=== PATIENT | female | born 1940 | race Caucasian/White ===

== ENCOUNTER 2016-04-27 06:37 | Day surgery (SDC) | payer OTHER ==
[2016-04-27] MEDS ORDERED: ceFAZolin 2 GM/DEXTROSE 100 ML IV ONE (07:00)
[2016-04-27] MEDS ORDERED: BUPIVACAINE 0.5% 30 ML SDV ONE (07:05)
[2016-04-27] MEDS ORDERED: LIDOCAINE 1% 30 ML SDV ONE (07:05)
[2016-04-27] MEDS ORDERED: SODIUM BICARBONATE 10 MEQ/10 ML SYR IVP ONE (07:05)
[2016-04-27] MEDS ORDERED: LIDOCAINE 1% 5 ML SDV ONE (07:21)
[2016-04-27] MEDS ORDERED: PROPOFOL 200 MG/20 ML VIAL ONE (08:58)
[2016-04-27] MEDS ORDERED: fentaNYL 100 MCG/2 ML INJ ONE (08:58)
[2016-04-27] MEDS ORDERED: LIDOCAINE 2% 100 MG/5 ML SYR IVP ONE (09:00)
[2016-04-27] MEDS ORDERED: PHENYLEPHRINE HCL 100 MCG/ML SYR ONE (09:41)
[2016-04-27] MEDS ORDERED: ONDANSETRON 4 MG/2 ML VIAL ONE (09:47)
[2016-04-27] MEDS ORDERED: DEXAMETHASONE 4 MG/ML VIAL ONE (09:48)
--- NOTE | 2016-04-27 11:09 | DX ---
Portable Chest, Single View 10:43 a.m. Indication: Port placement. Comparison: Two-view chest dated January 17, 2012 Findings: A left anterior chest wall port is well-positioned with the tip at the right atrial superio r vena caval junction. No pneumothorax or interstitial edema. Linear atelectasis in the left base and bilateral midlung is new. Cardiomegaly, tortuous descending thoracic aorta, and diffuse peribronchi al thickening are unchanged. Impression: 1. New well-positioned port. No pneumothorax. 2. New minimal atelectasis.
[2016-04-27 11:16] LABS: CALCIUM 10.1 ng/dL (8.5-10.4); CREATININE 0.8 mg/dL (0.6-1.0)
[2016-04-27 11:28] LABS: PTH INTACT NO MINERALS 63.3 pg/ml (10.8-79.4)
--- NOTE | 2016-04-27 11:28 | GOP ---
[f rep st] OPERATIVE REPORT DATE OF OPERATION: 04/27/2016 SURGEON: Abimael Dowell MD PREOPERATIVE DIAGNOSIS: Esophageal cancer. POSTOPERATIVE DIAGNOSIS: Esophageal cancer. PROCEDURE PERFORMED: Left subclavian port placement with fluoroscopic guidance. FINDINGS: The patient was found in good position and good flow of the catheter. DESCRIPTION OF PROCEDURE: The patient was taken to the operating room where she received satisfactor y general laryngeal mask anesthesia by Dr. Gibson, placed in supine position, prepped and draped in [facility] sterile fashion. She was then placed in Trendelenburg. A single stick was made in the left subc lavian vein. A guidewire was introduced. Position was confirmed with fluoroscopy. A subcu pocket w as made in the 2nd intercostal space. Port tubing was passed from that pocket to the subclavian inse rtion site, trimmed to the appropriate length using fluoroscopic guidance, and introduced through the introducer sheath and dilator system into the right atrium. Good backflow was achieved. The cathet er was flushed with heparin and saline. The port was secured to the fascia with 3-0 Vicryl. The poc ket was closed with 3-0 Vicryl for the subcu and a 4-0 Prolene subcuticular stitch for the skin. The entrance site was closed with a Prolene mattress suture. The wound was dressed. She tolerated the procedure well, taken to the recovery room in good condition. There were no complications. Copy requested to: Dr. Gibson /[id number]/MODL
== END 2016-04-27 12:00 | disposition home or self-care (01) ==
LOC: FSGY 06:37
PROVIDERS: ATTEND Surgery
PROC: 0JH60XZ Insertion of Tunneled Vascular Access Device into Chest Subcutaneous Tissue and Fascia, Open Approach (ICD-10-PCS; principal; 2016-04-27 09:15)
PROC: 02HV33Z Insertion of Infusion Device into Superior Vena Cava, Percutaneous Approach (ICD-10-PCS; principal; 2016-04-27 09:15)
DX: C15.4 Malignant neoplasm of middle third of esophagus (principal); I10 Essential (primary) hypertension; G47.33 Obstructive sleep apnea (adult) (pediatric)
CPT/HCPCS: C1788; J0690; J1100; J2001; J2370; J2405; J2704; J3010

== ENCOUNTER 2016-05-31 00:17 | Emergency (ER) | payer OTHER ==
[2016-05-31] MEDS ORDERED: ALTEPLASE 100 MG/100 ML VIAL IV ONE ×2 (00:34→00:41)
--- NOTE | 2016-05-31 00:34 | EDPHY ---
H & P Time Seen by Provider: 05/31/16 00:18 HPI/ROS: HPI Right-sided weakness. Stroke alert. 75-year-old female from home by ambulance. Patient getting ready for bed at 10: 00 p.m. when she developed sudden-onset complete paralysis of her right upper extremity and right lower extremity. Time of onset of neurologic deficit 10:00 p.m.. No headache. Blood glucose 126 per EMS. On arrival she now has some motor function in the right upper and right lower extremity but significant generalized weakness in both extremities relative to her left side. ROS: Constitutional: No fever, no chills. No weakness. Eyes: No discharge. No changes in vision. ENT: No sore throat. No nasal congestion or rhinorrhea. Respiratory: No cough. No shortness of breath. Cardiac: No chest pain, no palpitations. Gastrointestinal: No abdominal pain, no vomiting, no diarrhea. Genitourinary: No hematuria. No dysuria or increased frequency with urination. Musculoskeletal: No back pain. No neck pain. No myalgias or arthralgias. Skin: No rashes. Neurological: No headache. As above. Past medical history: Hypertension, hyperlipidemia, esophageal cancer. She is not on antiplatelet or anticoagulant medications. She has no history of recent surgeries or coagulopathy. Social history: Lives with her . Nonsmoker. Nonalcohol. Physical Exam: General Appearance: Alert, no distress. This patient is responding to questions appropriately and in full sentences. This patient appears well- hydrated and well-nourished. Eyes: Pupils equal and round no pallor or injection. No lid edema, erythema or injection. ENT, Mouth: Mucous membranes are moist. The pharyngeal tissues are unremarkable. No edema or swelling. No asymmetry suggestive of abscess. No erythema or exudates. Respiratory: There are no retractions, lungs are clear to auscultation with good air movement bilaterally. Cardiovascular: Regular rate and rhythm. No murmur. Gastrointestinal: Abdomen is soft and nontender, no masses, bowel sounds normal. No focal tenderness at McBurney's point. No Borja sign. Neurological: Motor weakness right upper extremity and right lower extremity 2- 3/5 relative to left 5/5 motor strength. Cranial nerves normal. Skin: Warm and dry, no rashes. Musculoskeletal: Neck is supple and nontender. Extremities are symmetrical. All joints range without pain or impingement. Psychiatric: No agitation. No depression. Database: EKG: EKG time is 12:37 a.m.; EKG shows a narrow complex normal sinus rhythm with a ventricular rate of 84. The MA, QRS, QT intervals are within normal limits. There are no ST-T wave changes indicative of ischemic or injury pattern. No evidence of right heart strain. Interpreted by me. Imaging: CT scan of head without contrast: Negative. Results discussed with staff radiologist Dr. Nelson Parks. CTA of head neck: Significant for complete occlusion of the right ICA bifurcation to the morongo of [place]. Results were discussed with staff radiologist Dr. Nelson Parks. Procedures: Emergency department course: Vital signs reviewed. Patient assessed initially outside resuscitation [place] room 1. Patient sent for noncontrast CT scan of her head. Spoke with Dr. Thomason, [facility] at [facility]. Patient returned from CT at 12:30 a.m.. No change in neurologic status. Dr. Thomason evaluated her by telemedicine at this time. Results of noncontrast CT scan of brain discussed with Dr. Thomason. Dr. Thomason gave verbal order for tPA to be administered at 12: 45 a.m.. This order was filled by myself. TPA started at 12:45 a.m.. 12:50 a.m., I was informed that we do not have ICU beds. I spoke with Dr. Thomason. He accepts the patient for transfer and as a direct admit to the neuro ICU at [facility]. Appropriate transfer paperwork was filled out by myself. Estimated time of transport 1:40 a.m.. Patient to go critical care ground as requested by Dr. Thomason and arranged by [facility] staff. 1:17 a.m., patient re-evaluated. Repeat neurologic Assessment, her motor strength in her right upper right lower extremity has improved significantly. She is now 4-5/5 in motor strength in the right upper and right lower extremity relative to the left. Cranial nerves normal. Vital signs reviewed blood pressure: 122/72, tobacco flavorer shows a narrow complex sinus rhythm with ventricular rate of 81. Pulse oximetry 94%. Patient is awaiting transfer to [facility]. Results of diagnostic studies have been discussed with her and her . 1:35 a.m., patient's blood pressure came down to 95/52. She was given a 250 cc bolus of normal saline. TPA administration is completed. 1:45 a.m., patient re-evaluated, blood pressure 119/59. Narrow complex sinus rhythm on the monitor. Pulse oximetry 95%. Repeat neurologic Assessment unchanged from 1:17 a.m. assessment. 1:50 a.m., blood pressure 145/69, narrow complex sinus rhythm ventricular rate of 78 on the monitor. Pulse oximetry 95%. Patient responding to questions appropriately. All of her questions were answered. Critical care transport crew at the bedside. Repeat neurologic Assessment unchanged from 1:17 a.m.. Patient transferred to [facility] in stable and improved condition. Differential Diagnosis: The differential diagnosis on this patient includes but is not limited to acute ischemic CVA. Hemorrhagic CVA, hypoglycemia, Jeff's paralysis, hypokalemic periodic paralysis, tick paralysis unlikely. This represents a partial list of diagnoses considered. These considerations are based on history, physical exam , past history, reassessment and diagnostic testing. Smoking Status: Never smoked Constitutional: Initial Vital Signs Temperature (C) 36.8 C 05/31/16 00:20 Heart Rate 89 05/31/16 00:20 Respiratory Rate 20 05/31/16 00:20 Blood Pressure 137/89 H 05/31/16 00:20 O2 Sat (%) 90 L 05/31/16 00:20 O2 Delivery Mode Room Air Allergies/Adverse Reactions: No Known Allergies Allergy (Verified 04/26/16 17:02) Home Medications: Medication Instructions Recorded Anastrozole 04/26/16 Aspirin 81mg (*) 04/26/16 Atenolol 04/26/16 Furosemide 04/26/16 Losartan Potassium 04/26/16 Spironolactone 04/26/16 Prochlorperazine Maleate 05/31/16 Medical Decision Making Critical Care Time: I spent a total of 52 minutes of critical care time in obtaining history, performing a physical exam, bedside monitoring of interventions, collecting and interpreting tests and discussion with consultants but not including time spent performing procedures. - Data Points Laboratory Results: Laboratory Results 05/31/16 00:15 05/31/16 00:15 05/31/16 05/31/16 05/31/16 00:38 00:15 00:15 WBC RBC Hgb POC Hgb 12.9 gm/dL gm/dL (12.3-15.9) Hct POC Hct 38 % % (35.5-47.5) MCV MCH MCHC RDW Plt Count MPV Neut % (Auto) Lymph % (Auto) [place] % (Auto) Eos % (Auto) Baso % (Auto) Nucleat RBC Rel Count Absolute Neuts (auto) Absolute Lymphs (auto) Absolute Monos (auto) Absolute Eos (auto) Absolute Basos (auto) Absolute Nucleated RBC Immature Gran % Seg Neutrophils % Band Neutrophils % Lymphocytes % Monocytes % Immature Gran # Absolute Seg Neuts Absolute Band Neuts Absolute Lymphocytes Absolute Monocytes Differential Comment Cancelled RBC/WBC/PLT Morphology Cancelled Hypersegmented Neuts Cancelled Atypical Lymphocytes Cancelled Smudge Cells Cancelled Toxic Granulation Cancelled Toxic Vacuolation Cancelled Dohle Bodies Cancelled Thierno Rods Cancelled Platelet Estimate Cancelled Large Platelets Cancelled Giant Platelets Cancelled Bizarre Platelets Cancelled Polychromasia Cancelled Hypochromasia Cancelled Basophilic Stippling Cancelled Microcytic Cells Cancelled Spherocytes Cancelled Pappenheimer Bodies Cancelled Sickle Cells Cancelled Target Cells Cancelled Tear Drop Cells Cancelled Oval Macrocytes Cancelled Stomatocytes Cancelled [place] Bodies Cancelled Echinocytes Cancelled Elliptocytes Cancelled Acanthocytes (Spur) Cancelled Rouleaux Cancelled Keratocytes Cancelled Schistocytes Cancelled Smear Review By PT INR POC Sodium 143 mEq/L mEq/L (134-144) Sodium 145 mEq/L H mEq/L (134-144) POC Potassium 3.4 mEq/L mEq/L (3.3-5.0) Potassium 4.2 mEq/L mEq/L (3.5-5.2) POC Chloride 104 mEq/L mEq/L (96-108) Chloride 108 mEq/L mEq/L (97-110) Carbon Dioxide 26 mEq/l mEq/l (22-31) Anion Gap 11 mEq/L mEq/L (8-16) POC BUN 13 mg/dL mg/dL (7-23) BUN 15 mg/dL mg/dL (7-23) Creatinine 1.0 mg/dL mg/dL (0.6-1.0) POC Creatinine 1.1 mg/dL mg/dL (0.6-1.2) Estimated GFR 54 Glucose 114 mg/dL H mg/dL (70-100) POC Glucose 113 mg/dL H mg/dL (70-100) Calcium 10.8 mg/dL H mg/dL (8.5-10.4) Phosphorus 2.6 mg/dL mg/dL (2.5-4.5) Cold Agglutinins Cancelled 05/31/16 05/31/16 00:15 00:15 WBC 4.40 10^3/uL 10^3/uL (3.80-9.50) RBC 4.55 10^6/uL 10^6/uL (4.18-5.33) Hgb 12.7 g/dL g/dL (12.6-16.3) POC Hgb Hct 40.3 % % (38.0-47.0) POC Hct MCV 88.6 fL fL (81.5-99.8) MCH 27.9 pg pg (27.9-34.1) MCHC 31.5 g/dL L g/dL (32.4-36.7) RDW 20.9 % H % (11.5-15.2) Plt Count 237 10^3/uL 10^3/uL (150-400) MPV 9.0 fL fL (8.7-11.7) Neut % (Auto) Not Reported Lymph % (Auto) Not Reported [place] % (Auto) Not Reported Eos % (Auto) Not Reported Baso % (Auto) Not Reported Nucleat RBC Rel Count 0.0 % % (0.0-0.2) Absolute Neuts (auto) Not Reported Absolute Lymphs (auto) Not Reported Absolute Monos (auto) Not Reported Absolute Eos (auto) Not Reported Absolute Basos (auto) Not Reported Absolute Nucleated RBC 0.00 10^3/uL 10^3/uL (0-0.01) Immature Gran % Not Reported Seg Neutrophils % 15 % % Band Neutrophils % 5 % % Lymphocytes % 55 % % Monocytes % 25 % % Immature Gran # Not Reported Absolute Seg Neuts 0.66 10^/uL L 10^/uL (1.70-6.50) Absolute Band Neuts 0.22 10^3/uL 10^3/uL (0.00-0.70) Absolute Lymphocytes 2.42 10^3/uL 10^3/uL (1.00-3.00) Absolute Monocytes 1.10 10^3/uL H 10^3/uL (0.30-0.80) Differential Comment RBC/WBC/PLT Morphology Hypersegmented Neuts Atypical Lymphocytes 1+ H Smudge Cells Toxic Granulation Toxic Vacuolation Dohle Bodies Thierno Rods Platelet Estimate ADEQUATE (ADEQ) Large Platelets Giant Platelets Bizarre Platelets Polychromasia Hypochromasia Basophilic Stippling Microcytic Cells 1+ H Spherocytes Pappenheimer Bodies Sickle Cells Target Cells Tear Drop Cells Oval Macrocytes Stomatocytes [place] Ver[place] Bodies Echinocytes Elliptocytes Acanthocytes (Spur) Rouleaux Keratocytes Schistocytes Smear Review By Pending PT 13.8 SEC SEC (12.0-15.0) INR 1.07 (0.83-1.16) POC Sodium Sodium POC Potassium Potassium POC Chloride Chloride Carbon Dioxide Anion Gap POC BUN BUN Creatinine POC Creatinine Estimated GFR Glucose POC Glucose Calcium Phosphorus Cold Agglutinins Medications Given: Discontinued Medications Alteplase, Recombinant (Activase) 0 mg IV ONCE ONE PRN Reason: Protocol Stop: 05/31/16 00:42 Last Admin: 05/31/16 00:44 Dose: 8.6 mg Alteplase, Recombinant (Activase) 0 mg IV ONCE ONE PRN Reason: Protocol Stop: 05/31/16 00:42 Last Admin: 05/31/16 00:46 Dose: 77.8 mg Sodium Chloride (Ns) 50 mls @ 0 mls/hr IV EDNOW ONE PRN Reason: Per Protocol Stop: 05/31/16 00:42 Last Admin: 05/31/16 00:46 Dose: 50 mls Point of Care Test Results: 05/31/16 00:38 POC Sodium 143 POC Potassium 3.4 POC Chloride 104 POC BUN 13 POC Creatinine 1.1 POC Glucose 113 H Departure - Departure Disposition: Acute Care Hospital Not [facility] 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
[2016-05-31] MEDS ORDERED: NS 100 ML BAG IV ONE (00:35)
--- NOTE | 2016-05-31 00:39 | CPEKG ---
Heart Rate: 84 RR Interval: 714 P-R Interval: 172 QRSD Interval: 106 QT Interval: 408 QTC Interval: 483 P [place]: 61 QRS [place]: -22 T Wave [place]: 26 EKG Severity - ABNORMAL ECG - EKG Impression: SINUS RHYTHM EKG Impression: LEFT ATRIAL ABNORMALITY Electronically Signed By: Arthur Moreno 31-May-2016 02:03:14
[2016-05-31] MEDS ORDERED: NS 50 ML IV ONE (00:41)
[2016-05-31] MEDS ORDERED: ALTEPLASE 1 MG/ML SYR IV ONE (00:41)
[2016-05-31] MEDS ORDERED: IOPAMIDOL (ISOVUE-370) 150 ML BTL IV ONE (00:43)
[2016-05-31 00:54] LABS: ANION GAP 11 mEq/L (8-16); CALCIUM 10.8 mg/dL (8.5-10.4); CARBON DIOXIDE 26 mEq/l (22-31); CHLORIDE 108 mEq/L (97-110); GLOMERULAR FILTRATION RATE 54; GLUCOSE 114 mg/dL (70-100); POTASSIUM 4.2 mEq/L (3.5-5.2); SODIUM 145 mEq/L (134-144)
[2016-05-31 00:57] LABS: ADD DIFF? YES; ADD MORPH? YES; ADD SCAN? NO; ATYPICAL LYMPHOCYTE FLAG 30 (0-99); FRAGMENT RBC FLAG 0 (0-99); HEMATOCRIT 40.3 % (38.0-47.0); HEMOGLOBIN 12.7 g/dL (12.6-16.3); LEFT SHIFT FLG 40 (0-99); LIPEMIA HEMOLYSIS FLAG 80 (0-99); MEAN CELL HEMOGLOBIN 27.9 pg (27.9-34.1); MEAN CELL HEMOGLOBIN CONCENTR. 31.5 g/dL (32.4-36.7); MEAN CELL VOLUME 88.6 fL (81.5-99.8); PLATELET CLUMPS FLAG 0 (0-99); PLATELET COUNT 237 10^3/uL (150-400); RED BLOOD CELL COUNT 4.55 10^6/uL (4.18-5.33)
[2016-05-31 00:58] LABS: RED CELL DISTRIBUTION WIDTH 20.9 % (11.5-15.2)
[2016-05-31 01:14] LABS: INR 1.07 (0.83-1.16); PROTIME(PATIENT) 13.8 SEC (12.0-15.0)
[2016-05-31 01:18] VITALS: TEMP 98.2
[2016-05-31 01:23] LABS: MICROCYTES 1+; PLATELET ESTIMATE ADEQUATE (ADEQ)
[2016-05-31] MEDS ORDERED: NS 250 ML IV ONE (01:30)
[2016-05-31 02:19] VITALS: BP 145/69; PULSE 88; RESP 18; O2SAT 94
== END 2016-05-31 02:15 | disposition short-term general hospital (02) ==
LOC: EDUNIT#
DX: I63.9 Cerebral infarction, unspecified (principal); I10 Essential (primary) hypertension; Z85.01 Personal history of malignant neoplasm of esophagus; Z79.82 Long term (current) use of aspirin
CPT/HCPCS: 70450; 70496; 70498; 71010; 93005; 96374; 99291; J2997; Q9967; 82947-QW

== ENCOUNTER 2016-06-05 11:31 | Inpatient (IN) | payer OTHER ==
[2016-06-05] MEDS ORDERED: ONDANSETRON 4 MG/2 ML VIAL IVP ONE (12:54)
--- NOTE | 2016-06-05 13:40 | EDPHY ---
General - History Smoking Status: Never smoked Narrative: CHIEF COMPLAINT: Fall, arm pain HISTORY OF PRESENT ILLNESS: patient was getting out of her bed to grab her walker when she felt very weak and fell. She reports striking her right humerus. She did not strike her head or lose conscious. She did not strike her back, left arm or either leg. Her spouse was with her and witness this. He corroborates this information. Had a sudden onset of severe pain on the right arm involving the brachium. There is also swelling and redness. Difficulty moving that arm due to pain. No numbness or tingling distally. No neck pain. No pain anywhere else from the fall. No other associated complaints or modifying factors. Of note, the patient was being taken back to the [facility] to have her port de accessed. She is currently receiving chemotherapy and last received this 2 days ago. Additionally, the patient was diagnosed with stroke on the 7th of this month and administer tPA. REVIEW OF SYSTEMS: Ten systems reviewed and are negative unless otherwise noted in the HPI EXAMINATION General Appearance: Alert, no distress Head: normocephalic, atraumatic . No Lim sign. No raccoon eyes. No hematoma. No depression. Eyes: Pupils equal and round, no conjunctival pallor or injection ENT, Mouth: Mucous membranes moist . Uvula midline. Neck: Normal inspection . No tenderness. [id number] is symmetric in all planes without pain. Respiratory: No dyspnea or retractions. No distress . No wheezing, rhonchi or crackles. Cardiovascular: Pulses normal throughout. Symmetric DP and PT pulses at 2+. Symmetric radial pulses are 2+. Brisk cap refill Neurological: Alert and oriented. There is decreased sensation on the left arm which is baseline from chemo. Right upper extremity no sensory deficits. Strength is 5/5 in the lower limbs. strength is 4 5 in the left upper extremity and 4 5 in the right upper extremity. Skin: Warm and dry, no rash . Ecchymosis and edema to the right brachium anteriorly. Extremities: Significant tenderness to palpation of the right brachium. There is no tenderness about the right shoulder, elbow, wrist or hand. Range of motion about the shoulder is difficult to ascertain due to pain the brachium. Range of motion of the right elbow and wrist fully intact. Neurovascular intact distal to the area of injury Psychiatric: Mood and affect normal DIFFERENTIAL DIAGNOSES: Including but not limited to fracture, fracture dislocation, hematoma, contusion, ecchymosis MDM: 1:05 p.m. fall due to weakness within result of right upper extremity injury. She does have significant pain and signs of trauma to the right brachium. There are no signs of trauma elsewhere. Did not strike her head nor did she have any headache. There is no loss of conscious. No outward signs of trauma elsewhere. 1:45 p.m. x-ray reveals fracture at the surgical neck with displacement of the right humerus. No other abnormality noted on chest x-ray or right humerus. I went back to re-examine the patient, her heart rate was approximately 120 beats per minute. I palpate a radial pulse and she does feel to be irregular. She is hemodynamically stable with no hypotension. Will obtain an EKG and laboratory studies. Due to the fracture and the fact that she was already using a walker, I feel she is unsafe for discharge home. I will proceed with admission for rehab evaluation. Patient is neurovascular intact distal to this right humerus fracture and no acute distress at this time. 2:10 p.m. EKG does reveal atrial fibrillation with RVR. She is normotensive mentating appropriately. I originally discussed the case with Dr. Kerry Montiel for admission. After doing so the 1st time, I added diltiazem drip. I contacted her again to notify her of this. She is requesting that we consult Cardiology as this appears to be new onset atrial fibrillation in a patient who had a stroke 5 days ago. There is no documentation otherwise she has been in atrial fibrillation before, and she is not on any anticoagulants. We will not proceed with cardioversion at this time as we do not know the exact time of onset of her AFib, but we will attempt rate control 2:25 p.m. I discussed the case with managing supervisor Dr. Saldaña. He will provide consultation. He asked if there was an echocardiogram available from [facility], and we have yet to receive their fax. I did check on line in [facility], and there is no documentation of that visit. ED Precautions: Worsening pain. Erythema, edema, cyanosis, pallor, paresthesia or anesthesia. EKG Interpreted by: Dr. Parmar rate is 130 beats per minute, atrial fibrillation with rapid ventricular rate. No ST depression or elevation. No T-wave is inverted. SUPERVISION: This patient was independently evaluated without the aide of supervising physician. Case discussed in detail with Dr. Parmar ([facility]) Medical Decision Making: I did not see this patient while she was in the emergency department. However her care was discussed with the PA while the patient was in the department. I agree with treatment plan and management (Mike Parmar) - Objective Vital Signs: Initial Vital Signs Temperature (C) 36.8 C 06/05/16 11:42 Heart Rate 110 H 06/05/16 11:42 Respiratory Rate 18 06/05/16 11:42 Blood Pressure 153/82 H 06/05/16 11:42 O2 Sat (%) 96 06/05/16 11:42 O2 Delivery Mode Room Air Allergies/Adverse Reactions: No Known Allergies Allergy (Verified 04/26/16 17:02) Home Medications: Medication Instructions Recorded Anastrozole [Arimidex 1 mg (*)] 1 mg PO DAILY 06/05/16 Aspirin EC [Aspirin EC 81 mg (*)] 81 mg PO DAILY 06/05/16 Herbals/Supplements -Info Only 1 ea PO DAILY 06/05/16 Laboratory Results: Laboratory Results 06/05/16 13:50 06/05/16 13:50 Medications Given: Discontinued Medications Diltiazem HCl (Cardizem Immediate Release) 30 mg PO EDNOW ONE Stop: 06/05/16 13:50 Last Admin: 06/05/16 14:43 Dose: Not Given Diltiazem HCl (Cardizem 25 Mg/5 Ml Vial) 10 mg IVP EDNOW ONE Stop: 06/05/16 13:50 Last Admin: 06/05/16 14:01 Dose: 10 mg Diltiazem HCl 125 mg/ Dextrose 125 mls @ 0 mls/hr IV EDNOW ONE; Titrate PRN Reason: Protocol Stop: 06/05/16 14:01 Last Admin: 06/05/16 14:19 Dose: 125 mls Morphine Sulfate (Morphine) 4 mg IVP EDNOW ONE Stop: 06/05/16 12:55 Last Admin: 06/05/16 13:07 Dose: 4 mg Ondansetron HCl (Zofran) 4 mg IVP EDNOW ONE Stop: 06/05/16 12:55 Last Admin: 06/05/16 13:07 Dose: 4 mg Departure - Departure Disposition: [facility] Clinical Impression: Humerus fracture Qualifiers: Encounter type: initial encounter Humerus Location: proximal Fracture type: closed Fracture morphology: other fracture Fracture alignment: displaced Laterality: right Qualified Code(s): S42.291A - Other displaced fracture of upper end of right humerus, initial encounter for closed fracture Condition: Good
--- NOTE | 2016-06-05 13:46 | CPEKG ---
Heart Rate: 138 RR Interval: 435 QRSD Interval: 82 QT Interval: 316 QTC Interval: 479 QRS [place]: -22 EKG Severity - ABNORMAL ECG - EKG Impression: ATRIAL FIBRILLATION, V-RATE 72-183 EKG Impression: BORDERLINE LEFT AXIS DEVIATION Electronically Signed By: Mike Parmar 05-Jun-2016 15:20:02
[2016-06-05] MEDS ORDERED: DILTIAZEM 30 MG TAB PO ONE (13:49)
[2016-06-05] MEDS ORDERED: DILTIAZEM 25 MG/5 ML VIAL IVP ONE (13:49)
[2016-06-05] MEDS ORDERED: DILTIAZEM 125 MG in D5W 125 ML IV ONE (14:00)
[2016-06-05 14:06] LABS: HEMATOCRIT 33.8 % (38.0-47.0); HEMOGLOBIN 10.9 g/dL (12.6-16.3); MEAN CELL HEMOGLOBIN 28.5 pg (27.9-34.1); MEAN CELL HEMOGLOBIN CONCENTR. 32.2 g/dL (32.4-36.7); MEAN CELL VOLUME 88.5 fL (81.5-99.8); RED BLOOD CELL COUNT 3.82 10^6/uL (4.18-5.33)
[2016-06-05 14:10] LABS: RED CELL DISTRIBUTION WIDTH 21.2 % (11.5-15.2)
[2016-06-05 14:13] LABS: ANION GAP 8 mEq/L (8-16); CALCIUM 10.3 mg/dL (8.5-10.4); CARBON DIOXIDE 22 mEq/l (22-31); CHLORIDE 110 mEq/L (97-110); CREATININE 0.8 mg/dL (0.6-1.0); GLOMERULAR FILTRATION RATE > 60; GLUCOSE 127 mg/dL (70-100); SODIUM 140 mEq/L (134-144)
[2016-06-05 14:28] LABS: TROPONIN I 0.045 ng/mL (0-0.034)
[2016-06-05 14:35] LABS: INR 1.12 (0.83-1.16); PROTIME(PATIENT) 14.3 SEC (12.0-15.0)
[2016-06-05 14:36] LABS: APTT 35.7 SEC (23.0-38.0)
[2016-06-05] MEDS ORDERED: HYDROmorphONE/DILAUDID 1 MG/ML SYR IVP PRN (15:05)
[2016-06-05] MEDS ORDERED: ACETAMINOPHEN 325 MG TAB PO PRN (15:05)
[2016-06-05] MEDS ORDERED: ONDANSETRON 4 MG/2 ML VIAL IVP PRN (15:05)
[2016-06-05] MEDS ORDERED: HYDROCODONE/APAP 5/325 TAB PO PRN (15:05)
[2016-06-05] MEDS ORDERED: DILTIAZEM 125 MG in D5W 125 ML IV SCH (15:30)
--- NOTE | 2016-06-05 16:32 | GHP ---
[f rep st] HISTORY AND PHYSICAL DATE OF ADMISSION: 06/05/2016 CHIEF COMPLAINT: Right arm pain. HISTORY OF PRESENT ILLNESS: The patient is a very nice 75-year-old woman with a history significant for recent stroke. She had right-sided weakness, presented to the emergency department here, and w as transferred to [facility], and treated with tPA with excellent resolution of her symptoms, except for some residual right-hand numbness, and she still needs a walker for ambulation. At the [facility], she did have an MRI without contrast that showed multifocal bilateral strokes. She had an echocardiogram, which was benign. They have monitored her in the hospital for 4 days, and d id not note any evidence of atrial fibrillation, and were planning on having her follow up for a Hol ter monitor as an outpatient. She had been doing well. 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 When s he got up this morning, she went to grab her walker. She said her right hand felt extremely cold wh en she grabbed the walker, and she ended up falling onto her right side sustaining severe pain in th at arm. She went to [facility] to get her chemotherapy infusion discontinued, and then came to the emergency department for further evaluation and treatment. She had an x-ray done, which showed an acute displaced and angulated three-piece right surgical neck fracture. Dr. Vega has been consulted, but has not yet seen the patient. While awaiting admission for this issue, her heart rate increased, and she was noted to be in rapid atrial fibrillation. She has been completel y asymptomatic of this, and denies any chest pain, palpitations, dizziness, or shortness of breath a t this time. She otherwise has been well. She denies any fevers, chills, recent illnesses. Her ri ght-sided deficits have improved significantly. She has had no headache, vision, hearing, speech ch anges. She has had no abdominal complaints, nausea, vomiting, urinary complaints, bowel changes. N o lower extremity edema. REVIEW OF SYSTEMS: A 10-point review of systems was done, and is negative except as stated in the H PI. PAST MEDICAL HISTORY: 1. Recent CVA, with right-sided weakness, status post tPA on 05/31/2016. 2. Esophageal cancer, status post cycle 4 of FOLFOX chemo, followed by Dr. Paulnie Sheffield. 3. History of breast cancer. 4. Hypertension. 5. GE reflux disease. 6. Prediabetes. 7. Elevated creatinine. 8. Hyperparathyroidism. 9. Obstructive sleep apnea. 10. Arthritis. PAST SURGICAL HISTORY: Includes appendectomy, arthroscopic knee surgery, cataract, lumpectomy, part ial mastectomy of left breast. FAMILY HISTORY: Significant for strokes in her father at age 47, stomach cancer in her mother, who at age 75. SOCIAL HISTORY: She is . Her and her live in their small home. She is independent and still drives, at least prior to her stroke. She denies significant alcohol or tobacco use. CURRENT MEDICATIONS: Include aspirin daily, and Arimidex 1 mg daily. ALLERGIES: No known drug allergies. PHYSICAL EXAMINATION: VITAL SIGNS: She is afebrile. Heart rate is 126 and irregular. Blood press ure 120/78, respirations 16. She is 96% on room air. GENERAL: She is an obese 75-year-old woman w ho is in [id number] distress due to arm pain. She is alert and oriented. Her speech is clear and fluent. HEENT: Pupils are equal. Extraocular movements intact. Mucous membranes moist. Fac e is symmetric. NECK: Supple. No adenopathy. No thyromegaly. HEART: Irregular and tachycardic. LUNGS: Clear bilaterally. ABDOMEN: Soft, obese, no masses, nontender. EXTREMITIES: No signifi cant clubbing, cyanosis, or edema. Right upper extremities: Large ecchymosis just distal to her sh oulder with pain. Skin otherwise intact. No other bruising noted. NEUROLOGIC: She has some numbn ess on her right hand, but moves all 4 extremities. Speech is fluent. No facial droop. LABORATORY DATA: White count 12.4, hemoglobin 10, with a platelet count of 185. Coags are normal. Chemistry shows normal electrolytes and renal function. Glucose slightly elevated at 127. Troponi n 0.045. TSH is normal. Electrocardiogram shows atrial fibrillation, with a rapid ventricular resp onse. Humerus x-ray shows acute displaced and angulated three-piece right surgical neck fracture. Chest x-ray, personally reviewed and interpreted, minimal left atelectasis, otherwise no acute cardi opulmonary disease. ASSESSMENT AND PLAN: A 75-year-old woman presents after a fall with an acute right humeral neck fra cture. She has since converted into asymptomatic rapid atrial fibrillation. 1. Atrial fibrillation, with rapid ventricular response, in the setting of recent acute stroke, sta tus post tPA. She has had an MRI which showed multifocal bilateral strokes. This is all consistent with atrial fibrillation, and likely cardiogenic strokes. Ideally, she should be put on a blood th inner. However, given her large ecchymosis forming at the site of her fracture, I am reluctant to d o that without stabilization of this. I did discuss the case in detail with Dr. Juanito Saldaña. At this time, we will get her rate controlled with diltiazem, continue aspirin, and consider SANDY cardio version in the morning if she has no further clots in her heart. Unfortunately, she has a history o f distal esophageal carcinoma, which may make a SANDY difficult. 2. Right humeral neck fracture, displaced. I have discussed the case with Dr. Emanuel Vega, who w ill see her in consultation. She has a lot of bleeding at this site, and we will hold off on antico agulation at this time, and will manage her with immobilization until Dr. Vega can comment on surg ical evaluation, which seems unlikely in the setting of her acute stroke. However, if she continues to bleed, would need to reconsider that. 3. Recent cerebrovascular accident. 4. Occluded right carotid artery, with flow through the ramona of [place] noted on her recent stroke evaluation, and CTA done here in the hospital. Her stroke symptoms are on the right, so this is li salima an asymptomatic finding at this time, and she is getting collateral flow to the ramona of Willi s. 5. History of esophageal cancer. Currently on FOLFOX therapy followed by Dr. Pauline Sheffield. I do no t know how much stenosis she has in that area, and may not tolerate a SANDY. This will make ongoing m anagement difficult. 6. History of breast cancer. She is currently on Arimidex. 7. Hypertension. Recently discontinued on her atenolol, Lasix, losartan, and spironolactone due to her stroke. She was likely normotensive to hypotensive at the hospital, and they discontinued all of her medications at the time she left. 8. History of hyperparathyroidism. 9. Hyperlipidemia, with the most recent LDL less than 70. 10. Obesity. 11. Obstructive sleep apnea. 12. Prediabetes. We will monitor blood sugars while she is here. They have been reasonable so far . 13. Deep vein thrombosis prophylaxis. We will monitor. We will start her on low-molecular heparin tomorrow if she is not an anticoagulant candidate due to her fracture. 14. Anemia, fairly stable. We will continue to monitor this, in light of her large ecchymosis at h er fracture site. /[id number]/MODL
--- NOTE | 2016-06-05 16:47 | GCON ---
[f rep st] CONSULTATION REASON FOR CONSULTATION: Right shoulder injury. HISTORY OF PRESENT ILLNESS: Patient is a 75-year-old right-hand dominant woman who sustained a fall on her right outstretched arm. She noted the right shoulder pain and swelling. PAST MEDICAL HISTORY: Positive for a recent stroke 5 days ago. It was additionally positive for es ophageal cancer. PHYSICAL EXAMINATION: On examination, there is diffuse swelling and tenderness in her right anterio r shoulder girdle. Her distal neurovascular exam is grossly intact in radial, ulnar, and median ner ve distributions. Her hand is well perfused. IMAGING: Radiographs of her shoulder show evidence of a displaced surgical neck fracture of the hum erus. ASSESSMENT: Right proximal humerus fracture. PLAN: It is recommended that an initial course of nonoperative treatment be pursued with allowing h er right upper extremity to be held in a dependent position in hopes that this allows for better ali gnment of her fracture and potential healing. Her medical condition at this point, precludes any "e lective" type surgery based on a recent stroke and need for anticoagulation. If surgery were to be considered, a percutaneous pinning may be considered in hopes of avoiding any notable bleeding. Andrea t being said, if surgical intervention is not performed and she has nonhealing, prosthetic shoulder hemiarthroplasty would be an option from a salvage standpoint when she is a safer candidate for surg [facility]. It is recommended that she be in upright position as possible with her arm hanging in a sling or cuff and collar. Followup will be in approximately 1 week to reassess her fracture alignment. /[id number]/MODL
[2016-06-05] MEDS ORDERED: APIXABAN 5 MG TAB PO SCH (21:00)
[2016-06-05] MEDS ORDERED: NS 1,000 ML IV SCH (22:00)
--- NOTE | 2016-06-05 22:22 | GCON ---
[f rep st] CONSULTATION DATE OF CONSULTATION: 06/05/2016 The patient is a 75-year-old former employee of [employer] where she worked in the [email or web address] for many years who presents to the hospital after a fall. She was recently admitted to the ospital for complaints of a stroke with right-sided weakness and presented to the emergency departme nt here, ultimately received tPA and was transferred to [facility] with excellent resolution o f her symptoms except for some residual right hand numbness. She had an MRI with contrast that show ed multifocal bilateral strokes, atrial fibrillation was suspected. An echocardiogram was done at [facility] time, but no atrial fibrillation had been documented. She was recently discharged from the [facility] after 4 days, and they were having her followup with a Holter monitor as an outpatient. Today, she was trying to get up with the use of her walker and her hand felt somewhat weak. She fell on er outstretched right hand and developed severe pain in her right arm. She was taken to the [facility] and found to have a displaced surgical neck fracture of her right humerus. At the time of arrival in the emergency department, she was noted to be in atrial fibrillation with rapid ventricular resp onse, and I was asked to see the patient in consultation. The patient has been recently treated in [facility] to get chemotherapy for a dist al esophageal cancer, which was noted with dysphagia and difficulty swallowing. She has received 4 cycles of chemotherapy at the [facility] and has a port for that purpose. The patient was seen by Dr. Vega in consultation who feels that she is currently not a surgical ca ndidate at the present time. She has not had chest pain, palpitations, sensation of shortness of br eath or other clinical symptoms. PAST MEDICAL HISTORY: Significant for: 1. Recent CVA with right-sided weakness status post tPA infusion 05/31/2016. 2. Esophageal cancer status post cycle 4 of FOLFOX chemo followed by Dr. Pauline Sheffield. 3. History of breast cancer. 4. Hypertension. 5. Carotid disease with evidence of a right internal carotid obstruction. 6. GE reflux disease. 7. Pre-diabetes. 8. Elevated creatinine. 9. Hyperparathyroidism. 10. Obstructive sleep apnea. 11. Arthritis. PAST SURGICAL HISTORY: Significant for: 1. Appendectomy. 2. Arthroscopic knee surgery. 3. Cataract. 4. Lumpectomy. 5. Partial mastectomy of the left breast. 6. EGD with biopsy. FAMILY HISTORY: Significant for strokes in her father at age 47. Stomach cancer in her mother who at age 75. She is , live here in their small home. She is independe nt and still drives at least prior to her stroke. She denies alcohol or tobacco use. Her abuse. MEDICATIONS: Currently include , aspirin. ALLERGIES: She has no known drug allergies. PHYSICAL EXAMINATION: VITAL SIGNS: She was afebrile, heart rate was 120-130 and irregularly irregu lar, blood pressure 120/78 on a Cardizem drip, respirations are 16 and unlabored. She is 96% on gerard m air. GENERAL: She is an obese 75-year-old lady with moderate distress secondary to right arm andres n. She is alert and oriented x3. Her per speech is clear and fluent. Her affect is normal. HEENT : Pupils are equal, round, and reactive to light. NECK: Reveals no JVD. I do not appreciate a br uit on either side. HEART: Reveals an irregularly irregular rhythm and is tachycardic with a faint systolic murmur consistent with aortic sclerosis. LUNGS: Clear to auscultation bilaterally withou t wheezes, rales, or rhonchi. ABDOMEN: Soft, obese with positive bowel sounds, and her body habitu s precludes an accurate examination. EXTREMITIES: Revealed no clubbing, cyanosis, or edema. Her r ight upper extremity reveals a large ecchymoses and probable hematoma just distal to her shoulder wi th pain. She has numbness in her right hand, but moves all extremities. She has no acute facial dr oop. LABORATORY DATA: Troponin of 0.045. TSH is normal. EKG shows atrial fibrillation with rapid ventr icular response and no definitive ischemic changes. Humerus x-ray shows an acute displaced and angu lated 3 piece right surgical neck fracture. Chest x-ray reveals minimal left atelectasis and no acu te cardiopulmonary disease. IMPRESSION AND PLAN: This elderly lady presents with atrial fibrillation and with her recent histor y of cerebrovascular accident and her MRI findings, almost certainly those were thromboembolic. She does have a CHADS vasc score of 6 on the basis of her age, female gender, hypertension, and cerebro vascular accident on the basis of her recent stroke findings and the findings of the MRI suggestive of a cardioembolic source. Certainly, she should be anticoagulated as soon as that is safe, but I a m concerned about giving full-dose anticoagulation in the setting of active bleeding and hematoma an d severe ecchymoses in the right shoulder. Presumably her atrial fibrillation started within the la st several days because she was in sinus rhythm throughout the time of her hospitalization for the s troke. I do think she should have a SANDY, although this would carry with it greater risk than normal given her history of esophageal cancer. Since that is been debulked at the present time, and there is no dysphagia, I think would be overall in her best interest to proceed with a SANDY guided cardiov ersion in the morning. If there is no evidence of a left atrial appendage thrombus, I think it woul d be reasonable to try to get her cardioverted. If she is able to be cardioverted, then I think it may be reasonable to proceed with repair of her left humerus surgically if she is cleared from a cristofer rologic standpoint and from the Neurology team and following a neurology consultation to determine r isk of acute brain injury given the recent nature of her stroke. Another alternative other than SANDY would be to chronically anticoagulate the patient as soon as that is deemed safe by the Orthopedic service, and then to continue anticoagulation and rate control for 45 days, and then consider an jose ctive cardioversion at that time if the patient has not converted to sinus rhythm. Overnight, I thi nk I would favor just rate control and monitoring her rhythm, and I would not start her on any antia rrhythmics that may cause a chemical cardioversion at the present time because of the obvious risk f or stroke in this complex lady. /[id number]/MODL
[2016-06-06 06:33] LABS: % IMMATURE GRANULYOCYTES 0.5 % (0.0-1.1); ABSOLUTE IMMATURE GRANULOCYTES 0.04 10^3/uL (0.00-0.10); ADD DIFF? NO; ADD MORPH? YES; ADD SCAN? NO; ATYPICAL LYMPHOCYTE FLAG 0 (0-99); FRAGMENT RBC FLAG 0 (0-99); HEMATOCRIT 32.3 % (38.0-47.0); HEMOGLOBIN 10.2 g/dL (12.6-16.3); LEFT SHIFT FLG 0 (0-99); LIPEMIA HEMOLYSIS FLAG 80 (0-99); MEAN CELL HEMOGLOBIN 28.3 pg (27.9-34.1); MEAN CELL HEMOGLOBIN CONCENTR. 31.6 g/dL (32.4-36.7); MEAN CELL VOLUME 89.5 fL (81.5-99.8); PLATELET CLUMPS FLAG 20 (0-99); PLATELET COUNT 177 10^3/uL (150-400); RED BLOOD CELL COUNT 3.61 10^6/uL (4.18-5.33)
[2016-06-06 06:35] LABS: RED CELL DISTRIBUTION WIDTH 21.4 % (11.5-15.2)
[2016-06-06 07:10] LABS: ANION GAP 4 mEq/L (8-16); CALCIUM 9.9 mg/dL (8.5-10.4); CARBON DIOXIDE 27 mEq/l (22-31); CHLORIDE 109 mEq/L (97-110); CREATININE 0.8 mg/dL (0.6-1.0); GLOMERULAR FILTRATION RATE > 60; GLUCOSE 114 mg/dL (70-100); POTASSIUM 4.2 mEq/L (3.5-5.2); SODIUM 140 mEq/L (134-144)
[2016-06-06 07:17] LABS: LARGE PLATELETS PRESENT; MICROCYTES 2+; PLATELET ESTIMATE ADEQUATE (ADEQ)
[2016-06-06 07:18] LABS: ELLIPTOCYTES 1+
[2016-06-06 07:24] LABS: TOXIC GRANULATION PRESENT; TOXIC VACUOLIZATION PRESENT
[2016-06-06] MEDS ORDERED: ANASTROZOLE 1 MG TAB PO SCH ×2 (09:00)
--- NOTE | 2016-06-06 11:23 | HOSPPROG ---
Hospitalist Progress Note Assessment/Plan: 75-year-old with multiple medical issues presents with a fall sustaining a complicated right humeral neck fracture. She has recently had a stroke status post tPA less than a week before her fall and newly diagnosed AFib. # humerus fracture. Appreciate Dr. Vega input. Unfortunately given her recent stroke and use of tPA she has a very high risk for anesthesia and likely to high risk for surgery. She may not heal given the extent of her fracture and could need further surgery down the road however at this time the best course of action is immobility. # AFib: New diagnosis currently rate controlled on diltiazem drip. This is likely the cause of her strokes recently as her MRI did show multifocal bilateral strokes. She definitely needs anticoagulation but is already having significant bruising in her right humerus. * Sarwat cardioversion today will start anticoagulation with Eliquis post conversion * Defer to Cardiology if she needs ongoing antiarrhythmic therapy. She has likely had. Asymptomatic paroxysmal AFib for quite some time # recent CVA. She had complete right-sided weakness which resolved with tPA. MRI did show bilateral strokes most compatible with embolic disease. Echocardiogram was benign. She is high risk for semi elective surgery for humerus at this time. She is not having any new neurologic complaints she continues to have some mild right-sided numbness in her hand and forearm and and difficulty ambulate with with some weakness in her right leg. She is unable to use a walker given her recent humerus fracture so will likely need rehab post hospitalization. * Skilled rehab versus [facility] * PT OT # history of distal esophageal cancer, large tumor but able to swallow still and distal in the esophagus. I suspect they will be able to do a SARWAT S daily need to go to mid esophagus. She will resume her chemotherapy post rehab most likely # elevated troponin. Likely secondary to rapid AFib no evidence of ischemia. # breast cancer, on Arimidex # pre diabetes, monitor blood sugars. # chronic kidney disease, stable # obstructive sleep apnea # hypertension # DVT prophylaxis will start full-dose anticoagulation after her procedure today. Subjective: Patient doing well continues to have discomfort in her right humeral head. No palpitations no chest pain or shortness of breath. Objective: Vital Signs Temp Pulse Resp BP Pulse Ox 36.6 C 101 H 16 115/67 97 06/06/16 08:00 06/06/16 08:00 06/06/16 08:00 06/06/16 08:00 06/06/16 08:00 Laboratory Results 06/06/16 06:20 06/06/16 06:20 06/05/16 06/06/16 06/07/16 05:59 05:59 05:59 Intake Total 440 Balance 440 PT 14.3 SEC (12.0-15.0) 06/05/16 13:50 INR 1.12 (0.83-1.16) 06/05/16 13:50 - Physical Exam Constitutional: uncomfortable Eyes: PERRL, EOMI Ears, Nose, Mouth, Throat: moist mucous membranes, hearing normal Cardiovascular: systolic murmur, irregularly irregular Respiratory: no respiratory distress, no rales or rhonchi, clear to auscultation Gastrointestinal: normoactive bowel sounds, soft, non-tender abdomen Genitourinary: no bladder fullness Skin: warm, normal color Musculoskeletal: generalized weakness Neurologic: AAOx3, weakness (Right lower extremity) Psychiatric: interacting appropriately, not anxious, not encephalopathic ICD10 Worksheet Patient Problems: Problems Problem Status Onset Humerus fracture Acute
--- NOTE | 2016-06-06 11:51 | CPEKG ---
Heart Rate: 85 RR Interval: 706 P-R Interval: 140 QRSD Interval: 84 QT Interval: 380 QTC Interval: 452 P [place]: 11 QRS [place]: -11 T Wave [place]: 23 EKG Severity - BORDERLINE ECG - EKG Impression: SINUS RHYTHM EKG Impression: BORDERLINE T WAVE ABNORMALITIES EKG Impression: SINUS RHYTHM HAS REPLACED ATRIAL FIBRILLATION Electronically Signed By: Paulo Rubi 07-Jun-2016 09:24:10
[2016-06-06] MEDS: ASPIRIN EC 81 MG TAB PO SCH (13:34)
[2016-06-06] MEDS: METOPROLOL TARTRATE 25 MG TAB PO SCH ×2 (16:09→21:01)
--- NOTE | 2016-06-06 16:12 | SOAPPROG ---
SOAP Progress Note Assessment/Plan: Assessment: All status post stroke with tPA treatment 06/10 Hypertension Esophageal cancer Abnormal MRI of the brain Multiple embolic strokes Fracture of the head of the right humerus Chemotherapy treatment Port in place. This poor lady has had many symptoms and new problems. She has recently over the blood clot to her brain and tPA therapy. She was in the hospital for 4 nights and now she has fallen and had that he has fracture of the right humerus. It is recommended by Orthopedics for my review of the records that she be treated without surgery and that is ongoing right now. She has major swelling in the arms she does not want full anticoagulation right now because she does not want any more bleeding. She has a high chads Vasc score and we would be recommending that she have full anticoagulation given her atrial fibrillation. However she does not want any full anticoagulation at this time. She will take aspirin but does not want any more anticoagulation right now. We need to discuss the recommendation from the oncology service about anticoagulation for her with her cancer. Need to orthopedicestiven about full anticoagulation with her given her fracture. If and when they say it is safe I would change her to warfarin anticoagulation. If it never become safe we can keep her on the aspirin she is on and hope for the best. I have talked to him extensively about the risk of stroke and various anticoagulation possibilities. They are well aware of this abductor and her. Also discussed her case with her nurse. I have left a voicemail for Dr. Golden who is a nurse believes her hospitalist today. I think we can leave things the way they are but she is at high risk of having acute neurologic deterioration. I do not think we have to go out of R-wave looking for other cardiovascular issues right now but rather help her heel from what she has already gone through. This has been a very trying time for both she and her . Plan: 06/06/16 16:07 Subjective: She has a lot of swelling and pain in her right shoulder. She has a lot of ecchymosis. She feels tired. She is not having jaw pain or chest pain. She is not having syncope. She is not having palpitations. She is not having orthopnea or PND. Objective: Vital Signs Temp Pulse Resp BP Pulse Ox 36.3 C 85 16 102/53 L 98 06/06/16 15:40 06/06/16 15:40 06/06/16 15:40 06/06/16 15:40 06/06/16 15:40 Laboratory Results 06/06/16 06:20 06/06/16 06:20 06/05/16 06/06/16 06/07/16 05:59 05:59 05:59 Intake Total 440 Balance 440 PT 14.3 SEC (12.0-15.0) 06/05/16 13:50 INR 1.12 (0.83-1.16) 06/05/16 13:50 Physical Exam - Physical Exam General Appearance: alert, mild distress Respiratory: rhonchi, No respiratory distress Cardiac/Chest: regular rate, rhythm, systolic murmur, No edema, No tachycardia Abdomen: normal bowel sounds, non-tender, soft, No organomegaly Skin: warm/dry, No rash Extremities: other (Severe pain in the right upper extremity. ), No non-tender, No pedal edema, No calf tenderness Neuro/Psych: alert, normal mood/affect ICD10 Worksheet Patient Problems: Problems Problem Status Onset Humerus fracture Acute
[2016-06-06] MEDS: oxyCODONE IR 5 MG TAB PO PRN ×2 (16:15→21:01)
[2016-06-07 06:26] LABS: HEMATOCRIT 28.8 % (38.0-47.0); MEAN CELL HEMOGLOBIN CONCENTR. 31.3 g/dL (32.4-36.7); MEAN CELL VOLUME 89.4 fL (81.5-99.8); RED BLOOD CELL COUNT 3.22 10^6/uL (4.18-5.33)
[2016-06-07 06:28] LABS: RED CELL DISTRIBUTION WIDTH 20.5 % (11.5-15.2)
[2016-06-07 06:56] LABS: ANION GAP 3 mEq/L (8-16); CALCIUM 9.9 mg/dL (8.5-10.4); CARBON DIOXIDE 25 mEq/l (22-31); CHLORIDE 109 mEq/L (97-110); CREATININE 0.8 mg/dL (0.6-1.0); GLOMERULAR FILTRATION RATE > 60; GLUCOSE 102 mg/dL (70-100); POTASSIUM 4.4 mEq/L (3.5-5.2); SODIUM 137 mEq/L (134-144)
[2016-06-07] MEDS: ANASTROZOLE 1 MG TAB PO SCH (08:46)
[2016-06-07] MEDS: METOPROLOL TARTRATE 25 MG TAB PO SCH ×2 (08:46→20:32)
[2016-06-07] MEDS: ASPIRIN EC 81 MG TAB PO SCH (08:46)
[2016-06-07] MEDS: oxyCODONE IR 5 MG TAB PO PRN ×2 (10:33→21:51)
[2016-06-07] MEDS ORDERED: MAGNESIUM HYDROXIDE 30 ML UDCUP PO PRN (11:19)
[2016-06-07] MEDS ORDERED: BISACODYL 10 MG SUPP PR PRN (11:19)
[2016-06-07] MEDS ORDERED: LACTULOSE 20 GM/30 ML UDCUP PO PRN (11:19)
[2016-06-07] MEDS ORDERED: POLYETHYLENE GLYCOL 3350 17 GM PKT PO PRN (11:19)
--- NOTE | 2016-06-07 13:47 | HOSPPROG ---
Hospitalist Progress Note Assessment/Plan: 75-year-old with multiple medical issues presents with a fall sustaining a complicated right humeral neck fracture. She has recently had a stroke status post tPA less than a week before her fall and newly diagnosed AFib. # humerus fracture. Appreciate Dr. Vega input. Unfortunately given her recent stroke and use of tPA she has a very high risk for anesthesia and likely to high risk for surgery. She may not heal given the extent of her fracture and could need further surgery down the road however at this time the best course of action is immobility. * Will need rehab given her right arm immobility and recent stroke with some right leg weakness * Awaiting timothy Alvarenga evaluation and acceptance, ready for transfer # anemia: Likely secondary to humerus fracture and extensive bruising in that arm. I did talk with Dr. Vega about starting anticoagulation and he felt it would be safe. She has had a slight drop in her hemoglobin prior to anticoagulation I will start her on Eliquis tonight recheck an H&H tomorrow if it is stable or improved will continue if it continues to drop would consider changing her to Lovenox and Coumadin. # AFib: Patient asymptomatic with this and converted to sinus rhythm spontaneously * Start Eliquis today, she is post fracture a couple days with a stable H&H * Discontinue aspirin * Metoprolol added # recent CVA. She had complete right-sided weakness which resolved with tPA. MRI did show bilateral strokes most compatible with embolic disease. Echocardiogram was benign. She is high risk for semi elective surgery for humerus at this time. She is not having any new neurologic complaints she continues to have some mild right-sided numbness in her hand and forearm and and difficulty ambulate with with some weakness in her right leg. She is unable to use a walker given her recent humerus fracture so will likely need rehab post hospitalization. * Skilled rehab versus [facility] * PT OT # history of distal esophageal cancer, large tumor but able to swallow still and distal in the esophagus. She is followed by Dr. Kwon as an outpatient, will let him know of her admission [facility] can decide how to proceed with chemotherapy given her rehab admission # elevated troponin. Likely secondary to rapid AFib no evidence of ischemia. # breast cancer, on Arimidex # pre diabetes, monitor blood sugars. # chronic kidney disease, stable # obstructive sleep apnea # hypertension # DVT prophylaxis with Eliquis Disposition: Patient will need skilled rehab post hospitalization she is medically stable for transfer. Will check a H&H tomorrow morning to make sure she does not have increased bleeding with the addition of Eliquis. Ela is evaluating the patient today and contacting her insurance. As soon as they can accept her she can transfer. Otherwise she will need skilled rehab. Subjective: Feels good. Currently pain is controlled no palpitations or chest pain Objective: Vital Signs Temp Pulse Resp BP Pulse Ox 37.0 C 79 20 112/68 94 06/07/16 12:00 06/07/16 12:00 06/07/16 12:00 06/07/16 12:00 06/07/16 12:00 Laboratory Results 06/07/16 06:15 06/07/16 06:15 06/06/16 06/07/16 06/08/16 05:59 05:59 05:59 Intake Total 440 450 240 Output Total 350 Balance 440 100 240 PT 14.3 SEC (12.0-15.0) 06/05/16 13:50 INR 1.12 (0.83-1.16) 06/05/16 13:50 - Physical Exam Constitutional: no apparent distress Eyes: PERRL Ears, Nose, Mouth, Throat: moist mucous membranes Cardiovascular: regular rate and rhythym, no murmur, rub, or gallop, No edema Respiratory: no respiratory distress, no rales or rhonchi Gastrointestinal: normoactive bowel sounds, soft, non-tender abdomen ICD10 Worksheet Patient Problems: Problems Problem Status Onset Humerus fracture Acute
--- NOTE | 2016-06-07 15:10 | SOAPPROG ---
[facility] Progress Note Assessment/Plan: Assessment: All status post stroke with tPA treatment 06/10 Hypertension Esophageal cancer Abnormal MRI of the brain Multiple embolic strokes Fracture of the head of the right humerus Chemotherapy treatment Port in place. Plan: 06/06/16 16:07 06/07/16 15:08 1. Hypertension 2. Esophageal cancer 3. Multiple embolic strokes 4. Status post stroke with tPA treatment 05/2016 5. Cancer chemotherapy 6. Atrial fibrillation 7. Anemia She says that today she is willing to start taking anticoagulation. We will watch her hematocrit carefully. If we think she is going to continue to bleed she would be better off stopping a novel oral anticoagulant and changing to Lovenox and warfarin which we can readily reverse. We will watch her hematocrit tomorrow and make a decision further if it needs to be changed. She starts having velvet bleeding we will hold up the full anticoagulation unless this calmed down more. She has no heart failure right now she is not having any symptoms of an acute coronary syndrome. We will follow her closely I have talked to her carefully about all the options and her questions have been answered. Subjective: She is feeling well. She has no chest pain Her right shoulder is bothering her great deal. It is painful and it is swollen. She has no nausea vomiting She has no lightheadedness No palpitations Objective: Vital Signs Temp Pulse Resp BP Pulse Ox 37.0 C 79 20 112/68 94 06/07/16 12:00 06/07/16 12:00 06/07/16 12:00 06/07/16 12:00 06/07/16 12:00 Laboratory Results 06/07/16 06:15 06/07/16 06:15 06/06/16 06/07/16 06/08/16 05:59 05:59 05:59 Intake Total 440 450 240 Output Total 350 Balance 440 100 240 PT 14.3 SEC (12.0-15.0) 06/05/16 13:50 INR 1.12 (0.83-1.16) 06/05/16 13:50 Physical Exam - Physical Exam General Appearance: alert, no apparent distress Neck: full range of motion, supple Respiratory: normal breath sounds, No respiratory distress, No prolonged expiration Cardiac/Chest: regular rate, rhythm, systolic murmur Abdomen: non-tender, soft, No organomegaly Skin: normal color, warm/dry Extremities: non-tender Neuro/Psych: alert, normal mood/affect ICD10 Worksheet Patient Problems: Problems Problem Status Onset Humerus fracture Acute
[2016-06-07] MEDS: APIXABAN 5 MG TAB PO SCH (20:32)
[2016-06-07] MEDS: SENNOSIDES/DOCUSATE SODIUM TAB PO SCH (20:32)
[2016-06-08 06:50] LABS: HEMATOCRIT 29.4 % (38.0-47.0); HEMOGLOBIN 9.1 g/dL (12.6-16.3)
[2016-06-08] MEDS: METOPROLOL TARTRATE 25 MG TAB PO SCH ×2 (09:33→20:57)
[2016-06-08] MEDS: ANASTROZOLE 1 MG TAB PO SCH (09:35)
[2016-06-08] MEDS: SENNOSIDES/DOCUSATE SODIUM TAB PO SCH ×2 (09:37→20:58)
--- NOTE | 2016-06-08 10:13 | SOAPPROG ---
SOAP Progress Note Assessment/Plan: Assessment: All status post stroke with tPA treatment 06/10 Hypertension Esophageal cancer Abnormal MRI of the brain Multiple embolic strokes Fracture of the head of the right humerus Chemotherapy treatment Port in place. Plan: 06/06/16 16:07 06/07/16 15:08 1. Hypertension 2. Esophageal cancer 3. Multiple embolic strokes 4. Status post stroke with tPA treatment 05/2016 5. Cancer chemotherapy 6. Atrial fibrillation 7. Anemia 06/08/2016 She had a significant nosebleed last night. However has resolved. She is having a hard time getting around with bed arm and seems have are some arthritis or difficulty walking. She I certainly did not think she was stable when I watched her with physical therapy. I think we can keep her on her current medications and in the next day or so she is getting stronger see if she is having any more bleeding. If she does have more bleeding we can switch her to warfarin which we could reverse if we needed to. Another option would be to get her moving out of the hospital and do some rehab with the visiting nurses and her or and home PT or perhaps a rehab center if she qualifies. Cardiac-guerra she is stable to leave but she would have to stay in close touch with us if she has any further bleeding. Her crit seems to have stabilized Subjective: She had a significant nosebleed last night. She has less pain in her right arm. She has no chest pain or jaw pain. She is in sinus rhythm. She has no other new complaints. She is slowly recovering and having hard time moving around. I have watched her with physical therapy walk around the halls and it is not easy for her. Objective: Vital Signs Temp Pulse Resp BP Pulse Ox 36.3 C 86 19 105/67 90 L 06/08/16 07:59 06/08/16 07:59 06/08/16 07:59 06/08/16 07:59 06/08/16 07:59 Laboratory Results 06/08/16 06:15 06/07/16 06:15 06/07/16 06/08/16 06/09/16 05:59 05:59 05:59 Intake Total 450 740 Output Total 350 Balance 100 740 PT 14.3 SEC (12.0-15.0) 06/05/16 13:50 INR 1.12 (0.83-1.16) 06/05/16 13:50 Selected Entries 06/07/16 06/07/16 06/08/16 20:00 22:43 04:00 Heart Rate 87 72 82 O2 Sat (%) 93 97 95 Blood Pressure 108/70 105/67 115/84 H O2 Delivery Nasal Cannula Nasal Cannula Mode Heart Rate Heart Rate/ Source Monitor 06/08/16 07:59 Heart Rate 86 O2 Sat (%) 90 L Blood Pressure 105/67 O2 Delivery Room Air Mode Heart Rate Source Laboratory Tests 06/05/16 06/05/16 06/06/16 13:50 13:50 06:20 WBC 12.38 H 7.79 Hct 33.8 L 32.3 L Plt Count 185 177 Glucose 127 H Troponin I 0.045 H TSH 2.580 06/06/16 06/07/16 06/07/16 06:20 06:15 06:15 WBC 7.05 Hct 28.8 L Plt Count 149 L Glucose 114 H 102 H Troponin I TSH 06/08/16 06:15 WBC Hct 29.4 L Plt Count Glucose Troponin I TSH Physical Exam - Physical Exam General Appearance: alert Respiratory: lungs clear (Vascular wound was washed with once a while had the but myoglobin like ASO is is the is for a urologic last year has right to was the night he might have we like down the is new is much advise and [facility] good real cardiologists has), respiratory distress (Cap), rhonchi (A chronic say he is a mouth he is+), No other Cardiac/Chest: regular rate, rhythm (That all were done), systolic murmur (Have) , No edema Abdomen: non-tender, soft (He said he has a), No organomegaly (Her but no other events) Skin: warm/dry (Branden said me yesterday and I have over reacted) Extremities: No non-tender (The good leg ) Neuro/Psych: no motor/sensory deficits (No high right and get out rhythm at the present really a reactive really as I want to see him in 3 5 the still really agree really be often with block number it talk to you again about case a guide OI anything to do that yesterday going to what happened is that I think of overactive I would a little bit like throat he a lower 1 of his intervention was done occur he is old he high always had a 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
[2016-06-08] MEDS: oxyCODONE IR 5 MG TAB PO PRN ×3 (12:23→23:55)
[2016-06-08] MEDS: ONDANSETRON DISINTEGRATING 4 MG TAB PO PRN ×2 (14:37→20:57)
[2016-06-08] MEDS ORDERED: MAGNESIUM CITRATE 300 ML BOTTLE PO ONE (15:32)
--- NOTE | 2016-06-08 15:32 | HOSPPROG ---
Hospitalist Progress Note Assessment/Plan: 75-year-old with multiple medical issues presents with a fall sustaining a complicated right humeral neck fracture. She has recently had a stroke status post tPA less than a week before her fall and newly diagnosed AFib. # humerus fracture. Appreciate Dr. Vega input. Unfortunately given her recent stroke and use of tPA she has a very high risk for anesthesia and likely to high risk for surgery. She may not heal given the extent of her fracture and could need further surgery down the road however at this time the best course of action is immobility. * Will need rehab given her right arm immobility and recent stroke with some right leg weakness * I wonder if surgery can be reconsidered in a week or so. She has follow-up with appointment with Orthopedic surgery * Awaiting timothy Alvarenga evaluation and acceptance, ready for transfer # anemia: Likely secondary to humerus fracture and extensive bruising in that arm. * hemoglobin stable # AFib: Patient asymptomatic with this and converted to sinus rhythm spontaneously * did have some bleeding with Eliquis but will continue for now * Discontinue aspirin * Metoprolol added # recent CVA. She had complete right-sided weakness which resolved with tPA. MRI did show bilateral strokes most compatible with embolic disease. Echocardiogram was benign. She is high risk for semi elective surgery for humerus at this time. She is not having any new neurologic complaints she continues to have some mild right-sided numbness in her hand and forearm and and difficulty ambulate with with some weakness in her right leg. She is unable to use a walker given her recent humerus fracture so will likely need rehab post hospitalization. * Skilled rehab versus [facility] * PT OT # history of distal esophageal cancer, large tumor but able to swallow still and distal in the esophagus. She is followed by Dr. Kwon as an outpatient. # elevated troponin. Likely secondary to rapid AFib no evidence of ischemia. # breast cancer, on Arimidex # pre diabetes, monitor blood sugars. # chronic kidney disease, stable # obstructive sleep apnea # hypertension # DVT prophylaxis with Eliquis Disposition: will go to inpatient rehab tomorrow Subjective: had nosebleed this morning which resolved. Objective: Vital Signs Temp Pulse Resp BP Pulse Ox 36.4 C 88 20 127/70 H 92 06/08/16 12:00 06/08/16 12:00 06/08/16 12:00 06/08/16 12:00 06/08/16 12:00 Laboratory Results 06/08/16 06:15 06/07/16 06:15 06/07/16 06/08/16 06/09/16 05:59 05:59 05:59 Intake Total 450 740 Output Total 350 Balance 100 740 PT 14.3 SEC (12.0-15.0) 06/05/16 13:50 INR 1.12 (0.83-1.16) 06/05/16 13:50 discussed with Cardiology tele personally viewed interpreted normal sinus rhythm - Physical Exam Constitutional: no apparent distress, appears nourished, not in pain Eyes: anicteric sclera, EOMI Ears, Nose, Mouth, Throat: moist mucous membranes, hearing normal, ears appear normal Cardiovascular: regular rate and rhythym, no murmur, rub, or gallop, No edema Respiratory: no respiratory distress, no rales or rhonchi, clear to auscultation Gastrointestinal: normoactive bowel sounds, soft, non-tender abdomen, no palpable masses Skin: warm Musculoskeletal: other ( Right humerus fracture) Neurologic: AAOx3 Psychiatric: interacting appropriately, not anxious, not encephalopathic, thought process linear ICD10 Worksheet Patient Problems: Problems Problem Status Onset Humerus fracture Acute
[2016-06-08] MEDS: APIXABAN 5 MG TAB PO SCH ×2 (15:42→20:57)
[2016-06-08 20:26] VITALS: RESP 18
[2016-06-09] MEDS: METOPROLOL TARTRATE 25 MG TAB PO SCH (09:05)
[2016-06-09] MEDS: APIXABAN 5 MG TAB PO SCH (09:05)
[2016-06-09] MEDS: ANASTROZOLE 1 MG TAB PO SCH (09:06)
[2016-06-09] MEDS: SENNOSIDES/DOCUSATE SODIUM TAB PO SCH (09:06)
--- NOTE | 2016-06-09 10:50 | PDIAF ---
- Diagnosis Diagnosis: right humerus fracture, recent cva Code Status: Full Code - Medication Management Discharge Medications: Medications to Continue on Transfer Anastrozole [Arimidex 1 mg (*)] 1 mg PO DAILY 06/05/16 [Last Taken 06/04/16] Aspirin EC [Aspirin EC 81 mg (*)] 81 mg PO DAILY 06/05/16 [Last Taken 06/04/16] Herbals/Supplements -Info Only 1 ea PO DAILY 06/05/16 [Last Taken Unknown] Apixaban [Eliquis] 5 mg PO BID #0 tab 06/09/16 [Last Taken Unknown] Atorvastatin Calcium [Lipitor 10 mg (*)] 10 mg PO DAILY #0 tab 06/09/16 [Last Taken Unknown] Hydrocodone/APAP 5/325 [[place] 5/325 (*)] 1 - 2 tab PO Q4HRS PRN #0 tab 06/09/16 [Last Taken Unknown] Metoprolol Tartrate [Lopressor 25 mg (*)] 25 mg PO BID #0 tab 06/09/16 [Last Taken Unknown] Polyethylene Glycol 3350 [Miralax 17 gm (*)] 17 gm PO DAILY PRN #0 pkt 06/09/16 [Last Taken Unknown] oxyCODONE IR [Oxycodone Ir (*)] 5 - 10 mg PO Q3HRS PRN #0 tab 06/09/16 [Last Taken Unknown] Discharge Medications: Refer to the Discharge Home Medication list for PRN reason. - Orders Services needed: Physical Therapy, Occupational Therapy - Follow Up Care Current Providers and Referrals: Vicente Yadav MD [Primary Care Provider] - As per Instructions Abimael Rubin MD [Medical Doctor] - follow up in 2 weeks
--- NOTE | 2016-06-09 10:54 | PDIAF ---
- Diagnosis Diagnosis: right humerus fracture, recent cva Code Status: Full Code - Medication Management Discharge Medications: Medications to Continue on Transfer Anastrozole [Arimidex 1 mg (*)] 1 mg PO DAILY 06/05/16 [Last Taken 06/04/16] Aspirin EC [Aspirin EC 81 mg (*)] 81 mg PO DAILY 06/05/16 [Last Taken 06/04/16] Herbals/Supplements -Info Only 1 ea PO DAILY 06/05/16 [Last Taken Unknown] Apixaban [Eliquis] 5 mg PO BID #0 tab 06/09/16 [Last Taken Unknown] Atorvastatin Calcium [Lipitor 10 mg (*)] 10 mg PO DAILY #0 tab 06/09/16 [Last Taken Unknown] Hydrocodone/APAP 5/325 [[place] 5/325 (*)] 1 - 2 tab PO Q4HRS PRN #0 tab 06/09/16 [Last Taken Unknown] Metoprolol Tartrate [Lopressor 25 mg (*)] 25 mg PO BID #0 tab 06/09/16 [Last Taken Unknown] Polyethylene Glycol 3350 [Miralax 17 gm (*)] 17 gm PO DAILY PRN #0 pkt 06/09/16 [Last Taken Unknown] oxyCODONE IR [Oxycodone Ir (*)] 5 - 10 mg PO Q3HRS PRN #0 tab 06/09/16 [Last Taken Unknown] Discharge Medications: Refer to the Discharge Home Medication list for PRN reason. - Orders Services needed: Physical Therapy, Occupational Therapy - Follow Up Care Current Providers and Referrals: Vicente Yadav MD [Primary Care Provider] - As per Instructions Abimael Rubin MD [Medical Doctor] - follow up in 2 weeks Emanuel Vega MD [Medical Doctor] - follow up in 1 week
[2016-06-09] MEDS: oxyCODONE IR 5 MG TAB PO PRN (11:23)
--- NOTE | 2016-06-09 11:24 | GDS ---
[f rep st] DISCHARGE SUMMARY DISCHARGE DIAGNOSES: 1. Right humeral neck fracture. 2. Recent history of cerebrovascular accident status post tPA. 3. New diagnosis of atrial fibrillation. 4. Anemia secondary to acute blood loss. 5. History of esophageal cancer. 6. Troponin elevation most likely due to demand ischemia in the setting of atrial fibrillation. 7. History of breast cancer. 8. Prediabetes. 9. Chronic kidney disease. 10. Obstructive sleep apnea. 11. Hypertension. HISTORY: This is a 75-year-old female who had a recent CVA and got tPA at [facility]. She pr esented with a fall and a complex humerus fracture. HOSPITAL COURSE: Patient was admitted and Orthopedic Surgery was consulted. Although surgery would be optimal, they felt that she was too high risk due to her recent stroke, atrial fibrillation and need for anticoagulation. She will be managed nonoperatively, but this can be re-evaluated again in the upcoming weeks. Patient was in atrial fibrillation initially and then converted spontaneously. She will be started on Eliquis for this. She did have anemia but this has remained stable on anticoagulation. Patient also has a history of esophageal cancer and she is being followed by Dr. Kwon. She can f ollow up with him in the upcoming weeks as well. DISPOSITION: Inpatient rehab. FOLLOWUP INSTRUCTIONS: She is instructed to follow up with Dr. Rubin in 2-3 weeks for cardiology a s well as Dr. Vega in 1-2 weeks. TIME SPENT: Greater than 30 minutes was spent on discharge. /[id number]/MODL
[2016-06-09 12:01] VITALS: BP 137/86; PULSE 99; TEMP 98; O2SAT 90
--- NOTE | 2016-06-09 12:18 | SOAPPROG ---
SOAP Progress Note Assessment/Plan: Assessment: All status post stroke with tPA treatment 06/10 Hypertension Esophageal cancer Abnormal MRI of the brain Multiple embolic strokes Fracture of the head of the right humerus Chemotherapy treatment Port in place. Plan: 06/06/16 16:07 06/07/16 15:08 1. Hypertension 2. Esophageal cancer 3. Multiple embolic strokes 4. Status post stroke with tPA treatment 05/2016 5. Cancer chemotherapy 6. Atrial fibrillation 7. Anemia 06/08/2016 06/09/2016 1. Hypertension 2. Esophageal cancer 3. Multiple embolic strokes 4. Status post her recent stroke with tPA treatment 5. Cancer chemotherapy 6. atrial fibrillation 7. Anemia She has not had any further bleeding. She has not had nose bleeds. She is getting ready to leave today. I have discussed atrial fibrillation with her All her questions have been answered. She should stay on her blood thinner at this point time for 6 weeks and then decide with her primary care physician's if she is willing to stay on full anticoagulation. she has a very high chads Vasc score he and we would want her on full anticoagulation for life. If she does have ongoing severe bleeding episodes we will have to reconsider this. All her questions have been answered. She will follow with her primary care physicians. Subjective: She is not having chest pain She is not having chest fevers She is not having nausea or vomiting. She is taking her medications She is not bleeding. She is in normal sinus rhythm. She has no new neurologic complaints. Objective: Vital Signs Temp Pulse Resp BP Pulse Ox 36.7 C 99 18 137/86 H 90 L 06/09/16 12:00 06/09/16 12:00 06/09/16 12:00 06/09/16 12:00 06/09/16 12:00 Laboratory Results 06/08/16 06:15 06/07/16 06:15 06/08/16 06/09/16 06/10/16 05:59 05:59 05:59 Intake Total 740 1200 Output Total 300 Balance 740 900 PT 14.3 SEC (12.0-15.0) 06/05/16 13:50 INR 1.12 (0.83-1.16) 06/05/16 13:50 Physical Exam - Physical Exam General Appearance: alert Respiratory: rhonchi Cardiac/Chest: regular rate, rhythm, systolic murmur, No irregularly irregular Abdomen: non-tender, soft Neuro/Psych: alert, normal mood/affect ICD10 Worksheet Patient Problems: Problems Problem Status Onset Humerus fracture Acute
== END 2016-06-09 15:00 | DRG 563 ==
LOC: EDUNIT# → F2W 16:06
PROVIDERS: ADMIT Internal Medicine; ATTEND Internal Medicine
DX: S42.231A 3-part fracture of surgical neck of right humerus, initial encounter for closed fracture (principal); D62 Acute posthemorrhagic anemia; C15.9 Malignant neoplasm of esophagus, unspecified; I69.351 Hemiplegia and hemiparesis following cerebral infarction affecting right dominant side; I48.91 Unspecified atrial fibrillation; I65.21 Occlusion and stenosis of right carotid artery; N18.9 Chronic kidney disease, unspecified; G47.33 Obstructive sleep apnea (adult) (pediatric); R73.03 Prediabetes; I12.9 Hypertensive chronic kidney disease with stage 1 through stage 4 chronic kidney disease, or unspecified chronic kidney disease; E21.3 Hyperparathyroidism, unspecified; E78.5 Hyperlipidemia, unspecified; E66.9 Obesity, unspecified; W18.39XA Other fall on same level, initial encounter; Z85.3 Personal history of malignant neoplasm of breast
CPT/HCPCS: 97116-GP; 97162-GP; 97166-GO; 97530-GO; 97530-GP; 97535-GO; G8978-GP-CK; G8979-GP-CJ; G8980-GP-CK; G8987-GO-CL; G8988-GO-CI; J1170; J2405

== ENCOUNTER 2016-06-09 15:25 | Inpatient (IN) | payer OTHER ==
[2016-06-09] MEDS ORDERED: SENNOSIDES 1 TAB PO PRN (16:41)
[2016-06-09] MEDS ORDERED: BISACODYL 10 MG SUPP PR PRN (16:41)
--- NOTE | 2016-06-09 17:35 | GHP ---
[f rep st] HISTORY AND PHYSICAL POST ADMISSION PHYSICIAN EVALUATION AND REHABILITATION TREATMENT PLAN. DATE OF ADMISSION: 06/09/2016 DATE OF EVALUATION: 06/09/2016. TIME OF EVALUATION: 1600. REFERRING FACILITY: [facility]. REFERRING PHYSICIAN: Dr. Golden IMPAIRMENT GROUP: 8.9. DATE OF ONSET: 06/05/2016. CONSULTING PHYSICIAN: She saw Profiler Dr. Rubin in consultation REHABLITATION DIAGNOSIS: Right humerus fracture. ETIOLOGIC DIAGNOSIS: Other, Orthopedic. HISTORY OF PRESENT ILLNESS: Mrs. Trevino had a fall at home on 06/05/2016. She reports that she was reaching for her walker and the walker collapsed causing her to fall. She had immediate pain and immobility in the right upper extremity. She was taken to the hospital and diagnosed with an acute displaced and angulated 3-piece surgical neck fracture of the right humerus. She was also noted to be newly in atrial fibrillation. Surgical intervention was deferred due to a recent stroke and need for anticoagulation. She spontaneously cardioverted to normal sinus rhythm during her admission. She had a recent cerebrovascular accident on 05/31/2016, initially assessed at [facility]. She was subsequently transferred to [facility], where she underwent thrombolysis. Her symptoms were sudden onset, complete paralysis of the right upper and lower extremities. She reports that the only sequelae of her stroke are some tingling and lack of coordination in the right lower extremity. STUDIES AND LABS DURING HER HOSPITAL STAY: She initially had an elevated white blood cell count, which resolved. She had anemia, which worsened. On admission , her hemoglobin was 10.9, and the day before discharge it was 9.1, which had been stable from the prior day. Hemoglobin went from 33.8 to 29.4. She had a low platelet count on 06/07/2016, of 149. Serum chemistries: Her TSH was normal. She had a slight troponin leak, which was categorized as demand ischemia due to elevated heart rate with atrial fibrillation. Renal function and electrolytes were overall within normal limits, though she had a reduced anion gap of 3, and a slightly elevated glucose at 102 on 06/07/2016. Several months before, her hemoglobin A1c was 6.4. EKG on 06/06/2016, showed the spontaneous cardioversion from atrial fibrillation to normal sinus rhythm. Otherwise, there were no significant abnormalities. Chest x-ray on 06/05/2016, showed minimal left atelectasis, stable cardiomegaly, and her right humerus fracture. X-ray of the right humerus showed an acute displaced and angulated 3- piece right surgical neck fracture. PRECAUTIONS: She is a fall risk, and she has a nonweightbearing status on the right upper extremity. ACTIVE COMORBIDITIES: She has morbid obesity, which is a tier 3 comorbidity. There are no active tier 1 or tier 2 comorbidities. PAST MEDICAL HISTORY: 1. Recent cerebrovascular accident with right-sided weakness, status post tPA thrombolytic on 05/31/2016. 2. Esophageal cancer, status post cycle 4 of FOLFOX chemotherapy. 3. History of breast cancer. 4. Hypertension. 5. Gastroesophageal reflux disease. 6. Pre-diabetes. 7. Hyperparathyroidism. 8. Obstructive sleep apnea. 9. Arthritis. 10. Osteopenia. PAST SURGICAL HISTORY: She has had an appendectomy, arthroscopic knee surgery, cataract surgery, lumpectomy, and partial mastectomy of the left breast. PRE-HOSPITAL MEDICATIONS: I do not have a full list, but she was taking aspirin and Arimidex. ADMISSION MEDICATIONS: 1. Anastrozole 1 mg p.o. daily. 2. Apixaban 5 mg p.o. twice daily. 3. Aspirin 81 mg p.o. daily. 4. Atorvastatin 10 mg p.o. daily. 5. Hydrocodone/acetaminophen 1 to 2 tablets p.o. q.4 hours p.r.n. 6. Metoprolol 25 mg p.o. twice daily. 7. Oxycodone 5 mg p.o. q.3 hours p.r.n. 8. Polyethylene glycol 17 g p.o. daily p.r.n. ALLERGIES: There are no known drug allergies. FAMILY HISTORY: Noncontributory. PSYCHOSOCIAL HISTORY: She is retired. She worked at [employer] in [place]. She is and lives with her . She has a local son and grandchild. She is a nonsmoker. REVIEW OF SYSTEMS: She reports that she had constipation for 5 days, but it was finally relieved yesterday after oral laxatives and a suppository. She has intermittent significant pain in the right upper extremity. Last night it greatly interfered with her sleep until she was given oxycodone, after which she slept through the night. She has had a reduced appetite and has noted eructation and some nausea. She denies swallowing difficulty, given that she has esophageal cancer, and reports that there is a distal esophageal cancer. She has some tingling of the right lower extremity, and some loss of coordination of the foot. Otherwise, she denies other sequelae of her recent stroke. She denies dysuria or urinary frequency. She denies excessive thirst or urination. She denies feeling excessively hot or cold. She denies fevers or chills. She denies rash or skin breakdown, and otherwise a 10-point review of systems is negative. PHYSICAL EXAM: VITAL SIGNS: Not yet available in the chart. This morning at [facility], her blood pressure was 137/86, her heart rate was 99, her respiratory rate was 18, her oxygen saturation was 90% on room air. Previously it had been 97% on 2 L. Her weight is 183 kg for a body mass index of 31.6. GENERAL: This is an obese elderly woman who appears her chronologic age, cooperative, and in no acute distress. HEENT: Extraocular movements are intact. Pupils are equal, round, and reactive to light. Mucous membranes are moist. Dentition is in good condition. NECK: Supple. HEART: There is a regular rate and rhythm with no murmurs, rubs, or gallops. LUNGS: Clear to auscultation bilaterally. ABDOMEN: Soft, nontender, nondistended with normoactive bowel sounds and no hepatosplenomegaly. EXTREMITIES: There is no cyanosis, clubbing, or edema. Radial and dorsalis pedis pulses are 2+ bilaterally. NEUROLOGIC: She is alert and oriented x3. Cranial nerves 2 through 12.are grossly intact. There is no focal weakness, though, other than handgrip the right upper extremity was not tested. Sensation is intact to light touch. There is mild ataxia to the right foot causing her difficulty to remove the left shoe witht he right foot. She is wearing clog-style plastic shoes. CURRENT LEVEL OF FUNCTION: Per the pre-admission screen. DIET: Feeding and swallowing were within normal limits. GROOMING: Required setup to minimal assistance with voice cues standing at the sink with assistance for balance. BATHING: She received a sponge bath with moderate assistance and voice cues for sitting. FOR DRESSING: She required moderate assistance with voice cues. FOR TOILETING: She required assistance. Regarding bowel and bladder, she was noted to be continent using a bedside commode. BED MOBILITY: Was accomplished with minimal assistance. TRANSFERS: With contact guard to minimal assistance and voice cuing. She used a maxx-walker. FOR BALANCE: She required contact guard to minimal assist for safety. ENDURANCE: Was fair. She was able to ambulate 60 feet with contact guard and minimal assistance and voice cuing using a maxx-walker. COGNITION AND COMMUNICATION: Were considered to be within normal limits. IMPRESSION: Mrs. Trevino is a 75-year-old woman who suffered a fall and a right humeral neck fracture on 06/05/2016. She was also found to be in atrial fibrillation when she came to the hospital. Given that she had a recent stroke and required anticoagulation, surgery was considered high risk, so her arm has been immobilized with a sling. She is nonweightbearing in the right upper extremity, and it is hoped that it will heal spontaneously. However, Orthopedic Surgery, Dr. Vega, wants to see her again in 1 to 2 weeks. She has comorbid conditions of esophageal cancer, for which she has received 4 out of 5 rounds of chemotherapy. She has a history of osteopenia, though she had a normal vitamin D level approximately 2 years ago. She has morbid obesity, and pre-diabetes. She has a history of breast cancer, for which she is on anastrozole. She is appropriate for inpatient rehabilitation, where she will benefit from physical and occupational therapy to optimize mobility and activities of daily living, with the limitation of nonweightbearing on the right upper extremity. She needs nursing care to assist with bowel and bladder management, due to her fall risk, to maintain skin integrity, and to assist with medication management and administration, and education for the patient and her . She will benefit from close physician care regarding comorbidities, including history of CVA, cardiorespiratory status, with history of atrial fibrillation, on anticoagulation, and bleeding risk, and osteopenia, and pain control, and constipation. Her goal is to return home with her and supportive services. For a safe discharge, it is anticipated that she will achieve modified independence with bed mobility and transfers. She may continue to require supervision with dressing and bathing. She will ambulate with the least restrictive device for household distances, with a safe technique. She will require assistance for household management, shopping, and meal preparation. She will have therapy with physical and occupational therapy for 90 minutes per day for each discipline on 5 to 7 days of the week. Expected duration of stay is 5 to 7 days. It is expected that upon discharge, she will continue to benefit from home health services, including nursing, a nurse's aide, occupational therapy, and physical therapy. ASSESSMENT AND PLAN BY PROBLEM LIST: 1. Debility following a fall and right humeral neck fracture. Physical therapy and occupational therapy to optimize mobility and activities of daily living, with limitation of nonweightbearing on the right upper extremity. 2. Right humeral neck fracture. Follow up within 1 to 2 weeks with orthopedic surgeon, Dr. Vega. Exact date of desired followup will be determined. Per hospital notes, a surgical repair is still in consideration, and there is a likelihood that she will not heal without surgery. She will have continued pain control with oxycodone, as well as hydrocodone/acetaminophen as ordered out of the hospital. 3. History of osteopenia. Two years ago her vitamin D level was normal. I will recheck a vitamin D. Given that she has had this fracture, she might consider further evaluation with bowling ball grader and possible antiresorptive therapy after discharge. 4. Likely coronary artery disease with elevated troponin due to demand-related ischemia. Continue aspirin as well as metoprolol. 5. History of breast cancer. Continue anastrozole. 6. Intermittent atrial fibrillation, may have been etiologic in her stroke. Continue apixaban 5 mg twice daily. 7. Anemia. Appears to have been stable as of yesterday. Will recheck CBC in the morning. 8. Recent cerebrovascular accident with considerable recovery following thrombolytics. Continue aspirin and atorvastatin, as well as anticoagulation with apixaban as preventive measures. 9. Pre-diabetes with an elevated hemoglobin A1c as well as obesity. Dietitian will be consulted to help optimize her diet. 10. Obstructive sleep apnea. It is listed as a problem during her hospitalization. She will have monitoring of her oxygenation. It is unclear whether or not she has had a formal diagnosis or prescription of CPAP or BiPAP intervention. This will be investigated further. /[id number]/MODL MTDD
[2016-06-09] MEDS: oxyCODONE IR 5 MG TAB PO PRN (20:19)
[2016-06-09] MEDS: APIXABAN 5 MG TAB PO SCH (20:19)
[2016-06-09] MEDS: METOPROLOL TARTRATE 25 MG TAB PO SCH (20:25)
[2016-06-10] MEDS: APIXABAN 5 MG TAB PO SCH ×2 (08:24→20:58)
[2016-06-10] MEDS: ATORVASTATIN CALCIUM 10 MG TAB PO SCH (08:25)
[2016-06-10] MEDS: ASPIRIN EC 81 MG TAB PO SCH (08:25)
[2016-06-10] MEDS: POLYETHYLENE GLYCOL 3350 17 GM PKT PO SCH (08:26)
[2016-06-10] MEDS: METOPROLOL TARTRATE 25 MG TAB PO SCH ×2 (08:33→20:58)
[2016-06-10] MEDS ORDERED: Herbals/Supplements -Info Only PO SCH (09:00)
[2016-06-10] MEDS ORDERED: ANASTROZOLE 1 MG TAB PO SCH (09:00)
--- NOTE | 2016-06-10 09:40 | SOAPPROG ---
SOAP Progress Note Assessment/Plan: Assessment: * Debility following a fall and right humeral neck fracture 06/05/16. Physical therapy and occupational therapy to optimize mobility and activities of daily living, with limitation of nonweightbearing on the right upper extremity. * Right humeral neck fracture. Follow up within 1 to 2 weeks with orthopedic surgeon, Dr. Vega; MADDIE with office 06/10/16 re date and whether there is a surgical plan. Continue pain control with oxycodone, as well as hydrocodone/ acetaminophen as ordered out of the hospital. * GERD. Complication of esophageal CA? She reports symptom relief in the past with Tums; will prescribe starting 06/10/16. * History of osteopenia. Two years ago her vitamin D level was normal. Await repeat vitamin D . Consider further evaluation with PCP or calender let off helper and possible antiresorptive therapy after discharge. * Likely coronary artery disease with elevated troponin due to demand-related ischemia. Continue aspirin as well as metoprolol. * History of breast cancer. Continue anastrozole. * Intermittent atrial fibrillation, may have been etiologic in her stroke. Continue apixaban 5 mg twice daily. * Anemia. Improving 06/10/16. * Thrombocytopenia, worsening. Unclear etiology. Repeat CBC in AM. * Recent cerebrovascular accident with considerable recovery following thrombolytics. Continue aspirin and atorvastatin, as well as anticoagulation with apixaban as preventive measures. * Prediabetes with elevated HgA1c. Assistant Principal consult. * Obstructive sleep apnea. It is listed as a problem during her hospitalization. She will have monitoring of her oxygenation. It is unclear whether or not she has had a formal diagnosis or prescription of CPAP or BiPAP intervention. This will be investigated further. 06/10/16 11:54 Subjective: Had episode of pain last night, relieved with oxycodone. She's mostly comfortable, but has pain with particular positions of R arm. Notes tingling and swelling R hand. Had episode of GI reflux overnight. O/W w/out complaints. Breathing OK, bowels moving. Objective: Vital Signs Temp Pulse Resp BP Pulse Ox 36.9 C 91 16 103/66 94 06/10/16 08:31 06/10/16 08:31 06/10/16 08:31 06/10/16 08:31 06/10/16 08:31 06/09/16 06/10/16 06/11/16 05:59 05:59 05:59 Intake Total 300 Balance 300 Physical Exam - Physical Exam General Appearance: WD/WN, alert, no apparent distress, obese Respiratory: normal breath sounds, No crackles, No rhonchi, No wheezing Cardiac/Chest: regular rate, rhythm, No edema Skin: normal color, warm/dry Extremities: other (RUE in sling) Neuro/Psych: alert, normal mood/affect, oriented x 3 ICD10 Worksheet Patient Problems: Problems Problem Status Onset Humerus fracture Acute
[2016-06-10] MEDS: oxyCODONE IR 5 MG TAB PO PRN ×2 (09:42→20:58)
[2016-06-10 11:16] LABS: % IMMATURE GRANULYOCYTES 0.5 % (0.0-1.1); ABSOLUTE IMMATURE GRANULOCYTES 0.02 10^3/uL (0.00-0.10); ADD DIFF? NO; ADD MORPH? NO; ADD SCAN? NO; ATYPICAL LYMPHOCYTE FLAG 10 (0-99); FRAGMENT RBC FLAG 0 (0-99); HEMATOCRIT 29.1 % (38.0-47.0); HEMOGLOBIN 9.2 g/dL (12.6-16.3); LEFT SHIFT FLG 0 (0-99); LIPEMIA HEMOLYSIS FLAG 80 (0-99); MEAN CELL HEMOGLOBIN 28.3 pg (27.9-34.1); MEAN CELL HEMOGLOBIN CONCENTR. 31.6 g/dL (32.4-36.7); MEAN CELL VOLUME 89.5 fL (81.5-99.8); MEAN PLATELET VOLUME 9.9 fL (8.7-11.7); PLATELET CLUMPS FLAG 0 (0-99); PLATELET COUNT 129 10^3/uL (150-400); RED BLOOD CELL COUNT 3.25 10^6/uL (4.18-5.33); RED CELL DISTRIBUTION WIDTH 19.9 % (11.5-15.2)
[2016-06-10 11:38] LABS: ANION GAP 6 mEq/L (8-16); CALCIUM 9.6 mg/dL (8.5-10.4); CARBON DIOXIDE 26 mEq/l (22-31); CHLORIDE 104 mEq/L (97-110); CREATININE 0.9 mg/dL (0.6-1.0); GLOMERULAR FILTRATION RATE > 60; GLUCOSE 94 mg/dL (70-100); POTASSIUM 4.1 mEq/L (3.5-5.2); SODIUM 136 mEq/L (134-144)
[2016-06-10 11:57] LABS: VITAMIN D 25-HYDROXY TOTAL < 12.8 ng/mL (30-100)
[2016-06-10] MEDS: HYDROCODONE/APAP 5/325 TAB PO PRN (12:16)
[2016-06-10] MEDS: [UNRECOGNIZED DRUG - OTHER] PO SCH (12:19)
[2016-06-10] MEDS: CALCIUM CARBONATE 500 MG CHEWABLE TAB PO PRN (12:49)
[2016-06-10] MEDS: ONDANSETRON DISINTEGRATING 4 MG TAB PO PRN ×2 (16:39→22:56)
[2016-06-11] MEDS: POLYETHYLENE GLYCOL 3350 17 GM PKT PO SCH (08:34)
[2016-06-11] MEDS: ANASTROZOLE 1 MG TAB PO SCH (08:35)
[2016-06-11] MEDS: APIXABAN 5 MG TAB PO SCH ×2 (08:36→19:58)
[2016-06-11] MEDS: ASPIRIN EC 81 MG TAB PO SCH ×3 (08:36→11:30)
[2016-06-11] MEDS: HYDROCODONE/APAP 5/325 TAB PO PRN (08:37)
[2016-06-11] MEDS: ATORVASTATIN CALCIUM 10 MG TAB PO SCH (08:38)
[2016-06-11 08:40] LABS: % IMMATURE GRANULYOCYTES 0.8 % (0.0-1.1); ABSOLUTE IMMATURE GRANULOCYTES 0.07 10^3/uL (0.00-0.10); ABSOLUTE NRBC COUNT 0.02 10^3/uL (0-0.01); ADD DIFF? NO; ADD MORPH? NO; ADD SCAN? NO; ATYPICAL LYMPHOCYTE FLAG 0 (0-99); FRAGMENT RBC FLAG 0 (0-99); HEMATOCRIT 29.7 % (38.0-47.0); HEMOGLOBIN 9.4 g/dL (12.6-16.3); LEFT SHIFT FLG 0 (0-99); LIPEMIA HEMOLYSIS FLAG 80 (0-99); MEAN CELL HEMOGLOBIN 28.2 pg (27.9-34.1); MEAN CELL HEMOGLOBIN CONCENTR. 31.6 g/dL (32.4-36.7); MEAN CELL VOLUME 89.2 fL (81.5-99.8); MEAN PLATELET VOLUME 10.2 fL (8.7-11.7); NRBC-AUTO% 0.2 % (0.0-0.2); PLATELET CLUMPS FLAG 0 (0-99); PLATELET COUNT 154 10^3/uL (150-400); RED BLOOD CELL COUNT 3.33 10^6/uL (4.18-5.33); RED CELL DISTRIBUTION WIDTH 19.8 % (11.5-15.2)
[2016-06-11] MEDS: [UNRECOGNIZED DRUG - OTHER] PO SCH (08:54)
--- NOTE | 2016-06-11 09:59 | SOAPPROG ---
SOAP Progress Note Assessment/Plan: Assessment/ Plan: 75 yo F with debility following fall and humeral neck fracture 06/05/2016. 06/11 with multiple issues including worsened pain, hypotension, vitamin D deficiency , thrombocytopenia. All medical issues are new to this provider today. * Debility: Physical therapy and occupational therapy to optimize mobility and activities of daily living, with limitation of nonweightbearing on the right upper extremity. * Right humeral neck fracture. Follow up within 1 to 2 weeks with orthopedic surgeon, Dr. Vega. XR on 06/[address] Vega. Modifying pain control to add oxycontin 10 mg BID and oxycodone 5-10 mg q 3 hr with goal to stop the oxycontin in next few days once pain adequately controlled, then continue with PRN as the fracture pain will ultimately be self limited, but the pain is currently interfering with therapies. Some tingling in right hand, neuropathic in nature. Not interested in gabapentin for control at this point. * GERD. Complication of esophageal CA? She reports symptom relief in the past with Tums; will prescribe starting 06/10/16. * History of osteopenia. Two years ago her vitamin D level was normal, repeat 25-OH vit D <12.8. Will start cholecalciferol 50,000 units weekly x 8 weeks fo follow with maintenance dose. Consider further evaluation with PCP or supervisor electronics inspection and possible antiresorptive therapy after discharge. NOTE: only able do give a one time dose for 50,000 units on 06/11, will need to reorder in 1 week. * Likely coronary artery disease with elevated troponin due to demand-related ischemia. Continue aspirin as well as metoprolol, but decrease the metoprolol to 12.5 mg BID to avoid hypotension. * Thrombocytopenia, worsening. Unclear etiology. 129 on 06/10, up to 154 on . Will recheck again 06/13. * Recent cerebrovascular accident with considerable recovery following thrombolytics. Continue aspirin and atorvastatin, as well as anticoagulation with apixaban as preventive measures. * Prediabetes with elevated HgA1c. Spinner Iron consult. * Obstructive sleep apnea. It is listed as a problem during her hospitalization. She will have monitoring of her oxygenation. It is unclear whether or not she has had a formal diagnosis or prescription of CPAP or BiPAP intervention. This will be investigated further. Stable/ improving: * History of breast cancer. Continue anastrozole. * Intermittent atrial fibrillation, may have been etiologic in her stroke. Continue apixaban 5 mg twice daily. * Anemia. Improving 06/10/16. 06/11/16 09:41 06/11/16 09:59 06/11/16 10:11 Subjective: CC: pain, hypotension No acute events overnight. Pt endorses pain in the right arm, moderate (a bit worsened, not adequately controlled by meds), associated with fx, and also some hand tingling since the fracture that is stable but not particularly bothersome. Some hypotension this morning and metoprolol was held. No new pain, numbness, tingling, or weakness. Sleeping well, therapies going well besides the pain. No bleeding or new bruising. Objective: Vital Signs Temp Pulse Resp BP Pulse Ox 36.8 C 89 14 97/61 L 94 06/11/16 08:00 06/11/16 08:00 06/11/16 08:00 06/11/16 08:00 06/11/16 08:00 Laboratory Results 06/11/16 06:00 06/10/16 07:00 06/10/16 06/11/16 06/12/16 05:59 05:59 05:59 Intake Total 300 1670 Balance 300 1670 Physical Exam - Physical Exam General Appearance: alert, no apparent distress Respiratory: lungs clear, normal breath sounds, No respiratory distress, No accessory muscle use, No rhonchi, No wheezing Cardiac/Chest: normal peripheral pulses, regular rate, rhythm Abdomen: non-tender, soft Back: Normal inspection Skin: normal color, warm/dry, No cyanosis Extremities: swelling (right arm), No non-tender (right arm tender) Neuro/Psych: alert, normal mood/affect, sensory deficit (right hand tingling with touch) ICD10 Worksheet Patient Problems: Problems Problem Status Onset Pain provoked by trauma Acute Pain, neuropathic Acute Humerus fracture Acute - ICD10 Problem Qualifiers (1) Pain provoked by trauma (2) Pain, neuropathic
[2016-06-11] MEDS ORDERED: CHOLECALCIFEROL VIT D3 50,000 UNIT CAP PO SCH (10:00)
[2016-06-11] MEDS: METOPROLOL TARTRATE 25 MG TAB PO SCH ×3 (10:12→19:58)
[2016-06-11] MEDS: ACETAMINOPHEN 325 MG TAB PO SCH ×2 (11:19→18:43)
[2016-06-11] MEDS: oxyCODONE IR 5 MG TAB PO PRN ×3 (11:25→16:21)
[2016-06-11] MEDS: CALCIUM CARBONATE 500 MG CHEWABLE TAB PO PRN (13:29)
[2016-06-11] MEDS: ONDANSETRON DISINTEGRATING 4 MG TAB PO PRN (16:20)
[2016-06-11] MEDS: PROCHLORPERAZINE MALEATE 10 MG TAB PO PRN (18:46)
[2016-06-11] MEDS ORDERED: SODIUM CL NASAL GEL 14.1 GM TUBE TP PRN (19:54)
[2016-06-11] MEDS ORDERED: SODIUM CL NASAL 45 ML BTL EACHNARE PRN (19:55)
[2016-06-12] MEDS: ACETAMINOPHEN 325 MG TAB PO SCH ×3 (00:05→06:12)
[2016-06-12] MEDS: oxyCODONE IR 5 MG TAB PO PRN ×3 (03:11→10:01)
[2016-06-12 09:42] VITALS: BP 95/67; PULSE 138; RESP 18; TEMP 98; O2SAT 91
[2016-06-12] MEDS: PROCHLORPERAZINE MALEATE 10 MG TAB PO PRN (09:42)
[2016-06-12] MEDS: APIXABAN 5 MG TAB PO SCH (09:59)
[2016-06-12] MEDS: ANASTROZOLE 1 MG TAB PO SCH (09:59)
[2016-06-12] MEDS: METOPROLOL TARTRATE 25 MG TAB PO SCH (10:00)
[2016-06-12] MEDS: ASPIRIN EC 81 MG TAB PO SCH ×2 (10:00→11:27)
[2016-06-12] MEDS: ATORVASTATIN CALCIUM 10 MG TAB PO SCH (10:00)
[2016-06-12] MEDS: [UNRECOGNIZED DRUG - OTHER] PO SCH (10:01)
--- NOTE | 2016-06-12 10:41 | SOAPPROG ---
SOAP Progress Note Assessment/Plan: Assessment/ Plan: 75 yo F with debility following fall and humeral neck fracture 06/05/2016. Rapid onset back pain, diaphoresis, tachycardia, hypoxia, nausea and vomiting: concern for DE given history of possible CAD, stroke, and constellation of symptoms. Transferring to [facility] ED for additional workup this morning. Administering oxygen, placing IV, drawing cardiac enzymes and CBC, BMP and coags. On Aspirin and beta rocky (given this morning after symptoms started). Left message for family, notified Dr. Negrete in ED for transfer. [facility] transporting. Will hand off to ED but follow peripherally to see if she is admitted to inpatient care at [facility]. Plan below unchanged otherwise: * Debility: Physical therapy and occupational therapy to optimize mobility and activities of daily living, with limitation of nonweightbearing on the right upper extremity. * Right humeral neck fracture. Follow up within 1 to 2 weeks with orthopedic surgeon, Dr. Vega. XR on 06/[address] Vega. Modifying pain control to add oxycontin 10 mg BID and oxycodone 5-10 mg q 3 hr with goal to stop the oxycontin in next few days once pain adequately controlled, then continue with PRN as the fracture pain will ultimately be self limited, but the pain is currently interfering with therapies. Some tingling in right hand, neuropathic in nature. Not interested in gabapentin for control at this point. * GERD. Complication of esophageal CA? She reports symptom relief in the past with Tums; will prescribe starting 06/10/16. * History of osteopenia. Two years ago her vitamin D level was normal, repeat 25-OH vit D <12.8. Will start cholecalciferol 50,000 units weekly x 8 weeks fo follow with maintenance dose. Consider further evaluation with PCP or automatic blocker and possible antiresorptive therapy after discharge. NOTE: only able do give a one time dose for 50,000 units on 06/11, will need to reorder in 1 week. * Likely coronary artery disease with elevated troponin due to demand-related ischemia. Continue aspirin as well as metoprolol, but decrease the metoprolol to 12.5 mg BID to avoid hypotension. Will re-evaluate after ED workup. * Thrombocytopenia, worsening. Unclear etiology. 129 on 06/10, up to 154 on . Will recheck again 06/13. * Recent cerebrovascular accident with considerable recovery following thrombolytics. Continue aspirin and atorvastatin, as well as anticoagulation with apixaban as preventive measures. * Prediabetes with elevated HgA1c. Knitting Tester consult. * Obstructive sleep apnea. It is listed as a problem during her hospitalization. She will have monitoring of her oxygenation. It is unclear whether or not she has had a formal diagnosis or prescription of CPAP or BiPAP intervention. This will be investigated further. Stable/ improving: * History of breast cancer. Continue anastrozole. * Intermittent atrial fibrillation, may have been etiologic in her stroke. Continue apixaban 5 mg twice daily. * Anemia. Improving 06/10/16. 06/11/16 09:41 06/11/16 09:59 06/11/16 10:11 06/12/16 10:34 Subjective: CC: n/v This morning at 9:30 AM pt experienced sudden onset of nausea, vomiting, back pain (7/10) on left side near scapula, diaphoresis, dyspnea (reported by nurse) , as well as increase in HR to 138, BP drop to 95/67, O2 sat to 90%. She has not experienced these symptoms in the past. Has a hx of possible CAD, Afib, stroke, borderline DM, no tob, not HLD, no fam hx of CAD (but + for stroke). Objective: Vital Signs Temp Pulse Resp BP Pulse Ox 36.6 C 138 H 18 95/67 L 91 L 06/12/16 09:00 06/12/16 09:00 06/12/16 09:00 06/12/16 09:00 06/12/16 09:00 Laboratory Results 06/11/16 06:00 06/10/16 07:00 06/11/16 06/12/16 06/13/16 05:59 05:59 05:59 Intake Total 1670 1400 Output Total 400 Balance 1670 1000 Physical Exam - Physical Exam General Appearance: alert, moderate distress EENT: No scleral icterus (R), No scleral icterus (L) Respiratory: lungs clear, normal breath sounds, No respiratory distress, No accessory muscle use Cardiac/Chest: tachycardia, No irregularly irregular Abdomen: normal bowel sounds, non-tender, soft, No distended Back: Normal inspection, Other (no tenderness at area of pain) Skin: normal color, diaphoresis, No warm/dry Extremities: No pedal edema, No swelling Neuro/Psych: alert, other (anxious) ICD10 Worksheet Patient Problems: Problems Problem Status Onset Back pain Acute Hypoxia Acute Nausea & vomiting Acute Pain provoked by trauma Acute Pain, neuropathic Acute Humerus fracture Acute - ICD10 Problem Qualifiers (1) Pain provoked by trauma (2) Pain, neuropathic (3) Nausea & vomiting Qualifiers: Vomiting type: unspecified Vomiting Intractability: intractable Qualified Code(s): R11.2 - Nausea with vomiting, unspecified (4) Back pain Qualifiers: Back pain location: thoracic back pain Chronicity: acute Back pain laterality: left Sciatica presence: S Sciatica laterality: S Qualified Code(s): M54.6 - Pain in thoracic spine (5) Hypoxia
[2016-06-12] MEDS: POLYETHYLENE GLYCOL 3350 17 GM PKT PO SCH (12:55)
--- NOTE | 2016-06-12 14:08 | PDDCSUM ---
Discharge Summary Discharge Summary: Date of Admission/Transfer: 06/09/2016 Date of Discharge/Transfer: 06/12/2016 Admitting Diagnosis: Humeral Fracture, Afib with RVR, impaired mobility and self care Discharge Diagnosis: Humeral Fracture, Afib with RVR, impaired mobility and self care Secondary Diagnoses: nausea, vomiting, back pain, hypotension, tachycardia, GERD , osteopenia, CAD, cancer, anemia, thrombocytopenia, history of CVA, prediabetes , ANDREZ Procedures: None Consultations: None History of Present Illness: 75 yo F with new humeral fracture after a GLF at home in setting of cancer, complicated by afib with RVR, anticoagulation, recent stroke. She was awaiting definitive surgical management with Dr. Vega, admitted to [facility] for training in mobility and self care. Hospital Course: She was admitted for inpatient rehabilitation with a relatively unremarkable rehab course, but notable for improving thrombocytopenia , pain control, and some nausea. On 06/12 she had rapid onset back pain, diaphoresis, tachycardia, hypoxia, nausea and vomiting: concern for SC given history of possible CAD, stroke, and constellation of symptoms. Transferred to [facility] ED for additional workup this morning. Administered oxygen, placed IV , ordered cardiac enzymes and CBC, BMP and coags (not drawn before patient left unit). On Aspirin and beta rocky (given this morning after symptoms started). Left message for family, notified Dr. Negrete in ED for transfer. [facility] transported. Handed off to ED. * Debility: Physical therapy and occupational therapy to optimize mobility and activities of daily living, with limitation of nonweightbearing on the right upper extremity. * Right humeral neck fracture. Follow up within 1 to 2 weeks with orthopedic surgeon, Dr. Vega. XR on 06/[address] Vega. Modifying pain control to add oxycontin 10 mg BID and oxycodone 5-10 mg q 3 hr with goal to stop the oxycontin in next few days once pain adequately controlled, then continue with PRN as the fracture pain will ultimately be self limited, but the pain is currently interfering with therapies. Some tingling in right hand, neuropathic in nature. Not interested in gabapentin for control at this point. * History of osteopenia. Two years ago her vitamin D level was normal, repeat 25-OH vit D <12.8. Will start cholecalciferol 50,000 units weekly x 8 weeks fo follow with maintenance dose. Consider further evaluation with PCP or slime plant operator helper and possible antiresorptive therapy after discharge. NOTE: only able do give a one time dose for 50,000 units on 06/11, will need to reorder in 1 week. * Likely coronary artery disease with elevated troponin due to demand-related ischemia. Continued aspirin as well as metoprolol, but decreased the metoprolol to 12.5 mg BID on 06/11 to avoid hypotension. * Thrombocytopenia: Unclear etiology, improved on 06/11 * Recent cerebrovascular accident with considerable recovery following thrombolytics. Continued aspirin and atorvastatin, as well as anticoagulation with apixaban as preventive measures. * Prediabetes with elevated HgA1c. Staffing Account Manager consulted. * Obstructive sleep apnea. It is listed as a problem during her hospitalization. She should have monitoring of her oxygenation. It is unclear whether or not she has had a formal diagnosis or prescription of CPAP or BiPAP intervention. * History of cancer. Continue anastrozole. * Intermittent atrial fibrillation, may have been etiologic in her stroke. Continue apixaban 5 mg twice daily. Metoprolol for rate control. * Anemia: has been stable Condition: requires assistance with ADLs and mobility. Transferred to acute care for medical management of acute issues. See SOAP note from today's date for physical exam findings. Disposition: [facility] ED/ Acute care via ambulance. Patient being admitted to [facility] Acute Care inpatient status with diagnosis of Upper GI Bleed, and therefore discharged from [facility] Inpatient Rehab. Discharge Medications: See discharge medication list Discharge Instructions: See plan above. Patient requires assistance for daily function. NWB on RUE. Pending Studies: None Recommendations: When medically stable please consult PT/OT, and Rehab for re- evaluation. Follow-up: Follow up with Dr. Vega in 1-2 weeks, with follow up XR of right arm on 06/15 to evaluate interval healing.
--- NOTE | 2016-06-13 13:51 | PDOREHIP ---
Admission [facility] - Admission - 3 Day Assessment Period Admission Date/Day 1: 06/09/16 Day 2: 06/10/16 Day 3: 06/11/16 - Active Diagnoses Comorbidities and Co-existing Conditions at Admission: 628[address]. None of the Above - Skin Conditions Unhealed Pressure Ulcer (1 or more/Stage 1 or >)-Admission: 0. No (Late entry for 06/10/16)
== END 2016-06-12 13:57 | disposition still patient (30) | DRG 561 ==
LOC: BREH 15:25
PROVIDERS: ADMIT Internal Medicine; ATTEND Internal Medicine
PROC: F07M3ZZ Motor Function Treatment of Musculoskeletal System - Whole Body (ICD-10-PCS; principal; 2016-06-09)
PROC: F08Z4ZZ Home Management Treatment (ICD-10-PCS; principal; 2016-06-09)
DX: S42.231D 3-part fracture of surgical neck of right humerus, subsequent encounter for fracture with routine healing (principal); I69.393 Ataxia following cerebral infarction; I48.91 Unspecified atrial fibrillation; E66.01 Morbid (severe) obesity due to excess calories; G47.33 Obstructive sleep apnea (adult) (pediatric); Z68.31 Body mass index [BMI] 31.0-31.9, adult; I10 Essential (primary) hypertension; K21.9 Gastro-esophageal reflux disease without esophagitis; R73.03 Prediabetes; E21.3 Hyperparathyroidism, unspecified; W01.0XXD Fall on same level from slipping, tripping and stumbling without subsequent striking against object, subsequent encounter; Y92.019 Unspecified place in single-family (private) house as the place of occurrence of the external cause; Z85.3 Personal history of malignant neoplasm of breast; Z85.01 Personal history of malignant neoplasm of esophagus; I25.10 Atherosclerotic heart disease of native coronary artery without angina pectoris; R09.02 Hypoxemia; R11.2 Nausea with vomiting, unspecified; R00.0 Tachycardia, unspecified
CPT/HCPCS: 97110-GO; 97110-GP; 97116-GP; 97140-GO; 97162-GP; 97166-GO; 97530-GO; 97530-GP; 97535-GO; 97542-GP

== ENCOUNTER 2016-06-12 11:10 | Inpatient (IN) | payer OTHER ==
[2016-06-12] MEDS ORDERED: NS 1,000 ML IV ONE (11:13)
--- NOTE | 2016-06-12 11:22 | EDPHY ---
H & P Time Seen by Provider: 06/12/16 11:13 HPI/ROS: CHIEF COMPLAINT: Nausea HISTORY OF PRESENT ILLNESS: This patient is a 75 year old woman, arriving by EMS from rehab, presenting with acute nausea and vomiting this morning. It is associated with brief episode left shoulder pain at 9am and report of tachycardia and hypotension per rehab facility. The patient suspects that she feels nauseated after taking her medications on an empty stomach this morning. Symptoms are moderate in severity. She denies palpitations or the sensation of rapid heart rate. REVIEW OF SYSTEMS: Constitutional: No fever, no chills Eyes: No visual changes ENT: No sore throat Respiratory: No cough, no shortness of breath Cardiac: Tachycardia, hypotension. No chest pain Gastrointestinal: nausea, vomiting, no abdominal pain Genitourinary: No hematuria, no dysuria Musculoskeletal: Episode of left shoulder pain. No leg pain or swelling Skin: No rash Neurological: No headache, no numbness, no weakness Psychiatric: No depression Past Medical/Surgical History: Right humeral neck fracture, recent history of CVA s/p tPA, atrial fibrillation with RVR, history of breast cancer, esophageal CA, prediabetes, chronic kidney disease, ANDREZ, HTN Social History: Non-smoker, Smoking Status: Never smoked Physical Exam: General Appearance: Alert, no distress Eyes: Pupils equal and round, no conjunctival pallor or injection ENT, Mouth: Mucous membranes moist Neck: Normal inspection Respiratory: Lungs are clear to auscultation Cardiovascular: Tachycardic and regular Gastrointestinal: Abdomen is soft and non- tender Neurological: A&O, nonfocal, normal gait Skin: Warm and dry, no rash, ecchymosis over the right chest wall and buttocks Extremities: Right arm in sling, 1+ lower extremity edema bilaterally Psychiatric: Mood and affect normal Constitutional: Initial Vital Signs Temperature (C) 36.7 C 06/12/16 11:23 Heart Rate 114 H 06/12/16 11:23 Respiratory Rate 20 06/12/16 11:23 Blood Pressure 105/74 06/12/16 11:23 O2 Sat (%) 95 06/12/16 11:23 O2 Delivery Mode Nasal Cannula O2 (L/minute) 2 Allergies/Adverse Reactions: No Known Allergies Allergy (Verified 06/12/16 11:22) Home Medications: Medication Instructions Recorded Anastrozole [Arimidex 1 mg (*)] 1 mg PO DAILY 06/05/16 Aspirin EC [Aspirin EC 81 mg (*)] 81 mg PO DAILY 06/05/16 Herbals/Supplements -Info Only 1 ea PO DAILY 06/05/16 Apixaban [Eliquis] 5 mg PO BID #0 tab 06/09/16 Atorvastatin Calcium [Lipitor 10 10 mg PO DAILY #0 tab 06/09/16 mg (*)] Polyethylene Glycol 3350 [Miralax 17 gm PO DAILY PRN #0 pkt 06/09/16 17 gm (*)] oxyCODONE IR [Oxycodone Ir (*)] 5 - 10 mg PO Q3HRS PRN #0 tab 06/09/16 Acetaminophen [Tylenol 325mg (*)] 650 mg PO Q6HRS #0 tab 06/12/16 Calcium Carbonate [Tums 500MG (*)] 500 mg PO TID PRN #0 tab.chew 06/12/16 Cholecalciferol Vit D3 [Vitamin D3 50,000 unit PO ONCE #0 capsule 06/12/16 (*)] Metoprolol Tartrate [Lopressor 25 12.5 mg PO BID #0 tab 06/12/16 mg (*)] Ondansetron Odt [Zofran Odt 4 mg 4 mg PO Q6HRS PRN #0 tab 06/12/16 (*)] Prochlorperazine Maleate 10 mg PO Q6HRS PRN #0 tab 06/12/16 [Compazine 10mg (*)] Sennosides [Senokot] 1 - 2 tab PO BID PRN #0 tab 06/12/16 Sodium Cl Nasal Gel [[place] Sal[place] 1 jesus TP PRN PRN #0 gel 06/12/16 Nasal Gel] Sodium Cl Nasal [[place] (*)] 1 spray EACHNARE PRN PRN #0 btl 06/12/16 oxyCODONE CR [Oxycontin] 10 mg PO BID #0 tab 06/12/16 Medical Decision Making - Diagnostics EKG Interpretation: The 12 lead EKG was interpreted by myself. Sinus tachycardia, rate 103, borderline left axis deviation. See hard copy and/or "tracemaster" electronic copy for interpretation. Imaging: Chest x-ray was obtained. I viewed the images myself on the PACS system. My interpretation of the images is: atelectasis, left base, unchanged from June 05, 2016. The radiologist interpretation is pending at this time. I discussed the x-ray findings with the patient. ED Course/Re-evaluation: Patient arrives by EMS from rehab with tachycardia and hypotension this morning. Patient complains of feeling nauseated and reports a brief episode of left shoulder pain this morning at 9am. She is tachycardic but regular on exam. EKG, chest x-ray, and bloodwork ordered. IV fluids given with resolution and tachycardia. She vomited once, brownish-black, heme positive. Protonix 40 mg IV given for upper GI bleed. Hemodynamically stable after IVF. Hematocrit is relatively stable; she remains anemic but this has not recently changed. No evidence of ACS or alternative etiology of sx. Hospitalist service was consulted for admission. 1320: I consulted with the hospitalist service. Dr. Lin accepts admission. Differential Diagnosis: includes though not limited to ACS, PE, dehydration, severe anemia, dysrhythmia - Data Points Laboratory Results: Laboratory Results 06/12/16 12:20 06/12/16 12:20 Medications Given: Discontinued Medications Aspirin Buffered (Aspirin Ec) 81 mg PO DAILY NELL Stop: 12/10/16 08:59 Last Admin: 06/13/16 08:25 Dose: Not Given Furosemide (Lasix Injection) 20 mg IVP ONCE ONE Stop: 06/13/16 10:29 Last Admin: 06/13/16 15:51 Dose: 20 mg Sodium Chloride (Ns) 1,000 mls @ 0 mls/hr IV ONCE ONE PRN Reason: Wide Open Stop: 06/12/16 11:14 Last Admin: 06/12/16 11:29 Dose: 1,000 mls Pantoprazole Sodium 40 mg/ (Sodium Chloride) 100 mls @ 200 mls/hr IV EDNOW ONE Stop: 06/12/16 13:25 Last Admin: 06/12/16 13:04 Dose: 100 mls Sodium Chloride (Ns) 1,000 mls @ 125 mls/hr IV CONT NELL Stop: 12/09/16 15:14 Last Admin: 06/13/16 10:03 Dose: 1,000 mls Sodium Chloride (Ns) 250 mls @ 0 mls/hr IV ONCE ONE PRN Reason: Wide Open Stop: 06/13/16 20:22 Last Admin: 06/13/16 20:30 Dose: 250 mls Sodium Chloride (Ns) 250 mls @ 0 mls/hr IV ONCE ONE PRN Reason: Wide Open Stop: 06/13/16 22:31 Last Admin: 06/13/16 22:00 Dose: 250 mls Metoprolol Tartrate (Lopressor) 12.5 mg PO ONCE ONE Stop: 06/13/16 16:42 Last Admin: 06/13/16 16:48 Dose: 12.5 mg Departure - Departure Disposition: [facility] Inpatient Acute Clinical Impression: Gastrointestinal hemorrhage Qualifiers: GI bleed type/associated pathology: unspecified gastrointestinal hemorrhage type Qualified Code(s): K92.2 - Gastrointestinal hemorrhage, unspecified Condition: Fair Report Scribed for: Nelda Negrete Report Scribed by: Alondra Marion Date of Report: 06/12/16 Time of Report: 11:21 Physician Review and Approval Statement: 06/12/16 11:21 Portions of this note were transcribed by a medical psychotherapist. I personally performed a history, physical exam, medical decision making, and confirmed accuracy of information the transcribed note.
--- NOTE | 2016-06-12 11:52 | CPEKG ---
Heart Rate: 103 RR Interval: 583 P-R Interval: 164 QRSD Interval: 88 QT Interval: 352 QTC Interval: 461 P [place]: 34 QRS [place]: -19 T Wave [place]: 87 EKG Severity - BORDERLINE ECG - EKG Impression: SINUS TACHYCARDIA EKG Impression: BORDERLINE LEFT AXIS DEVIATION EKG Impression: BORDERLINE R WAVE PROGRESSION, ANTERIOR LEADS Electronically Signed By: Nelda Negrete 12-Jun-2016 11:57:10
[2016-06-12 12:30] LABS: ABSOLUTE NRBC COUNT 0.02 10^3/uL (0-0.01); ADD DIFF? YES; ADD MORPH? NO; ADD SCAN? NO; ATYPICAL LYMPHOCYTE FLAG 20 (0-99); FRAGMENT RBC FLAG 0 (0-99); HEMATOCRIT 28.8 % (38.0-47.0); HEMOGLOBIN 9.4 g/dL (12.6-16.3); LEFT SHIFT FLG 0 (0-99); LIPEMIA HEMOLYSIS FLAG 80 (0-99); MEAN CELL HEMOGLOBIN 28.7 pg (27.9-34.1); MEAN CELL HEMOGLOBIN CONCENTR. 32.6 g/dL (32.4-36.7); MEAN CELL VOLUME 88.1 fL (81.5-99.8); MEAN PLATELET VOLUME 10.1 fL (8.7-11.7); NRBC-AUTO% 0.1 % (0.0-0.2); PLATELET CLUMPS FLAG 0 (0-99); PLATELET COUNT 192 10^3/uL (150-400); RED BLOOD CELL COUNT 3.27 10^6/uL (4.18-5.33); RED CELL DISTRIBUTION WIDTH 19.7 % (11.5-15.2)
[2016-06-12 12:53] LABS: ANION GAP 11 mEq/L (8-16); CALCIUM 10.3 mg/dL (8.5-10.4); CARBON DIOXIDE 22 mEq/l (22-31); CHLORIDE 102 mEq/L (97-110); GLOMERULAR FILTRATION RATE 54; GLUCOSE 185 mg/dL (70-100); POTASSIUM 4.2 mEq/L (3.5-5.2); SODIUM 135 mEq/L (134-144)
[2016-06-12] MEDS ORDERED: PANTOPRAZOLE SODIUM 40 MG in NS 100 ML IV ONE (12:56)
[2016-06-12] MEDS ORDERED: PANTOPRAZOLE SODIUM 40 MG VIAL ONE (13:02)
[2016-06-12 13:05] LABS: TROPONIN I 0.027 ng/mL (0-0.034)
[2016-06-12 13:16] LABS: HYPOCHROMIA 1+; POLYCHROMASIA 1+
[2016-06-12 13:17] LABS: HYPERSEGMENTED NEUTROPHILS 1+
[2016-06-12 13:18] LABS: PLATELET ESTIMATE ADEQUATE (ADEQ)
[2016-06-12] MEDS ORDERED: HYDROmorphONE/DILAUDID 1 MG/ML SYR IVP PRN (15:11)
[2016-06-12] MEDS ORDERED: ONDANSETRON 4 MG/2 ML VIAL IVP PRN (15:11)
[2016-06-12] MEDS ORDERED: ONDANSETRON DISINTEGRATING 4 MG TAB PO PRN ×2 (15:11→15:14)
[2016-06-12] MEDS ORDERED: ACETAMINOPHEN 325 MG TAB PO PRN (15:11)
[2016-06-12] MEDS ORDERED: PROMETHAZINE HCL 25 MG TAB PO PRN (15:11)
[2016-06-12] MEDS ORDERED: CALCIUM CARBONATE 500 MG CHEWABLE TAB PO PRN (15:14)
[2016-06-12] MEDS ORDERED: SODIUM CL NASAL 45 ML BTL EACHNARE PRN (15:14)
[2016-06-12] MEDS ORDERED: PROCHLORPERAZINE MALEATE 10 MG TAB PO PRN (15:14)
[2016-06-12] MEDS ORDERED: SODIUM CL NASAL GEL 14.1 GM TUBE TP PRN (15:14)
[2016-06-12] MEDS: oxyCODONE IR 5 MG TAB PO PRN ×2 (16:03→20:13)
[2016-06-12] MEDS: NS 1,000 ML IV SCH (16:19)
--- NOTE | 2016-06-12 16:38 | PDGENHP ---
History and Physical - Chief Complaint nausea/vomiting - History of Present Illness 75 yo F with MMI including a recent humeral fracture that she is being managed medically for as well as recent CVA who has been in IP rehab recovering and presents with acute onset of upper back pain with associated diaphoresis and nausea and vomiting. There was concern that this could be an anginal equivalent. She had several episodes of vomiting and when she arrived in ER had another bout of small emesis that was noted to be dark in color and was heme positive. At this time she denies any complaints other than pain in her broken right arm. She also has had tingling in her right hand that is residual from her CVA earlier in the month, and this is worse since she has to keep that arm in a sling. She has no chest pain and that back pain that she had this morning has not recurred. She denies n/v currently, but states she has had reflux for several days and that she feels that the n/v she had earlier was mostly just severe reflux. History Information - Allergies/Home Medication List Allergies/Adverse Reactions: No Known Allergies Allergy (Verified 06/12/16 11:22) Home Medications: Anastrozole [Arimidex 1 mg (*)] 1 mg PO DAILY 06/05/16 [Last Taken 06/12/16] Aspirin EC [Aspirin EC 81 mg (*)] 81 mg PO DAILY 06/05/16 [Last Taken 06/12/16] Herbals/Supplements -Info Only 1 ea PO DAILY 06/05/16 [Last Taken Unknown] I have personally reviewed and updated: family history, medical history, social history, surgical history - Past Medical History atrial fibrillation, cancer (breast and esophageal cancer), CVA (s/p TPA with only residual sxs being right hand tingling and occasionally right foot tingling ), diabetes type 2, GERD, hyperlipidemia Additional medical history: chronic pain with continuous narcotic use and dependency. ANDREZ. hyperparathyroid. osteopenia - Surgical History Reports: appendectomy, cancer surgery (lumpectomy/partial mastectomy) Additional surgical history: knee surgery. cataract surgery - Family History Positive for: non-pertinent - Social History Smoking Status: Never smoked Alcohol Use: Rarely Drug Use: None Additional social history: currently in [place] IP rehab, previously living independently with her , uses a walker at baseline, originally from [facility] Review of Systems ROS: 10pt was reviewed & negative except for what was stated in HPI & below Physical Exam Temp Pulse Resp BP Pulse Ox 36.7 C 99 16 100/66 91 L 06/12/16 14:21 06/12/16 14:21 06/12/16 14:21 06/12/16 14:21 06/12/16 14:21 O2 (L/minute) 2 Constitutional: no apparent distress, appears nourished, obese Eyes: PERRL, anicteric sclera Ears, Nose, Mouth, Throat: moist mucous membranes, hearing normal Cardiovascular: regular rate and rhythym, no murmur, rub, or gallop, tachycardia , edema Respiratory: no respiratory distress, no rales or rhonchi, clear to auscultation Gastrointestinal: normoactive bowel sounds, soft, non-tender abdomen Genitourinary: no bladder tenderness Skin: warm, normal color Musculoskeletal: full muscle strength, other (right upper extremity in sling) Neurologic: AAOx3, CN II-XII Intact Psychiatric: interacting appropriately, not anxious, not encephalopathic Lab Data & Imaging Review 06/12/16 12:20 06/12/16 12:20 WBC 15.81 10^3/uL (3.80-9.50) H D 06/12/16 12:20 RBC 3.27 10^6/uL (4.18-5.33) L 06/12/16 12:20 Hgb 9.4 g/dL (12.6-16.3) L 06/12/16 12:20 Hct 28.8 % (38.0-47.0) L 06/12/16 12:20 MCV 88.1 fL (81.5-99.8) 06/12/16 12:20 MCH 28.7 pg (27.9-34.1) 06/12/16 12:20 MCHC 32.6 g/dL (32.4-36.7) 06/12/16 12:20 RDW 19.7 % (11.5-15.2) H 06/12/16 12:20 Plt Count 192 10^3/uL (150-400) 06/12/16 12:20 MPV 10.1 fL (8.7-11.7) 06/12/16 12:20 Neut % (Auto) Not Reported 06/12/16 12:20 Lymph % (Auto) Not Reported 06/12/16 12:20 [place] % (Auto) Not Reported 06/12/16 12:20 Eos % (Auto) Not Reported 06/12/16 12:20 Baso % (Auto) Not Reported 06/12/16 12:20 Nucleat RBC Rel Count 0.1 % (0.0-0.2) 06/12/16 12:20 Absolute Neuts (auto) Not Reported 06/12/16 12:20 Absolute Lymphs (auto) Not Reported 06/12/16 12:20 Absolute Monos (auto) Not Reported 06/12/16 12:20 Absolute Eos (auto) Not Reported 06/12/16 12:20 Absolute Basos (auto) Not Reported 06/12/16 12:20 Absolute Nucleated RBC 0.02 10^3/uL (0-0.01) H 06/12/16 12:20 Immature Gran % Not Reported 06/12/16 12:20 Seg Neutrophils % 86 % 06/12/16 12:20 Band Neutrophils % 2 % 06/12/16 12:20 Lymphocytes % 11 % 06/12/16 12:20 Monocytes % 1 % 06/12/16 12:20 Immature Gran # Not Reported 06/12/16 12:20 Absolute Seg Neuts 13.60 10^/uL (1.70-6.50) H 06/12/16 12:20 Absolute Band Neuts 0.32 10^3/uL (0.00-0.70) 06/12/16 12:20 Absolute Lymphocytes 1.74 10^3/uL (1.00-3.00) 06/12/16 12:20 Absolute Monocytes 0.16 10^3/uL (0.30-0.80) L 06/12/16 12:20 Hypersegmented Neuts 1+ H 06/12/16 12:20 Platelet Estimate ADEQUATE (ADEQ) 06/12/16 12:20 Polychromasia 1+ H 06/12/16 12:20 Hypochromasia 1+ H 06/12/16 12:20 Sodium 135 mEq/L (134-144) 06/12/16 12:20 Potassium 4.2 mEq/L (3.5-5.2) 06/12/16 12:20 Chloride 102 mEq/L (97-110) 06/12/16 12:20 Carbon Dioxide 22 mEq/l (22-31) 06/12/16 12:20 Anion Gap 11 mEq/L (8-16) 06/12/16 12:20 BUN 48 mg/dL (7-23) H 06/12/16 12:20 Creatinine 1.0 mg/dL (0.6-1.0) 06/12/16 12:20 Estimated GFR 54 06/12/16 12:20 Glucose 185 mg/dL (70-100) H 06/12/16 12:20 Calcium 10.3 mg/dL (8.5-10.4) 06/12/16 12:20 Troponin I 0.027 ng/mL (0-0.034) 06/12/16 12:20 NT-Pro-B Natriuret Pep 2490 pg/mL (0-450) H 06/12/16 12:20 Gastric Occult Blood POSITIVE (NEGATIVE) H 06/12/16 13:00 Visualized and Interpreted Chest x-ray results: Yes Chest X-Ray results: no infiltrate, other (cardiomegaly, no e/o heart failure) Visualized and Interpreted EKG results: Yes EKG Interpretation: Positive for: normal sinsus rhythm EKG additional interpertation: mild sinus tachycardia, LAD, borderline RWP Assessment & Plan Assessment: 75 yo F with pmh of recent CVA with underlying a fib as well as recent humeral fracture pw n/v/back pain and small hematemesis # n/v/back pain: possible anginal equivalent, RF including DM, HLD, recent CVA. Pain has resolved and n/v much improved. Will monitor on tele, trend serial trops and ecg, echo in am. Will continue PPI, prn antiemetics. Abd exam benign at this time. # hematemesis: patient had small volume of dark vomit after vomiting much of the morning, suspect small Marika-Jackson tear in setting of AC. Patient with chronic anemia but appears to be at baseline. Will continue to trend, if h/h drops or has a recurrent episode, will need to consult GI for EGD but holding off for now. Will hold eliquis and asa for now until course of bleeding more clear. # a fib: with high CHADS score given recent CVA, on eliquis which we will try to resume alejandro so long as no e/o ongoing bleeding, holding tonight's dose but if no issues by morning would resume at that time. Currently in SR # cva: s/p lytics and only mild sxs remaining--largely right sided numbness, previously had weakness as well # right humeral fracture: non operative mgmt, pain remains severe, in sling, patient to f/u with Dr. Vega in the next week to evaluate healing and whether delayed surgical intervention needed # anemia: chronic, appears to be baseline, trending # leukocytosis: without e/o pna on cxr, UA ordered and pending, likely stress response # gerd: as above, continued on ppi # FC # dispo: observation status, likely dc back to Rehab in am if w/u remains negative Patient new to my care. Old records reviewed and summarized as above. Care plan reviewed with ER doctor.
[2016-06-12] MEDS: ACETAMINOPHEN 325 MG TAB PO SCH (18:14)
[2016-06-12] MEDS: PANTOPRAZOLE SODIUM 40 MG TAB PO SCH (20:14)
[2016-06-12] MEDS: METOPROLOL TARTRATE 25 MG TAB PO SCH (20:53)
[2016-06-12] MEDS ORDERED: APIXABAN 5 MG TAB PO SCH (21:00)
[2016-06-13] MEDS: oxyCODONE IR 5 MG TAB PO PRN ×3 (00:13→19:45)
[2016-06-13] MEDS: ACETAMINOPHEN 325 MG TAB PO SCH ×4 (00:14→18:10)
--- NOTE | 2016-06-13 08:12 | HOSPPROG ---
Hospitalist Progress Note Assessment/Plan: Louann Trevino is a 75 yo F with pmh of recent CVA with underlying a fib as well as recent humeral fracture pw n/v/back pain and small hematemesis.Today is my first encounter with the patient/ chart reviewed. Spoke with Dr Carpio who will see her/ NPO. # n/v/back pain: -PPI -tele show -f/u with echo -first trop negative/second one pending # hematemesis: -hx of esophageal cancer -possibly a Marika-Jackson tear -with drop in H/H will ask GI to see for an EGD -NPO -hold Eliquis and asa #abla -transfuse now -explained risks and benefits -will recheck labs later #elevated BNP -doesn't appear in failure -will give a dose of lasix after transfusion -recheck BNP in a.m. #leukocytosis -resolved # a fib: intermittent/ went into afib and then went into sinus while I was seeing h -hold Eliquis in the setting of a poss upper gi bleed -high CHADS score given recent CVA/need eliquis and asa started if ok with GI # cva: s/p lytics not on this admission -minimal residual # right humeral fracture: - non operative mgmt, - f/u with Dr. Vega in the next week to evaluate healing and whether delayed surgical intervention needed # gerd: as above, continued on ppi # dispo: patient will require another midnight stay to get a transfusion and to get further evaluation for an EGD. This will make her IP status. Subjective: Louann has no specific complaints/ some right arm pain. Objective: Vital Signs Temp Pulse Resp BP Pulse Ox 37.0 C 88 19 93/53 L 97 06/13/16 08:00 06/13/16 08:00 06/13/16 08:00 06/13/16 08:00 06/13/16 08:00 06/12/16 06/13/16 06/14/16 05:59 05:59 05:59 Intake Total 1490 Output Total 500 Balance 990 - Physical Exam Constitutional: chronically ill appearing, obese, uncomfortable Eyes: PERRL Ears, Nose, Mouth, Throat: hearing normal Cardiovascular: regular rate and rhythym Respiratory: no respiratory distress Gastrointestinal: normoactive bowel sounds Skin: warm, No normal color (pale) Musculoskeletal: generalized weakness Neurologic: AAOx3 Psychiatric: interacting appropriately, not anxious ICD10 Worksheet Patient Problems: Problems Problem Status Onset Gastrointestinal hemorrhage Acute Back pain Acute Humerus fracture Acute Hypoxia Acute Nausea & vomiting Acute Pain provoked by trauma Acute Pain, neuropathic Acute
[2016-06-13] MEDS: PANTOPRAZOLE SODIUM 40 MG TAB PO SCH ×2 (08:26→19:45)
[2016-06-13] MEDS: ANASTROZOLE 1 MG TAB PO SCH (08:27)
[2016-06-13] MEDS: METOPROLOL TARTRATE 25 MG TAB PO SCH ×3 (08:28→20:42)
[2016-06-13] MEDS: ATORVASTATIN CALCIUM 10 MG TAB PO SCH (08:28)
--- NOTE | 2016-06-13 08:45 | CPEKG ---
Heart Rate: 84 RR Interval: 714 P-R Interval: 176 QRSD Interval: 92 QT Interval: 372 QTC Interval: 440 P [place]: 23 QRS [place]: -14 T Wave [place]: 10 EKG Severity - BORDERLINE ECG - EKG Impression: SINUS RHYTHM EKG Impression: BORDERLINE T ABNORMALITIES, ANTERIOR LEADS Electronically Signed By: Isidro Hart 13-Jun-2016 09:20:02
[2016-06-13] MEDS ORDERED: ASPIRIN EC 81 MG TAB PO SCH (09:00)
[2016-06-13 09:55] LABS: % IMMATURE GRANULYOCYTES 0.6 % (0.0-1.1); ABSOLUTE IMMATURE GRANULOCYTES 0.04 10^3/uL (0.00-0.10); ABSOLUTE NRBC COUNT 0.02 10^3/uL (0-0.01); ADD DIFF? NO; ADD MORPH? YES; ADD SCAN? NO; ATYPICAL LYMPHOCYTE FLAG 30 (0-99); FRAGMENT RBC FLAG 0 (0-99); HEMATOCRIT 20.4 % (38.0-47.0); LEFT SHIFT FLG 0 (0-99); LIPEMIA HEMOLYSIS FLAG 80 (0-99); MEAN CELL HEMOGLOBIN CONCENTR. 31.9 g/dL (32.4-36.7); MEAN CELL VOLUME 91.1 fL (81.5-99.8); MEAN PLATELET VOLUME 9.9 fL (8.7-11.7); NRBC-AUTO% 0.3 % (0.0-0.2); PLATELET CLUMPS FLAG 0 (0-99); PLATELET COUNT 132 10^3/uL (150-400); RED BLOOD CELL COUNT 2.24 10^6/uL (4.18-5.33)
[2016-06-13 09:56] LABS: HEMOGLOBIN 6.5 g/dL (12.6-16.3)
[2016-06-13] MEDS: NS 1,000 ML IV SCH (10:03)
--- NOTE | 2016-06-13 10:11 | ECHO ---
[id number] + + [address] : : [place] [address] : : [phone] + + Adult Echocardiographic Report + -----+ :Name: ALEJANDRO VARELA DStudy Date: 06/13/2016 07:28 AM BP: 130/71 mmHg : : Hospital Admission Number: [id number] Location : 373: :: 1940 Gender: Female Height: 65 in : :Age: 75 yrs Race: WH Weight: 190 lb : :Reason For Study: chest pain : : BSA: 1.9 meters2 : :History: chest pain, n/v : + -----+ MMode/2D Measurements \T\ Calculations IVSd: 1.2 cm LVIDd: 4.3 cm FS: 39.1 % Ao root diam: LVPWd: 1.2 cm LVIDs: 2.6 cm EDV(Teich): 2.6 cm 81.1 ml LA dimension: ESV(Teich): 3.8 cm 24.4 ml EF(Teich): 69.9 % LVLd ap4: 7.8 cm SV(MOD-sp4): EDV(MOD-sp4): 86.0 ml 124.0 ml LVLs ap4: 6.0 cm ESV(MOD-sp4): 38.0 ml EF(MOD-sp4): 69.4 % Normal Measurement Values: + + :LVIDd (3.5-5.7cm) IVSd (0.6-1.1cm) LVPWd (0.6-1.1cm) Aortic Root (2.0-3.7cm)Left Atrium (1.5-4.0cm): :LV Vol(d) (76-115ml) LV Vol(s) (29-48ml) Ejec Fraction (50-65%)PV Jimmie (0.6- 1.2m/s) TV Jimmie (0.4-1.0m/s) : :MV E Jimmie (0.8-1.0m/s)MV A Jimmie (0.3-1.0m/s)LVOT Jimmie (0.7-1.2m/s) Asc Ao Jimmie ( 0.9-1.8m/s) : + + Doppler Measurements \T\ Calculations MV E max jimmie: Ao V2 max: LV V1 max: PA V2 max: 70.6 cm/sec 156.4 cm/sec 90.8 cm/sec 111.3 cm/sec MV A max jimmie: Ao max PG: LV V1 max PG: PA max P.3 cm/sec 9.8 mmHg 3.3 mmHg 5.0 mmHg MV E/A: 0.78 MV dec time: 0.20 sec TR max jimmie: 287.8 cm/sec TR max P.1 mmHg RAP systole: 10.0 mmHg RVSP(TR): 43.1 mmHg Left Ventricle The left ventricle is normal in size and function. There is mild concentric left ventricular hypertrophy. Ejection Fraction = 65-70%. No regional wall motion abnormalities noted. Right Ventricle The right ventricle is normal in size and function. The right ventricular systolic function is normal. Atria The left atrial size is normal. Right atrial size is normal. A dilated inferior vena cava suggests increased right atrial pressure. Mitral Valve The mitral valve is normal in structure and function. There is no mitral regurgitation noted. Tricuspid Valve The tricuspid valve is normal in structure and function. There is mild tricuspid regurgitation. Right ventricular systolic pressure is 43mmHg. There is Doppler evidence for mild pulmonary hypertension. Aortic Valve The aortic valve is trileaflet. There is no aortic stenosis. There is no aortic insufficiency. Pulmonic Valve The pulmonic valve is not well visualized. Great Vessels The aortic root is normal size. Pericardium/Pleural There is no pericardial effusion. Conclusion A two-dimensional transthoracic echocardiogram with M-mode and Doppler was performed. Patient supine due to broken shoulder. The study was technically difficult. (1) Left ventricular systolic ejection fraction was normal (60-65%) - normal wall motion (2) Mild concentric left ventricular hypertrophy (3) Diastolic dysfunction was present (4) Normal right ventricular size and function (5) Normal atrial dimensions (6) Grossly normal mitral valve (7) Trileaflet aortic valve without sclerosis or insufficiency (8) Mild tricuspid regurgitation - RVSP was 40-45 mm Hg (9) Poor visualization of the pulmonic valve (10) In comparison to prior echocardiogram from 12/2011, there has been reduction in RVSP from 55-60 mm Hg to current 40-45 mm Hg Final Reading Physician: Nicole Yee signed on 06/13/2016 10:10 AM Ordering Physician: Aaron Lin Performed By: Clara Lynne
[2016-06-13 10:28] LABS: ELLIPTOCYTES 1+; PLATELET ESTIMATE DECREASED (ADEQ); POLYCHROMASIA 1+
[2016-06-13] MEDS ORDERED: FUROSEMIDE 20 MG/2 ML VIAL IVP ONE (10:28)
[2016-06-13] MEDS ORDERED: ACETAMINOPHEN 325 MG TAB PO ONE (10:28)
[2016-06-13 10:33] LABS: MACROCYTES 1+; MICROCYTES 1+
[2016-06-13 11:05] LABS: ANION GAP 6 mEq/L (8-16); CALCIUM 9.4 mg/dL (8.5-10.4); CARBON DIOXIDE 21 mEq/l (22-31); CHLORIDE 108 mEq/L (97-110); CREATININE 0.8 mg/dL (0.6-1.0); GLOMERULAR FILTRATION RATE > 60; GLUCOSE 94 mg/dL (70-100); SODIUM 135 mEq/L (134-144)
[2016-06-13] MEDS ORDERED: fentaNYL 100 MCG/2 ML INJ ONE (13:49)
[2016-06-13] MEDS ORDERED: MIDAZOLAM 2 MG/2 ML VIAL ONE (13:49)
--- NOTE | 2016-06-13 15:46 | GPN ---
[f rep st] PROCEDURE NOTE PROCEDURE: Esophagogastroduodenoscopy with biopsy. PREOPERATIVE DIAGNOSIS: Hematemesis. POSTOPERATIVE DIAGNOSIS: Ulcerative esophagitis and deep ulceration the distal esophagus gastroesophageal junction with abnormal mucosa consistent with the patient's history of squamous cell carcinoma status post biopsy. INDICATIONS: 75-year-old woman with history of squamous cell carcinoma of the esophagus. She had undergone chemotherapy. She has also had a history of stroke and recently diagnosed with atrial fibrillation, started on anticoagulation. She presented to the hospital with hematemesis. She was started on Eliquis. Eliquis has been discontinued since yesterday. She did have a drop in her hematocrit to 20%. PHYSICAL EXAMINATION: VITAL SIGNS: Stable. LUNGS: Clear. CARDIAC: Normal S1, S2 without murmur. PERMIT: The procedure was explained to the patient. Risks and benefits of the procedure outlined to the patient. Informed consent was obtained. PREOPERATIVE MEDICATIONS: Fentanyl 75 mcg, 3 mg of Versed. DESCRIPTION OF PROCEDURE: The patient was placed in the left lateral decubitus position. The GIF-180 videoscope was passed in the oropharynx under direct visualization to the proximal esophagus. Proximal esophagus was remarkable for esophagitis with ulceration. In the distal esophagus, there was a deeper ulceration in the GE junction with abnormal, heaped up folds of mucosa (mass) , consistent with the patient's history of squamous cell carcinoma. Endoscope was passed into the stomach. GE junction was at 35 cm. There was a small-to- moderate size hiatal hernia. The endoscope was passed in the stomach. There was some retained old blood in the stomach in the antrum and body. Grossly, the antrum and body were normal. Endoscope was passed to the pylorus, and 1st and 2nd portion of the duodenum were normal. Endoscope was brought back down the stomach. Retroflex view of the stomach revealed a normal fundus and cardia. Endoscope was unretroflexed and withdrawn to the distal esophagus. Distal esophageal biopsies were obtained and also proximal esophageal biopsies were obtained. The endoscope was then withdrawn. IMPRESSION: Findings of esophageal mass, distal esophagus consistent with patient's history of esophageal cancer, status post biopsy, with ulceration of the distal esophagus. Also, superficial ulcerations of the proximal esophagus status post biopsy. RECOMMENDATIONS: 1. Clear liquid diet, advance as tolerated. 2. Continue on proton pump inhibitor, pantoprazole 40 mg b.i.d. 3. Follow H and H serially. 4. I would recommend avoiding anticoagulation, if possible, in the setting of underlying esophageal ulceration. /[id number]/MODL MTDD
--- NOTE | 2016-06-13 16:29 | HOSPPROG ---
Hospitalist Progress Note Assessment/Plan: Louann Trevino is a 75 yo F with pmh of recent CVA with underlying a fib as well as recent humeral fracture pw n/v/back pain and small hematemesis.Today is my first encounter with the patient/ chart reviewed. Spoke with Dr Carpio who will see her/ NPO. # n/v/back pain: -PPI -tele show -f/u with echo -first trop negative/second one pending # hematemesis: -hx of esophageal cancer -possibly a Marika-Jackson tear -with drop in H/H will ask GI to see for an EGD -NPO -hold Eliquis and asa #abla -transfuse now -explained risks and benefits -will recheck labs later #elevated BNP -doesn't appear in failure -will give a dose of lasix after transfusion -recheck BNP in a.m. #leukocytosis -resolved # a fib: intermittent/ went into afib and then went into sinus while I was seeing h -hold Eliquis in the setting of a poss upper gi bleed -high CHADS score given recent CVA/need eliquis and asa started if ok with GI # cva: s/p lytics not on this admission -minimal residual # right humeral fracture: - non operative mgmt, - f/u with Dr. Vega in the next week to evaluate healing and whether delayed surgical intervention needed # gerd: as above, continued on ppi # dispo: patient will require another midnight stay to get a transfusion and to get further evaluation for an EGD. This will make her IP status. Objective: Vital Signs Temp Pulse Resp BP Pulse Ox 37.1 C 90 12 102/90 H 93 06/13/16 15:35 06/13/16 15:35 06/13/16 15:35 06/13/16 15:35 06/13/16 15:35 Laboratory Results 06/13/16 09:45 06/13/16 09:45 ICD10 Worksheet Patient Problems: Problems Problem Status Onset Gastrointestinal hemorrhage Acute Back pain Acute Humerus fracture Acute Hypoxia Acute Nausea & vomiting Acute Pain provoked by trauma Acute Pain, neuropathic Acute
[2016-06-13] MEDS ORDERED: METOPROLOL TARTRATE 25 MG TAB PO ONE (16:41)
--- NOTE | 2016-06-13 16:57 | GCON ---
[f rep st] CONSULTATION CHIEF COMPLAINT: GI bleed. HISTORY OF PRESENT ILLNESS: This 75-year-old woman was admitted to the hospital with an episode of hematemesis. She has a medical history of right humeral fracture that is being managed medically. She has also had a CVA and has been in rehab. She also has a history of esophageal cancer diagnosed by Dr. Martin. She was diagnosed with squamous cell esophageal cancer. She has undergone chemotherapy. She initially presented with symptoms of dysphagia. She has had no further dysphagia since starting on chemotherapy. The ultimate plan is to start her on radiation therapy. She has had a previous CVA with right- sided weakness, status post IPA in May. She has undergone 4 cycles of FOLFOX for chemotherapy, followed by Dr. Pauline Sheffield. She has been recently diagnosed with atrial fibrillation and had been started on Eliquis. She presented to the hospital with hematemesis, coffee-grounds material. She had a drop in hematocrit. She has no prior history of GI bleeding. No prior history of ulcer disease. But does have a recent history of esophageal cancer. She has been on low-dose aspirin in addition to Eliquis. She was admitted to the hospital and had dropped her hematocrit to 20%. I was asked to see the patient for further evaluation of GI bleeding. PAST MEDICAL HISTORY: 1. Remarkable for CVA, right-sided weakness, status post IPA on 05/31/2016. 2. Esophageal cancer, status post 4 cycles of chemotherapy, followed by Dr. Pauline Sheffield. 3. History of breast cancer, status post lumpectomy stage I. 4. Hypertension. 5. GE reflux. 6. Pre diabetes. 7. Elevated creatinine. 8. Hyperparathyroidism. 9. Obstructive sleep apnea. 10. Arthritis. PAST SURGICAL HISTORY: Remarkable for appendectomy, arthroscopic knee surgery, cataract surgery, lumpectomy, partial mastectomy of the left breast/lumpectomy. FAMILY HISTORY: Remarkable for strokes in father, age 47. Stomach cancer in mother who at age 75. Otherwise, negative as it pertains to chief complaint. SOCIAL HISTORY: She is . She lives with her . Lives independently. No cigarette, alcohol, tobacco use. ALLERGIES: Has no known drug allergies. REVIEW OF SYSTEMS: Negative for 10 systems other than mentioned in HPI. MEDICATIONS: Tylenol, Arimidex, Lipitor, Lopressor, Zofran, oxycodone IR, MiraLAX, Compazine, Phenergan, Senokot. PHYSICAL EXAMINATION: VITAL SIGNS: 109/67, pulse of 92, respiratory rate 17, 98 % sat on room air, temperature 37.1. GENERAL: Very pleasant woman, in no acute distress. HEENT: Normocephalic, atraumatic. EOMI. NECK: Supple. No cervical adenopathy. Mucous membranes moist. LUNGS: Clear. CARDIAC: Normal S1, S2 without murmur. CHEST: She has a MediPort in the left upper chest. ABDOMEN: Soft. Normal bowel sounds. No hepatosplenomegaly. EXTREMITIES: Without clubbing , cyanosis, edema. She is in a sling to her right arm from previous humeral fracture. SKIN: Warm and dry. NEURO: Nonfocal. PSYCH: Normal affect. LABS: Hemoglobin 6.5, hematocrit 20.4, platelet count 132,000. PT of 14.3, INR of 1.12, PTT 35.7. Serum chemistries: Serum sodium 135, potassium 4.0, chloride of 108, CO2 of 21, BUN of 33, creatinine of 0.8. Blood sugar of 94. IMPRESSION: A 75-year-old woman with history of esophageal cancer, squamous cell carcinoma, status post chemotherapy. Patient with atrial fibrillation and previous stroke. The patient has been on anticoagulation recently and presents now with an upper gastrointestinal bleed. Suspect underlying lesion of esophageal cancer with bleeding in the setting of anticoagulation. RECOMMENDATIONS: Discontinue Eliquis, serial H and H, proceed with urgent endoscopy. Will follow with you. /[id number]/MODL MTDD
[2016-06-13 17:02] LABS: HEMATOCRIT 25.7 % (38.0-47.0); HEMOGLOBIN 8.5 g/dL (12.6-16.3)
[2016-06-13 17:48] LABS: COLOR COLORLESS; LEUKOCYTE ESTERASE,URINE TRACE (NEGATIVE); NITRITE,URINE NEGATIVE (NEGATIVE)
[2016-06-13 18:04] LABS: BACTERIA TRACE /hpf (NONE SEEN); MUCUS TRACE /lpf (NONE-1+)
[2016-06-13] MEDS ORDERED: NS 250 ML IV ONE ×2 (20:21→22:30)
[2016-06-14] MEDS: oxyCODONE IR 5 MG TAB PO PRN ×3 (00:11→18:39)
[2016-06-14] MEDS: ACETAMINOPHEN 325 MG TAB PO SCH ×4 (00:12→17:16)
[2016-06-14 05:54] LABS: % IMMATURE GRANULYOCYTES 0.6 % (0.0-1.1); ABSOLUTE IMMATURE GRANULOCYTES 0.03 10^3/uL (0.00-0.10); ABSOLUTE NRBC COUNT 0.02 10^3/uL (0-0.01); ADD DIFF? NO; ADD MORPH? YES; ADD SCAN? NO; ATYPICAL LYMPHOCYTE FLAG 50 (0-99); FRAGMENT RBC FLAG 0 (0-99); HEMATOCRIT 27.3 % (38.0-47.0); HEMOGLOBIN 8.7 g/dL (12.6-16.3); LEFT SHIFT FLG 0 (0-99); LIPEMIA HEMOLYSIS FLAG 80 (0-99); MEAN CELL HEMOGLOBIN 29.2 pg (27.9-34.1); MEAN CELL HEMOGLOBIN CONCENTR. 31.9 g/dL (32.4-36.7); MEAN CELL VOLUME 91.6 fL (81.5-99.8); MEAN PLATELET VOLUME 9.8 fL (8.7-11.7); NRBC-AUTO% 0.4 % (0.0-0.2); PLATELET CLUMPS FLAG 0 (0-99); PLATELET COUNT 131 10^3/uL (150-400); RED BLOOD CELL COUNT 2.98 10^6/uL (4.18-5.33)
[2016-06-14 06:10] LABS: ANION GAP 7 mEq/L (8-16); CALCIUM 9.8 mg/dL (8.5-10.4); CARBON DIOXIDE 20 mEq/l (22-31); CHLORIDE 114 mEq/L (97-110); CREATININE 0.7 mg/dL (0.6-1.0); GLOMERULAR FILTRATION RATE > 60; GLUCOSE 86 mg/dL (70-100); POTASSIUM 3.5 mEq/L (3.5-5.2); SODIUM 141 mEq/L (134-144)
[2016-06-14 06:18] LABS: RED CELL DISTRIBUTION WIDTH 20.9 % (11.5-15.2)
[2016-06-14 07:22] LABS: HYPOCHROMIA 1+; MACROCYTES 1+; PLATELET ESTIMATE DECREASED (ADEQ); POLYCHROMASIA 1+
[2016-06-14] MEDS: ATORVASTATIN CALCIUM 10 MG TAB PO SCH (08:29)
[2016-06-14] MEDS: ANASTROZOLE 1 MG TAB PO SCH (08:29)
[2016-06-14] MEDS: PANTOPRAZOLE SODIUM 40 MG TAB PO SCH ×2 (08:30→21:24)
[2016-06-14] MEDS: METOPROLOL TARTRATE 25 MG TAB PO SCH ×2 (08:30→21:26)
[2016-06-14] MEDS ORDERED: Herbals/Supplements -Info Only PO SCH (09:00)
[2016-06-14] MEDS: POLYETHYLENE GLYCOL 3350 17 GM PKT PO PRN (11:47)
--- NOTE | 2016-06-14 14:17 | SOAPPROG ---
SOAP Progress Note Assessment/Plan: Assessment: GI Bleed in setting of esophageal cancer and anti-coagulation. Patient tolerating PO. No signs or symptoms of rebleeding. Plan: 1. Would not resume anti-coagulation if possible 2. Diet as tolerated 3. Biopsies pending 4. Follow up Oncology, anticipate chemotherapy on Monday 5. Will sign off, please call with further questions 06/14/16 14:18 Objective: Vital Signs Temp Pulse Resp BP Pulse Ox 37.1 C 104 H 22 H 126/83 H 96 06/14/16 12:00 06/14/16 12:00 06/14/16 12:00 06/14/16 12:00 06/14/16 12:00 Laboratory Results 06/14/16 05:20 06/14/16 05:20 06/13/16 06/14/16 06/15/16 05:59 05:59 05:59 Intake Total 2990 Output Total 4100 Balance -1110 Generic Name Dose Route Start Last Admin Trade Name Freq PRN Reason Stop Dose Admin Acetaminophen 650 mg 06/12/16 15:11 Tylenol PO 12/09/16 15:10 Q4HRS PRN Pain, Mild/Fever, Can Take PO Acetaminophen 650 mg 06/12/16 18:00 06/14/16 11:48 Tylenol PO 12/09/16 17:59 650 mg Q6HRS NELL Administration Anastrozole 1 mg 06/13/16 09:00 06/14/16 08:29 Arimidex PO 12/10/16 08:59 1 mg DAILY NELL Administration Atorvastatin Calcium 10 mg 06/13/16 09:00 06/14/16 08:29 Lipitor PO 12/10/16 08:59 10 mg DAILY NELL Administration Calcium Carbonate 500 mg 06/12/16 15:14 Tums PO 12/09/16 15:13 TID PRN Indigestion Hydromorphone HCl 0.2 - 0.4 mg 06/12/16 15:11 06/13/16 12:59 Dilaudid IVP 06/22/16 15:10 0.4 mg Q4HRS PRN Administration Pain, Severe Unable to Take PO Metoprolol Tartrate 12.5 mg 06/12/16 21:00 06/14/16 08:30 Lopressor PO 12/09/16 20:59 12.5 mg BID NELL Administration Ondansetron HCl 4 mg 06/12/16 15:11 06/12/16 20:13 Zofran IVP 12/09/16 15:10 4 mg Q4HRS PRN Administration Nausea/Vomiting, Can't Take PO Ondansetron HCl 4 mg 06/12/16 15:11 Zofran Odt PO 12/09/16 15:10 Q4HRS PRN Nausea/Vomiting, Use 1st Oxycodone HCl 10 mg 06/12/16 21:00 06/14/16 08:34 Oxycontin PO 06/22/16 20:59 Not Given BID NELL Oxycodone HCl 5 - 10 mg 06/12/16 15:11 06/14/16 11:48 Oxycodone Ir PO 06/22/16 15:10 10 mg Q3HRS PRN Administration Pain, Severe Able to Take PO Pantoprazole Sodium 40 mg 06/12/16 21:00 06/14/16 08:30 Protonix PO 12/09/16 20:59 40 mg BID NELL Administration Polyethylene Glycol 17 gm 06/12/16 15:14 06/14/16 11:47 Miralax PO 12/09/16 15:13 17 gm DAILY PRN Administration Constipation, patient prefers Prochlorperazine Maleate 10 mg 06/12/16 15:14 Compazine PO 12/09/16 15:13 Q6HRS PRN Nausea/Vomiting, Use 3rd Promethazine HCl 12.5 - 25 mg 06/12/16 15:11 Phenergan PO 12/09/16 15:10 Q6HRS PRN Nausea/Vomiting, Use 2nd Senna 1 - 2 tab 06/12/16 15:14 Senokot PO 12/09/16 15:13 BID PRN Constipation Sodium Chloride 1 spray 06/12/16 15:14 [place] EACHNARE 12/09/16 15:13 PRN PRN Dry Nose Sodium Chloride 1 jesus 06/12/16 15:14 [place] Saline Nasal Gel TP 12/09/16 15:13 PRN PRN Dry Nose Discontinued Medications Generic Name Dose Route Start Last Admin Trade Name Freq PRN Reason Stop Dose Admin Apixaban 5 mg 06/12/16 21:00 Eliquis PO 12/09/16 20:59 BID NELL Aspirin Buffered 81 mg 06/13/16 09:00 06/13/16 08:25 Aspirin Ec PO 12/10/16 08:59 Not Given DAILY NELL Fentanyl Confirm 06/13/16 13:49 Sublimaze Administered 06/13/16 13:50 Dose 200 mcg .ROUTE .STK-MED ONE Furosemide 20 mg 06/13/16 10:28 06/13/16 15:51 Lasix Injection IVP 06/13/16 10:29 20 mg ONCE ONE Administration Sodium Chloride 1,000 mls @ 0 mls/hr 06/12/16 11:13 06/12/16 11:29 Ns IV 06/12/16 11:14 1,000 mls ONCE ONE Administration Wide Open Pantoprazole Sodium 40 mg/ 100 mls @ 200 mls/hr 06/12/16 12:56 06/12/16 13:04 Sodium Chloride IV 06/12/16 13:25 100 mls EDNOW ONE Administration Sodium Chloride 1,000 mls @ 125 mls/hr 06/12/16 15:15 06/13/16 10:03 Ns IV 12/09/16 15:14 1,000 mls CONT NELL Administration Sodium Chloride 250 mls @ 0 mls/hr 06/13/16 20:21 06/13/16 20:30 Ns IV 06/13/16 20:22 250 mls ONCE ONE Administration Wide Open Sodium Chloride 250 mls @ 0 mls/hr 06/13/16 22:30 06/13/16 22:00 Ns IV 06/13/16 22:31 250 mls ONCE ONE Administration Wide Open Metoprolol Tartrate 12.5 mg 06/13/16 16:41 06/13/16 16:48 Lopressor PO 06/13/16 16:42 12.5 mg ONCE ONE Administration Midazolam HCl Confirm 06/13/16 13:49 Versed Administered 06/13/16 13:50 Dose 6 mg .ROUTE .STK-MED ONE Pantoprazole Sodium Confirm 06/12/16 13:02 Protonix Administered 06/12/16 13:03 Dose 40 mg .ROUTE .STK-MED ONE Physical Exam - Physical Exam General Appearance: alert, no apparent distress Respiratory: chest non-tender, lungs clear, normal breath sounds Cardiac/Chest: regular rate, rhythm Abdomen: normal bowel sounds, non-tender, soft Skin: normal color, warm/dry Neuro/Psych: no motor/sensory deficits, alert, normal mood/affect ICD10 Worksheet Patient Problems: Problems Problem Status Onset Gastrointestinal hemorrhage Acute Back pain Acute Humerus fracture Acute Hypoxia Acute Nausea & vomiting Acute Pain provoked by trauma Acute Pain, neuropathic Acute
--- NOTE | 2016-06-14 15:14 | HOSPPROG ---
Hospitalist Progress Note Assessment/Plan: Hospitalist Progress Note Assessment/Plan: Louann Trevino is a 75 yo F with pmh of recent CVA with underlying a fib as well as recent humeral fracture pw n/v/back pain and small hematemesis.Today is my first encounter with the patient/ chart reviewed. Spoke with Dr Grant who will see her. # n/v/back pain: -PPI -echo stable -first trop negative/second one negative # hematemesis: -hx of esophageal cancer -possibly a Marika-Jackson tear -EGD, esophageal mass/ recommending no OAC -NPO -hold Eliquis and asa #abla -transfuse, stable #elevated BNP -doesn't appear in failure -dose of lasix after transfusion -stable #leukocytosis -resolved # a fib: intermittent -sinus while I was seeing her -hold Eliquis in the setting of a poss upper gi bleed -high CHADS score given recent CVA/rec eliquis and asa GI recs holding # cva: s/p lytics not on this admission -minimal residual # right humeral fracture: - non operative mgmt, - f/u with Dr. Vega in the next week to evaluate healing and whether delayed surgical intervention needed # gerd: as above, continued on ppi # dispo: patient will require another midnight stay to monitor for further bleeding. Hope to return to Rehab in the am if stable Await oncology consult Subjective: Up in the chair. Feels well. Eager to return to rehab. Objective: Vital Signs Temp Pulse Resp BP Pulse Ox 37.1 C 104 H 22 H 126/83 H 96 06/14/16 12:00 06/14/16 12:00 06/14/16 12:00 06/14/16 12:00 06/14/16 12:00 Laboratory Results 06/14/16 05:20 06/14/16 05:20 06/13/16 06/14/16 06/15/16 05:59 05:59 05:59 Intake Total 2990 Output Total 4100 Balance -1110 - Physical Exam Constitutional: no apparent distress, not in pain, obese Eyes: PERRL, anicteric sclera, EOMI Ears, Nose, Mouth, Throat: moist mucous membranes, hearing normal, ears appear normal Cardiovascular: No JVD, No tachycardia, No edema Respiratory: no respiratory distress, no rales or rhonchi, reduced air movement Gastrointestinal: normoactive bowel sounds, No tenderness, No ascites Skin: warm, normal color, No erythema Musculoskeletal: no joint effusions, abnormal gait, generalized weakness Neurologic: AAOx3 Psychiatric: interacting appropriately, not anxious, not encephalopathic ICD10 Worksheet Patient Problems: Problems Problem Status Onset Humerus fracture Acute Pain provoked by trauma Acute Pain, neuropathic Acute Nausea & vomiting Acute Back pain Acute Hypoxia Acute Gastrointestinal hemorrhage Acute
--- NOTE | 2016-06-14 16:55 | GCON ---
[f rep st] CONSULTATION ONCOLOGY CONSULTATION NOTE. DATE OF CONSULTATION: 06/14/2016 REASON FOR CONSULTATION: Esophageal adenocarcinoma. HISTORY OF PRESENT ILLNESS: Mrs. Trevino is a pleasant 75-year-old female, who is followed by my part ner, Dr. Mike Kwon. 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 She has been receiving palliative FOLFOX chemotherapy. Her treatm ent history was complicated by a CVA which occurred at the beginning of May. She developed right arm and right leg numbness with slurred speech. She was seen at [facility] and received tPA with complete resolution of her neurologic symptoms. She was on an aspirin prior to this event , and Eliquis was added. Her most recent chemotherapy treatment was given on June 03. She presented to the hospital on June 12, being transferred from a rehab facility where she had b een noted to have an episode of coffee-grounds emesis and had developed anemia. She has been seen by Dr. Carpio of Gastroenterology. She underwent an upper endoscopy yesterday. Her previous he partially obstructing mass is clearly improved in reviewing the EGD report. She has deep ulcerations within the distal esophagus that were likely the source of her bleeding. It was r ecommended that her Eliquis and aspirin be stopped as a result, which has been done. Today, she feels fine. She has had no further episodes of coffee-ground emesis, and denies abdomina l pain. She will likely be transferred back to the rehab facility tomorrow. PAST MEDICAL HISTORY: 1. Stage IV esophageal adenocarcinoma as outlined above. 2. 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 3. Hypertension. 4. Hyperlipidemia. 5. History of nephrolithiasis. PAST SURGICAL HISTORY: 1. Appendectomy. 2. Surgery for kidney stones. 3. Bilateral arthroscopic knee surgery. SOCIAL HISTORY: The patient is . 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 She is a [employer]. She lives locally but has recently been in rehab following h er CVA. REVIEW OF SYSTEMS: As outlined above. PHYSICAL EXAM: Pleasant, elderly female, who is sitting in a chair. She is in no acute distress. Pupils equal. Sclerae nonicteric. Conjunctiva normal. HEART: Regular without murmur. ABDOMEN: Soft, nontender. There is specifically no epigastric tenderness or mass. The patient has scattered ecchymosis over both forearms. She can move all 4 extremities without difficulty. Her right arm i s in a sling due to recent fracture following a fall. She is alert, oriented and appropriate with f luent speech. EGD results as outlined above. CBC from today: White count 4.8, hemoglobin 8.7, hematocrit 27.3, platelet count is 131,000, sodium 141, potassium 3.5, chloride 114, BUN 17, creatinine 0.7. IMPRESSION: 1. Known stage IV esophageal adenocarcinoma, currently receiving palliative FOLFOX chemotherapy. 2. Recent left cerebrovascular accident status post tPA administration at [facility] in early May 2016. 3. Upper gastrointestinal bleed secondary to a combination of Eliquis, aspirin, known esophageal tu mor. 4. Recent fall with right upper extremity fracture. 5. Anemia secondary to recent gastrointestinal bleed. Responsive to transfusion therapy. Mrs. Trevino is a pleasant 75-year-old female, who was admitted to the hospital following an episode o f coffee-ground emesis at a rehab facility. She has a known distal esophageal adenocarcinoma and michael s been receiving palliative FOLFOX chemotherapy. Review of her EGD report in comparison to her [facility] diagnostic EGD report would suggest she is responding to her current treatment. She has no tiki dence of residual, partially obstructing tumor. She does have residual tumor that was the source of her bleeding. I agree with Dr. Carpio's recommendation to hold Eliquis and aspirin given her rece nt GI bleed. This plan was discussed with the patient. Certainly, there is the risk of being off of anticoagulat ion in light of her recent CVA; however, given her significant recent bleed, I think the risk of fur ther anticoagulation in the immediate setting outweighs the benefit. This will need to be continual ly reconsidered over time and certainly, it may be possible to start her back on anticoagulation in the near future. This will be decided by Dr. Kwon, her primary oncologist. I will update him on recent events. She is likely going to be transferred back to rehab tomorrow. She has a followup appointment with Esther Kwon on Monday of this week and will discuss resuming chemotherapy at that time. Her questions were answered today. Her case was discussed with nursing. Total time for today's visit was approximately 45 minutes. /[id number]/MODL
[2016-06-14] MEDS: SENNOSIDES 1 TAB PO PRN (21:24)
[2016-06-15] MEDS: oxyCODONE IR 5 MG TAB PO PRN ×3 (00:08→14:24)
[2016-06-15] MEDS: ACETAMINOPHEN 325 MG TAB PO SCH ×3 (00:21→14:25)
[2016-06-15] MEDS: POLYETHYLENE GLYCOL 3350 17 GM PKT PO PRN (07:43)
[2016-06-15] MEDS: METOPROLOL TARTRATE 25 MG TAB PO SCH (07:43)
[2016-06-15] MEDS: PANTOPRAZOLE SODIUM 40 MG TAB PO SCH (07:44)
[2016-06-15] MEDS: ATORVASTATIN CALCIUM 10 MG TAB PO SCH (07:44)
[2016-06-15] MEDS: SENNOSIDES 1 TAB PO PRN (07:44)
[2016-06-15] MEDS: ANASTROZOLE 1 MG TAB PO SCH (07:44)
--- NOTE | 2016-06-15 09:25 | PDIAF ---
- Diagnosis Diagnosis: gI BLEED Code Status: Full Code - Medication Management Discharge Medications: Medications to Continue on Transfer Anastrozole [Arimidex 1 mg (*)] 1 mg PO DAILY 06/05/16 [Last Taken 06/12/16] Herbals/Supplements -Info Only 1 ea PO DAILY 06/05/16 [Last Taken Unknown] Atorvastatin Calcium [Lipitor 10 mg (*)] 10 mg PO DAILY #0 tab 06/09/16 [Last Taken 06/12/16] Polyethylene Glycol 3350 [Miralax 17 gm (*)] 17 gm PO DAILY PRN #0 pkt 06/09/16 [Last Taken 06/11/16] oxyCODONE IR [Oxycodone Ir (*)] 5 - 10 mg PO Q3HRS PRN #0 tab 06/09/16 [Last Taken 06/12/16] Acetaminophen [Tylenol 325mg (*)] 650 mg PO Q6HRS #0 tab 06/12/16 [Last Taken ] Calcium Carbonate [Tums 500MG (*)] 500 mg PO TID PRN #0 tab.chew 06/12/16 [Last Taken 06/11/16] Cholecalciferol Vit D3 [Vitamin D3 (*)] 50,000 unit PO ONCE #0 capsule 06/12/16 [Last Taken 06/11/16] Metoprolol Tartrate [Lopressor 25 mg (*)] 12.5 mg PO BID #0 tab 06/12/16 [Last Taken 06/12/16] Ondansetron Odt [Zofran Odt 4 mg (*)] 4 mg PO Q6HRS PRN #0 tab 06/12/16 [Last Taken 06/12/16] Prochlorperazine Maleate [Compazine 10mg (*)] 10 mg PO Q6HRS PRN #0 tab [Last Taken 06/12/16] Sennosides [Senokot] 1 - 2 tab PO BID PRN #0 tab 06/12/16 [Last Taken Unknown] Sodium Cl Nasal Gel [[place] Saline Nasal Gel] 1 jesus TP PRN PRN #0 gel 06/12/16 [ Last Taken Unknown] Sodium Cl Nasal [[place] (*)] 1 spray [place] PRN PRN #0 btl 06/12/16 [ Last Taken 06/11/16] oxyCODONE CR [Oxycontin] 10 mg PO BID #0 tab 06/12/16 [Last Taken 06/12/16] Acetaminophen [Tylenol 325mg (*)] 650 mg PO Q4HRS PRN #0 tab 06/15/16 [Last Taken Unknown] Pantoprazole Sodium [Protonix 40mg (*)] 40 mg PO BID #0 tab 06/15/16 [Last Taken Unknown] oxyCODONE IR [Oxycodone Ir (*)] 5 - 10 mg PO Q3HRS PRN #0 tab 06/15/16 [Last Taken Unknown] Discharge Medications: Refer to the Discharge Home Medication list for PRN reason. PICC Care - Routine: N/A - Orders Services needed: Registered Nurse, Physical Therapy, Occupational Therapy, Speech Language Pathologist - Labs/Radiology HCT/HGB Date: 06/17/16 - Follow Up Care Current Providers and Referrals: NONE *PRIMARY CARE P,. [Unknown] - As per Instructions
--- NOTE | 2016-06-15 11:49 | PDIAF ---
- Diagnosis Diagnosis: gI BLEED Code Status: Full Code - Medication Management Discharge Medications: Medications to Continue on Transfer Anastrozole [Arimidex 1 mg (*)] 1 mg PO DAILY 06/05/16 [Last Taken 06/12/16] Herbals/Supplements -Info Only 1 ea PO DAILY 06/05/16 [Last Taken Unknown] Atorvastatin Calcium [Lipitor 10 mg (*)] 10 mg PO DAILY #0 tab 06/09/16 [Last Taken 06/12/16] Polyethylene Glycol 3350 [Miralax 17 gm (*)] 17 gm PO DAILY PRN #0 pkt 06/09/16 [Last Taken 06/11/16] oxyCODONE IR [Oxycodone Ir (*)] 5 - 10 mg PO Q3HRS PRN #0 tab 06/09/16 [Last Taken 06/12/16] Acetaminophen [Tylenol 325mg (*)] 650 mg PO Q6HRS #0 tab 06/12/16 [Last Taken ] Calcium Carbonate [Tums 500MG (*)] 500 mg PO TID PRN #0 tab.chew 06/12/16 [Last Taken 06/11/16] Cholecalciferol Vit D3 [Vitamin D3 (*)] 50,000 unit PO ONCE #0 capsule 06/12/16 [Last Taken 06/11/16] Metoprolol Tartrate [Lopressor 25 mg (*)] 12.5 mg PO BID #0 tab 06/12/16 [Last Taken 06/12/16] Ondansetron Odt [Zofran Odt 4 mg (*)] 4 mg PO Q6HRS PRN #0 tab 06/12/16 [Last Taken 06/12/16] Prochlorperazine Maleate [Compazine 10mg (*)] 10 mg PO Q6HRS PRN #0 tab [Last Taken 06/12/16] Sennosides [Senokot] 1 - 2 tab PO BID PRN #0 tab 06/12/16 [Last Taken Unknown] Sodium Cl Nasal Gel [[place] Saline Nasal Gel] 1 jesus TP PRN PRN #0 gel 06/12/16 [ Last Taken Unknown] Sodium Cl Nasal [[place] (*)] 1 spray EACHNARE PRN PRN #0 btl 06/12/16 [ Last Taken 06/11/16] oxyCODONE CR [Oxycontin] 10 mg PO BID #0 tab 06/12/16 [Last Taken 06/12/16] Acetaminophen [Tylenol 325mg (*)] 650 mg PO Q4HRS PRN #0 tab 06/15/16 [Last Taken Unknown] Pantoprazole Sodium [Protonix 40mg (*)] 40 mg PO BID #0 tab 06/15/16 [Last Taken Unknown] oxyCODONE IR [Oxycodone Ir (*)] 5 - 10 mg PO Q3HRS PRN #0 tab 06/15/16 [Last Taken Unknown] Discharge Medications: Refer to the Discharge Home Medication list for PRN reason. PICC Care - Routine: N/A - Orders Services needed: Registered Nurse, Physical Therapy, Occupational Therapy, Speech Language Pathologist Diet Recommendation: no restrictions on diet Diet Texture: Regular Texture Diet - Labs/Radiology HCT/HGB Date: 06/17/16 - Follow Up Care Current Providers and Referrals: NONE *PRIMARY CARE P,. [Unknown] - As per Instructions
[2016-06-15 12:36] VITALS: BP 116/68; PULSE 79; RESP 18; TEMP 98.7; O2SAT 92
--- NOTE | 2016-06-15 16:16 | GDS ---
[f rep st] DISCHARGE SUMMARY DISCHARGE DIAGNOSES: 1. Gastrointestinal bleed. 2. Acute blood loss anemia. 3. Nausea and vomiting. 4. Elevated BNP. 5. Leukocytosis. 6. Atrial fibrillation. 7. History of cerebrovascular accident. 8. History of right humeral fracture. 9. Esophageal mass with a history of esophageal cancer. CONSULTATIONS: 1. Oncology. 2. Gastroenterology. STUDIES AND PROCEDURES DONE: 1. Echocardiogram. 2. Esophagogastroduodenoscopy. PHYSICAL EXAMINATION: GENERAL: The patient is alert. VITAL SIGNS: Afebrile at 36.6, pulse is 83, respiratory rate is 18, blood pressure is 114/65. She is saturating 97% on room air. I saw and ev aluated the patient on the day of discharge. HOSPITAL COURSE: The patient is a 75-year-old female who presented to the emergency room from acute inpatient rehab secondary to hematemesis who was evaluated and diagnosed with: 1. Nausea and vomiting. This is secondary to the patient's gastrointestinal bleeding and has resol saad. 2. Gastrointestinal bleed. During this hospitalization, [facility] An EGD was performed, noting esophageal mass. It was recommended the patient remain off a nticoagulation medications for the near future secondary to bleeding complications. She is in agree ment with this plan. 3. Acute blood loss anemia. The patient did require transfusion of packed red blood cells during t his hospitalization. Her laboratory evaluation has stabilized, and she has no further signs of blee ding. 4. Elevated BNP. This has improved during this hospital course. 5. Leukocytosis. This is an acute response to the patient's gastrointestinal bleed and is stable. 6. Chronic atrial fibrillation. This is an intermittent problem for the patient. She had been ara rosa on anticoagulating medications of Eliquis as well as aspirin. However, this has been recommende d to discontinue secondary to her gastrointestinal bleeding. She understands that this will pose po tential risk for CVA. She is in agreement with the plan to hold her anticoagulant medication. 7. Recent CVA. The patient will continue inpatient rehab. 8. Recent right humeral fracture. During this hospitalization, repeat x-rays were taken. She will follow with Dr. Vega in the outpatient setting for further medical recommendations and potential surgical intervention. DISPOSITION: The patient will be discharged to return to inpatient rehab. She is stable. Followup will be with her primary care physician as well as Dr. Vega of Orthopedics. I spent greater than 35 minutes in the care, coordination, and management of this patient's disposit ion. DISCHARGE MEDICATIONS: Please refer to EMR form. I have not adjusted the patient's previously pres cribed home medications to the best of my knowledge with the exception of discontinuing her anticoag ulating medications. /[id number]/MODL
== END 2016-06-15 14:31 | DRG 378 ==
LOC: EDUNIT# → INTOOBSV 13:22 → F3E 14:04 → OBSVTOIN 06-13 08:10
PROVIDERS: ADMIT Internal Medicine; ATTEND Student in an Organized Health Care Education/Training Program
PROC: 0DB38ZX Excision of Lower Esophagus, Via Natural or Artificial Opening Endoscopic, Diagnostic (ICD-10-PCS; principal; 2016-06-13 13:50)
PROC: 30233N1 Transfusion of Nonautologous Red Blood Cells into Peripheral Vein, Percutaneous Approach (ICD-10-PCS; 2016-06-14)
DX: K92.0 Hematemesis (principal); D62 Acute posthemorrhagic anemia; K22.9 Disease of esophagus, unspecified; S42.231D 3-part fracture of surgical neck of right humerus, subsequent encounter for fracture with routine healing; I69.351 Hemiplegia and hemiparesis following cerebral infarction affecting right dominant side; C15.9 Malignant neoplasm of esophagus, unspecified; R13.10 Dysphagia, unspecified; I10 Essential (primary) hypertension; K21.9 Gastro-esophageal reflux disease without esophagitis; R73.03 Prediabetes; E21.3 Hyperparathyroidism, unspecified; G47.33 Obstructive sleep apnea (adult) (pediatric); I48.2 Chronic atrial fibrillation; R79.89 Other specified abnormal findings of blood chemistry; Z85.3 Personal history of malignant neoplasm of breast; Z79.899 Other long term (current) drug therapy; Z79.01 Long term (current) use of anticoagulants; Z79.82 Long term (current) use of aspirin
CPT/HCPCS: 96365; 97116-GP; 97163-GP; 97165-GO; 97530-GO; 97530-GP; 97535-GO; G0378; G8978-GP-CK; G8979-GP-CJ; G8987-GO-CL; G8988-GO-CJ; J1170; J2250; J2405; J3010; P9016

== ENCOUNTER 2016-06-15 12:53 | Inpatient (IN) | payer OTHER ==
[2016-06-15] MEDS ORDERED: SODIUM CL NASAL GEL 14.1 GM TUBE TP PRN (15:43)
[2016-06-15] MEDS ORDERED: SODIUM CL NASAL 45 ML BTL EACHNARE PRN (15:43)
[2016-06-15] MEDS ORDERED: BISACODYL 10 MG SUPP PR PRN (15:49)
[2016-06-15] MEDS ORDERED: CHOLECALCIFEROL VIT D3 50,000 UNIT CAP PO SCH (16:00)
--- NOTE | 2016-06-15 17:02 | GHP ---
[f rep st] HISTORY AND PHYSICAL POST ADMISSION PHYSICIAN EVALUATION AND REHABILITATION TREATMENT PLAN DATE OF ADMISSION: 06/15/2016 DATE OF EVALUATION: 06/15/2016 TIME OF EVALUATION: 1510 REFERRING FACILITY: [facility]. IMPAIRMENT GROUP: [id number]. DATE OF ONSET: 06/05/2016 REFERRING PROVIDER: MERARI Palm. CONSULTING PHYSICIANS: She was seen in consultation by Dr. Carpio with Gastroenterology and by Dr. Grant with Hematology/Oncology. REHABILITATION DIAGNOSIS: Debility status post right humerus fracture. ETIOLOGIC DIAGNOSIS: Other orthopedic. HISTORY OF PRESENT ILLNESS: Mrs. Trevino returns to inpatient rehabilitation after 4 days at [facility], where she was transferred, having suffered an upper gastrointestinal bleed. She became quite anemic and required a blood transfusion. She had upper endoscopy, which found deep ulceration of the distal esophagus, superficial ulcerations of the proximal esophagus, and findings consistent with her known esophageal cancer. Treatment with a proton pump inhibitor was initiated and anticoagulant/antiplatelet medications were discontinued. She stabilized in terms of her blood counts and was able to participate in rehabilitation, so she was transferred back to inpatient rehabilitation to continue therapies towards eventual return home. She currently complains primarily of numbness and tingling in the right upper extremity, which has been present since her cerebrovascular accident in the beginning of this month. She also has pain in the shoulder. Ice has improved it. She has had 3 doses of 10 mg oxycodone immediate release today, as well as continuing oxycodone continuous release 10 mg twice a day. She complains of constipation. She says she was able to walk up and down the [place] 3 times at [facility], using a rail for balance, and that the maxx-walker is not useful for her. OTHER STUDIES AND LABORATORY DATA IN THE HOSPITAL: When she was first admitted , her white blood cell count was elevated at 15.81, but that normalized. Her hemoglobin and hematocrit yesterday were 8.7 and 27.3. Her platelet count was somewhat low at 131. Chemistry upon initial admission on 06/12 showed an elevated BUN at 48; this may have been due to digested blood. On the day before discharge, she had an elevated chloride at 114, a low carbon dioxide at 20; otherwise, renal function and electrolytes were overall within normal limits. BNP on the day of admission, 06/12, was 2490; it improved to 1770 yesterday. She had a slight troponin leak with a troponin of 0.027, which is still within normal limits. Subsequent troponin on 06/13 was normal. A urinalysis was done, which showed trace leukocyte esterase. There was no growth on culture. She was Gastroccult positive. PRECAUTIONS: She is a fall risk. She has orthopedic precautions with nonweightbearing on the right upper extremity. ACTIVE COMORBIDITIES: She has a tier 3 comorbidity of morbid obesity. She, otherwise, has no active tier 1, tier 2, or tier 3 comorbidities. PAST MEDICAL HISTORY: 1. Breast cancer, with lumpectomy on the left. 2. Esophageal cancer, now status post 4 cycles of FOLFOX. 3. Cerebrovascular accident in the beginning of May, status post thrombolytics, with residual numbness of the right arm. 4. Hypertension. 5. Dyslipidemia. 6. History of nephrolithiasis. 7. Prediabetes. 8. Hyperparathyroidism. 9. Obstructive sleep apnea. 10. Arthritis. 11. Osteopenia. PAST SURGICAL HISTORY: She has had an appendectomy, a kidney stone procedure, bilateral arthroscopic knee surgery, and partial mastectomy of the left breast. MEDICATIONS PRIOR TO ADMISSION: Please see the previous H and P for that list. ADMISSION MEDICATIONS: 1. Anastrozole 1 mg p.o. q. day. 2. Atorvastatin 10 mg p.o. q. day. 3. Polyethylene glycol 17 g p.o. q. day p.r.n. 4. Oxycodone immediate release 5-10 mg q.3 hours p.r.n. 5. Acetaminophen 650 mg q.6 hours scheduled. 6. Calcium carbonate 500 mg t.i.d. p.r.n. 7. Cholecalciferol 50,000 units. I believe that should be q. week. 8. Metoprolol 12.5 mg p.o. b.i.d. 9. Ondansetron 4 mg p.o. q.6 hours p.r.n. 10. Prochlorperazine 10 mg p.o. q.6 hours p.r.n. 11. Senna 1-2 tablets p.o. b.i.d. p.r.n. 12. Sodium chloride nasal spray and nasal gel p.r.n. 13. Oxycodone continuous release 10 mg p.o. b.i.d. 14. Pantoprazole 40 mg p.o. b.i.d. ALLERGIES: There are no known drug allergies. FAMILY HISTORY: Noncontributory. PSYCHOSOCIAL HISTORY: She is . She lives with her . 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 She has a local son and grandchild. She is a nonsmoker. REVIEW OF SYSTEMS: She reports right shoulder pain and right hand numbness and tingling as above. She has constipation. She has had no further vomiting in recent days. She has bruising on her low back and over her buttocks (she reports that this is due to the initial ambulance ride from [facility] to [place] for her initial rehabilitation stay) and other areas of bruising from attempted blood draws. She says finally blood draws were accomplished through her port. She has a good appetite. Other than her shoulder pain and hand paresthesias, she is not in pain. She has no cough or dyspnea. She has no fevers or chills, and otherwise, a 10-point review of systems is negative. PHYSICAL EXAMINATION: VITAL SIGNS: Blood pressure is 114/64. Heart rate is 83. Respiratory rate is 18. Oxygen saturation is 97% on room air. Temperature is 36.6 degrees. Her weight is not yet available in the chart, but her last weight at [facility] was 86.2 kg, for a body mass index of 31.6. GENERAL: This is an obese woman who appears her chronologic age, cooperative, and in no acute distress. HEENT: Extraocular movements are intact. Pupils are equal, round, and reactive to light. Mucous membranes are moist. Dentition is in good condition. NECK: Supple. HEART: There is a regular rate and rhythm, with no murmurs, rubs, or gallops. LUNGS: Clear to auscultation bilaterally. ABDOMEN: Soft, nontender, nondistended, with normoactive bowel sounds and no hepatosplenomegaly. EXTREMITIES. There is no cyanosis or clubbing. Right upper extremity is in sling. There is some swelling to the right hand. There is trace edema bilaterally to the lower extremities. NEUROLOGIC: She is alert and oriented x3. Cranial nerves 2-12 are grossly intact. Right upper extremity is not tested in terms of strength, but otherwise, there is no focal weakness, and sensation is intact to light touch. CURRENT LEVEL OF FUNCTION PER THE PRE-ADMISSION SCREEN: Regarding diet, feeding , and swallowing, she was on a regular diet and was independent with eating. Regarding grooming, she needed standby assist to minimal assist and voice cues. Regarding dressing, she required moderate assistance with voice cues. For toileting, she required moderate assistance with voice cues. Regarding bladder and bowel, she was noted to be continent. For bed mobility, she required minimal assistance with voice cues. For transfers, she required minimal assistance with voice cues and hand-held assistance to her left hand. Her balance (sitting, static, and dynamic) was independent. Her endurance was fair. She ambulated 15 feet with hand-held assist and with contact-guard to minimal assist. She was noted to have an antalgic gait with a narrow base of support and an increased heart rate while she was ambulating. Communication and cognition were within normal limits. IMPRESSION: The patient is a 75-year-old woman who suffered a cerebrovascular accident in early May treated with thrombolytics, with resolution of most symptoms, particularly right upper and lower extremity weakness, but continues to have paresthesias in the right upper extremity. Subsequent to her stroke, she fell and suffered a right humerus fracture. She began rehabilitation but her rehabilitation stay was interrupted by upper back pain and hematemesis, for which she was transferred to the acute care hospital. She was diagnosed with esophageal ulcers; improvement of her esophageal cancer was noted on endoscopy. Her anticoagulation was discontinued, though she remained in atrial fibrillation when EKG was checked; however, the risk of bleeding was thought to outweigh the risk of subsequent cerebrovascular accident. She returns to inpatient rehabilitation, intending to improve her function and return home with her and supportive services. She will benefit from therapy with physical therapy and occupational therapy regarding mobility and activities of daily living. She will have nursing care regarding skin integrity, fall risk, bowel and bladder, and medication education for she and her . She will have physician care regarding pain management, atrial fibrillation, deep vein thrombosis risk, thromboembolic risk, and to assist in decision making regarding surgical intervention for her right humerus fracture. She is scheduled for her 5th round of chemotherapy for the esophageal cancer on Monday morning 06/17/16. She reports that she has tolerated this very well in the past, with no complications. It is unclear whether or not she will have surgery soon for the right humeral fracture. Surgery was postponed previously due to her need for anticoagulation, which has since been discontinued. For a safe discharge home, she will need to achieve moderate independence for bed mobility and transfers. She will need to be able to ambulate with the least restrictive device for household distances and negotiate stairs safely. It is anticipated that she will require supervision for bathing and potentially for dressing. She will require assistance for meal preparation, shopping, and household management. She will receive therapy with physical and occupational therapy for 90 minutes per day for each discipline, on 5-7 days per week. Her expected duration of stay is 10-14 days. It is anticipated that, upon discharge, she will continue to benefit from home health services, including nursing, a nurse's aide, occupational therapy, and physical therapy. She may also benefit from a stroke support group. ASSESSMENT AND PLAN: 1. Debility status post right humerus fracture. Physical therapy and occupational therapy to optimize her functional status towards her goal of return to home. 2. Adenocarcinoma of the esophagus. She will have a 5th round of chemotherapy on Monday morning the 17 of June and will decide subsequently, in consultation with Oncology, what the next course of action is. 3. Right humerus fracture. Discussed with Dr. Vega, Orthopedics. Fracture may heal with abnormal angulation. It is unclear if percutaneous pinning would work; she might need to tolerate a 2 hour open procedure. With or without surgery, she will remain non-weightbearing for 6 weeks. the sling is not helpful and she might achieve better anatomic alignment without it. 4. Nausea and vomiting and hematemesis. She has been placed on a proton pump inhibitor to promote healing of the distal esophagus, and anticoagulation has been discontinued. Her blood counts will be monitored with a repeat CBC tomorrow morning. Antiemetics will be available as ordered out of the hospital ; however, she has not required these in some time. 5. Pain control. Oxycodone will be continued, both continuous release and immediate release. Additionally, gabapentin will be added for the paresthesias and dysesthesias of the right upper extremity. 6. Atrial fibrillation and recent cerebrovascular accident. She is at risk for a subsequent thromboembolic cerebrovascular accident. However, anticoagulation and antiplatelet agents are contraindicated in the setting of recent gastrointestinal bleed. She will be monitored for any signs or symptoms of repeat thromboembolic phenomena, and decision making regarding resuming anticoagulation may wait until after her discharge. 7. History of breast cancer. Will continue anastrozole. 8. Dyslipidemia and hypertension and vitamin D deficiency. Continue medications as ordered out of the hospital. 9. Constipation. Laxatives are ordered on an as-needed basis at present. They will be scheduled and she will be monitored. Her laxatives can be titrated as needed. Bisacodyl suppository and an enema will be available if necessary. /[id number]/MODL MTDD
[2016-06-15] MEDS: ACETAMINOPHEN 325 MG TAB PO SCH (17:34)
[2016-06-15] MEDS: PANTOPRAZOLE SODIUM 40 MG TAB PO SCH (21:05)
[2016-06-15] MEDS: GABAPENTIN 100 MG CAP PO SCH (21:05)
[2016-06-15] MEDS: METOPROLOL TARTRATE 25 MG TAB PO SCH (21:05)
[2016-06-15] MEDS: SENNOSIDES 1 TAB PO SCH (21:06)
[2016-06-16] MEDS: ACETAMINOPHEN 325 MG TAB PO SCH ×2 (00:13→06:42)
[2016-06-16] MEDS: POLYETHYLENE GLYCOL 3350 17 GM PKT PO SCH (08:57)
[2016-06-16] MEDS: ANASTROZOLE 1 MG TAB PO SCH (08:58)
[2016-06-16] MEDS ORDERED: Herbals/Supplements -Info Only PO SCH (09:00)
[2016-06-16] MEDS ORDERED: CHOLECALCIFEROL VIT D3 2,000 UNITS TAB/CAP PO SCH (09:00)
[2016-06-16] MEDS: ATORVASTATIN CALCIUM 10 MG TAB PO SCH (09:00)
[2016-06-16] MEDS: GABAPENTIN 100 MG CAP PO SCH ×3 (09:00→21:17)
[2016-06-16] MEDS: METOPROLOL TARTRATE 25 MG TAB PO SCH ×2 (09:01→21:18)
[2016-06-16] MEDS: oxyCODONE IR 5 MG TAB PO PRN ×3 (09:02→22:45)
[2016-06-16] MEDS: SENNOSIDES 1 TAB PO SCH ×2 (09:06→21:18)
[2016-06-16] MEDS: PANTOPRAZOLE SODIUM 40 MG TAB PO SCH ×2 (09:07→21:18)
--- NOTE | 2016-06-16 09:16 | SOAPPROG ---
[facility] Progress Note Assessment/Plan: Assessment: 75 yo F with esophageal cancer s/p 4 cycles of FOLFOX, CVA early May 2016 s/p thrombolytics, fall 06/05/16 with R humerus fracture, Afib, GI bleed3 with anticoagulants discontinued: * Debility status post right humerus fracture. Physical therapy and occupational therapy to optimize her functional status towards her goal of return to home. * Adenocarcinoma of the esophagus. D/W Oncology Dr. Kwon, reviewed CBC results from today 06/16/16. Plans to proceed with 5th round of chemotherapy on Monday morning the 17 of June and will decide subsequently, in consultation with Oncology, what the next course of action is. * Right humerus fracture. Discussed with Dr. Vega, Orthopedics, 06/15/16. Fracture may heal with abnormal angulation. It is unclear if percutaneous pinning would work; she might need to tolerate a 2 hour open procedure. With or without surgery, she will remain non-weightbearing for 6 weeks. The sling is not helpful and she might achieve better anatomic alignment without it. Will continue sling only to the extent that it provides comfort to the patient * Constipation. Laxatives have been titrated. Bisacodyl suppository today 06/16. * GERD. May be exacerbated by constipation. Continue PPI, Tums PRN. * Pain control. Oxycodone will be continued, both continuous release and immediate release. Has symptom relief of R hand tingling with gabapentin 100 mg TID. Continue to monitor and consider increasing dose. * Atrial fibrillation and recent cerebrovascular accident. She is at risk for a subsequent thromboembolic cerebrovascular accident. However, anticoagulation and antiplatelet agents are contraindicated in the setting of recent gastrointestinal bleed. She will be monitored for any signs or symptoms of repeat thromboembolic phenomena, and decision making regarding resuming anticoagulation may wait until after her discharge. * Vit D deficiency: Had single dose of 50,000 U om 06/16/16. Start daily supplementation of 5000 U on 06/16/16. Follow-up with PCP or organizational development manager after discharge re bone density and to ensure adequate Vit D level.. * Nausea and vomiting and hematemesis. She has been placed on a proton pump inhibitor to promote healing of the distal esophagus, and anticoagulation has been discontinued. Antiemetics will be available as ordered out of the hospital ; however, she has not required these in some time. * History of breast cancer. Will continue anastrozole. * Dyslipidemia and hypertension. Continue medications as ordered out of the hospital. 06/16/16 10:10 Subjective: Had an episode of heartburn last night. She thinks it is because she ate too many crackers. She eventually had relief with Tums. SHe still has constipation. She has R upper arm pain; the sling provides some relief. R hand tingling has improved. No f/c, cough/dyspnea. Objective: Vital Signs Temp Pulse Resp BP Pulse Ox 36.7 C 81 16 112/64 98 06/15/16 20:00 06/16/16 09:01 06/15/16 20:00 06/16/16 09:01 06/15/16 20:00 06/15/16 06/16/16 06/17/16 05:59 05:59 05:59 Intake Total 600 Output Total 500 Balance 100 Physical Exam - Physical Exam General Appearance: WD/WN, alert, no apparent distress Respiratory: No respiratory distress, No accessory muscle use Cardiac/Chest: edema (1+ B LE, and R hand) Skin: normal color, warm/dry Neuro/Psych: alert, normal mood/affect, oriented x 3 ICD10 Worksheet Patient Problems: Problems Problem Status Onset Back pain Acute Gastrointestinal hemorrhage Acute Humerus fracture Acute Hypoxia Acute Nausea & vomiting Acute Pain provoked by trauma Acute Pain, neuropathic Acute
[2016-06-16] MEDS ORDERED: ACETAMINOPHEN 325 MG TAB PO PRN (09:25)
[2016-06-16 09:54] LABS: % IMMATURE GRANULYOCYTES 0.3 % (0.0-1.1); ABSOLUTE IMMATURE GRANULOCYTES 0.01 10^3/uL (0.00-0.10); ADD DIFF? NO; ADD MORPH? YES; ADD SCAN? NO; ATYPICAL LYMPHOCYTE FLAG 40 (0-99); FRAGMENT RBC FLAG 0 (0-99); HEMATOCRIT 26.2 % (38.0-47.0); HEMOGLOBIN 8.4 g/dL (12.6-16.3); LEFT SHIFT FLG 0 (0-99); LIPEMIA HEMOLYSIS FLAG 80 (0-99); MEAN CELL HEMOGLOBIN 29.6 pg (27.9-34.1); MEAN CELL HEMOGLOBIN CONCENTR. 32.1 g/dL (32.4-36.7); MEAN CELL VOLUME 92.3 fL (81.5-99.8); PLATELET CLUMPS FLAG 0 (0-99); PLATELET COUNT 152 10^3/uL (150-400); RED BLOOD CELL COUNT 2.84 10^6/uL (4.18-5.33)
[2016-06-16 09:57] LABS: RED CELL DISTRIBUTION WIDTH 22.8 % (11.5-15.2)
--- NOTE | 2016-06-16 10:26 | PDOREHIP ---
Admission [facility] - Admission - 3 Day Assessment Period Admission Date/Day 1: 06/15/16 Day 2: 06/16/16 Day 3: 06/17/16 - Active Diagnoses Comorbidities and Co-existing Conditions at Admission: 37505. None of the Above - Skin Conditions Unhealed Pressure Ulcer (1 or more/Stage 1 or >)-Admission: 0. No
[2016-06-16 10:43] LABS: MACROCYTES 1+; MICROCYTES 1+; PLATELET ESTIMATE ADEQUATE (ADEQ); POLYCHROMASIA 2+
[2016-06-16 10:44] LABS: KERATOCYTES 1+; SCHISTOCYTES 2+
[2016-06-16] MEDS: GUMMY VITAMINS PO SCH (12:38)
[2016-06-17] MEDS: ATORVASTATIN CALCIUM 10 MG TAB PO SCH (07:41)
[2016-06-17] MEDS: ANASTROZOLE 1 MG TAB PO SCH (07:41)
[2016-06-17] MEDS: CHOLECALCIFEROL VIT D3 2,000 UNITS TAB/CAP PO SCH (07:42)
[2016-06-17] MEDS: GABAPENTIN 100 MG CAP PO SCH ×3 (07:43→21:29)
[2016-06-17] MEDS: CHOLECALCIFEROL VIT D3 1,000 UNITS TAB PO SCH (07:43)
[2016-06-17] MEDS: METOPROLOL TARTRATE 25 MG TAB PO SCH ×2 (07:43→21:29)
[2016-06-17] MEDS: oxyCODONE IR 5 MG TAB PO PRN ×3 (07:44→20:59)
[2016-06-17] MEDS: PANTOPRAZOLE SODIUM 40 MG TAB PO SCH ×2 (07:46→22:05)
--- NOTE | 2016-06-17 14:20 | SOAPPROG ---
[facility] Progress Note Assessment/Plan: Assessment: 75 yo F with esophageal cancer s/p 4 cycles of FOLFOX, CVA early May 2016 s/p thrombolytics, fall 06/05/16 with R humerus fracture, Afib, GI bleed 06/13/16 with anticoagulants discontinued: * Debility status post right humerus fracture. FIM 64 on 06/17/16. Ambulated 40 ' min A; R neglect noted. Min A to SBA bed mobility and transfers. Assist for toileting. Goal may be to optimize function at wheelchair level. Physical therapy and occupational therapy to optimize her functional status towards her goal of return to home. * Adenocarcinoma of the esophagus. 5th round of chemotherapy today 06/17/16; return to Oncology clinic 06/19/16 to d/c infusion pump; she reports one more round of chemoRx is planned. * Right humerus fracture. Discussed with Dr. Vega, Orthopedics, 06/15/16. Fracture may heal with abnormal angulation. It is unclear if percutaneous pinning would work; she might need to tolerate a 2 hour open procedure. With or without surgery, she will remain non-weightbearing for 6 weeks. The splint is not helpful and she might achieve better anatomic alignment without it. D/C splint; continue sling only to the extent that it provides comfort to the patient * Constipation. Laxatives have been titrated. Bisacodyl suppository today 06/16. * GERD. May be exacerbated by constipation. Continue PPI, Tums PRN. * Pain control. Oxycodone will be continued, both continuous release and immediate release. Has symptom relief of R hand tingling with gabapentin 100 mg TID. Continue to monitor and consider increasing dose. * Atrial fibrillation and recent cerebrovascular accident. She is at risk for a subsequent thromboembolic cerebrovascular accident. However, anticoagulation and antiplatelet agents are contraindicated in the setting of recent gastrointestinal bleed. She will be monitored for any signs or symptoms of repeat thromboembolic phenomena, and decision making regarding resuming anticoagulation may wait until after her discharge. * Vit D deficiency: Had single dose of 50,000 U om 06/16/16. Start daily supplementation of 5000 U on 06/16/16. Follow-up with PCP or remediation project engineer after discharge re bone density and to ensure adequate Vit D level.. * Nausea and vomiting and hematemesis. She has been placed on a proton pump inhibitor to promote healing of the distal esophagus, and anticoagulation has been discontinued. Antiemetics will be available as ordered out of the hospital ; however, she has not required these in some time. * History of breast cancer. Will continue anastrozole. * Dyslipidemia and hypertension. Continue medications as ordered out of the hospital. Attended staffing, 15 min. D/W case mgmt, nursing, PT, OT. Discharge goal of , to home with ; he is installing ramps. 06/17/16 14:11 Subjective: Had chemotherapy this morning and has infusion pump, to be d/c'd 06/19/16. No complaints. Has some R arm pain when standing but not when in bed or chair. Slept well. Objective: Vital Signs Temp Pulse Resp BP Pulse Ox 36.8 C 82 14 120/68 95 06/17/16 07:39 06/17/16 07:43 06/17/16 07:39 06/17/16 07:43 06/17/16 07:39 Laboratory Results 06/16/16 06:00 06/16/16 06/17/16 06/18/16 05:59 05:59 05:59 Intake Total 600 2530 200 Output Total 500 700 Balance 100 1830 200 - Time Spent With Patient Time Spent With Patient: Greater than 35 minutes floor time today, including more than 50% of time in coordination of care during staffing meeting, and counseling patient. Physical Exam - Physical Exam General Appearance: WD/WN, alert, no apparent distress, obese Respiratory: normal breath sounds, No crackles, No rhonchi, No wheezing Cardiac/Chest: regular rate, rhythm, No edema Skin: normal color, warm/dry Neuro/Psych: alert, normal mood/affect, oriented x 3 ICD10 Worksheet Patient Problems: Problems Problem Status Onset Back pain Acute Gastrointestinal hemorrhage Acute Humerus fracture Acute Hypoxia Acute Nausea & vomiting Acute Pain provoked by trauma Acute Pain, neuropathic Acute
[2016-06-17] MEDS: GUMMY VITAMINS PO SCH (15:52)
[2016-06-17] MEDS: POLYETHYLENE GLYCOL 3350 17 GM PKT PO SCH (15:53)
[2016-06-17] MEDS: SENNOSIDES 1 TAB PO SCH ×2 (15:53→21:03)
[2016-06-17] MEDS: CALCIUM CARBONATE 500 MG CHEWABLE TAB PO PRN ×2 (22:04→23:18)
--- NOTE | 2016-06-18 09:16 | SOAPPROG ---
[facility] Progress Note Assessment/Plan: 75 yo F with esophageal cancer s/p 4 cycles of FOLFOX, CVA early May 2016 s/p thrombolytics, fall 06/05/16 with R humerus fracture, Afib, GI bleed 06/13/16 with anticoagulants discontinued: * Debility status post right humerus fracture. FIM 64 on 06/17/16. Ambulated 40 ' min A; R neglect noted. Min A to SBA bed mobility and transfers. Assist for toileting. Goal may be to optimize function at wheelchair level. Physical therapy and occupational therapy to optimize her functional status towards her goal of return to home. * Adenocarcinoma of the esophagus. 5th round of chemotherapy today 06/17/16; return to Oncology clinic 06/19/16 to d/c infusion pump; she reports one more round of chemoRx is planned. * Right humerus fracture. Discussed with Dr. Vega, Orthopedics, 06/15/16. Fracture may heal with abnormal angulation. It is unclear if percutaneous pinning would work; she might need to tolerate a 2 hour open procedure. With or without surgery, she will remain non-weightbearing for 6 weeks. The splint is not helpful and she might achieve better anatomic alignment without it. D/C splint; continue sling only to the extent that it provides comfort to the patient * Constipation. Laxatives have been titrated. Bisacodyl suppository today 06/16. * GERD. May be exacerbated by constipation. Continue PPI, Tums PRN. * Pain control. Oxycodone will be continued, both continuous release and immediate release. Has symptom relief of R hand tingling with gabapentin 100 mg TID. Continue to monitor and consider increasing dose. * Atrial fibrillation and recent cerebrovascular accident. She is at risk for a subsequent thromboembolic cerebrovascular accident. However, anticoagulation and antiplatelet agents are contraindicated in the setting of recent gastrointestinal bleed. She will be monitored for any signs or symptoms of repeat thromboembolic phenomena, and decision making regarding resuming anticoagulation may wait until after her discharge. * Vit D deficiency: Had single dose of 50,000 U om 06/16/16. Start daily supplementation of 5000 U on 06/16/16. Follow-up with PCP or edge runner after discharge re bone density and to ensure adequate Vit D level.. * Nausea and vomiting and hematemesis. She has been placed on a proton pump inhibitor to promote healing of the distal esophagus, and anticoagulation has been discontinued. Antiemetics will be available as ordered out of the hospital ; Some post-chemo NBNB emesis but resolved this a.m. * History of breast cancer. Will continue anastrozole. * Dyslipidemia and hypertension. Continue medications as ordered out of the hospital. Discharge goal of 07/01/16, to home with ; he is installing ramps. Subjective: Notable nausea, loose stools, and some NBNB emesis last night but feels "completely normal" this am. Tolerating breakfast without difficulty. No complaints. Denies pain. Objective: Vital Signs Temp Pulse Resp BP Pulse Ox 36.8 C 92 17 137/79 H 93 06/18/16 06:33 06/18/16 06:33 06/18/16 06:33 06/18/16 06:33 06/18/16 06:33 Laboratory Results 06/16/16 06:00 06/17/16 06/18/16 06/19/16 05:59 05:59 05:59 Intake Total 2530 1436 Output Total 700 200 Balance 1830 1236 - Pending Discharge Pending Discharge Within 24 Hours: No Pending Discharge Within 48 Hours: No Physical Exam - Physical Exam General Appearance: alert, no apparent distress Neck: supple Respiratory: lungs clear Cardiac/Chest: regular rate, rhythm Abdomen: normal bowel sounds, non-tender Skin: warm/dry Extremities: other (Right arm in sling) Neuro/Psych: alert, normal mood/affect, oriented x 3, No cognition abnormalities , No speech abnormalities ICD10 Worksheet Patient Problems: Problems Problem Status Onset Back pain Acute Gastrointestinal hemorrhage Acute Humerus fracture Acute Hypoxia Acute Nausea & vomiting Acute Pain provoked by trauma Acute Pain, neuropathic Acute
[2016-06-18] MEDS: ANASTROZOLE 1 MG TAB PO SCH (09:53)
[2016-06-18] MEDS: ATORVASTATIN CALCIUM 10 MG TAB PO SCH (09:53)
[2016-06-18] MEDS: GABAPENTIN 100 MG CAP PO SCH ×3 (09:54→23:57)
[2016-06-18] MEDS: CHOLECALCIFEROL VIT D3 2,000 UNITS TAB/CAP PO SCH (09:57)
[2016-06-18] MEDS: SENNOSIDES 1 TAB PO SCH ×2 (10:00→20:18)
[2016-06-18] MEDS: PANTOPRAZOLE SODIUM 40 MG TAB PO SCH ×2 (10:01→20:17)
[2016-06-18] MEDS: POLYETHYLENE GLYCOL 3350 17 GM PKT PO SCH (10:02)
[2016-06-18] MEDS: GUMMY VITAMINS PO SCH (10:05)
[2016-06-18] MEDS: CHOLECALCIFEROL VIT D3 1,000 UNITS TAB PO SCH (10:07)
[2016-06-18] MEDS: METOPROLOL TARTRATE 25 MG TAB PO SCH ×2 (10:09→20:17)
[2016-06-18] MEDS: oxyCODONE IR 5 MG TAB PO PRN ×2 (13:33→20:15)
[2016-06-19] MEDS: oxyCODONE IR 5 MG TAB PO PRN (03:42)
--- NOTE | 2016-06-19 08:45 | SOAPPROG ---
[facility] Progress Note Assessment/Plan: 75 yo F with esophageal cancer s/p 4 cycles of FOLFOX, CVA early May 2016 s/p thrombolytics, fall 06/05/16 with R humerus fracture, Afib, GI bleed 06/13/16 with anticoagulants discontinued: * Debility status post right humerus fracture. FIM 64 on 06/17/16. Ambulated 40 ' min A; R neglect noted. Min A to SBA bed mobility and transfers. Assist for toileting. Goal may be to optimize function at wheelchair level. Physical therapy and occupational therapy to optimize her functional status towards her goal of return to home. * Adenocarcinoma of the esophagus. 5th round of chemotherapy 06/17/16; return to Oncology clinic TODAY to d/c infusion pump; she reports one more round of chemoRx is planned. * Right humerus fracture. Discussed with Dr. Vega, Orthopedics, 06/15/16. Fracture may heal with abnormal angulation. It is unclear if percutaneous pinning would work; she might need to tolerate a 2 hour open procedure. With or without surgery, she will remain non-weightbearing for 6 weeks. The splint is not helpful and she might achieve better anatomic alignment without it. D/C splint; continue sling only to the extent that it provides comfort to the patient * Constipation. Laxatives have been titrated. Bisacodyl suppository today 06/16. * GERD. May be exacerbated by constipation. Continue PPI, Tums PRN. * Pain control. Oxycodone will be continued, both continuous release and immediate release. Has symptom relief of R hand tingling with gabapentin 100 mg TID. Continue to monitor and consider increasing dose. * Atrial fibrillation and recent cerebrovascular accident. She is at risk for a subsequent thromboembolic cerebrovascular accident. However, anticoagulation and antiplatelet agents are contraindicated in the setting of recent gastrointestinal bleed. She will be monitored for any signs or symptoms of repeat thromboembolic phenomena, and decision making regarding resuming anticoagulation may wait until after her discharge. * Vit D deficiency: Had single dose of 50,000 U om 06/16/16. Start daily supplementation of 5000 U on 06/16/16. Follow-up with PCP or project superintendent after discharge re bone density and to ensure adequate Vit D level.. * Nausea and vomiting and hematemesis. She has been placed on a proton pump inhibitor to promote healing of the distal esophagus, and anticoagulation has been discontinued. Antiemetics will be available as ordered out of the hospital ; not ongoing issue * History of breast cancer. Will continue anastrozole. * Dyslipidemia and hypertension. Continue medications as ordered out of the hospital. Discharge goal of 07/01/16, to home with ; he is installing ramps. Subjective: No events overnight. No additional N/V/D. Getting port out today and excited. Eager to go home. Pain well controlled. Objective: Vital Signs Temp Pulse Resp BP Pulse Ox 37.0 C 91 17 120/68 95 06/19/16 06:46 06/19/16 06:46 06/19/16 06:46 06/19/16 06:46 06/19/16 06:46 Laboratory Results 06/16/16 06:00 06/18/16 06/19/16 06/20/16 05:59 05:59 05:59 Intake Total 1436 1022 Output Total 200 900 Balance 1236 122 - Pending Discharge Pending Discharge Within 24 Hours: No Pending Discharge Within 48 Hours: No Physical Exam - Physical Exam General Appearance: alert, no apparent distress Neck: supple Respiratory: lungs clear, normal breath sounds Cardiac/Chest: regular rate, rhythm, other (Port in place c/d/i) Abdomen: normal bowel sounds, non-tender, soft Skin: warm/dry Extremities: other (Right arm slinged) Neuro/Psych: alert, normal mood/affect, oriented x 3, No cognition abnormalities , No speech abnormalities ICD10 Worksheet Patient Problems: Problems Problem Status Onset Back pain Acute Gastrointestinal hemorrhage Acute Humerus fracture Acute Hypoxia Acute Nausea & vomiting Acute Pain provoked by trauma Acute Pain, neuropathic Acute
[2016-06-19] MEDS: ATORVASTATIN CALCIUM 10 MG TAB PO SCH (08:48)
[2016-06-19] MEDS: POLYETHYLENE GLYCOL 3350 17 GM PKT PO SCH (08:49)
[2016-06-19] MEDS: CHOLECALCIFEROL VIT D3 2,000 UNITS TAB/CAP PO SCH (08:49)
[2016-06-19] MEDS: CHOLECALCIFEROL VIT D3 1,000 UNITS TAB PO SCH (08:49)
[2016-06-19] MEDS: SENNOSIDES 1 TAB PO SCH ×2 (08:50→20:56)
[2016-06-19] MEDS: GABAPENTIN 100 MG CAP PO SCH ×3 (08:51→20:55)
[2016-06-19] MEDS: PANTOPRAZOLE SODIUM 40 MG TAB PO SCH ×2 (08:51→20:55)
[2016-06-19] MEDS: ANASTROZOLE 1 MG TAB PO SCH (08:53)
[2016-06-19] MEDS: METOPROLOL TARTRATE 25 MG TAB PO SCH ×2 (08:54→20:56)
[2016-06-19] MEDS: GUMMY VITAMINS PO SCH (08:56)
[2016-06-20] MEDS: oxyCODONE IR 5 MG TAB PO PRN (07:25)
[2016-06-20] MEDS: PANTOPRAZOLE SODIUM 40 MG TAB PO SCH ×2 (07:25→19:51)
[2016-06-20] MEDS: ANASTROZOLE 1 MG TAB PO SCH (09:40)
[2016-06-20] MEDS: ATORVASTATIN CALCIUM 10 MG TAB PO SCH (09:40)
[2016-06-20] MEDS: CHOLECALCIFEROL VIT D3 2,000 UNITS TAB/CAP PO SCH (09:42)
[2016-06-20] MEDS: METOPROLOL TARTRATE 25 MG TAB PO SCH ×2 (09:42→19:52)
[2016-06-20] MEDS: CHOLECALCIFEROL VIT D3 1,000 UNITS TAB PO SCH (09:42)
[2016-06-20] MEDS: GABAPENTIN 100 MG CAP PO SCH ×2 (09:42→15:02)
[2016-06-20] MEDS: GUMMY VITAMINS PO SCH (09:46)
[2016-06-20] MEDS: SENNOSIDES 1 TAB PO SCH ×2 (09:47→19:52)
[2016-06-20] MEDS: POLYETHYLENE GLYCOL 3350 17 GM PKT PO SCH (09:47)
--- NOTE | 2016-06-20 14:12 | SOAPPROG ---
SOAP Progress Note Assessment/Plan: Assessment: 75 yo F with esophageal cancer s/p 4 cycles of FOLFOX, CVA early May 2016 s/p thrombolytics, fall 06/05/16 with R humerus fracture, Afib, GI bleed 06/13/16 with anticoagulants discontinued: * Debility status post right humerus fracture. FIM 64 on 06/17/16. Ambulated 40 ' min A; R neglect noted. Min A to SBA bed mobility and transfers. Assist for toileting. Goal may be to optimize function at wheelchair level. Physical therapy and occupational therapy to optimize her functional status towards her goal of return to home. * Adenocarcinoma of the esophagus. 5th round of chemotherapy 06/17/16; returned to Oncology clinic 06/19/16 to d/c infusion pump and decannulated port; she reports one more round of chemoRx is planned. * Right humerus fracture. Discussed with Dr. Vega, Orthopedics, 06/15/16. Fracture may heal with abnormal angulation. It is unclear if percutaneous pinning would work; she might need to tolerate a 2 hour open procedure. With or without surgery, she will remain non-weightbearing for 6 weeks. The splint is not helpful and she might achieve better anatomic alignment without it. D/C splint; continue sling only to the extent that it provides comfort to the patient * Constipation. Laxatives have been titrated. * GERD. May be exacerbated by constipation. Continue PPI, Tums PRN. * Pain control. Oxycodone will be continued, both continuous release and immediate release. Has symptom relief of R hand tingling with gabapentin 100 mg TID; increase to 300 QHS on 06/20/16. Continue to monitor. * Atrial fibrillation and recent cerebrovascular accident. She is at risk for a subsequent thromboembolic cerebrovascular accident. However, anticoagulation and antiplatelet agents are contraindicated in the setting of recent gastrointestinal bleed. She will be monitored for any signs or symptoms of repeat thromboembolic phenomena, and decision making regarding resuming anticoagulation may wait until after her discharge. * Vit D deficiency: Had single dose of 50,000 U om 06/16/16. Start daily supplementation of 5000 U on 06/16/16. Follow-up with PCP or equity sales assistant after discharge re bone density and to ensure adequate Vit D level.. * Nausea and vomiting and hematemesis. She has been placed on a proton pump inhibitor to promote healing of the distal esophagus, and anticoagulation has been discontinued. Antiemetics will be available as ordered out of the hospital ; however, she has not required these in some time. * History of breast cancer. Will continue anastrozole. * Dyslipidemia and hypertension. Continue medications as ordered out of the hospital. Discharge goal of 07/01/16, to home with ; he is installing ramps. 06/20/16 14:10 Subjective: Had R calf pain and tenderness this morning; sent for US to R/O DVT, which was negative. Still with some pain R posterior calf into thigh. No cough/dyspnea, no palpitations. C/O tingling R hand danny at night. Objective: Vital Signs Temp Pulse Resp BP Pulse Ox 37.3 C 102 H 20 108/72 95 06/20/16 06:37 06/20/16 09:42 06/20/16 06:37 06/20/16 09:42 06/20/16 06:37 Laboratory Results 06/16/16 06:00 06/19/16 06/20/16 06/21/16 05:59 05:59 05:59 Intake Total 1022 1212 600 Output Total 900 1500 600 Balance 122 -288 0 Physical Exam - Physical Exam General Appearance: WD/WN, alert, no apparent distress, obese Respiratory: No respiratory distress, No accessory muscle use Cardiac/Chest: irregularly irregular, No tachycardia Extremities: other (Tender R posterior calf and thigh) Neuro/Psych: alert, normal mood/affect, oriented x 3 ICD10 Worksheet Patient Problems: Problems Problem Status Onset Back pain Acute Gastrointestinal hemorrhage Acute Humerus fracture Acute Hypoxia Acute Nausea & vomiting Acute Pain provoked by trauma Acute Pain, neuropathic Acute
[2016-06-20] MEDS: ONDANSETRON DISINTEGRATING 4 MG TAB PO PRN (15:01)
[2016-06-20] MEDS: PROCHLORPERAZINE MALEATE 10 MG TAB PO PRN (17:59)
[2016-06-20] MEDS: GABAPENTIN 300 MG CAP PO SCH (19:51)
[2016-06-21] MEDS: oxyCODONE IR 5 MG TAB PO PRN ×2 (05:38→15:37)
[2016-06-21] MEDS: POLYETHYLENE GLYCOL 3350 17 GM PKT PO SCH (08:51)
[2016-06-21] MEDS: PANTOPRAZOLE SODIUM 40 MG TAB PO SCH ×2 (08:52→19:59)
[2016-06-21] MEDS: GUMMY VITAMINS PO SCH (08:52)
[2016-06-21] MEDS: SENNOSIDES 1 TAB PO SCH ×2 (08:52→19:58)
[2016-06-21] MEDS: METOPROLOL TARTRATE 25 MG TAB PO SCH ×2 (08:53→20:00)
[2016-06-21] MEDS: GABAPENTIN 100 MG CAP PO SCH ×2 (08:53→15:36)
[2016-06-21] MEDS: ANASTROZOLE 1 MG TAB PO SCH (08:53)
[2016-06-21] MEDS: CHOLECALCIFEROL VIT D3 1,000 UNITS TAB PO SCH (08:54)
[2016-06-21] MEDS: CHOLECALCIFEROL VIT D3 2,000 UNITS TAB/CAP PO SCH (08:54)
[2016-06-21] MEDS: ATORVASTATIN CALCIUM 10 MG TAB PO SCH (08:54)
[2016-06-21] MEDS ORDERED: GABAPENTIN 100 MG CAP PO SCH (09:16)
--- NOTE | 2016-06-21 13:39 | SOAPPROG ---
SOAP Progress Note Assessment/Plan: Assessment: 75 yo F with esophageal cancer s/p 4 cycles of FOLFOX, CVA early May 2016 s/p thrombolytics, fall 06/05/16 with R humerus fracture, Afib, GI bleed 06/13/16 with anticoagulants discontinued: * Debility status post right humerus fracture. FIM 64 on 06/17/16. Ambulated 40 ' min A as of 06/17/16; today 06/21/16 ambulated 290' and climbed/descended stairs. R neglect noted. Min A to SBA bed mobility and transfers. Assist for toileting. Physical therapy and occupational therapy to optimize her functional status towards her goal of return to home. * Adenocarcinoma of the esophagus. 5th round of chemotherapy 06/17/16; returned to Oncology clinic 06/19/16 to d/c infusion pump and decannulated port; she reports one more round of chemoRx is planned. * Right humerus fracture. Discussed with Dr. Vega, Orthopedics, 06/15/16, after repeat XR. Fracture may heal with abnormal angulation. It is unclear if percutaneous pinning would work; she might need to tolerate a 2 hour open procedure. With or without surgery, she will remain non-weightbearing for 6 weeks. The splint is not helpful and she might achieve better anatomic alignment without it. D/C splint; continue sling only to the extent that it provides comfort to the patient * Constipation. Laxatives have been titrated. * GERD. May be exacerbated by constipation. Continue PPI, Tums PRN. * Pain control. Oxycodone will be continued, both continuous release and immediate release. Has symptom relief of R hand tingling with gabapentin 100 mg TID; increase to 300 QHS on 06/20/16. Continue to monitor. * Atrial fibrillation and recent cerebrovascular accident. She is at risk for a subsequent thromboembolic cerebrovascular accident. However, anticoagulation and antiplatelet agents are contraindicated in the setting of recent gastrointestinal bleed. She will be monitored for any signs or symptoms of repeat thromboembolic phenomena, and decision making regarding resuming anticoagulation may wait until after her discharge. * Vit D deficiency: Had single dose of 50,000 U om 06/16/16. Start daily supplementation of 5000 U on 06/16/16. Follow-up with PCP or export documents clerk after discharge re bone density and to ensure adequate Vit D level.. * Nausea and vomiting and hematemesis. She has been placed on a proton pump inhibitor to promote healing of the distal esophagus, and anticoagulation has been discontinued. Antiemetics will be available as ordered out of the hospital ; however, she has not required these in some time. * History of breast cancer. Will continue anastrozole. * Dyslipidemia and hypertension. Continue medications as ordered out of the hospital. Discharge goal of 07/01/16, to home with ; he is installing ramps. 06/21/16 13:34 Subjective: Had a nosebleed this morning, which resolved. She says it happens after chemoRx. Tingling R hand is improved. Slept very well. No f/c, n/v/c/d, cough , dyspnea. Objective: Vital Signs Temp Pulse Resp BP Pulse Ox 36.7 C 80 18 120/80 99 06/21/16 06:33 06/21/16 08:53 06/21/16 06:33 06/21/16 08:53 06/21/16 06:33 Laboratory Results 06/16/16 06:00 06/20/16 06/21/16 06/22/16 05:59 05:59 05:59 Intake Total 1212 1750 440 Output Total 1500 900 Balance -288 850 440 Physical Exam - Physical Exam General Appearance: WD/WN, alert, no apparent distress, obese Respiratory: No respiratory distress, No accessory muscle use Skin: normal color, warm/dry Extremities: other (R hand with swelling) Neuro/Psych: normal mood/affect, oriented x 3 ICD10 Worksheet Patient Problems: Problems Problem Status Onset Back pain Acute Gastrointestinal hemorrhage Acute Humerus fracture Acute Hypoxia Acute Nausea & vomiting Acute Pain provoked by trauma Acute Pain, neuropathic Acute
[2016-06-21] MEDS: GABAPENTIN 300 MG CAP PO SCH (19:59)
[2016-06-22] MEDS: SENNOSIDES 1 TAB PO SCH ×2 (08:17→21:29)
[2016-06-22] MEDS: POLYETHYLENE GLYCOL 3350 17 GM PKT PO SCH (08:18)
[2016-06-22] MEDS: PANTOPRAZOLE SODIUM 40 MG TAB PO SCH ×2 (08:18→21:29)
[2016-06-22] MEDS: ANASTROZOLE 1 MG TAB PO SCH ×2 (08:18→09:14)
[2016-06-22] MEDS: CHOLECALCIFEROL VIT D3 2,000 UNITS TAB/CAP PO SCH (08:18)
[2016-06-22] MEDS: GABAPENTIN 100 MG CAP PO SCH ×2 (08:18→16:31)
[2016-06-22] MEDS: ATORVASTATIN CALCIUM 10 MG TAB PO SCH (08:19)
[2016-06-22] MEDS: CHOLECALCIFEROL VIT D3 1,000 UNITS TAB PO SCH (08:19)
[2016-06-22] MEDS: METOPROLOL TARTRATE 25 MG TAB PO SCH ×2 (08:31→21:29)
[2016-06-22] MEDS: GUMMY VITAMINS PO SCH (08:31)
--- NOTE | 2016-06-22 10:22 | SOAPPROG ---
SOAP Progress Note Assessment/Plan: Assessment: 75 yo F with esophageal cancer s/p 4 cycles of FOLFOX, CVA early May 2016 s/p thrombolytics, fall 06/05/16 with R humerus fracture, Afib, GI bleed 06/13/16 with anticoagulants discontinued: * Debility status post right humerus fracture. FIM 64 on 06/17/16. Ambulated 40 ' min A as of 06/17/16; on 06/21/16 ambulated 290' and climbed/descended stairs. R neglect noted. Min A to SBA bed mobility and transfers. Assist for toileting. Physical therapy and occupational therapy to optimize her functional status towards her goal of return to home. * Adenocarcinoma of the esophagus. 5th round of chemotherapy 06/17/16; returned to Oncology clinic 06/19/16 to d/c infusion pump and decannulated port; she reports one more round of chemoRx is planned. * Right humerus fracture. Discussed with Dr. Vega, Orthopedics, 06/15/16, after repeat XR. Fracture may heal with abnormal angulation. It is unclear if percutaneous pinning would work; she might need to tolerate a 2 hour open procedure. With or without surgery, she will remain non-weightbearing for 6 weeks. The splint is not helpful and she might achieve better anatomic alignment without it. D/C splint; continue sling only to the extent that it provides comfort to the patient. LM 06/22/[address] Vega's office re follow- up plan. * R 2nd toe injury wit toenail: ordered podiatry consult. Hope she is seem by Dr. Mixon tomorrow 06/23/16. Has dystrophic toenails that would benefit from debridement. R neglect may have contributed to trauma. * Constipation. Laxatives have been titrated. * GERD. May be exacerbated by constipation. Continue PPI, Tums PRN. * Pain control. Oxycodone will be continued, both continuous release and immediate release. Has symptom relief of R hand tingling with gabapentin 100 mg TID; increase to 300 QHS on 06/20/16 with improvement. Continue to monitor. * Atrial fibrillation and recent cerebrovascular accident. She is at risk for a subsequent thromboembolic cerebrovascular accident. However, anticoagulation and antiplatelet agents are contraindicated in the setting of recent gastrointestinal bleed. She will be monitored for any signs or symptoms of repeat thromboembolic phenomena, and decision making regarding resuming anticoagulation may wait until after her discharge. * Vit D deficiency: Had single dose of 50,000 U om 06/16/16. Start daily supplementation of 5000 U on 06/16/16. Follow-up with PCP or fryline attendant after discharge re bone density and to ensure adequate Vit D level.. * Nausea and vomiting and hematemesis. She has been placed on a proton pump inhibitor to promote healing of the distal esophagus, and anticoagulation has been discontinued. Antiemetics will be available as ordered out of the hospital ; however, she has not required these in some time. * History of breast cancer. Will continue anastrozole. * Dyslipidemia and hypertension. Continue medications as ordered out of the hospital. Discharge goal of 07/01/16, to home with ; he is installing ramps. 06/22/16 10:12 Subjective: C/O R 2nd toe pain. Says it was banged in the ambulance. Doesn't bother ther when she's walking. Mobility is improving, using trekking pole. Objective: Vital Signs Temp Pulse Resp BP Pulse Ox 36.9 C 66 18 106/62 92 06/22/16 08:00 06/22/16 08:00 06/22/16 08:00 06/22/16 08:00 06/21/16 19:45 Laboratory Results 06/16/16 06:00 06/21/16 06/22/16 06/23/16 05:59 05:59 05:59 Intake Total 1750 840 480 Output Total 900 1150 300 Balance 850 -310 180 Physical Exam - Physical Exam General Appearance: WD/WN, alert, no apparent distress, obese Respiratory: No respiratory distress, No accessory muscle use Skin: normal color, warm/dry Extremities: other (Toenails dystrophic. R 2nd toe with nail mostly form bed. No erytehma or briusing.) Neuro/Psych: alert, normal mood/affect, oriented x 3 ICD10 Worksheet Patient Problems: Problems Problem Status Onset Humerus fracture Acute Pain provoked by trauma Acute Pain, neuropathic Acute Nausea & vomiting Acute Back pain Acute Hypoxia Acute Gastrointestinal hemorrhage Acute
[2016-06-22] MEDS: oxyCODONE IR 5 MG TAB PO PRN (13:39)
[2016-06-22] MEDS: GABAPENTIN 300 MG CAP PO SCH (21:29)
[2016-06-23] MEDS: oxyCODONE IR 5 MG TAB PO PRN ×4 (05:15→19:42)
[2016-06-23] MEDS: PANTOPRAZOLE SODIUM 40 MG TAB PO SCH ×2 (08:44→20:37)
[2016-06-23] MEDS: PROCHLORPERAZINE MALEATE 10 MG TAB PO PRN (08:44)
[2016-06-23] MEDS: GABAPENTIN 100 MG CAP PO SCH ×2 (08:59→16:34)
[2016-06-23] MEDS: SENNOSIDES 1 TAB PO SCH ×2 (09:01→20:38)
[2016-06-23] MEDS: POLYETHYLENE GLYCOL 3350 17 GM PKT PO SCH (09:01)
--- NOTE | 2016-06-23 09:53 | SOAPPROG ---
SOAP Progress Note Assessment/Plan: Assessment: 75 yo F with esophageal cancer s/p 4 cycles of FOLFOX, CVA early May 2016 s/p thrombolytics, fall 06/05/16 with R humerus fracture, Afib, GI bleed 06/13/16 with anticoagulants discontinued: * Debility status post right humerus fracture. FIM 64 on 06/17/16. Ambulated 40 ' min A as of 06/17/16; on 06/21/16 ambulated 290' and climbed/descended stairs. R neglect noted. Min A to SBA bed mobility and transfers. Assist for toileting. Physical therapy and occupational therapy to optimize her functional status towards her goal of return to home. * Adenocarcinoma of the esophagus. 5th round of chemotherapy 06/17/16; returned to Oncology clinic 06/19/16 to d/c infusion pump and decannulated port; she reports one more round of chemoRx is planned. * Right humerus fracture. Discussed with Dr. Vega, Orthopedics, 06/15/16, after repeat XR. Fracture may heal with abnormal angulation. It is unclear if percutaneous pinning would work; she might need to tolerate a 2 hour open procedure. With or without surgery, she will remain non-weightbearing for 6 weeks. The splint is not helpful and she might achieve better anatomic alignment without it. D/C splint; continue sling only to the extent that it provides comfort to the patient. Dr. Vega's is away until week of 06/27/16; will call then re follow-up plan. * R 2nd toe injury with toenail: nails trimmed by yesterday. D/C podiatry consult. * Constipation. Laxatives have been titrated. Resolved. * GERD. Continue PPI, Tums PRN. * Pain control. Oxycodone will be continued, both continuous release and immediate release. Has symptom relief of R hand tingling with gabapentin 100 mg TID; increase to 300 QHS on 06/20/16 with improvement. Noticing more RLE tingling: will Continue to monitor. * Atrial fibrillation and recent cerebrovascular accident. She is at risk for a subsequent thromboembolic cerebrovascular accident. However, anticoagulation and antiplatelet agents are contraindicated in the setting of recent gastrointestinal bleed. She will be monitored for any signs or symptoms of repeat thromboembolic phenomena, and decision making regarding resuming anticoagulation may wait until after her discharge. * Vit D deficiency: Had single dose of 50,000 U om 06/16/16. Start daily supplementation of 5000 U on 06/16/16. Follow-up with PCP or labor/excavator after discharge re bone density and to ensure adequate Vit D level.. * Nausea and vomiting and hematemesis. She has been placed on a proton pump inhibitor to promote healing of the distal esophagus, and anticoagulation has been discontinued. Antiemetics will be available as ordered out of the hospital ; however, she has not required these in some time. * History of breast cancer. Will continue anastrozole. * Dyslipidemia and hypertension. Continue medications as ordered out of the hospital. Discharge goal of 07/01/16, to home with ; he is installing ramps. 06/22/16 10:12 06/23/16 09:50 Subjective: C/O tingling in R foot. OK overnight, more bothersome during the day. C/O sour taste in her mouth after she eats anything. Bowels moving. Objective: Vital Signs Temp Pulse Resp BP Pulse Ox 36.8 C 85 16 107/67 96 06/23/16 08:00 06/23/16 08:00 06/23/16 08:00 06/23/16 08:00 06/23/16 08:00 Laboratory Results 06/16/16 06:00 06/22/16 06/23/16 06/24/16 05:59 05:59 05:59 Intake Total 840 1256 450 Output Total 1150 1750 Balance -310 -494 450 Physical Exam - Physical Exam General Appearance: WD/WN, alert, no apparent distress, obese Respiratory: No respiratory distress, No accessory muscle use Skin: normal color, warm/dry Extremities: pedal edema (1+ B LE), other Neuro/Psych: alert, normal mood/affect, oriented x 3 ICD10 Worksheet Patient Problems: Problems Problem Status Onset Back pain Acute Gastrointestinal hemorrhage Acute Humerus fracture Acute Hypoxia Acute Nausea & vomiting Acute Pain provoked by trauma Acute Pain, neuropathic Acute
[2016-06-23] MEDS: ANASTROZOLE 1 MG TAB PO SCH (10:08)
[2016-06-23] MEDS: ATORVASTATIN CALCIUM 10 MG TAB PO SCH (10:09)
[2016-06-23] MEDS: CHOLECALCIFEROL VIT D3 1,000 UNITS TAB PO SCH (10:13)
[2016-06-23] MEDS: CHOLECALCIFEROL VIT D3 2,000 UNITS TAB/CAP PO SCH (10:14)
[2016-06-23] MEDS: METOPROLOL TARTRATE 25 MG TAB PO SCH ×2 (10:15→20:38)
[2016-06-23] MEDS: GUMMY VITAMINS PO SCH (10:15)
[2016-06-23] MEDS: GABAPENTIN 300 MG CAP PO SCH (20:37)
[2016-06-24] MEDS: oxyCODONE IR 5 MG TAB PO PRN ×2 (07:30→15:37)
[2016-06-24] MEDS: SENNOSIDES 1 TAB PO SCH ×2 (08:53→21:49)
[2016-06-24] MEDS: POLYETHYLENE GLYCOL 3350 17 GM PKT PO SCH ×2 (08:53→09:08)
[2016-06-24] MEDS: GUMMY VITAMINS PO SCH (08:53)
[2016-06-24] MEDS: PANTOPRAZOLE SODIUM 40 MG TAB PO SCH ×2 (08:54→21:25)
[2016-06-24] MEDS: ATORVASTATIN CALCIUM 10 MG TAB PO SCH (08:54)
[2016-06-24] MEDS: GABAPENTIN 100 MG CAP PO SCH (08:54)
[2016-06-24] MEDS: CHOLECALCIFEROL VIT D3 1,000 UNITS TAB PO SCH (08:55)
[2016-06-24] MEDS: CHOLECALCIFEROL VIT D3 2,000 UNITS TAB/CAP PO SCH (08:55)
[2016-06-24] MEDS: METOPROLOL TARTRATE 25 MG TAB PO SCH ×2 (08:56→21:27)
[2016-06-24] MEDS ORDERED: NEOMY SULF/BACITRAC ZN/POLY 30 GM OINTTUBE TP SCH ×2 (09:00)
[2016-06-24] MEDS ORDERED: ANASTROZOLE 1 MG TAB PO SCH (09:00)
--- NOTE | 2016-06-24 10:23 | SOAPPROG ---
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 FIM 64 on 06/17/16; improved to 75 as of 06/24/16. Ambulated 40' min A as of 06/17/16; on 06/21/16 ambulated 290' and climbed/descended 6 stairs. R neglect noted. Min A to SBA bed mobility and transfers. Mod A UB dressing; max A LB; can't hike R side of pants. Continue physical therapy and occupational therapy to optimize her functional status towards her goal of return to home. * Adenocarcinoma of the esophagus. had 5th round of chemotherapy 06/17/16; returned to Oncology clinic 06/19/16 to d/c infusion pump and decannulated port; she reports one more round of chemoRx is planned. * Right humerus fracture. Discussed with Dr. Vega, Orthopedics, 06/15/16, after repeat XR. Fracture may heal with abnormal angulation. It is unclear if percutaneous pinning would work; she might need to tolerate a 2 hour open procedure. With or without surgery, she will remain non-weightbearing for 6 weeks. The splint is not helpful and she might achieve better anatomic alignment without it. D/C'd splint 06/16/16; continue sling only to the extent that it provides comfort to the patient. Dr. Vega is away until week of ; will call then re follow-up plan. * Pain control. PT reports that RUE pain limits ambulation: does well until increased pain, then she has to sit. Encouraged to use oxycodone IR 30 min before therapy, and to continue oxycodone SR BID. R hand and forearm neuropathic symptoms improved with gabapentin 100 mg TID; increase to 300 QHS on 06/20/16 with improvement; increase to 300 mg TID starting 06/24/16. Tingling began after her fall and fracture; was not present after CVA. * H/O ANDREZ. Reports that mandibular advancement device no longer fits. Nocturnal oxymetry study ordered for [facility] 06/24/16. If abnormal, she should follow up for formal sleep study after discharge. Chronic/stable conditions: * Atrial fibrillation and recent cerebrovascular accident. She is at risk for a subsequent thromboembolic cerebrovascular accident. However, anticoagulation and antiplatelet agents are contraindicated in the setting of recent gastrointestinal bleed. She will be monitored for any signs or symptoms of repeat thromboembolic phenomena, and decision making regarding resuming anticoagulation may wait until after her discharge. * R 2nd toe injury with toenail: nails trimmed by 06/22/16. D /C podiatry consult. * Constipation. Laxatives have been titrated. Resolved. * GERD. Continue PPI, Tums PRN. * Vit D deficiency: Had single dose of 50,000 U om 06/16/16. Start daily supplementation of 5000 U on 06/16/16. 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 * Nausea and vomiting and hematemesis. She has been placed on a proton pump inhibitor to promote healing of the distal esophagus, and anticoagulation has been discontinued. Antiemetics will be available as ordered out of the hospital ; however, she has not required these in some time. * History of breast cancer. Will continue anastrozole. * Dyslipidemia and hypertension. Continue medications as ordered out of the hospital. Attended staffing, 15 min. D/W case mgmt, nursing, PT, OT, JEWELRY FACER. Continue discharge goal of 07/01/16, to home with ; he is installing ramps. She will need assistance at home for mobility and ADLs. Case management to meet with to ensure that assistance is available. 06/24/16 12:40 Subjective: Still has tingling RUE. Says she wasa able to dress herself this morning. Happy to be walking with PT. No pain at fracture site. Objective: Vital Signs Temp Pulse Resp BP Pulse Ox 36.4 C 80 16 121/80 H 98 06/24/16 07:33 06/24/16 08:56 06/24/16 07:33 06/24/16 08:56 06/24/16 07:33 Laboratory Results 06/16/16 06:00 06/23/16 06/24/16 06/25/16 05:59 05:59 05:59 Intake Total 1256 1890 Output Total 1750 Balance -494 1890 - Time Spent With Patient Time Spent With Patient: Greater than 35 minutes floor time today, including ore than 50% of time incoordination of care during staffing meeting, and counseling patient. Physical Exam - Physical Exam General Appearance: WD/WN, alert, no apparent distress, obese Respiratory: normal breath sounds, No crackles, No rhonchi, No wheezing Cardiac/Chest: regular rate, rhythm, edema (1+ B LE) Skin: normal color, warm/dry Neuro/Psych: no motor/sensory deficits, alert, normal mood/affect, oriented x 3 ICD10 Worksheet Patient Problems: Problems Problem Status Onset Back pain Acute Gastrointestinal hemorrhage Acute Humerus fracture Acute Hypoxia Acute Nausea & vomiting Acute Pain provoked by trauma Acute Pain, neuropathic Acute
[2016-06-24] MEDS: GABAPENTIN 300 MG CAP PO SCH ×2 (15:37→21:26)
[2016-06-24] MEDS: ONDANSETRON DISINTEGRATING 4 MG TAB PO PRN (18:49)
[2016-06-24] MEDS: PROCHLORPERAZINE MALEATE 10 MG TAB PO PRN (21:00)
[2016-06-24] MEDS: CALCIUM CARBONATE 500 MG CHEWABLE TAB PO PRN (21:22)
[2016-06-24 22:48] VITALS: TEMP 98.6
[2016-06-25] MEDS: oxyCODONE IR 5 MG TAB PO PRN (00:55)
[2016-06-25] MEDS: ONDANSETRON DISINTEGRATING 4 MG TAB PO PRN (01:02)
[2016-06-25 05:41] VITALS: BP 87/51; RESP 20
[2016-06-25 05:42] VITALS: PULSE 138; O2SAT 94
== END 2016-06-25 06:45 | disposition home or self-care (01) | DRG 560 ==
LOC: BREH 14:53
PROVIDERS: ADMIT Internal Medicine; ATTEND Internal Medicine
PROC: F08Z7ZZ Vocational Activities and Functional Community or Work Reintegration Skills Treatment (ICD-10-PCS; principal; 2016-06-15)
PROC: F07M3ZZ Motor Function Treatment of Musculoskeletal System - Whole Body (ICD-10-PCS; principal; 2016-06-15)
DX: S42.231D 3-part fracture of surgical neck of right humerus, subsequent encounter for fracture with routine healing (principal); I69.398 Other sequelae of cerebral infarction; R20.2 Paresthesia of skin; I48.91 Unspecified atrial fibrillation; C15.9 Malignant neoplasm of esophagus, unspecified; S90.934A Unspecified superficial injury of right lesser toe(s), initial encounter; V86.61XA Passenger of ambulance or fire engine injured in nontraffic accident, initial encounter; R73.03 Prediabetes; E21.3 Hyperparathyroidism, unspecified; K59.00 Constipation, unspecified; E55.9 Vitamin D deficiency, unspecified; E66.01 Morbid (severe) obesity due to excess calories; Z68.31 Body mass index [BMI] 31.0-31.9, adult; W01.0XXD Fall on same level from slipping, tripping and stumbling without subsequent striking against object, subsequent encounter; G47.33 Obstructive sleep apnea (adult) (pediatric); K21.9 Gastro-esophageal reflux disease without esophagitis; I10 Essential (primary) hypertension; E78.5 Hyperlipidemia, unspecified; I25.10 Atherosclerotic heart disease of native coronary artery without angina pectoris; Z87.442 Personal history of urinary calculi; Z85.3 Personal history of malignant neoplasm of breast
CPT/HCPCS: 97110-GO; 97110-GP; 97112-GP; 97116-GP; 97140-GO; 97162-GP; 97165-GO; 97530-GO; 97530-GP; 97535-GO; 97542-GP

== ENCOUNTER 2016-06-25 05:24 | Inpatient (IN) | payer OTHER ==
[2016-06-25] MEDS ORDERED: NS 1,000 ML IV ONE (05:27)
--- NOTE | 2016-06-25 05:31 | EDPHY ---
H & P HPI/ROS: HPI CHIEF COMPLAINT: Nausea, fast heart rate HISTORY OF PRESENT ILLNESS: This patient very pleasant 75-year-old female multiple medical problems, she presents emergency room by a more transport from [facility] inpatient rehab [facility], she presents emergency room due to being found to have a fast heart rate and rehab in the 150s and low blood pressure in the 80s. EMS make contact with her after 911 was called the patient's only complaint is nausea no chest pain or shortness of breath. EMS reports that she had a blood pressure 130s in route her heart rate has ranged from 150s to 170s. Irregular. Patient denies chest pain she does complain of GERD or reflux or sour taste in her mouth. No vomiting blood. No fever no shortness of breath no chest pain. Denies diarrhea black tarry stools. She has a known history of AFib she is she is not on any anticoagulation due to recent GI bleed. She was on Eliquis and aspirin. Past Medical History: AFib, acute blood loss anemia, CVA embolic most likely, recent right humerus fracture, acute GI bleed, esophageal cancer, esophageal mass, esopageal ulcers, hypertension, hyperlipidemia, obstructive sleep apnea Past Surgical History: multiple surgeries including knee replacements, breast lumpectomy, appendectomy Social History: Denies use of drugs alcohol tobacco products, is currently in rehab due to recent right humerus fracture. Family History: Noncontributory ROS REVIEW OF SYSTEMS: A comprehensive 10 point review of systems is otherwise negative aside from elements mentioned in the history of present illness. Exam Constitutional appears well nontoxic triage nursing summary reviewed, vital signs reviewed, awake/alert. Eyes normal conjunctivae and sclera, EOMI, PERRLA. HENT normal inspection, atraumatic, moist mucus membranes, no epistaxis, neck supple/ no meningismus, no raccoon eyes. Respiratory clear to auscultation bilaterally, normal breath sounds, no respiratory distress, no wheezing. Cardiovascular irregular, irregular rhythm, tachycardic, no murmur, no edema, distal pulses normal. Gastrointestinal soft, non-tender, no rebound, no guarding, normal bowel sounds, no distension, no pulsatile mass. Genitourinary no CVA tenderness. Musculoskeletal left upper extremity is in a sling she has pain with palpation to the proximal humerus given she had a recent humerus fracture, no midline vertebral tenderness, full range of motion, no calf swelling, no tenderness of extremities, no meningismus, good pulses, neurovascularly intact. Skin pink, warm, & dry, no rash, skin atraumatic. Neurologic awake, alert and oriented x 3, AAOx3, moves all 4 extremities equally, motor intact, sensory intact, CN II-XII intact, normal cerebellar, normal vision, normal speech. Psychiatric normal mood/affect. Heme/Lymph/Immune no lymphadenopathy. Differential diagnosis includes but is not limited to: AFib, AFib with RVR, sepsis, dehydration, electrolyte disturbance ACS, atypical chest pain, pneumothorax, pneumonia, pulmonary embolism, aortic dissection, congestive heart failure, tumor, musculoskeletal pain, esophageal pain, GERD, peptic ulcer disease, pancreatitis Medical Decision Making: Plan for this patient she will have an IV established placed on full registered nurse cardiac telemetry, she will need EKG upon arrival here she has no complaints of nausea, no chest pain or shortness of breath. Will obtain blood work including electrolytes should be gently hydrated normal saline. Is noted to be heart rate of 150s very irregular most likely AFib. Once we confirm AFib on EKG given her history of AFib should be placed on a diltiazem drip with a dull bolus. Assuming her blood pressure can handle this. Re-evaluation: EKG interpretation by me on record in [employer] system. Impression time of EKG 5:31 a.m., this is AFib rate of [address] depression noted in inferior leads and lateral leads most likely rate related. No acute ST [place]. 0[address]: This time this patient received 15 mg IV dull bolus. Heart rate is currently AFIB 115. Blood pressure is 92/64. 0612AM: Patient is currently hemodynamically stable this time heart rate is in the 117 irregular AFib with RVR blood pressure 90s/50s. No complaints. She denies chest pain shortness of breath. Patient need to be admitted the hospital for AFib with RVR she is currently getting a Dilt drip at 5. Stable. Be admitted to PCU. Blood work has been reviewed her H&H are stable from discharge no evidence she is having acute GI bleed she denies vomiting blood or black tarry stools. No chest pain. Spoke with the hospitalist service at this time Dr Lin agrees to admit. Patient is gently getting IV fluids normal saline. Source: Patient, EMS - Personal History Tetanus Vaccine Date: 10 YRS - Medical/Surgical History Hx Asthma: No Hx Chronic Respiratory Disease: No Hx Diabetes: No Hx Cardiac Disease: No Hx Renal Disease: No Hx Cirrhosis: No Hx Alcoholism: No Hx HIV/AIDS: No Hx Splenectomy or Spleen Trauma: No Other PMH: esopageal ca, hypertension, breast Ca, CVA 2017 w/ R sided deficits, fx right humeral head. - Social History Smoking Status: Never smoked Constitutional: Initial Vital Signs Heart Rate 126 H 06/25/16 06:00 Respiratory Rate 18 06/25/16 06:00 Blood Pressure 97/55 L 06/25/16 06:00 O2 Sat (%) 93 06/25/16 06:00 O2 Delivery Mode Room Air Allergies/Adverse Reactions: No Known Allergies Allergy (Verified 06/12/16 11:22) Home Medications: Medication Instructions Recorded Anastrozole [Arimidex 1 mg (*)] 1 mg PO DAILY 06/05/16 Herbals/Supplements -Info Only 1 ea PO DAILY 06/05/16 Atorvastatin Calcium [Lipitor 10 10 mg PO DAILY #0 tab 06/09/16 mg (*)] Polyethylene Glycol 3350 [Miralax 17 gm PO DAILY PRN #0 pkt 06/09/16 17 gm (*)] Calcium Carbonate [Tums 500MG (*)] 500 mg PO TID PRN #0 tab.chew 06/12/16 Cholecalciferol Vit D3 [Vitamin D3 50,000 unit PO ONCE #0 capsule 06/12/16 (*)] Metoprolol Tartrate [Lopressor 25 12.5 mg PO BID #0 tab 06/12/16 mg (*)] Ondansetron Odt [Zofran Odt 4 mg 4 mg PO Q6HRS PRN #0 tab 06/12/16 (*)] Prochlorperazine Maleate 10 mg PO Q6HRS PRN #0 tab 06/12/16 [Compazine 10mg (*)] Sennosides [Senokot] 1 - 2 tab PO BID PRN #0 tab 06/12/16 Sodium Cl Nasal Gel [[place] Saline 1 jesus TP PRN PRN #0 gel 06/12/16 Nasal Gel] Sodium Cl Nasal [[place] (*)] 1 spray [place]ACH[place]ARE PRN PRN #0 btl 06/12/16 oxyCODONE CR [Oxycontin] 10 mg PO BID #0 tab 06/12/16 Acetaminophen [Tylenol 325mg (*)] 650 mg PO Q4HRS PRN #0 tab 06/15/16 Pantoprazole Sodium [Protonix 40mg 40 mg PO BID #0 tab 06/15/16 (*)] oxyCODONE IR [Oxycodone Ir (*)] 5 - 10 mg PO Q3HRS PRN #0 tab 06/15/16 Medical Decision Making - Data Points Laboratory Results: Laboratory Results 06/25/16 05:45 06/25/16 06/25/16 06/25/16 05:45 05:45 05:45 WBC RBC Hgb Hct MCV MCH MCHC RDW Plt Count MPV Neut % (Auto) Lymph % (Auto) Day % (Auto) Eos % (Auto) Baso % (Auto) Nucleat RBC Rel Count Absolute Neuts (auto) Absolute Lymphs (auto) Absolute Monos (auto) Absolute Eos (auto) Absolute Basos (auto) Absolute Nucleated RBC Immature Gran % Immature Gran # Platelet Estimate PT 15.1 SEC H SEC (12.0-15.0) INR 1.19 H (0.83-1.16) APTT 33.9 SEC SEC (23.0-38.0) VBG Lactic Acid 1.3 mmol/L mmol/L (0.7-2.1) Sodium Pending Potassium Pending Chloride Pending Carbon Dioxide Pending Anion Gap Pending BUN Pending Creatinine Pending Estimated GFR Pending Glucose Pending Calcium Pending Magnesium Pending Total Bilirubin Pending Conjugated Bilirubin Pending Unconjugated Bilirubin Pending AST Pending ALT Pending Alkaline Phosphatase Pending Creatine Kinase Pending CK-MB (CK-2) Fraction Pending Troponin I Pending NT-Pro-B Natriuret Pep Pending Total Protein Pending Albumin Pending Lipase Pending 06/25/16 05:45 WBC 6.27 10^3/uL 10^3/uL (3.80-9.50) RBC 3.02 10^6/uL L 10^6/uL (4.18-5.33) Hgb 8.9 g/dL L g/dL (12.6-16.3) Hct 27.7 % L % (38.0-47.0) MCV 91.7 fL fL (81.5-99.8) MCH 29.5 pg pg (27.9-34.1) MCHC 32.1 g/dL L g/dL (32.4-36.7) RDW 21.4 % H % (11.5-15.2) Plt Count 176 10^3/uL 10^3/uL (150-400) MPV 8.7 fL fL (8.7-11.7) Neut % (Auto) 58.6 % % (39.3-74.2) Lymph % (Auto) 26.2 % % (15.0-45.0) Day % (Auto) 14.4 % H % (4.5-13.0) Eos % (Auto) 0.0 % L % (0.6-7.6) Baso % (Auto) 0.2 % L % (0.3-1.7) Nucleat RBC Rel Count 0.0 % % (0.0-0.2) Absolute Neuts (auto) 3.68 10^3/uL 10^3/uL (1.70-6.50) Absolute Lymphs (auto) 1.64 10^3/uL 10^3/uL (1.00-3.00) Absolute Monos (auto) 0.90 10^3/uL H 10^3/uL (0.30-0.80) Absolute Eos (auto) 0.00 10^3/uL L 10^3/uL (0.03-0.40) Absolute Basos (auto) 0.01 10^3/uL L 10^3/uL (0.02-0.10) Absolute Nucleated RBC 0.00 10^3/uL 10^3/uL (0-0.01) Immature Gran % 0.6 % % (0.0-1.1) Immature Gran # 0.04 10^3/uL 10^3/uL (0.00-0.10) Platelet Estimate Pending PT INR APTT VBG Lactic Acid Sodium Potassium Chloride Carbon Dioxide Anion Gap BUN Creatinine Estimated GFR Glucose Calcium Magnesium Total Bilirubin Conjugated Bilirubin Unconjugated Bilirubin AST ALT Alkaline Phosphatase Creatine Kinase CK-MB (CK-2) Fraction Troponin I NT-Pro-B Natriuret Pep Total Protein Albumin Lipase Medications Given: Discontinued Medications Diltiazem HCl (Cardizem 25 Mg/5 Ml Vial) 15 mg IVP EDNOW ONE Stop: 06/25/16 05:33 Last Admin: 06/25/16 05:47 Dose: 15 mg Sodium Chloride (Ns) 1,000 mls @ 0 mls/hr IV ONCE ONE PRN Reason: Wide Open Stop: 06/25/16 05:28 Last Admin: 06/25/16 05:44 Dose: 1,000 mls Diltiazem HCl 125 mg/ Dextrose 125 mls @ 0 mls/hr IV EDNOW ONE; Per Protocol PRN Reason: Protocol Stop: 06/25/16 06:01 Last Admin: 06/25/16 06:04 Dose: 125 mls Departure - Departure Disposition: [facility] Inpatient Acute Clinical Impression: Atrial fibrillation with RVR Condition: Fair Referrals: Patient,NotPresent [Unknown] - As per Instructions
[2016-06-25] MEDS ORDERED: DILTIAZEM 25 MG/5 ML VIAL IVP ONE (05:32)
--- NOTE | 2016-06-25 05:34 | CPEKG ---
Heart Rate: 152 RR Interval: 395 QRSD Interval: 86 QT Interval: 292 QTC Interval: 465 QRS [place]: -20 T Wave [place]: 34 EKG Severity - ABNORMAL ECG - EKG Impression: ATRIAL FIBRILLATION WITH RAPID V-RATE EKG Impression: VENTRICULAR PREMATURE COMPLEX EKG Impression: BORDERLINE LEFT AXIS DEVIATION EKG Impression: ST DEPRESSION, PROBABLY RATE RELATED Electronically Signed By: Vicente Noble 25-Jun-2016 06:46:10
[2016-06-25 05:54] LABS: % IMMATURE GRANULYOCYTES 0.6 % (0.0-1.1); ABSOLUTE IMMATURE GRANULOCYTES 0.04 10^3/uL (0.00-0.10); ADD DIFF? NO; ADD MORPH? YES; ADD SCAN? NO; ATYPICAL LYMPHOCYTE FLAG 0 (0-99); FRAGMENT RBC FLAG 0 (0-99); HEMATOCRIT 27.7 % (38.0-47.0); HEMOGLOBIN 8.9 g/dL (12.6-16.3); LEFT SHIFT FLG 30 (0-99); LIPEMIA HEMOLYSIS FLAG 80 (0-99); MEAN CELL HEMOGLOBIN 29.5 pg (27.9-34.1); MEAN CELL HEMOGLOBIN CONCENTR. 32.1 g/dL (32.4-36.7); MEAN CELL VOLUME 91.7 fL (81.5-99.8); MEAN PLATELET VOLUME 8.7 fL (8.7-11.7); PLATELET CLUMPS FLAG 0 (0-99); PLATELET COUNT 176 10^3/uL (150-400); RED BLOOD CELL COUNT 3.02 10^6/uL (4.18-5.33)
[2016-06-25 05:56] LABS: RED CELL DISTRIBUTION WIDTH 21.4 % (11.5-15.2)
[2016-06-25] MEDS ORDERED: DILTIAZEM 125 MG in D5W 125 ML IV SCH (06:00)
[2016-06-25] MEDS ORDERED: DILTIAZEM 125 MG in D5W 125 ML IV ONE (06:00)
[2016-06-25 06:03] LABS: INR 1.19 (0.83-1.16); PROTIME(PATIENT) 15.1 SEC (12.0-15.0)
[2016-06-25 06:04] LABS: APTT 33.9 SEC (23.0-38.0)
[2016-06-25] MEDS ORDERED: DIGOXIN 500 MCG/2 ML AMP IVP ONE (06:19)
[2016-06-25] MEDS ORDERED: DIGOXIN 500 MCG/2 ML AMP ONE (06:20)
[2016-06-25 06:27] LABS: ALANINE AMINOTRANSFERASE 43 IU/L (9-52); ALBUMIN 2.8 g/dL (3.5-5.0); ALKALINE PHOSPHATASE 96 IU/L (38-126); ANION GAP 10 mEq/L (8-16); ASPARTATE AMINOTRANSFERASE 34 IU/L (14-46); BILIRUBIN,TOTAL 0.6 mg/dL (0.1-1.4); BILIRUBIN-CONJUGATED 0.3 mg/dL (0.0-0.5); BILIRUBIN-UNCONJUGATED 0.3 mg/dL (0.0-1.1); CALCIUM 10.1 mg/dL (8.5-10.4); CARBON DIOXIDE 23 mEq/l (22-31); CHLORIDE 105 mEq/L (97-110); CREATININE 0.8 mg/dL (0.6-1.0); GLOMERULAR FILTRATION RATE > 60; GLUCOSE 142 mg/dL (70-100); MAGNESIUM 1.6 mg/dL (1.6-2.3); POTASSIUM 3.5 mEq/L (3.5-5.2); SODIUM 138 mEq/L (134-144); TOTAL PROTEIN 5.7 g/dL (6.3-8.2)
[2016-06-25 06:39] LABS: CREATINE KINASE-MB FRACTION 1.22 ng/mL (0-3.19); TROPONIN I < 0.012 ng/mL (0-0.034)
[2016-06-25 06:43] LABS: MACROCYTES 1+; MICROCYTES 1+; PLATELET ESTIMATE ADEQUATE (ADEQ); TOXIC GRANULATION PRESENT
[2016-06-25] MEDS ORDERED: NS 500 ML IV ONE ×2 (06:43→07:20)
[2016-06-25] MEDS ORDERED: ONDANSETRON DISINTEGRATING 4 MG TAB PO PRN ×2 (07:20→12:29)
[2016-06-25] MEDS ORDERED: HYDROmorphONE/DILAUDID 1 MG/ML SYR IVP PRN (07:20)
[2016-06-25] MEDS ORDERED: ACETAMINOPHEN 325 MG TAB PO PRN (07:20)
[2016-06-25] MEDS ORDERED: ONDANSETRON 4 MG/2 ML VIAL IVP PRN (07:20)
--- NOTE | 2016-06-25 07:57 | PDGENHP ---
History and Physical - Chief Complaint nausea/reflux - History of Present Illness 75 yo F with multiple medical issues including paroxysmal a fib as well as recent embolic CVA s/p TPA with residual right sided weakness, recent GI bleed while on eliquis for a fib and cva and esophageal cancer. She has been in IP rehab at [place] recovering from a right humeral fracture that is being managed non operatively for now. Yesterday she developed recurrent nausea with associated reflux with sour taste in her mouth, no vomiting or change in bowels however. The MD at rehab was concerned for recurrent GI bleed and sent her to ER for further w/u. She did not have evidence of acute bleeding on arrival in the ER but was noted to be in a fib w/rvr to the 170s. Patient denies chest pain or palpitations, she has not had fever or chills, no urinary symptoms. She notes that her arm is getting better in terms of the symptoms from the stroke and related to her fracture. She has been ambulating with a walker. History Information - Allergies/Home Medication List Allergies/Adverse Reactions: No Known Allergies Allergy (Verified 06/12/16 11:22) Home Medications: Anastrozole [Arimidex 1 mg (*)] 1 mg PO DAILY 06/05/16 [Last Taken 06/24/16 09: 07] Herbals/Supplements -Info Only 1 ea PO DAILY 06/05/16 [Last Taken 06/24/16 08:53 ] I have personally reviewed and updated: family history, medical history, social history, surgical history - Past Medical History atrial fibrillation, cancer (breast and esophageal cancer), CVA (embolic, s/p TPA, residual right hand weakness/tingling), diabetes type 2, GERD, hyperlipidemia Additional medical history: recent GI bleed 2/2 esophageal ulcer related to esophageal mass. chronic pain with continuous narcotic use and dependency. ANDREZ. hyperparathyroid. osteopenia. hyperparathyroidism. nephrolithiasis. morbid obesity - Surgical History Reports: appendectomy, cancer surgery (lumpectomy/partial mastectomy) Additional surgical history: knee surgery. cataract surgery - Family History Positive for: non-pertinent Additional family history: Father with cva. 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 Review of Systems ROS: 10pt was reviewed & negative except for what was stated in HPI & below Physical Exam Temp Pulse Resp BP Pulse Ox 36.8 C 125 H 16 119/53 L 96 06/25/16 07:15 06/25/16 07:15 06/25/16 07:15 06/25/16 07:15 06/25/16 07:15 O2 (L/minute) 2 Constitutional: chronically ill appearing, obese, unkempt Eyes: PERRL, anicteric sclera Ears, Nose, Mouth, Throat: moist mucous membranes, hearing normal Cardiovascular: no murmur, rub, or gallop, irregularly irregular, tachycardia, edema (2+ BLE edema) Respiratory: no respiratory distress, no rales or rhonchi, clear to auscultation Gastrointestinal: normoactive bowel sounds, soft, non-tender abdomen Genitourinary: no bladder tenderness Skin: warm, normal color Musculoskeletal: muscular tenderness, generalized weakness Neurologic: AAOx3 Psychiatric: interacting appropriately, not encephalopathic, thought process linear Lab Data & Imaging Review 06/25/16 05:45 06/25/16 05:45 WBC 6.27 10^3/uL (3.80-9.50) 06/25/16 05:45 RBC 3.02 10^6/uL (4.18-5.33) L 06/25/16 05:45 Hgb 8.9 g/dL (12.6-16.3) L 06/25/16 05:45 Hct 27.7 % (38.0-47.0) L 06/25/16 05:45 MCV 91.7 fL (81.5-99.8) 06/25/16 05:45 MCH 29.5 pg (27.9-34.1) 06/25/16 05:45 MCHC 32.1 g/dL (32.4-36.7) L 06/25/16 05:45 RDW 21.4 % (11.5-15.2) H 06/25/16 05:45 Plt Count 176 10^3/uL (150-400) 06/25/16 05:45 MPV 8.7 fL (8.7-11.7) 06/25/16 05:45 Neut % (Auto) 58.6 % (39.3-74.2) 06/25/16 05:45 Lymph % (Auto) 26.2 % (15.0-45.0) 06/25/16 05:45 [place] % (Auto) 14.4 % (4.5-13.0) H 06/25/16 05:45 Eos % (Auto) 0.0 % (0.6-7.6) L 06/25/16 05:45 Baso % (Auto) 0.2 % (0.3-1.7) L 06/25/16 05:45 Nucleat RBC Rel Count 0.0 % (0.0-0.2) 06/25/16 05:45 Absolute Neuts (auto) 3.68 10^3/uL (1.70-6.50) 06/25/16 05:45 Absolute Lymphs (auto) 1.64 10^3/uL (1.00-3.00) 06/25/16 05:45 Absolute Monos (auto) 0.90 10^3/uL (0.30-0.80) H 06/25/16 05:45 Absolute Eos (auto) 0.00 10^3/uL (0.03-0.40) L 06/25/16 05:45 Absolute Basos (auto) 0.01 10^3/uL (0.02-0.10) L 06/25/16 05:45 Absolute Nucleated RBC 0.00 10^3/uL (0-0.01) 06/25/16 05:45 Immature Gran % 0.6 % (0.0-1.1) 06/25/16 05:45 Immature Gran # 0.04 10^3/uL (0.00-0.10) 06/25/16 05:45 Toxic Granulation PRESENT H 06/25/16 05:45 Platelet Estimate ADEQUATE (ADEQ) 06/25/16 05:45 Microcytic Cells 1+ H 06/25/16 05:45 Oval Macrocytes 1+ H 06/25/16 05:45 PT 15.1 SEC (12.0-15.0) H 06/25/16 05:45 INR 1.19 (0.83-1.16) H 06/25/16 05:45 APTT 33.9 SEC (23.0-38.0) 06/25/16 05:45 VBG Lactic Acid 1.3 mmol/L (0.7-2.1) 06/25/16 05:45 Sodium 138 mEq/L (134-144) 06/25/16 05:45 Potassium 3.5 mEq/L (3.5-5.2) 06/25/16 05:45 Chloride 105 mEq/L (97-110) 06/25/16 05:45 Carbon Dioxide 23 mEq/l (22-31) 06/25/16 05:45 Anion Gap 10 mEq/L (8-16) 06/25/16 05:45 BUN 23 mg/dL (7-23) 06/25/16 05:45 Creatinine 0.8 mg/dL (0.6-1.0) 06/25/16 05:45 Estimated GFR > 60 06/25/16 05:45 Glucose 142 mg/dL (70-100) H 06/25/16 05:45 Calcium 10.1 mg/dL (8.5-10.4) 06/25/16 05:45 Magnesium 1.6 mg/dL (1.6-2.3) 06/25/16 05:45 Total Bilirubin 0.6 mg/dL (0.1-1.4) 06/25/16 05:45 Conjugated Bilirubin 0.3 mg/dL (0.0-0.5) 06/25/16 05:45 Unconjugated Bilirubin 0.3 mg/dL (0.0-1.1) 06/25/16 05:45 AST 34 IU/L (14-46) 06/25/16 05:45 ALT 43 IU/L (9-52) 06/25/16 05:45 Alkaline Phosphatase 96 IU/L (38-126) 06/25/16 05:45 Creatine Kinase 29 IU/L (0-156) 06/25/16 05:45 CK-MB (CK-2) Fraction 1.22 ng/mL (0-3.19) 06/25/16 05:45 Troponin I < 0.012 ng/mL (0-0.034) 06/25/16 05:45 NT-Pro-B Natriuret Pep 790 pg/mL (0-450) H 06/25/16 05:45 Total Protein 5.7 g/dL (6.3-8.2) L 06/25/16 05:45 Albumin 2.8 g/dL (3.5-5.0) L 06/25/16 05:45 Lipase 139.0 IU/L (23-300) 06/25/16 05:45 Visualized and Interpreted Chest x-ray results: Yes Chest X-Ray results: other (pulmonary edema) Visualized and Interpreted EKG results: Yes EKG additional interpertation: atrial fibrillation w/ventricular rate in 150s, st depressions likely rate related Assessment & Plan Assessment: Atrial fibrillation with RVR (Acute) 75 yo F with hx of fairly recent embolic CVA as well as a fib and recent significant GI bleed presenting with a fib w/rvr and nausea/gerd # a fib w/rvr: presenting with rates up to the 170s, unclear if her sxs are related primarily to a fib or other etiology however as mostly GI sxs. Given dilt in ER with resultant hypotension, then digoxin with improvement in her rate. Patient chronically on metoprolol which will be resumed. AC has been discontinued despite high CHADS vasc and recent embolic stroke given recent life threatening GI bleed related to esophageal ulcerations with underlying esophageal mass. Cardiology will be consulted. # acute on chronic diastolic heart failure: recent echo showing DD and preserved EF, has evidence of volume overload on exam including bilateral pitting edema and pulmonary edema on CXR. Likely due to above, but trending trops and monitoring on tele. Holding off on lasix for now given hypotension, but if BP improves off of the dilt. # acute hypoxic respiratory failure: presenting with o2 sat of 87%on RA and requiring 2L to maintain sats in low 90s. 2/2 above, lasix when bp tolerates. Formal read of cxr pending. # nausea/gerd: unclear how related to above, had recent GI bleed as below, but thus far no evidence to suggest recurrent bleeding. Continue PPI BID, prn antiemetics. # recent embolic CVA: as above, patient with recent embolic cva in setting of a fib, not a good AC candidate given recent GI bleed as below. Residual sxs include right hand tingling and weakness that is improving # recent GI bleed: due to esophageal ulcers related to underlying esophageal cancer, recent EGD performed with diffuse ulcers, continued on PPI BID and avoiding AC/asa/nsaids. # esophageal cancer: s/p FOLOX, most recently completed 06/17, plan has been for XRT when chemo completed, associated esophageal ulcers as above # breast cancer: continue anastrazole # humeral fracture: in sling, plan has been for non operative management, has ortho f/u arranged as op # dispo: has been in IP rehab at [place] and likely will return there, observation status for now though given multiple chronic issues may need IP stay Patient new to my care. Care plan reviewed with ER and cardiology, as above. Old records reviewed and summarized as above.
[2016-06-25] MEDS ORDERED: SODIUM CL NASAL 45 ML BTL EACHNARE PRN (08:44)
[2016-06-25] MEDS ORDERED: CALCIUM CARBONATE 500 MG CHEWABLE TAB PO PRN (08:44)
[2016-06-25] MEDS ORDERED: SENNOSIDES 1 TAB PO PRN (08:44)
[2016-06-25] MEDS ORDERED: POLYETHYLENE GLYCOL 3350 17 GM PKT PO PRN (08:44)
[2016-06-25] MEDS ORDERED: PANTOPRAZOLE SODIUM 40 MG TAB PO SCH (09:00)
[2016-06-25] MEDS ORDERED: Herbals/Supplements -Info Only PO SCH (09:00)
[2016-06-25] MEDS ORDERED: ENOXAPARIN 40 MG/0.4 ML SYR SC SCH (09:00)
[2016-06-25] MEDS ORDERED: METOPROLOL TARTRATE 25 MG TAB PO SCH ×2 (09:00→09:21)
[2016-06-25] MEDS ORDERED: HEPARIN 10,000 UNIT/10 ML MDV IVP PRN (09:16)
[2016-06-25] MEDS: HEPARIN/DEXTROSE 500 ML IV SCH (10:13)
[2016-06-25] MEDS: PANTOPRAZOLE SODIUM 40 MG TAB PO SCH ×2 (10:15→20:48)
[2016-06-25] MEDS: ATORVASTATIN CALCIUM 10 MG TAB PO SCH (10:15)
[2016-06-25] MEDS: ANASTROZOLE 1 MG TAB PO SCH (10:16)
[2016-06-25] MEDS: METOPROLOL TARTRATE 25 MG TAB PO SCH ×2 (10:27→20:48)
[2016-06-25] MEDS: oxyCODONE IR 5 MG TAB PO PRN ×2 (10:32→21:34)
--- NOTE | 2016-06-25 10:50 | PDCARCONS ---
Cardiology Consult Reason for Consult: Atrial fibrillation Chief Complaint: Right arm pains (recent fracture) Requesting Physician: Hospitalist History of Present Illness: Patient is a 75 y/o female with history of breast and esophageal cancer ( ongoing chemotherapy for latter), HTN, HLP, DM, CVA (with successful TPA therapy ), atrial fibrillation ([id number] score of 7, not on anticoagulant therapy given GI bleeding and aforementioned esophageal cancer), ANDREZ, and GERD, who presented to [facility] ER from inpatient rehab after accelerated, irregular heart rates noted. When speaking to the patient today, her chief complaint has been right arm pains, secondary to recent fracture. No chest pains or pressure. No PND or orthopnea. Review of EMR with history of atrial fibrillation, but given a GI bleed and further history of "anemia" therapy (Eliquis) has been stopped. Stroke risk is very elevated by calculations. No fevers or chills. Improvement in symptoms was noted with slowing of heart rates. Remainder of 12 point review of systems was unremarkable History Information - Allergies/Home Medication List Allergies/Adverse Reactions: No Known Allergies Allergy (Verified 06/12/16 11:22) Home Medications: Anastrozole [Arimidex 1 mg (*)] 1 mg PO DAILY 06/05/16 [Last Taken 06/24/16 09: 07] Herbals/Supplements -Info Only 1 ea PO DAILY 06/05/16 [Last Taken 06/24/16 08:53 ] I have personally reviewed and updated: family history, medical history, social history, surgical history - Past Medical History atrial fibrillation, cancer, COPD, CVA, diabetes type 2, GI bleed, GERD, hypertension, hyperlipidemia - Surgical History Reports: cancer surgery - Family History Positive for: non-pertinent - Social History Smoking Status: Never smoked Alcohol Use: None Drug Use: None Cardiac History - Cardiac History Cardiac Risk Factors: hypertension (>140/90), lipidemia, diabetes mellitus, age > 65 Timing/Duration: Hours Severity: moderate Severity Scale: 6 Location: substernal Activities at Onset: activity Modifying Factors: improves with: oxygen, rest Associated Symptoms: shortness of breath MARIZA Risk Evaluation age greater or equal to 65: yes greater or equal to 3 CAD risk factors: yes known CAD(stenosis greater or eqaul to 50%): no ASA use in past 7 days: no severe angina(greater or equal to 2 episodes in 24hrs): no EKG ST changes greater or equal to 0.5mm: no positive cardiac marker: no Total Score: 2 MARIZA Score: 8.3% risk Age in Years: 75 or older Sex: Female Congestive Heart Failure History: Yes Hypertension History: Yes Stroke/TIA/Thromboembolism History: Yes Vascular Disease History: No Diabetes Mellitus: Yes [id number] Score: 2B Physical Exam Temp Pulse Resp BP Pulse Ox 36.8 C 125 H 16 119/53 L 96 06/25/16 07:15 06/25/16 07:15 06/25/16 07:15 06/25/16 07:15 06/25/16 07:15 O2 (L/minute) 2 Constitutional: no apparent distress, appears nourished, not in pain, obese Eyes: PERRL Ears, Nose, Mouth, Throat: moist mucous membranes, hearing normal, ears appear normal Cardiovascular: irregularly irregular, tachycardia, No systolic murmur, No JVD, No edema Peripheral Pulses: 2+: dorsalis-pedis (R), dorsalis-pedis (L) Respiratory: no respiratory distress, no rales or rhonchi, clear to auscultation Gastrointestinal: normoactive bowel sounds Skin: warm, no induration, No rash Musculoskeletal: full muscle strength, no muscle tenderness, normal joint ROM ( less the right upper extremity) Neurologic: AAOx3, sensation intact bilaterally, CN II-XII Intact Psychiatric: interacting appropriately, not anxious, not encephalopathic Lab and Imaging 06/25/16 05:45 06/25/16 05:45 WBC 6.27 10^3/uL (3.80-9.50) 06/25/16 05:45 RBC 3.02 10^6/uL (4.18-5.33) L 06/25/16 05:45 Hgb 8.9 g/dL (12.6-16.3) L 06/25/16 05:45 Hct 27.7 % (38.0-47.0) L 06/25/16 05:45 MCV 91.7 fL (81.5-99.8) 06/25/16 05:45 MCH 29.5 pg (27.9-34.1) 06/25/16 05:45 MCHC 32.1 g/dL (32.4-36.7) L 06/25/16 05:45 RDW 21.4 % (11.5-15.2) H 06/25/16 05:45 Plt Count 176 10^3/uL (150-400) 06/25/16 05:45 MPV 8.7 fL (8.7-11.7) 06/25/16 05:45 Neut % (Auto) 58.6 % (39.3-74.2) 06/25/16 05:45 Lymph % (Auto) 26.2 % (15.0-45.0) 06/25/16 05:45 Luce % (Auto) 14.4 % (4.5-13.0) H 06/25/16 05:45 Eos % (Auto) 0.0 % (0.6-7.6) L 06/25/16 05:45 Baso % (Auto) 0.2 % (0.3-1.7) L 06/25/16 05:45 Nucleat RBC Rel Count 0.0 % (0.0-0.2) 06/25/16 05:45 Absolute Neuts (auto) 3.68 10^3/uL (1.70-6.50) 06/25/16 05:45 Absolute Lymphs (auto) 1.64 10^3/uL (1.00-3.00) 06/25/16 05:45 Absolute Monos (auto) 0.90 10^3/uL (0.30-0.80) H 06/25/16 05:45 Absolute Eos (auto) 0.00 10^3/uL (0.03-0.40) L 06/25/16 05:45 Absolute Basos (auto) 0.01 10^3/uL (0.02-0.10) L 06/25/16 05:45 Absolute Nucleated RBC 0.00 10^3/uL (0-0.01) 06/25/16 05:45 Immature Gran % 0.6 % (0.0-1.1) 06/25/16 05:45 Immature Gran # 0.04 10^3/uL (0.00-0.10) 06/25/16 05:45 Toxic Granulation PRESENT H 06/25/16 05:45 Platelet Estimate ADEQUATE (ADEQ) 06/25/16 05:45 Microcytic Cells 1+ H 06/25/16 05:45 Oval Macrocytes 1+ H 06/25/16 05:45 PT 15.1 SEC (12.0-15.0) H 06/25/16 05:45 INR 1.19 (0.83-1.16) H 06/25/16 05:45 APTT 33.9 SEC (23.0-38.0) 06/25/16 05:45 VBG Lactic Acid 1.3 mmol/L (0.7-2.1) 06/25/16 05:45 Sodium 138 mEq/L (134-144) 06/25/16 05:45 Potassium 3.5 mEq/L (3.5-5.2) 06/25/16 05:45 Chloride 105 mEq/L (97-110) 06/25/16 05:45 Carbon Dioxide 23 mEq/l (22-31) 06/25/16 05:45 Anion Gap 10 mEq/L (8-16) 06/25/16 05:45 BUN 23 mg/dL (7-23) 06/25/16 05:45 Creatinine 0.8 mg/dL (0.6-1.0) 06/25/16 05:45 Estimated GFR > 60 06/25/16 05:45 Glucose 142 mg/dL (70-100) H 06/25/16 05:45 Calcium 10.1 mg/dL (8.5-10.4) 06/25/16 05:45 Magnesium 1.6 mg/dL (1.6-2.3) 06/25/16 05:45 Total Bilirubin 0.6 mg/dL (0.1-1.4) 06/25/16 05:45 Conjugated Bilirubin 0.3 mg/dL (0.0-0.5) 06/25/16 05:45 Unconjugated Bilirubin 0.3 mg/dL (0.0-1.1) 06/25/16 05:45 AST 34 IU/L (14-46) 06/25/16 05:45 ALT 43 IU/L (9-52) 06/25/16 05:45 Alkaline Phosphatase 96 IU/L (38-126) 06/25/16 05:45 Creatine Kinase 29 IU/L (0-156) 06/25/16 05:45 CK-MB (CK-2) Fraction 1.22 ng/mL (0-3.19) 06/25/16 05:45 Troponin I < 0.012 ng/mL (0-0.034) 06/25/16 05:45 NT-Pro-B Natriuret Pep 790 pg/mL (0-450) H 06/25/16 05:45 Total Protein 5.7 g/dL (6.3-8.2) L 06/25/16 05:45 Albumin 2.8 g/dL (3.5-5.0) L 06/25/16 05:45 Lipase 139.0 IU/L (23-300) 06/25/16 05:45 Visualized and Interpreted Chest x-ray results: Yes Chest X-ray Interpretation: no infiltrate Visualized and Interpreted imaging results: Yes EKG Interpretation: Positive for: NS ST wave abnormalities, other (atrial fibrillation with rapid ventricular response) Telemetry: ongoing atrial fibrillation Echocardiogram: patient reported that she had had an echocardiogram, but I believe that she was confused about "ECG" and "echo" A/P Assessment: Patient is a 75 y/o female with multiple medical diagnoses (HTN, HLP, DM, COPD, GERD, cancer (breast and esophageal), atrial fibrillation, and CVA), with admission to [facility] via EMS from inpatient rehab facility. Elevation in heart rates noted, with some reduction after IV CCB therapy. Inability to use anticoagulation given history of GI bleeding and anemia. Inability to perform SANDY given erosions and ongoing esophageal cancer therapy. At present, would strive to have better rate control, but with bouts of pain, this may be difficult to treat. Plan: (1) While the patient is inpatient, with such an elevated CVA risk, would use heparin for anticoagulation, and monitor H/H and symptoms closely (2) No SANDY (3) No cardioversion (4) Rate control assistance from beta rocky (25 mg of metoprolol twice per day) (5) Maintain aggressive PO intake of fluid (6) Would arrange for echocardiogram for assessment of LVEF and wall motion (7) Maintain follow up with Heme/Onc as scheduled Cardiology will continue to follow this patient as an inpatient.
--- NOTE | 2016-06-25 11:49 | HOSPPROG ---
Hospitalist Progress Note Assessment/Plan: #A fib with RVR: asymptomatic -appreciate Dr. Rubi's consultation -increase Metoprolol 25mg BID. -CHADvasc 6, high-risk for recurrent CVA, however with esophageal cancer/ulcers , at risk for bleeding thus was taken off anticoagulation -no SANDY for cardioversion. Treat with heparin gtt while here and monitor for bleeding closely #Recent GIB: while on Eliquis due to esoph ulcers #Compensated diastolic HF: repeat TTE. Resume lasix once BP stable #Esophageal cancer: undergoing chemo, plan for XRT after #Recent right humeral fx: therapy at inpatient rehab #Dvt ppx: on heparin gtt Subjective: No CP, SOB or dizzy Objective: Vital Signs Temp Pulse Resp BP Pulse Ox 37.1 C 122 H 16 119/53 L 85 L 06/25/16 09:57 06/25/16 09:57 06/25/16 07:15 06/25/16 07:15 06/25/16 09:57 06/24/16 06/25/16 06/26/16 05:59 05:59 05:59 Intake Total 2150 Output Total 500 Balance 1650 PT 15.1 SEC (12.0-15.0) H 06/25/16 05:45 INR 1.19 (0.83-1.16) H 06/25/16 05:45 ICD10 Worksheet Patient Problems: Problems Problem Status Onset Atrial fibrillation with RVR Acute Back pain Acute Gastrointestinal hemorrhage Acute Humerus fracture Acute Hypoxia Acute Nausea & vomiting Acute Pain provoked by trauma Acute Pain, neuropathic Acute
[2016-06-25] MEDS ORDERED: CHOLECALCIFEROL VIT D3 50,000 UNIT CAP PO SCH (12:30)
[2016-06-25 13:52] LABS: TROPONIN I 0.038 ng/mL (0-0.034)
[2016-06-25] MEDS: CHOLECALCIFEROL VIT D3 2,000 UNITS TAB/CAP PO SCH (15:33)
[2016-06-25] MEDS: PROMETHAZINE HCL 25 MG TAB PO PRN (20:48)
[2016-06-26] MEDS: HEPARIN/DEXTROSE 500 ML IV SCH (02:50)
[2016-06-26] MEDS: PROMETHAZINE HCL 25 MG TAB PO PRN (05:37)
[2016-06-26] MEDS: oxyCODONE IR 5 MG TAB PO PRN ×3 (05:38→21:27)
[2016-06-26 06:46] LABS: % IMMATURE GRANULYOCYTES 0.8 % (0.0-1.1); ABSOLUTE IMMATURE GRANULOCYTES 0.05 10^3/uL (0.00-0.10); ADD DIFF? NO; ADD MORPH? YES; ADD SCAN? NO; ATYPICAL LYMPHOCYTE FLAG 30 (0-99); FRAGMENT RBC FLAG 20 (0-99); HEMATOCRIT 18.7 % (38.0-47.0); LEFT SHIFT FLG 10 (0-99); LIPEMIA HEMOLYSIS FLAG 80 (0-99); MEAN CELL HEMOGLOBIN 30.5 pg (27.9-34.1); MEAN CELL HEMOGLOBIN CONCENTR. 32.1 g/dL (32.4-36.7); MEAN CELL VOLUME 94.9 fL (81.5-99.8); MEAN PLATELET VOLUME 9.9 fL (8.7-11.7); PLATELET CLUMPS FLAG 0 (0-99); PLATELET COUNT 144 10^3/uL (150-400); RED BLOOD CELL COUNT 1.97 10^6/uL (4.18-5.33)
[2016-06-26 06:47] LABS: RED CELL DISTRIBUTION WIDTH 22.2 % (11.5-15.2)
[2016-06-26 07:08] LABS: POLYCHROMASIA 2+
[2016-06-26 07:09] LABS: MACROCYTES 1+
[2016-06-26 07:10] LABS: HYPOCHROMIA 2+; MICROCYTES 1+; PLATELET ESTIMATE ADEQUATE (ADEQ)
[2016-06-26 07:23] LABS: ANION GAP 7 mEq/L (8-16); CALCIUM 9.2 mg/dL (8.5-10.4); CARBON DIOXIDE 22 mEq/l (22-31); CHLORIDE 108 mEq/L (97-110); CREATININE 0.7 mg/dL (0.6-1.0); GLOMERULAR FILTRATION RATE > 60; GLUCOSE 105 mg/dL (70-100); POTASSIUM 3.3 mEq/L (3.5-5.2); SODIUM 137 mEq/L (134-144)
--- NOTE | 2016-06-26 09:36 | HOSPPROG ---
Hospitalist Progress Note Assessment/Plan: #Acute normocytic anemia: Hb drop to 6 overnight. No overt bleeding but suspect GI source. Repeat stat H/H unchanged. Transfuse 2 units RBCs. Check FOBT. Heparin off. Small dose oral lasix in between units #A fib with RVR: asymptomatic: converted to NSR this overnight -appreciate Dr. Rubi's consultation. TTE with normal EF, mild pulm HTN -Metoprolol 25mg BID -CHADvasc 6, high-risk for recurrent CVA, however with esophageal cancer/ulcers is high bleeding risk, eps given acute loss. No anticoagulation at this time, because risks outweigh benefit #Recent GIB: while on Eliquis due to esoph ulcers. No overt bleeding now. Will monitor transfusion. If falls again, may need repeat EGD #Compensated diastolic HF: repeat TTE with normal EF. Has peripheral edema, but have to be cautious with Lasix given soft BP. #Esophageal cancer: undergoing chemo, plan for XRT after #Recent right humeral fx: therapy at inpatient rehab #Dvt ppx: SCDs given anemia #Disp: patient warrants inpatient admission with new anemia, requiring blood transfusion, serial H/H Critical care time spent: 60 min: bedside with pt, reviewing labs, d/w Cardiology/Onc Subjective: normal brown stool, denies any bleeding. No CP, SOB or dizziness Objective: Vital Signs Temp Pulse Resp BP Pulse Ox 36.7 C 86 17 95/56 L 95 06/26/16 08:00 06/26/16 08:00 06/26/16 08:00 06/26/16 08:00 06/26/16 08:00 Laboratory Results 06/26/16 06:35 06/26/16 06:35 06/25/16 06/26/16 06/27/16 05:59 05:59 05:59 Intake Total 2700 Output Total 500 Balance 2200 PT 15.1 SEC (12.0-15.0) H 06/25/16 05:45 INR 1.19 (0.83-1.16) H 06/25/16 05:45 - Physical Exam Constitutional: no apparent distress, other (pale) Eyes: PERRL Ears, Nose, Mouth, Throat: moist mucous membranes Cardiovascular: regular rate and rhythym, no murmur, rub, or gallop, edema (+1- 2 ankles, BL hands swollen) Respiratory: no respiratory distress, no rales or rhonchi Gastrointestinal: normoactive bowel sounds, soft, non-tender abdomen Genitourinary: no bladder fullness Skin: warm Musculoskeletal: full muscle strength, other (right arm in sling. Chest port with no erythema) Neurologic: AAOx3, CN II-XII Intact Psychiatric: interacting appropriately ICD10 Worksheet Patient Problems: Problems Problem Status Onset Atrial fibrillation with RVR Acute Back pain Acute Gastrointestinal hemorrhage Acute Humerus fracture Acute Hypoxia Acute Nausea & vomiting Acute Pain provoked by trauma Acute Pain, neuropathic Acute
[2016-06-26 09:59] LABS: HEMATOCRIT 18.4 % (38.0-47.0)
--- NOTE | 2016-06-26 09:59 | ECHO ---
[id number] + + [address] : : [place] [address] : : [phone] + + Adult Echocardiographic Report + -----+ :Name: ALEJANDRO VARELA DStudy Date: 06/26/2016 07:06 AM : : Hospital Admission Number: [id number] Location : 223: :: 1940 Gender: Female Height: 65 in : :Age: 75 yrs Race: WH Weight: 220 lb : :Reason For Study: Atrial fibrillation/hx CHF : : BSA: 2.1 meters2 : + -----+ MMode/2D Measurements \T\ Calculations IVSd: 1.1 cm LVIDd: 3.8 cm FS: 35.6 % Ao root diam: LVPWd: 0.68 cm LVIDs: 2.4 cm EDV(Teich): 3.1 cm 61.9 ml LA dimension: ESV(Teich): 3.8 cm 21.1 ml EF(Teich): 65.9 % LVLd ap4: 7.3 cm SV(MOD-sp4): EDV(MOD-sp4): 45.0 ml 63.0 ml LVLs ap4: 6.1 cm ESV(MOD-sp4): 18.0 ml EF(MOD-sp4): 71.4 % Normal Measurement Values: + + :LVIDd (3.5-5.7cm) IVSd (0.6-1.1cm) LVPWd (0.6-1.1cm) Aortic Root (2.0-3.7cm)Left Atrium (1.5-4.0cm): :LV Vol(d) (76-115ml) LV Vol(s) (29-48ml) Ejec Fraction (50-65%)PV Jimmie (0.6- 1.2m/s) TV Jimmie (0.4-1.0m/s) : :MV E Jimmie (0.8-1.0m/s)MV A Jimmie (0.3-1.0m/s)LVOT Jimmie (0.7-1.2m/s) Asc Ao Jimmie ( 0.9-1.8m/s) : + + Doppler Measurements \T\ Calculations MV E max jimmie: 102.2 cm/sec Ao mean P.9 mmHg TR max jimmie: 298.6 cm/sec MV A max jimmie: 86.4 cm/sec Ao V2 mean: 113.1 cm/secTR max P.7 mmHg MV E/A: 1.2 Ao V2 VTI: 30.7 cm RAP systole: 10.0 mmHg RVSP(TR): 45.7 mmHg Left Ventricle The left ventricle is normal in size. Mild concentric LVH noted. Normal to hyperdynamic LV systolic function with a LVEF of 70-75%. Normal diastolic function. No regional wall motion abnormalities noted. Right Ventricle The right ventricle is normal in size and function. Atria Mild LAE. Right atrial size is normal. The interatrial septum is intact with no evidence for an atrial septal defect. Mitral Valve The mitral valve is normal in structure and function. There is no evidence of mitral valve prolapse. There is no mitral valve stenosis. Trivial MR noted. Tricuspid Valve Normal tricuspid valve. There is mild tricuspid regurgitation. There is Doppler evidence for mild pulmonary hypertension. Aortic Valve The aortic valve is trileaflet. The aortic valve opens well. There is no aortic stenosis. There is no aortic insufficiency. Pulmonic Valve The pulmonic valve is normal in structure and function. There is no pulmonic valvular regurgitation. Great Vessels The aortic root is normal size. Pericardium/Pleural There is no pericardial effusion. There is a fat pad seen. Conclusion A complete two-dimensional transthoracic echocardiogram was performed (2D, M-mode, Doppler and color flow Doppler). 1)Normal to hyperdynamic LV systolic function with a LVEF of 70-75% and normal wall motions. 2)Mild concentric LVH noted. 3)Mild left atrial enlargement. 4)Aortic valve sclerosis without AI or . 5)Trivial MR without MV prolapse. 6)Mild TR with estimated mild pulmonary HTN (PAS =41mmHg). 7)Pericardial fat pad noted but no signficant pericardial effusion. Final Reading Physician: Kyle Parra electronically signed on 06/26/2016 09:57 AM Ordering Physician: Paulo Rubi Performed By: Lorraine Flores RDCS
[2016-06-26] MEDS: METOPROLOL TARTRATE 25 MG TAB PO SCH ×2 (10:03→20:44)
[2016-06-26] MEDS: PANTOPRAZOLE SODIUM 40 MG TAB PO SCH ×2 (10:03→20:44)
[2016-06-26] MEDS: ATORVASTATIN CALCIUM 10 MG TAB PO SCH (10:04)
[2016-06-26] MEDS: CHOLECALCIFEROL VIT D3 2,000 UNITS TAB/CAP PO SCH (10:04)
[2016-06-26] MEDS: ANASTROZOLE 1 MG TAB PO SCH (10:04)
[2016-06-26 10:12] LABS: HEMOGLOBIN 5.8 g/dL (12.6-16.3)
--- NOTE | 2016-06-26 10:40 | PDCARPN ---
Cardiology Progress Note Chief Complaint: No complaints today. Early this morning, the patient converted to normal sinus rhythm. Assessment/Plan: Assessment: 06-26-16 Patient feeling better today, but unfortunately, there has been a rather significant drop in the haemaglobin/haematocrit noted over night (while on heparin, given the atrial fibrillation). No chest pains or pressure. No PND or orthopnea. Yesterday's substernal pains/discomfort is not present today. 06-25-16 Patient is a 75 y/o female with history of breast and esophageal cancer ( ongoing chemotherapy for latter), HTN, HLP, DM, CVA (with successful TPA therapy ), atrial fibrillation ([id number] score of 7, not on anticoagulant therapy given GI bleeding and aforementioned esophageal cancer), ANDREZ, and GERD, who presented to [facility] ER from inpatient rehab after accelerated, irregular heart rates noted. When speaking to the patient today, her chief complaint has been right arm pains, secondary to recent fracture. No chest pains or pressure. No PND or orthopnea. Review of EMR with history of atrial fibrillation, but given a GI bleed and further history of "anemia" therapy (Eliquis) has been stopped. Stroke risk is very elevated by calculations. No fevers or chills. Improvement in symptoms was noted with slowing of heart rates. Plan: 06/26/16 10:38 Subjective: No cardiovascular complaints Reviewed/Discussed With: family, hospitalist, multidisciplinary team Time Spent With Patient: 15 minutes Objective: Vital Signs (8 Hrs) Temp Pulse Resp BP Pulse Ox 06/26/16 08:00 36.7 C 86 17 95/56 L 95 06/26/16 04:00 36.6 C 89 16 95/50 L 93 Intake/Output (24 Hrs) 06/25/16 06/26/16 06/27/16 05:59 05:59 05:59 Intake Total 2700 Output Total 500 Balance 2200 Intake: Oral (ml) 700 IV Infused (ml) 2000 Ns 500 ml @ 1500 mls/hr 500 IV ONCE ONE Rx#: [id number] Output: Urine (ml) 500 Toilet 500 Other: Weight 100.2 kg Intake Quantity Yes Sufficient Number of Voids Bedside Commode 1 Number of Stools Bedside Commode 1 Toilet 1 Result Diagrams: 06/26/16 09:45 06/26/16 06:35 Cardiac Labs: Cardiac Lab Results (72 Hrs) 06/25/16 06/25/16 17:45 13:00 Troponin I 0.042 H 0.038 H Telemetry: normal sinus rhythm with heart rates of 95-100 bpm Echocardiogram: normal LVEF, no clear valve pathology noted - Physical Exam Constitutional: WDWN, healthy appearing, no apparent distress Eyes: PERRL, EOMI Ears, Nose, Mouth, Throat: moist mucous membranes Cardiovascular: regular rate and rhythm, no murmurs, no rubs, no gallops Peripheral Pulses: 2+: dorsalis-pedis (R), dorsalis-pedis (L) Respiratory: clear to auscultate bilat, no crackles, no wheezes Gastrointestinal: normoactive bowel sounds, no tenderness Skin: no edema Musculoskeletal: no muscular tenderness Neurologic: AAOx3, CN II-XII grossly intact Psychiatric: cooperative, interactive, following commands ICD10 Worksheet Patient Problems: Problems Problem Status Onset Atrial fibrillation with RVR Acute Back pain Acute Gastrointestinal hemorrhage Acute Humerus fracture Acute Hypoxia Acute Nausea & vomiting Acute Pain provoked by trauma Acute Pain, neuropathic Acute
[2016-06-26] MEDS ORDERED: FUROSEMIDE 20 MG TAB PO ONE ×2 (11:36→14:30)
--- NOTE | 2016-06-26 11:59 | SOAPPROG ---
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 She is responding. Had UGI bleed after the first couple of cycles. - Recent CVA and Afib - anticoagulated yesterday due to Afib. Hgb drop from 9 to 5.8. No obvious blood output yet, but I suspect GI rebleed. Agree with NOT re -anticoagulating her. In my judgement the risk far outweighs the benefit at this point. Plan: - Transfusion. Please try to keep hgb above 8. - Next chemo is due 07/01/16. Will evaluate appropriateness as the week progresses Subjective: Fatigued. Standing with walker with assistance. No BRBPR or black stools at this time. Objective: Vital Signs Temp Pulse Resp BP Pulse Ox 36.7 C 86 17 95/56 L 95 06/26/16 08:00 06/26/16 08:00 06/26/16 08:00 06/26/16 08:00 06/26/16 08:00 Laboratory Results 06/26/16 09:45 PT 15.1 SEC (12.0-15.0) H 06/25/16 05:45 INR 1.19 (0.83-1.16) H 06/25/16 05:45 Physical Exam - Physical Exam General Appearance: moderate distress Respiratory: No rales Cardiac/Chest: irregularly irregular Abdomen: normal bowel sounds Skin: pallor ICD10 Worksheet Patient Problems: Problems Problem Status Onset Atrial fibrillation with RVR Acute Back pain Acute Gastrointestinal hemorrhage Acute Humerus fracture Acute Hypoxia Acute Nausea & vomiting Acute Pain provoked by trauma Acute Pain, neuropathic Acute
[2016-06-26] MEDS ORDERED: POTASSIUM CL 20 MEQ TAB PO ONE (12:00)
[2016-06-26 18:16] LABS: HEMATOCRIT 24.2 % (38.0-47.0); HEMOGLOBIN 7.8 g/dL (12.6-16.3)
[2016-06-26 21:11] LABS: HEMATOCRIT 24.3 % (38.0-47.0); HEMOGLOBIN 7.8 g/dL (12.6-16.3)
[2016-06-27 05:48] LABS: HEMATOCRIT 23.3 % (38.0-47.0); HEMOGLOBIN 7.7 g/dL (12.6-16.3); MEAN CELL HEMOGLOBIN 30.3 pg (27.9-34.1); MEAN CELL VOLUME 91.7 fL (81.5-99.8); RED BLOOD CELL COUNT 2.54 10^6/uL (4.18-5.33)
[2016-06-27 05:50] LABS: RED CELL DISTRIBUTION WIDTH 21.4 % (11.5-15.2)
[2016-06-27 06:00] LABS: ANION GAP 2 mEq/L (8-16); CALCIUM 9.2 mg/dL (8.5-10.4); CARBON DIOXIDE 25 mEq/l (22-31); CHLORIDE 113 mEq/L (97-110); CREATININE 0.7 mg/dL (0.6-1.0); GLOMERULAR FILTRATION RATE > 60; GLUCOSE 88 mg/dL (70-100); POTASSIUM 3.2 mEq/L (3.5-5.2); SODIUM 140 mEq/L (134-144)
[2016-06-27] MEDS ORDERED: FUROSEMIDE 20 MG/2 ML VIAL IVP ONE (08:17)
[2016-06-27] MEDS ORDERED: ACETAMINOPHEN 325 MG TAB PO ONE (08:17)
[2016-06-27] MEDS: CHOLECALCIFEROL VIT D3 2,000 UNITS TAB/CAP PO SCH (09:44)
[2016-06-27] MEDS: ATORVASTATIN CALCIUM 10 MG TAB PO SCH (09:44)
[2016-06-27] MEDS: PANTOPRAZOLE SODIUM 40 MG TAB PO SCH ×2 (09:44→20:45)
[2016-06-27] MEDS: METOPROLOL TARTRATE 25 MG TAB PO SCH ×2 (09:44→20:45)
[2016-06-27] MEDS: ANASTROZOLE 1 MG TAB PO SCH (09:44)
[2016-06-27] MEDS: oxyCODONE IR 5 MG TAB PO PRN ×2 (10:33→17:55)
--- NOTE | 2016-06-27 12:10 | HOSPPROG ---
Hospitalist Progress Note Assessment/Plan: 75-year-old with multiple medical issues including AFib with recent embolic stroke and recurrent GI bleeding on anticoagulation. She sustained a fall several weeks ago with a humeral fracture and has residual right-sided weakness from her stroke. She has been rehabbing at [facility] when she developed nausea vomiting and was found to be in rapid AFib # paroxysmal AFib with rapid ventricular response. Intolerant of anticoagulation despite high Doc score with recent embolic stroke given her esophageal cancer and recurrent GI bleeding. * Currently in sinus rhythm appreciate Cardiology. * Continue metoprolol * No anticoagulation due to high bleeding risk. # esophageal cancer with recurrent bleeding on anticoagulation. She is followed by Dr. Kwon and the plan is for chemotherapy followed by XRT. Unfortunately the chemo is currently on hold due to her medical issues. # history of GI bleeding with recurrent bleeding on heparin after admission here. She is currently off all anticoagulation her H&H is stable. Will give her 1 more unit of blood today given her history of bleeding and her significant weakness from her medical issues. * Transfuse 1 unit of packed red blood cells * Follow-up H&H in a.m. * No anticoagulation # compensated diastolic heart failure patient does have edema and appears to be slightly fluid overload will continue consider Lasix if blood pressure allows # recent right humeral fracture, high risk for surgery given her recent stroke and is currently in a sling. Will need eventual follow-up with Dr. Vega # recent embolic CVA status post tPA with residual right-sided weakness. Hopefully can return to rehab for ongoing physical and occupational therapy. She is limited by her humeral fracture. Subjective: Feels quite weak only able to ambulate to the door. Was up to 200 feet rehab before she became ill. No chest pain, edema slightly increased Objective: Vital Signs Temp Pulse Resp BP Pulse Ox 36.4 C 75 16 103/68 95 06/27/16 08:00 06/27/16 08:00 06/27/16 08:00 06/27/16 08:00 06/27/16 08:00 Laboratory Results 06/27/16 05:40 06/27/16 05:40 06/26/16 06/27/16 06/28/16 05:59 05:59 05:59 Intake Total 2870 Output Total 1430 650 Balance 1440 -650 PT 15.1 SEC (12.0-15.0) H 06/25/16 05:45 INR 1.19 (0.83-1.16) H 06/25/16 05:45 - Physical Exam Constitutional: obese, uncomfortable Eyes: PERRL, anicteric sclera, EOMI Ears, Nose, Mouth, Throat: moist mucous membranes Cardiovascular: regular rate and rhythym, no murmur, rub, or gallop, edema Respiratory: no respiratory distress, no rales or rhonchi, reduced air movement Gastrointestinal: normoactive bowel sounds, soft, non-tender abdomen Genitourinary: no bladder fullness Skin: warm, No normal color (Pale) Musculoskeletal: other (Sling right arm) Neurologic: AAOx3, No facial droop Psychiatric: interacting appropriately, not anxious ICD10 Worksheet Patient Problems: Problems Problem Status Onset Humerus fracture Acute Pain provoked by trauma Acute Pain, neuropathic Acute Nausea & vomiting Acute Back pain Acute Hypoxia Acute Gastrointestinal hemorrhage Acute Atrial fibrillation with RVR Acute
--- NOTE | 2016-06-27 12:48 | PDCARPN ---
Cardiology Progress Note Chief Complaint: GI Bleed Assessment/Plan: Assessment: Admit for GI Bleed Secondary to Anticoagulation therapy. ATRIAL FIBRILLATION Remains in Atrial fibrillation with ventricular rate 75. Metoprolol continues for rate management. 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 GI BLEED: related to anticoagulation on Eliquis which was stopped on admit. She has Hx Esophageal Ulcer with Esophageal mass. 06/26/16 he had a drop in H/H. Heparin stopped. RBC replacement. EDEMA of lower legs 1+. Lasix was given yesterday and again today. Plan: She is to get 1 Unit of PRBC today. 06/27/16 12:48 06/27/16 16:55 Objective: Vital Signs (8 Hrs) Temp Pulse Resp BP Pulse Ox 06/27/16 08:00 36.4 C 75 16 103/68 95 Intake/Output (24 Hrs) 06/26/16 06/27/16 06/28/16 05:59 05:59 05:59 Intake Total 2870 Output Total 1430 650 Balance 1440 -650 Intake: Oral (ml) 2040 IV Intake (ml) 200 Packed Red Blood Cells ( 630 ml) Output: Urine (ml) 1350 650 Bedside Commode 1350 650 Urine/Stool Mix (ml) 80 Bedside Commode 80 Other: Number of Voids Bedside Commode 1 Number of Stools Bedside Commode 1 Result Diagrams: 06/27/16 05:40 06/27/16 05:40 - Physical Exam Constitutional: no apparent distress Cardiovascular: regular rate and rhythm, no murmurs, no rubs Peripheral Pulses: 1+: dorsalis-pedis (R), dorsalis-pedis (L) Respiratory: no crackles, no wheezes, reduced air movement Skin: warm, no edema (Lower extremety 1+) Neurologic: AAOx3 Psychiatric: cooperative, interactive ICD10 Worksheet Patient Problems: Problems Problem Status Onset Humerus fracture Acute Pain provoked by trauma Acute Pain, neuropathic Acute Nausea & vomiting Acute Back pain Acute Hypoxia Acute Gastrointestinal hemorrhage Acute Atrial fibrillation with RVR Acute
--- NOTE | 2016-06-27 16:58 | SOAPPROG ---
SOAP Progress Note Assessment/Plan: Assessment: 1. Metastatic esophageal cancer. REsponding to FOLFOX 2. A fib 3. stroke 4. fall --> R shoulder fracture 5. upper GI bleed while on anticoagulation Plan: - no further anticoag - risks outweight benefit - transfuse to maintain hgb >8 - due for next cycle of chemo 07/01 - may need to delay if pt still in hospital or not feeling well 06/27/16 16:57 Subjective: feels somewhat better after transfusion. no melena Objective: exam: tired appearing, pale Lungs CTAB CV RRR no MGR Abd: +BS NT ND Ext: 2+ edema R arm in sling (shoulder fracture) Vital Signs Temp Pulse Resp BP Pulse Ox 36.8 C 69 19 119/68 97 06/27/16 12:00 06/27/16 12:00 06/27/16 12:00 06/27/16 12:00 06/27/16 12:00 Laboratory Results 06/27/16 05:40 06/27/16 05:40 06/26/16 06/27/16 06/28/16 05:59 05:59 05:59 Intake Total 2870 340 Output Total 1430 1300 Balance 1440 -960 PT 15.1 SEC (12.0-15.0) H 06/25/16 05:45 INR 1.19 (0.83-1.16) H 06/25/16 05:45 ICD10 Worksheet Patient Problems: Problems Problem Status Onset Atrial fibrillation with RVR Acute Back pain Acute Gastrointestinal hemorrhage Acute Humerus fracture Acute Hypoxia Acute Nausea & vomiting Acute Pain provoked by trauma Acute Pain, neuropathic Acute
[2016-06-27 19:54] LABS: HEMATOCRIT 27.6 % (38.0-47.0); HEMOGLOBIN 9.3 g/dL (12.6-16.3)
[2016-06-28 05:47] LABS: % IMMATURE GRANULYOCYTES 0.5 % (0.0-1.1); ABSOLUTE IMMATURE GRANULOCYTES 0.02 10^3/uL (0.00-0.10); ADD DIFF? NO; ADD MORPH? YES; ADD SCAN? NO; ATYPICAL LYMPHOCYTE FLAG 60 (0-99); FRAGMENT RBC FLAG 0 (0-99); HEMATOCRIT 27.5 % (38.0-47.0); LEFT SHIFT FLG 0 (0-99); LIPEMIA HEMOLYSIS FLAG 80 (0-99); MEAN CELL HEMOGLOBIN 29.9 pg (27.9-34.1); MEAN CELL HEMOGLOBIN CONCENTR. 32.7 g/dL (32.4-36.7); MEAN CELL VOLUME 91.4 fL (81.5-99.8); MEAN PLATELET VOLUME 10.1 fL (8.7-11.7); PLATELET CLUMPS FLAG 0 (0-99); PLATELET COUNT 94 10^3/uL (150-400); RED BLOOD CELL COUNT 3.01 10^6/uL (4.18-5.33)
[2016-06-28 06:00] LABS: ANION GAP 6 mEq/L (8-16); CALCIUM 9.3 mg/dL (8.5-10.4); CARBON DIOXIDE 22 mEq/l (22-31); CHLORIDE 113 mEq/L (97-110); CREATININE 0.6 mg/dL (0.6-1.0); GLOMERULAR FILTRATION RATE > 60; GLUCOSE 81 mg/dL (70-100); POTASSIUM 3.1 mEq/L (3.5-5.2); RED CELL DISTRIBUTION WIDTH 22.4 % (11.5-15.2); SODIUM 141 mEq/L (134-144)
[2016-06-28 06:18] LABS: POLYCHROMASIA 2+
[2016-06-28 06:19] LABS: MACROCYTES 1+; MICROCYTES 1+
[2016-06-28 06:20] LABS: PLATELET ESTIMATE DECREASED (ADEQ)
[2016-06-28] MEDS: METOPROLOL TARTRATE 25 MG TAB PO SCH (08:18)
[2016-06-28] MEDS: oxyCODONE IR 5 MG TAB PO PRN ×2 (08:18→15:10)
[2016-06-28] MEDS: ATORVASTATIN CALCIUM 10 MG TAB PO SCH (08:18)
[2016-06-28] MEDS: ANASTROZOLE 1 MG TAB PO SCH (08:18)
[2016-06-28] MEDS: PANTOPRAZOLE SODIUM 40 MG TAB PO SCH (08:18)
[2016-06-28] MEDS ORDERED: POTASSIUM CL 20 MEQ TAB PO ONE (08:19)
[2016-06-28] MEDS: CHOLECALCIFEROL VIT D3 2,000 UNITS TAB/CAP PO SCH (08:19)
[2016-06-28 11:27] VITALS: BP 128/69; PULSE 64; RESP 16; TEMP 98; O2SAT 94
--- NOTE | 2016-06-28 12:32 | SOAPPROG ---
SOAP Progress Note Assessment/Plan: Assessment: 1. Metastatic esophageal cancer. REsponding to FOLFOX 2. A fib 3. stroke 4. fall --> R shoulder fracture 5. upper GI bleed while on anticoagulation 6. Leg edema, likely due to blood product administration Plan: - no further anticoag - risks outweight benefit - anticipate d/c to rehab today or tomorrow - will defer next cycle of chemo til next week. Pt should f/u with Dr Kwon in clinic next week . Subjective: feels better today after transfusion. no melena Objective: exam: NAD Lungs CTAB CV RRR no MGR Abd: +BS NT ND Ext: 3+ edema Vital Signs Temp Pulse Resp BP Pulse Ox 36.7 C 64 16 128/69 H 94 06/28/16 11:26 06/28/16 11:26 06/28/16 11:26 06/28/16 11:26 06/28/16 11:26 Laboratory Results 06/28/16 05:30 06/28/16 05:30 06/27/16 06/28/16 06/29/16 05:59 05:59 05:59 Intake Total 2870 660 800 Output Total 1430 1500 350 Balance 1440 -840 450 PT 15.1 SEC (12.0-15.0) H 06/25/16 05:45 INR 1.19 (0.83-1.16) H 06/25/16 05:45 ICD10 Worksheet Patient Problems: Problems Problem Status Onset Atrial fibrillation with RVR Acute Back pain Acute Gastrointestinal hemorrhage Acute Humerus fracture Acute Hypoxia Acute Nausea & vomiting Acute Pain provoked by trauma Acute Pain, neuropathic Acute
--- NOTE | 2016-06-28 13:32 | PDIAF ---
- Diagnosis Diagnosis: GI bleed, afib, recent cva, humeral fracture Code Status: Full Code - Medication Management Discharge Medications: Medications to Continue on Transfer Anastrozole [Arimidex 1 mg (*)] 1 mg PO DAILY 06/05/16 [Last Taken 06/24/16 09: 07] Atorvastatin Calcium [Lipitor 10 mg (*)] 10 mg PO DAILY #0 tab 06/09/16 [Last Taken 06/24/16 08:54] Polyethylene Glycol 3350 [Miralax 17 gm (*)] 17 gm PO DAILY PRN #0 pkt 06/09/16 [Last Taken 06/22/16 08:18] Calcium Carbonate [Tums 500MG (*)] 500 mg PO TID PRN #0 tab.chew 06/12/16 [Last Taken 06/24/16 21:22] Cholecalciferol Vit D3 [Vitamin D3 (*)] 50,000 unit PO ONCE #0 capsule 06/12/16 [Last Taken 06/11/16] Ondansetron Odt [Zofran Odt 4 mg (*)] 4 mg PO Q6HRS PRN #0 tab 06/12/16 [Last Taken 06/25/16 01:02] Prochlorperazine Maleate [Compazine 10mg (*)] 10 mg PO Q6HRS PRN #0 tab [Last Taken 06/24/16 21:00] Sennosides [Senokot] 1 - 2 tab PO BID PRN #0 tab 06/12/16 [Last Taken 06/24/16 08:53 1 TAB] Sodium Cl Nasal Gel [[place] Saline Nasal Gel] 1 jesus TP PRN PRN #0 gel 06/12/16 [ Last Taken Unknown] Sodium Cl Nasal [[place] (*)] 1 spray [place] PRN PRN #0 btl 06/12/16 [ Last Taken 06/11/16] oxyCODONE CR [Oxycontin] 10 mg PO BID #0 tab 06/12/16 [Last Taken 06/24/16 21:26 ] Pantoprazole Sodium [Protonix 40mg (*)] 40 mg PO BID #0 tab 06/15/16 [Last Taken 06/24/16 21:25] oxyCODONE IR [Oxycodone Ir (*)] 5 - 10 mg PO Q3HRS PRN #0 tab 06/15/16 [Last Taken 06/25/16 00:55 10 MG] Acetaminophen [Tylenol 325mg (*)] 650 mg PO Q4HRS PRN #0 tab 06/28/16 [Last Taken Unknown] Metoprolol Tartrate [Lopressor 25 mg (*)] 25 mg PO BID #0 tab 06/28/16 [Last Taken Unknown] Discharge Medications: Refer to the Discharge Home Medication list for PRN reason. - Orders Services needed: Registered Nurse, Certified Product Delivery Specialist, Master Parking Lot Spotter , Physical Therapy, Occupational Therapy Diet Recommendation: no restrictions on diet Diet Texture: Regular Texture Diet Weigh Patient: daily - Follow Up Care Current Providers and Referrals: Patient,NotPresent [Unknown] - As per Instructions
--- NOTE | 2016-06-28 17:00 | GDS ---
[f rep st] DISCHARGE SUMMARY DIAGNOSES: 1. Recurrent paroxysmal atrial fibrillation with rapid rate. 2. History of embolic cerebrovascular accident status post tPA. 3. Recent gastrointestinal bleed. 4. History of esophageal cancer. 5. History of breast cancer. 6. Humeral fracture. 7. Type 2 diabetes. 8. Gastroesophageal reflux disease. 9. Dyslipidemia. 10. Obstructive sleep apnea. 11. Hyperparathyroidism. 12. Osteopenia. 13. Morbid obesity. PROCEDURES DONE: Include echocardiogram. CONSULTATIONS: Cardiology and Oncology. HOSPITAL COURSE: The patient is a 75-year-old with multiple medical issues, including paroxysmal AF ib with recent embolic CVA with residual right-sided weakness and recent humeral fracture. While ant icoagulated for her AFib, she had a GI bleed likely secondary to ulcerations on her esophageal cance r. She was recently transferred to [facility] and while at rehab she developed recurrent nausea which was concerning for a GI bleed and was transferred to the emergency room here. She was noted to be in AFib with a rate in the 170s and was admitted for rate control. While here, she was again ant icoagulated and had a drop in her hemoglobin likely from a GI source. When her anticoagulation was s topped her hemoglobin stabilized after transfusion of red blood cells. Her AFib was seen by Cardiolo gy. She self-converted back to sinus rhythm and her metoprolol was increased. Since then, she has be en doing well with stabilization of her other medical issues. CONDITION ON DISCHARGE: Good. She is afebrile. Her heart rate is 64, blood pressure 128/69. She is 94% on room air. She is alert and oriented. Heart is regular. Lungs are clear. She is weak with some right arm pain due to her humeral fracture. DISCHARGE MEDICATIONS: Please see discharge medication form. FOLLOWUP: She will be discharged back to inpatient rehab for ongoing rehab. Total time spent with the patient on day of discharge is 35 minutes. /[id number]/MODL
== END 2016-06-28 15:15 | DRG 309 ==
LOC: EDBD → EDUNIT# → INTOOBSV 06:11 → F2W 07:38 → OBSVTOIN 06-26 09:35
PROVIDERS: ADMIT Internal Medicine; ATTEND Internal Medicine
PROC: 30233N1 Transfusion of Nonautologous Red Blood Cells into Peripheral Vein, Percutaneous Approach (ICD-10-PCS; principal; 2016-06-26)
DX: I48.0 Paroxysmal atrial fibrillation (principal); I69.353 Hemiplegia and hemiparesis following cerebral infarction affecting right non-dominant side; C15.9 Malignant neoplasm of esophagus, unspecified; I50.30 Unspecified diastolic (congestive) heart failure; D64.9 Anemia, unspecified; S42.201D Unspecified fracture of upper end of right humerus, subsequent encounter for fracture with routine healing; I69.398 Other sequelae of cerebral infarction; E66.01 Morbid (severe) obesity due to excess calories; I10 Essential (primary) hypertension; K21.9 Gastro-esophageal reflux disease without esophagitis; E21.3 Hyperparathyroidism, unspecified; G47.33 Obstructive sleep apnea (adult) (pediatric); M85.80 Other specified disorders of bone density and structure, unspecified site; E78.5 Hyperlipidemia, unspecified; E11.9 Type 2 diabetes mellitus without complications; Z85.3 Personal history of malignant neoplasm of breast
CPT/HCPCS: 85520-90; 96374; 97110-GO; 97110-GP; 97116-GP; 97162-GP; 97165-GO; 97535-GO; G0378; G8978-GP-CK; G8979-GP-CJ; G8987-GO-CL; G8988-GO-CI; J1160; J1170; J1644; P9016; P9021

== ENCOUNTER 2016-06-28 13:22 | Inpatient (IN) | payer OTHER ==
[2016-06-28] MEDS ORDERED: ONDANSETRON DISINTEGRATING 4 MG TAB PO PRN (16:02)
[2016-06-28] MEDS ORDERED: SODIUM CL NASAL GEL 14.1 GM TUBE TP PRN (16:02)
[2016-06-28] MEDS ORDERED: PROCHLORPERAZINE MALEATE 10 MG TAB PO PRN (16:02)
[2016-06-28] MEDS ORDERED: CHOLECALCIFEROL VIT D3 50,000 UNIT CAP PO SCH (16:30)
--- NOTE | 2016-06-28 17:55 | GHP ---
[f rep st] HISTORY AND PHYSICAL POST ADMISSION PHYSICIAN EVALUATION AND REHABILITATION TREATMENT PLAN. DATE OF ADMISSION: 06/28/2016 DATE OF EVALUATION: 06/28/2016. TIME OF EVALUATION: 1600. REFERRING FACILITY: [facility]. REFERRING PHYSICIAN: Aaron Lin MD IMPAIRMENT GROUP: 8.9. DATE OF ONSET: 06/05/2016. REHABILITATION DIAGNOSIS: Debility status post cerebrovascular accident and subsequent fall, with right humerus fracture. ETIOLOGIC DIAGNOSIS: Other orthopedic. ADDITIONAL CONSULTING PHYSICIANS: Hematology/Oncology, Dr. Kwon and Dr. Wakefield. HISTORY OF PRESENT ILLNESS: Mrs. Trevino had been in inpatient rehabilitation starting on 06/09/16, making progress after falling and suffering a right humerus fracture on 06/05/2016. She has other medical conditions of a recent cerebrovascular accident in early May of this year, esophageal cancer for which she has been getting chemotherapy with FOLFOX, atrial fibrillation, GI bleed with contraindication to anticoagulation. Rehabilitation stay was interrupted due to an esophageal bleed with rehospitalization 06/13/16 to 06/15/16 , after which anticoagulation for Afib and stroke was discontinued. She was mostly recently readmitted to the hospital on 06/25/2016 when she had recurrence of atrial fibrillation, which was symptomatic with low blood pressure. In the hospital, she was treated with metoprolol and converted back to normal sinus rhythm on the first night that she was there. She was seen by Cardiology. Transthoracic echocardiogram showed a normal ejection fraction and mild pulmonary hypertension. Cardiology advised use of heparin for anticoagulation while she was hospitalized, and then she had a GI bleed with a drop in her hemoglobin to 6 over her first night. It is actually unclear whether or not this may have begun prior to her transfer and may have been etiologic in the symptomatic atrial fibrillation. She received 3 blood transfusions in the hospital, with eventual stabilization of her hemoglobin and hematocrit. On 06/27/2016 hemoglobin was 9.3 and hematocrit worse 27.6, and on 06/28/2016 hemoglobin was 9 and hematocrit was 27.5. She had evidence of fluid overload and received 1 dose of IV furosemide. She had hypokalemia which was also repleted IV. On 06/28/2016, the day of return to inpatient rehabilitation, her potassium was 3.1. She received 40 units of IV potassium subsequently. Other labs and studies in the hospital: She had a minor troponin leak with the highest determination being 0.042. She had an elevated BNP at 790 which, given her age and medical condition, is not clearly diagnostic of acute heart failure. Stool Hemoccult was positive on 06/26/2016. PRECAUTIONS: She is a fall risk. She has orthopedic precautions of nonweightbearing on the right upper extremity. ACTIVE COMORBIDITIES: She has a tier 3 comorbidity of morbid obesity. Otherwise, she has no active tier 1, tier 2, or tier 3 comorbidities. PAST MEDICAL HISTORY: 1. Recent cerebrovascular accident with right-sided weakness status post tPA thrombolytics on 05/31/2016. 2. Esophageal cancer status post 5 cycles of FOLFOX chemotherapy. 3. History of breast cancer. 4. Hypertension. 5. Gastroesophageal reflux disease. 6. Prediabetes. 7. Hyperparathyroidism. 8. Obstructive sleep apnea. 9. Arthritis. 10. Osteopenia. PAST SURGICAL HISTORY: 1. Appendectomy. 2. Arthroscopic knee surgery. 3. Cataract surgery. 4. Left breast lumpectomy. ADMISSION MEDICATIONS: 1. Acetaminophen 650 mg p.o. q.4 hours p.r.n. 2. Anastrozole 1 mg p.o. daily. 3. Atorvastatin 10 mg p.o. daily. 4. Polyethylene glycol 17 g p.o. daily p.r.n. 5. Calcium carbonate 500 mg p.o. three times daily p.r.n. 6. Cholecalciferol 5000 units p.o. daily. 7. Ondansetron 4 mg p.o. q.6 hours p.r.n. 8. Prochlorperazine 10 mg p.o. q.6 hours p.r.n. 9. Senna 1-2 tabs p.o. twice daily p.r.n. 10. Sodium chloride nasal gel. 11. Oxycodone 5-10 mg p.o. q.3 hours p.r.n. 12. Pantoprazole 40 mg p.o. twice daily. 13. Acetaminophen 650 mg p.o. q.4 hours p.r.n. 14. Metoprolol 25 mg p.o. twice daily. ALLERGIES: There are no known drug allergies. FAMILY HISTORY: Noncontributory. PSYCHOSOCIAL HISTORY: She is retired. She worked at [employer] in [employer] services. She is and lives with her . She has a local son. She is caregiver for 2 grandchildren. She is a nonsmoker. REVIEW OF SYSTEMS: She reports no pain at her right upper arm. She continues to have neuropathic symptoms in her lower arm and hand on the right. She denies dyspnea, cough, fevers chills, nausea, vomiting, constipation, diarrhea, dysuria or urinary frequency. She has swelling in the legs bilaterally. Other than that, a 10-point review of systems is negative. PHYSICAL EXAM: VITALS: Taken this morning at [facility], blood pressure is 128/69, heart rate was 64, respiratory rate was 16, oxygen saturation was 94% on room air, temperature was 36.7 degrees centigrade. Her weight is not yet available. GENERAL: This is an obese woman, sitting in chair , cooperative, in no acute distress. HEENT: Extraocular movements are intact. Pupils are equal, round, and reactive to light. Mucous membranes are moist. Dentition is in good condition. NECK: Supple. HEART: There is a regular rate and rhythm, with no murmurs, rubs, or gallops. LUNGS: Clear to auscultation bilaterally. ABDOMEN: Soft, nontender, nondistended with normoactive bowel sounds and no hepatosplenomegaly. EXTREMITIES: There is 2 to 3+ pitting edema bilaterally in the lower extremities. NEUROLOGIC: She is alert and oriented x3. Cranial nerves 2-12 are grossly intact. There is no focal weakness in the extremities that could be tested. Sensation is intact to light touch. CURRENT LEVEL OF FUNCTION: Per the preadmission screen. Regarding diet, feeding and swallowing she needed set up. For grooming, she needed setup. For bathing, she needed maximal assistance. For dressing of upper extremities, she needed moderate assistance, and lower extremities maximal assistance. For toileting, she needed moderate assistance. Bed mobility was done with contact guard assistance. Transfers were done with contact guard assistance. Regarding gait, she was able to ambulate 20 feet with minimal assistance. Cognition was judged to be within normal limits. IMPRESSION: Mrs. Trevino is a 75-year-old woman who has had a complex recent medical course. She is being treated for esophageal cancer, which has responded to treatment with FOLFOX. She had a cerebrovascular accident in early May and subsequently, she had a fall and a right humerus fracture. She has atrial fibrillation, which was likely the cause of her cerebrovascular accident. However, given the esophageal cancer, she has had repeated esophageal bleeding episodes and anticoagulation is contraindicated. She was improving in rehabilitation when she had a recurrence of atrial fibrillation, which was symptomatic with low blood pressure. Subsequently there was a gastrointestinal bleed. Unclear whether or not this was promoted by a dose of heparin when she was hospitalized. She required 3 separate transfusions. The bleeding appears to have stopped. She is no longer in atrial fibrillation. She is sustaining a good blood pressure and is stable to continue rehabilitation. PATIENT GOALS: Her goal is to return home with her family. For a safe discharge, she will need to achieve contact guard assist to modified independence with walking and activities of daily living. She will need to be medically stable. There will need to be medication management put in place and education for her and her family regarding medications and level of care necessary for her to return home. She will have therapy with physical and occupational therapies for 90 minutes per day for each discipline on 5-7 days per week. Her expected duration of stay is 7-14 days. It is anticipated that, upon discharge home, she will continue to benefit from home health services, including nursing, a nurse's aide, occupational therapy, and physical therapy. ASSESSMENT AND PLAN: By problem list: 1. Debility status post cerebrovascular accident and with right humerus fracture. Continue physical and occupational therapy. 2. Right humerus fracture. She is not in pain. Contiue sling for comfort. Follow-up was discussed with Dr. Vega's office: next X-ray would be 4 to 6 weeks after the fracture. Follow-up with Dr. Vega after discharge fro Inpatient Rehabilitation. 3. Pain control. Gabapentin appears to have been discontinued in the hospital. It had been effective for her neuropathic pain, but perhaps this condition is improving. We will continue acetaminophen and oxycodone both on a p.r.n. basis. 4. Recurrent gastrointestinal bleed. Recheck CBC in the morning. Continue pantoprazole twice daily. Anticoagulation is contraindicated. 5. Pulmonary hypertension, mild, with fluid overload; diastolic dysfunction on previous echocardiogram. Weight daily. One dose of furosemide tomorrow morning 20 mg orally. Compression stockings during the day. Continued assessment as to whether or not she needs more diuresis and can tolerate more diuresis, given history of atrial fibrillation and low blood pressure. 5. Hypokalemia. Has been repleted in the hospital. Will repeat a BMP in the morning and will give 20 units of potassium chloride orally tomorrow together with the furosemide. 6. Fracture and history of osteopenia with vitamin D deficiency. Will continue cholecalciferol. Consider formal bone density testing after discharge. However, it is evident that she likely has osteoporosis. If esophageal cancer continues to respond to treatment with Oncology and her prognosis is 1-2 years, she could consider antiresorptive therapy. 7. History of breast cancer. Continue anastrozole. 8. Dyslipidemia. Continue atorvastatin. 9. Constipation. Continue laxatives on a p.r.n. basis and monitor for regular bowel movements. 10. Prophylaxis. Anticoagulation is contraindicated in the setting of recent GI bleed. Given her recent GI bleed, will continue pantoprazole 40 mg p.o. twice daily. /[id number]/MODL MTDD
[2016-06-28] MEDS: METOPROLOL TARTRATE 25 MG TAB PO SCH (21:01)
[2016-06-28] MEDS: PANTOPRAZOLE SODIUM 40 MG TAB PO SCH (21:01)
[2016-06-28] MEDS: oxyCODONE IR 5 MG TAB PO PRN (21:03)
[2016-06-28] MEDS: SENNOSIDES 1 TAB PO PRN (21:52)
[2016-06-29] MEDS: oxyCODONE IR 5 MG TAB PO PRN ×4 (03:58→21:08)
[2016-06-29] MEDS: PANTOPRAZOLE SODIUM 40 MG TAB PO SCH ×2 (08:49→20:01)
[2016-06-29] MEDS: ATORVASTATIN CALCIUM 10 MG TAB PO SCH (08:49)
[2016-06-29] MEDS: CHOLECALCIFEROL VIT D3 2,000 UNITS TAB/CAP PO SCH (08:49)
--- NOTE | 2016-06-29 08:49 | SOAPPROG ---
SOAP Progress Note Assessment/Plan: Assessment: 1. Debility status post cerebrovascular accident and with right humerus fracture. Continue physical and occupational therapy. 2. Right humerus fracture. She is not in pain. Contiue sling for comfort. Follow-up was discussed with Dr. Vega's office: next X-ray would be 4 to 6 weeks after the fracture. Follow-up with Dr. Vega after discharge fro Inpatient Rehabilitation. 3. Pain control. Gabapentin appears to have been discontinued in the hospital. It had been effective for her neuropathic pain, but perhaps this condition is improving. We will continue acetaminophen and oxycodone both on a p.r.n. basis. 4. Recurrent gastrointestinal bleed. Recheck CBC in the morning. Continue pantoprazole twice daily. Anticoagulation is contraindicated. 5. Pulmonary hypertension, mild, with fluid overload; diastolic dysfunction on previous echocardiogram. Weight daily. One dose of furosemide tomorrow morning 20 mg orally. Compression stockings during the day. Continued assessment as to whether or not she needs more diuresis and can tolerate more diuresis, given history of atrial fibrillation and low blood pressure. 5. Hypokalemia. Has been repleted in the hospital. Will repeat a BMP in the morning and will give 20 units of potassium chloride orally tomorrow together with the furosemide. 6. Fracture and history of osteopenia with vitamin D deficiency. Will continue cholecalciferol. Consider formal bone density testing after discharge. However, it is evident that she likely has osteoporosis. If esophageal cancer continues to respond to treatment with Oncology and her prognosis is 1-2 years, she could consider antiresorptive therapy. 7. History of breast cancer. Continue anastrozole. 8. Dyslipidemia. Continue atorvastatin. 9. Constipation. Continue laxatives on a p.r.n. basis and monitor for regular bowel movements. 10. Prophylaxis. Anticoagulation is contraindicated in the setting of recent GI bleed. Given her recent GI bleed, will continue pantoprazole 40 mg p.o. twice daily. Plan: 06/29/16 08:49 Subjective: Awoke in the morning with R forearm pain. Eventually improved. Says she dressed herself. Does not want adjustmentin pain meds. No f/c, cough/dyspnea. Objective: Vital Signs Temp Pulse Resp BP Pulse Ox 36.5 C 69 18 127/78 H 95 06/29/16 06:18 06/29/16 06:18 06/28/16 19:42 06/29/16 06:18 06/29/16 06:18 06/28/16 06/29/16 06/30/16 05:59 05:59 05:59 Intake Total 840 Balance 840 Physical Exam - Physical Exam General Appearance: WD/WN, alert, no apparent distress, obese Respiratory: normal breath sounds, crackles (few at LLL), No rhonchi, No wheezing Cardiac/Chest: regular rate, rhythm, edema (2+ B LE) Skin: normal color, warm/dry Neuro/Psych: no motor/sensory deficits, alert, normal mood/affect, oriented x 3 ICD10 Worksheet Patient Problems: Problems Problem Status Onset Atrial fibrillation with RVR Acute Back pain Acute Gastrointestinal hemorrhage Acute Humerus fracture Acute Hypoxia Acute Nausea & vomiting Acute Pain provoked by trauma Acute Pain, neuropathic Acute
--- NOTE | 2016-06-29 08:49 | PDOREHIP ---
Admission [facility] - Admission - 3 Day Assessment Period Admission Date/Day 1: 06/28/16 Day 2: 06/29/16 Day 3: 06/30/16 - Active Diagnoses Comorbidities and Co-existing Conditions at Admission: 30126. None of the Above - Skin Conditions Unhealed Pressure Ulcer (1 or more/Stage 1 or >)-Admission: 0. No
[2016-06-29] MEDS: METOPROLOL TARTRATE 25 MG TAB PO SCH ×2 (08:50→20:01)
[2016-06-29] MEDS: ANASTROZOLE 1 MG TAB PO SCH (08:58)
[2016-06-29] MEDS: MULTIVITAMINS 1 EACH TAB PO SCH (08:58)
[2016-06-29] MEDS ORDERED: POTASSIUM CL 20 MEQ/15 ML UDCUP PO ONE (09:00)
[2016-06-29] MEDS ORDERED: ANASTROZOLE 1 MG TAB PO SCH (09:00)
[2016-06-29] MEDS ORDERED: MULTIVITAMINS 1 EACH TAB PO SCH (09:00)
[2016-06-29] MEDS ORDERED: FUROSEMIDE 20 MG TAB PO ONE (09:00)
[2016-06-29 09:47] LABS: ADD DIFF? YES; ADD MORPH? YES; ADD SCAN? NO; ATYPICAL LYMPHOCYTE FLAG 40 (0-99); FRAGMENT RBC FLAG 0 (0-99); HEMATOCRIT 27.9 % (38.0-47.0); LEFT SHIFT FLG 0 (0-99); LIPEMIA HEMOLYSIS FLAG 80 (0-99); MEAN CELL HEMOGLOBIN 29.6 pg (27.9-34.1); MEAN CELL HEMOGLOBIN CONCENTR. 32.3 g/dL (32.4-36.7); MEAN CELL VOLUME 91.8 fL (81.5-99.8); MEAN PLATELET VOLUME 10.4 fL (8.7-11.7); PLATELET CLUMPS FLAG 10 (0-99); PLATELET COUNT 90 10^3/uL (150-400); RED BLOOD CELL COUNT 3.04 10^6/uL (4.18-5.33)
[2016-06-29 10:07] LABS: ANION GAP 6 mEq/L (8-16); CALCIUM 9.5 mg/dL (8.5-10.4); CARBON DIOXIDE 25 mEq/l (22-31); CHLORIDE 111 mEq/L (97-110); CREATININE 0.6 mg/dL (0.6-1.0); GLOMERULAR FILTRATION RATE > 60; GLUCOSE 84 mg/dL (70-100); POTASSIUM 3.1 mEq/L (3.5-5.2); SODIUM 142 mEq/L (134-144)
[2016-06-29 11:29] LABS: MAGNESIUM 1.6 mg/dL (1.6-2.3)
[2016-06-29 11:31] LABS: PLATELET ESTIMATE DECREASED (ADEQ)
[2016-06-29 11:34] LABS: MACROCYTES 1+; MICROCYTES 1+; POLYCHROMASIA 2+
[2016-06-29] MEDS ORDERED: SODIUM CL NASAL 45 ML BTL EACHNARE PRN (11:38)
[2016-06-29] MEDS ORDERED: PROCHLORPERAZINE MALEATE 10 MG TAB PO PRN (14:28)
[2016-06-29 19:17] LABS: HEMATOCRIT 28.7 % (38.0-47.0)
[2016-06-29] MEDS: POLYETHYLENE GLYCOL 3350 17 GM PKT PO PRN (19:44)
[2016-06-29] MEDS: SENNOSIDES 1 TAB PO PRN (20:01)
[2016-06-30] MEDS: oxyCODONE IR 5 MG TAB PO PRN ×3 (05:01→21:44)
[2016-06-30] MEDS: CHOLECALCIFEROL VIT D3 2,000 UNITS TAB/CAP PO SCH (08:15)
[2016-06-30] MEDS: ANASTROZOLE 1 MG TAB PO SCH ×2 (08:16→08:27)
[2016-06-30] MEDS: PANTOPRAZOLE SODIUM 40 MG TAB PO SCH ×2 (08:16→20:33)
[2016-06-30] MEDS: POTASSIUM CL 20 MEQ TAB PO SCH (08:16)
[2016-06-30] MEDS: ATORVASTATIN CALCIUM 10 MG TAB PO SCH (08:16)
[2016-06-30] MEDS: METOPROLOL TARTRATE 25 MG TAB PO SCH ×2 (08:24→20:33)
[2016-06-30] MEDS: MULTIVITAMINS 1 EACH TAB PO SCH (08:27)
[2016-06-30] MEDS: [UNRECOGNIZED DRUG - OTHER] PO SCH (08:28)
[2016-06-30] MEDS: NEOMY SULF/BACITRAC ZN/POLY 30 GM OINTTUBE TP SCH (08:33)
[2016-06-30] MEDS: POLYETHYLENE GLYCOL 3350 17 GM PKT PO PRN (12:20)
[2016-06-30] MEDS: SENNOSIDES 1 TAB PO PRN ×2 (12:20→20:33)
[2016-06-30] MEDS ORDERED: BISACODYL 10 MG SUPP PR PRN (16:14)
--- NOTE | 2016-06-30 16:17 | SOAPPROG ---
SOAP Progress Note Assessment/Plan: Assessment: * Debility status post cerebrovascular accident and with right humerus fracture. Continue physical and occupational therapy. * Right humerus fracture. She is not in pain. Continue sling for comfort. Follow-up was discussed with Dr. Vega's office: next X-ray would be 4 to 6 weeks after the fracture. Follow-up with Dr. Vega after discharge fro [facility]. * Pain control. Gabapentin appears to have been discontinued in the hospital. It had been effective for her neuropathic pain, but perhaps this condition is improving. We will continue acetaminophen and oxycodone both on a p.r.n. basis. * Recurrent gastrointestinal bleed. H/H stable on CBC 06/29/16. Appropriate reticulocytosis. Continue pantoprazole twice daily. Anticoagulation is contraindicated. * Thrombocytopenia. D/W Dr. Kwon. Not concerned uless platelets < 50k. recheck 07/01/16. * Edema: has pulmonary hypertension, mild, with fluid overload; diastolic dysfunction on previous echocardiogram. Likely had salt load with blood transfusions. Weight daily. Continue furosemide 20 mg QD. Not tolerating compression stockings during the day. * Constipation. Add bisacodyl [place] PRN. Continue senna & polyethylene glycol. * Hypokalemia. Has been repleted in the hospital. Continue 20 U QD. Repeat BMP 07/01/16. Chronic/stable conditions: * Fracture and history of osteopenia with vitamin D deficiency. Will continue cholecalciferol. Consider formal bone density testing after discharge. However , it is evident that she likely has osteoporosis. If esophageal cancer continues to respond to treatment with Oncology and her prognosis is 1-2 years, she could consider antiresorptive therapy. * History of breast cancer. Continue anastrozole. * Dyslipidemia. Continue atorvastatin. * Prophylaxis. Anticoagulation is contraindicated in the setting of recent GI bleed. Given her recent GI bleed, will continue pantoprazole 40 mg p.o. twice daily. 06/30/16 16:08 Subjective: C/O pain R foot. C/O increased swelling in legs. Objective: Vital Signs Temp Pulse Resp BP Pulse Ox 36.9 C 85 17 135/90 H 93 06/30/16 05:29 06/30/16 08:24 06/30/16 05:29 06/30/16 08:24 04/06/17 05:29 Laboratory Results 06/29/16 06:20 06/29/16 06:20 06/29/16 06/30/16 07/01/16 05:59 05:59 05:59 Intake Total 840 1400 1380 Output Total 1050 750 Balance 840 350 630 Physical Exam - Physical Exam General Appearance: WD/WN, alert, no apparent distress, obese Respiratory: normal breath sounds, No crackles, No rhonchi, No wheezing Cardiac/Chest: regular rate, rhythm, edema (3+ B LE), systolic murmur Skin: normal color, warm/dry Neuro/Psych: no motor/sensory deficits, alert, normal mood/affect, oriented x 3 ICD10 Worksheet Patient Problems: Problems Problem Status Onset Atrial fibrillation with RVR Acute Back pain Acute Gastrointestinal hemorrhage Acute Humerus fracture Acute Hypoxia Acute Nausea & vomiting Acute Pain provoked by trauma Acute Pain, neuropathic Acute
[2016-06-30] MEDS: FUROSEMIDE 20 MG TAB PO SCH (17:57)
[2016-06-30] MEDS: CALCIUM CARBONATE 500 MG CHEWABLE TAB PO PRN (20:36)
[2016-07-01] MEDS: oxyCODONE IR 5 MG TAB PO PRN ×3 (07:47→16:52)
[2016-07-01] MEDS: PANTOPRAZOLE SODIUM 40 MG TAB PO SCH ×2 (07:47→21:43)
[2016-07-01] MEDS: ANASTROZOLE 1 MG TAB PO SCH ×2 (08:21→09:46)
[2016-07-01] MEDS: ATORVASTATIN CALCIUM 10 MG TAB PO SCH (08:22)
[2016-07-01] MEDS: CHOLECALCIFEROL VIT D3 2,000 UNITS TAB/CAP PO SCH (08:23)
[2016-07-01] MEDS: FUROSEMIDE 20 MG TAB PO SCH (08:24)
[2016-07-01] MEDS: MULTIVITAMINS 1 EACH TAB PO SCH ×2 (08:24→09:59)
[2016-07-01] MEDS: METOPROLOL TARTRATE 25 MG TAB PO SCH ×2 (08:25→19:15)
[2016-07-01] MEDS: POTASSIUM CL 20 MEQ TAB PO SCH (08:26)
[2016-07-01] MEDS: NEOMY SULF/BACITRAC ZN/POLY 30 GM OINTTUBE TP SCH (08:27)
[2016-07-01 08:59] LABS: ADD DIFF? YES; ADD MORPH? YES; ADD SCAN? NO; ATYPICAL LYMPHOCYTE FLAG 60 (0-99); FRAGMENT RBC FLAG 0 (0-99); HEMOGLOBIN 9.5 g/dL (12.6-16.3); LEFT SHIFT FLG 0 (0-99); LIPEMIA HEMOLYSIS FLAG 80 (0-99); MEAN CELL HEMOGLOBIN 29.8 pg (27.9-34.1); MEAN CELL HEMOGLOBIN CONCENTR. 31.7 g/dL (32.4-36.7); MEAN PLATELET VOLUME 10.3 fL (8.7-11.7); PLATELET CLUMPS FLAG 20 (0-99); PLATELET COUNT 103 10^3/uL (150-400); RED BLOOD CELL COUNT 3.19 10^6/uL (4.18-5.33)
[2016-07-01 09:00] LABS: RED CELL DISTRIBUTION WIDTH 23.1 % (11.5-15.2)
[2016-07-01] MEDS: [UNRECOGNIZED DRUG - OTHER] PO SCH (09:00)
[2016-07-01 09:22] LABS: ANION GAP 6 mEq/L (8-16); CALCIUM 9.5 mg/dL (8.5-10.4); CARBON DIOXIDE 25 mEq/l (22-31); CHLORIDE 109 mEq/L (97-110); CREATININE 0.7 mg/dL (0.6-1.0); GLOMERULAR FILTRATION RATE > 60; GLUCOSE 88 mg/dL (70-100); POTASSIUM 3.3 mEq/L (3.5-5.2); SODIUM 140 mEq/L (134-144)
[2016-07-01 09:36] LABS: POLYCHROMASIA 1+
[2016-07-01 09:38] LABS: ACANTHOCYTES 1+; MICROCYTES 1+
[2016-07-01 09:40] LABS: MACROCYTES 1+; PLATELET ESTIMATE DECREASED (ADEQ)
--- NOTE | 2016-07-01 14:10 | SOAPPROG ---
SOAP Progress Note Assessment/Plan: Assessment: * Debility status post cerebrovascular accident and with right humerus fracture. FIM 74 on 07/01/16. Was 79 prior to recent rehospitalization; had increased form 63. Walked 150' X 2 and climbed/descended a few stairs; less today due to calf/leg pain. Continue physical and occupational therapy. * Right humerus fracture. She is not in pain. Continue sling for comfort. Follow-up was discussed with Dr. Vega's office: next X-ray would be 4 to 6 weeks after the fracture. Follow-up with Dr. Vega after discharge fro [facility]. * Pain control. Gabapentin appears to have been discontinued in the hospital. It had been effective for her neuropathic pain. Will restart 07/01/16. Continue acetaminophen and oxycodone both on a p.r.n. basis. Repeat US R calf due to pain and tenderness, and not on anticoagulation due to GI bleed, and at high risk for DVT. * Recurrent gastrointestinal bleed. H/H stable on CBC 06/29/16, improving . Appropriate reticulocytosis. Continue pantoprazole twice daily. Anticoagulation is contraindicated. * Thrombocytopenia. D/W Dr. Kwon. Not concerned uless platelets < 50k. stable 07/01/16. * Edema: has pulmonary hypertension, mild, with fluid overload; diastolic dysfunction on previous echocardiogram. Likely had salt load with blood transfusions. Weight daily; has diureses 2 kg in 2 days. Continue furosemide 20 mg QD, and KCL; potassium still low but improving 07/01/16. Not tolerating compression stockings during the day. * Constipation. Add bisacodyl CT PRN. Continue senna & polyethylene glycol. * Hypokalemia. Has been repleted in the hospital. Continue 20 U QD. Improving on BMP 07/01/16. Chronic/stable conditions: * Fracture and history of osteopenia with vitamin D deficiency. Will continue cholecalciferol. Consider formal bone density testing after discharge. However , it is evident that she likely has osteoporosis. If esophageal cancer continues to respond to treatment with Oncology and her prognosis is 1-2 years, she could consider antiresorptive therapy. * History of breast cancer. Continue anastrozole. * Dyslipidemia. Continue atorvastatin. * Prophylaxis. Anticoagulation is contraindicated in the setting of recent GI bleed. Given her recent GI bleed, will continue pantoprazole 40 mg p.o. twice daily. Attended staffing, 15 min. D/W case mgmt, nursing, PT, OT. Discharge goal of 07/06/16; plan to re-staff 07/04/16. 07/01/16 14:03 Subjective: C/O R calf and back of leg pain. Also RUE. Otherwise without complaint. No f/ c, cough/dyspnea. Objective: Vital Signs Temp Pulse Resp BP Pulse Ox 36.6 C 72 16 130/72 H 95 07/01/16 06:22 07/01/16 08:25 07/01/16 06:22 07/01/16 08:25 07/01/16 06:22 Laboratory Results 07/01/16 06:00 07/01/16 06:00 06/30/16 07/01/16 07/02/16 05:59 05:59 05:59 Intake Total 1400 1680 1120 Output Total 1050 2200 400 Balance 350 -520 720 - Time Spent With Patient Time Spent With Patient: Greater than 35 minutes floor time today, including more than 50% of time in coordination of care during staffing meeting, and counseling patient. Physical Exam - Physical Exam General Appearance: WD/WN, alert, no apparent distress, obese Respiratory: No respiratory distress, No accessory muscle use Cardiac/Chest: edema (2+ B LE) Skin: normal color, warm/dry Extremities: calf tenderness (R calf) Neuro/Psych: alert, normal mood/affect, oriented x 3 ICD10 Worksheet Patient Problems: Problems Problem Status Onset Atrial fibrillation with RVR Acute Back pain Acute Gastrointestinal hemorrhage Acute Humerus fracture Acute Hypoxia Acute Nausea & vomiting Acute Pain provoked by trauma Acute Pain, neuropathic Acute
[2016-07-01] MEDS: GABAPENTIN 300 MG CAP PO SCH ×2 (16:52→21:43)
[2016-07-01] MEDS ORDERED: POTASSIUM CL 20 MEQ PKT PO ONE (19:12)
[2016-07-01] MEDS ORDERED: MAGNESIUM OXIDE 400 MG TAB PO ONE (19:14)
[2016-07-01] MEDS: CALCIUM CARBONATE 500 MG CHEWABLE TAB PO PRN ×2 (19:54→23:10)
[2016-07-01] MEDS: POLYETHYLENE GLYCOL 3350 17 GM PKT PO PRN (21:49)
[2016-07-01] MEDS: SENNOSIDES 1 TAB PO PRN (21:49)
[2016-07-01 22:37] LABS: MAGNESIUM 1.8 mg/dL (1.6-2.3)
[2016-07-02] MEDS: ANASTROZOLE 1 MG TAB PO SCH (08:25)
[2016-07-02] MEDS: CHOLECALCIFEROL VIT D3 2,000 UNITS TAB/CAP PO SCH (08:26)
[2016-07-02] MEDS: ATORVASTATIN CALCIUM 10 MG TAB PO SCH (08:26)
[2016-07-02] MEDS: FUROSEMIDE 20 MG TAB PO SCH (08:27)
[2016-07-02] MEDS: GABAPENTIN 300 MG CAP PO SCH ×3 (08:27→20:05)
[2016-07-02] MEDS: PANTOPRAZOLE SODIUM 40 MG TAB PO SCH ×2 (08:27→19:50)
[2016-07-02] MEDS: POLYETHYLENE GLYCOL 3350 17 GM PKT PO PRN (08:27)
[2016-07-02] MEDS: MULTIVITAMINS 1 EACH TAB PO SCH (08:27)
[2016-07-02] MEDS: POTASSIUM CL 20 MEQ TAB PO SCH (08:27)
[2016-07-02] MEDS: METOPROLOL TARTRATE 25 MG TAB PO SCH ×2 (08:28→19:50)
[2016-07-02] MEDS: SENNOSIDES 1 TAB PO PRN (08:28)
[2016-07-02] MEDS: oxyCODONE IR 5 MG TAB PO PRN ×3 (08:30→17:05)
[2016-07-02] MEDS: [UNRECOGNIZED DRUG - OTHER] PO SCH (08:47)
[2016-07-02 08:56] LABS: ANION GAP 7 mEq/L (8-16); CALCIUM 9.7 mg/dL (8.5-10.4); CARBON DIOXIDE 25 mEq/l (22-31); CHLORIDE 106 mEq/L (97-110); CREATININE 0.6 mg/dL (0.6-1.0); GLOMERULAR FILTRATION RATE > 60; GLUCOSE 93 mg/dL (70-100); POTASSIUM 3.4 mEq/L (3.5-5.2); SODIUM 138 mEq/L (134-144)
[2016-07-02] MEDS ORDERED: MAGNESIUM SULF 2 GM/WATER 50 ML IV ONE (12:35)
[2016-07-02] MEDS ORDERED: POTASSIUM CL 20 MEQ PKT PO ONE (12:36)
[2016-07-02 13:57] LABS: HEMATOCRIT 34.4 % (38.0-47.0); HEMOGLOBIN 10.9 g/dL (12.6-16.3); MEAN CELL HEMOGLOBIN 29.5 pg (27.9-34.1); MEAN CELL HEMOGLOBIN CONCENTR. 31.7 g/dL (32.4-36.7); RED BLOOD CELL COUNT 3.7 10^6/uL (4.18-5.33)
[2016-07-02 14:01] LABS: RED CELL DISTRIBUTION WIDTH 22.6 % (11.5-15.2)
[2016-07-02] MEDS ORDERED: VANCOMYCIN 1.5 GM in D5W 250 ML IV SCH (14:30)
[2016-07-02] MEDS ORDERED: VANCOMYCIN HCL/NORMAL SALINE 250 ML IV SCH ×2 (14:30→15:00)
[2016-07-02 14:48] LABS: COLOR YELLOW; LEUKOCYTE ESTERASE,URINE TRACE (NEGATIVE); NITRITE,URINE NEGATIVE (NEGATIVE)
[2016-07-02 14:51] LABS: MUCUS 3+ /lpf (NONE-1+); RBC,URINE 25-50 /hpf (0-3)
[2016-07-02] MEDS: VANCOMYCIN HCL/NORMAL SALINE 250 ML IV SCH (17:04)
[2016-07-02] MEDS: ACETAMINOPHEN 325 MG TAB PO PRN (17:04)
--- NOTE | 2016-07-02 18:46 | SOAPPROG ---
SOAP Progress Note Assessment/Plan: * Debility status post cerebrovascular accident and with right humerus fracture. FIM 74 on 07/01/16. Was 79 prior to recent rehospitalization; had increased form 63. Walked 150' X 2 and climbed/descended a few stairs; less today due to calf/leg pain. Continue physical and occupational therapy. * Right humerus fracture. She is not in pain. Continue sling for comfort. Follow-up was discussed with Dr. Vega's office: next X-ray would be 4 to 6 weeks after the fracture. Follow-up with Dr. Vega after discharge fro [facility]. * Pain control. Gabapentin appears to have been discontinued in the hospital. It had been effective for her neuropathic pain. Will restart 07/01/16. Continue acetaminophen and oxycodone both on a p.r.n. basis. Repeat US R calf due to pain and tenderness, and not on anticoagulation due to GI bleed, and at high risk for DVT. * Recurrent gastrointestinal bleed. H/H stable on CBC 07/02/16, improving . Appropriate reticulocytosis. Continue pantoprazole twice daily. Anticoagulation is contraindicated. * Thrombocytopenia. D/W Dr. Kwon. Not concerned uless platelets < 50k. stable 07/01/16. * Edema: has pulmonary hypertension, mild, with fluid overload; diastolic dysfunction on previous echocardiogram. Likely had salt load with blood transfusions. Weight daily; has diureses 2 kg in 2 days. Continue furosemide 20 mg QD, and KCL; potassium still low but improving 07/02. Not tolerating compression stockings during the day. * Constipation. Add bisacodyl [place] PRN. Continue senna & polyethylene glycol. * Hypokalemia. Has been repleted in the hospital but slipped in setting of infection will Continue 20 U QD with additional repletion till stable. daily BMP. * RLE swelling/erythema: concern for evolving cellulitis, WBC increasing, lethargy, LE pain, and paroxysmal afib. Will start empiric Vanc, d/w Onc and agree to treat normally as no longer neutropenic. Consider LE Duplex but has many neg in past Chronic/stable conditions: * Fracture and history of osteopenia with vitamin D deficiency. Will continue cholecalciferol. Consider formal bone density testing after discharge. However , it is evident that she likely has osteoporosis. If esophageal cancer continues to respond to treatment with Oncology and her prognosis is 1-2 years, she could consider antiresorptive therapy. * History of breast cancer. Continue anastrozole. * Dyslipidemia. Continue atorvastatin. * Prophylaxis. Anticoagulation is contraindicated in the setting of recent GI bleed. Given her recent GI bleed, will continue pantoprazole 40 mg p.o. twice daily. Discharge goal of 07/06/16; plan to re-staff 07/04/16. Subjective: Increasing RLE pain and erythema. Also notes some increasing lethargy. RN notes irregularly irregular rhythm in 100's (currently regular) with normal 02 stats/ BP. Denies SOB/chills/dysuria/lightheadedness. Does note that attempted to cut nails several days ago with some bleeding and discomfort. Objective: Vital Signs Temp Pulse Resp BP Pulse Ox 36.6 C 80 14 102/60 94 07/02/16 17:32 07/02/16 17:32 07/02/16 17:32 07/02/16 17:32 07/02/16 13:03 Laboratory Results 07/02/16 12:45 07/02/16 05:55 07/01/16 07/02/16 07/03/16 05:59 05:59 05:59 Intake Total 1680 2260 2676 Output Total 2200 875 550 Balance -520 1385 2126 - Pending Discharge Pending Discharge Within 24 Hours: No Pending Discharge Within 48 Hours: No Physical Exam - Physical Exam General Appearance: alert, no apparent distress Neck: supple Respiratory: lungs clear, normal breath sounds Cardiac/Chest: regular rate, rhythm, other (port in left chest) Abdomen: non-tender, soft Skin: warm/dry, other (RLE erythema, patchy) Extremities: pedal edema (3+ but symmetric) Neuro/Psych: alert, normal mood/affect, oriented x 3, No cognition abnormalities , No speech abnormalities ICD10 Worksheet Patient Problems: Problems Problem Status Onset Atrial fibrillation with RVR Acute Back pain Acute Gastrointestinal hemorrhage Acute Humerus fracture Acute Hypoxia Acute Nausea & vomiting Acute Pain provoked by trauma Acute Pain, neuropathic Acute
[2016-07-03] MEDS: VANCOMYCIN HCL/NORMAL SALINE 250 ML IV SCH ×2 (03:35→15:58)
[2016-07-03] MEDS: ANASTROZOLE 1 MG TAB PO SCH (08:29)
[2016-07-03] MEDS: CHOLECALCIFEROL VIT D3 2,000 UNITS TAB/CAP PO SCH (08:30)
[2016-07-03] MEDS: ATORVASTATIN CALCIUM 10 MG TAB PO SCH (08:30)
[2016-07-03] MEDS: FUROSEMIDE 20 MG TAB PO SCH (08:31)
[2016-07-03] MEDS: GABAPENTIN 300 MG CAP PO SCH ×3 (08:32→20:51)
[2016-07-03] MEDS: [UNRECOGNIZED DRUG - OTHER] PO SCH (08:33)
[2016-07-03] MEDS: PANTOPRAZOLE SODIUM 40 MG TAB PO SCH ×2 (08:33→20:51)
[2016-07-03] MEDS: METOPROLOL TARTRATE 25 MG TAB PO SCH ×2 (08:33→20:48)
[2016-07-03] MEDS: MULTIVITAMINS 1 EACH TAB PO SCH (08:33)
[2016-07-03] MEDS: SENNOSIDES 1 TAB PO PRN (08:34)
[2016-07-03] MEDS: POTASSIUM CL 20 MEQ TAB PO SCH (08:34)
[2016-07-03] MEDS: POLYETHYLENE GLYCOL 3350 17 GM PKT PO PRN (08:34)
[2016-07-03] MEDS: oxyCODONE IR 5 MG TAB PO PRN ×3 (08:35→19:54)
[2016-07-03] MEDS: FUROSEMIDE 40 MG TAB PO SCH (10:32)
--- NOTE | 2016-07-03 11:15 | SOAPPROG ---
SOAP Progress Note Assessment/Plan: * Debility status post cerebrovascular accident and with right humerus fracture. FIM 74 on 07/01/16. Was 79 prior to recent rehospitalization; had increased form 63. Walked 150' X 2 and climbed/descended a few stairs; less today due to calf/leg pain. Continue physical and occupational therapy. * Right humerus fracture. She is not in pain. Continue sling for comfort. Follow-up was discussed with Dr. Vega's office: next X-ray would be 4 to 6 weeks after the fracture. Follow-up with Dr. Vega after discharge fro [facility]. * Pain control. Gabapentin appears to have been discontinued in the hospital. It had been effective for her neuropathic pain. Will restart 07/01/16. Continue acetaminophen and oxycodone both on a p.r.n. basis. Repeat US R calf due to pain and tenderness, and not on anticoagulation due to GI bleed, and at high risk for DVT. * Recurrent gastrointestinal bleed. H/H stable on CBC 07/02/16, improving . Appropriate reticulocytosis. Continue pantoprazole twice daily. Anticoagulation is contraindicated. * Thrombocytopenia. D/W Dr. Kwon. Not concerned uless platelets < 50k. stable 07/01/16. * Edema: has pulmonary hypertension, mild, with fluid overload; diastolic dysfunction on previous echocardiogram. Likely had salt load with blood transfusions. Weight daily; has diureses 2 kg in 2 days. Continue furosemide 20 mg QD, and KCL; potassium still low but improving 07/02. Not tolerating compression stockings during the day. Will increase lasix to 40mg daily given increase in weight with vanco infusion * Constipation. Add bisacodyl [place] PRN. Continue senna & polyethylene glycol. * Hypokalemia. Has been repleted in the hospital but slipped in setting of infection will Continue 20 U QD with additional repletion till stable. daily BMP. * RLE swelling/erythema: concern for evolving cellulitis, WBC increasing, lethargy, LE pain, and paroxysmal afib. Will start empiric Vanc, d/w Onc and agree to treat normally as no longer neutropenic. Consider LE Duplex but has many neg in past->improving 07/03 Chronic/stable conditions: * Fracture and history of osteopenia with vitamin D deficiency. Will continue cholecalciferol. Consider formal bone density testing after discharge. However , it is evident that she likely has osteoporosis. If esophageal cancer continues to respond to treatment with Oncology and her prognosis is 1-2 years, she could consider antiresorptive therapy. * History of breast cancer. Continue anastrozole. * Dyslipidemia. Continue atorvastatin. * Prophylaxis. Anticoagulation is contraindicated in the setting of recent GI bleed. Given her recent GI bleed, will continue pantoprazole 40 mg p.o. twice daily. Discharge goal of 07/06/16; plan to re-staff 07/04/16. Subjective: Improving symptoms overnight with much reduced foot pain but worsening LE edema. Denies fevers/chills/lethargy/palpitation. heart rhythm continues to be regular Objective: Vital Signs Temp Pulse Resp BP Pulse Ox 36.6 C 71 14 122/74 H 92 07/03/16 08:00 07/03/16 08:33 07/03/16 08:00 07/03/16 08:33 07/03/16 08:00 Laboratory Results 07/02/16 12:45 07/02/16 05:55 07/02/16 07/03/16 07/04/16 05:59 05:59 05:59 Intake Total 2260 3826 780 Output Total 875 550 240 Balance 1385 3276 540 - Pending Discharge Pending Discharge Within 24 Hours: No Pending Discharge Within 48 Hours: No Physical Exam - Physical Exam General Appearance: alert, no apparent distress Neck: supple Respiratory: lungs clear, normal breath sounds Cardiac/Chest: regular rate, rhythm, edema (3+ b/l LE) Abdomen: non-tender, soft Skin: warm/dry, other (improving RLE erythema) Neuro/Psych: alert, normal mood/affect, oriented x 3, No cognition abnormalities , No speech abnormalities ICD10 Worksheet Patient Problems: Problems Problem Status Onset Atrial fibrillation with RVR Acute Back pain Acute Gastrointestinal hemorrhage Acute Humerus fracture Acute Hypoxia Acute Nausea & vomiting Acute Pain provoked by trauma Acute Pain, neuropathic Acute
[2016-07-03 11:33] LABS: ADD DIFF? YES; ADD MORPH? YES; ADD SCAN? NO; ATYPICAL LYMPHOCYTE FLAG 0 (0-99); FRAGMENT RBC FLAG 0 (0-99); HEMATOCRIT 30.1 % (38.0-47.0); HEMOGLOBIN 9.2 g/dL (12.6-16.3); LEFT SHIFT FLG 0 (0-99); LIPEMIA HEMOLYSIS FLAG 80 (0-99); MEAN CELL HEMOGLOBIN 29.9 pg (27.9-34.1); MEAN CELL HEMOGLOBIN CONCENTR. 30.6 g/dL (32.4-36.7); MEAN CELL VOLUME 97.7 fL (81.5-99.8); MEAN PLATELET VOLUME 10.1 fL (8.7-11.7); PLATELET CLUMPS FLAG 10 (0-99); PLATELET COUNT 145 10^3/uL (150-400); RED BLOOD CELL COUNT 3.08 10^6/uL (4.18-5.33)
[2016-07-03 12:07] LABS: ECHINOCYTES 1+; ELLIPTOCYTES 1+; MACROCYTES 1+; PLATELET ESTIMATE ADEQUATE (ADEQ); POLYCHROMASIA 1+
[2016-07-03] MEDS: ACETAMINOPHEN 325 MG TAB PO PRN ×2 (12:44→19:54)
[2016-07-03 14:09] LABS: ANION GAP 7 mEq/L (8-16); CALCIUM 9.6 mg/dL (8.5-10.4); CARBON DIOXIDE 23 mEq/l (22-31); CHLORIDE 106 mEq/L (97-110); CREATININE 0.7 mg/dL (0.6-1.0); GLOMERULAR FILTRATION RATE > 60; GLUCOSE 96 mg/dL (70-100); MAGNESIUM 2.1 mg/dL (1.6-2.3); POTASSIUM 4.2 mEq/L (3.5-5.2); SODIUM 136 mEq/L (134-144)
[2016-07-04] MEDS: VANCOMYCIN HCL/NORMAL SALINE 250 ML IV SCH ×2 (03:47→15:54)
[2016-07-04 08:40] LABS: ADD DIFF? YES; ADD SCAN? NO; ATYPICAL LYMPHOCYTE FLAG 0 (0-99); FRAGMENT RBC FLAG 0 (0-99); HEMATOCRIT 30.5 % (38.0-47.0); HEMOGLOBIN 9.3 g/dL (12.6-16.3); LEFT SHIFT FLG 10 (0-99); LIPEMIA HEMOLYSIS FLAG 80 (0-99); MEAN CELL HEMOGLOBIN CONCENTR. 30.5 g/dL (32.4-36.7); MEAN CELL VOLUME 98.4 fL (81.5-99.8); MEAN PLATELET VOLUME 9.9 fL (8.7-11.7); PLATELET CLUMPS FLAG 10 (0-99); PLATELET COUNT 175 10^3/uL (150-400)
[2016-07-04 08:43] LABS: ADD MORPH? NO; RED CELL DISTRIBUTION WIDTH 22.2 % (11.5-15.2)
[2016-07-04] MEDS: CHOLECALCIFEROL VIT D3 2,000 UNITS TAB/CAP PO SCH (08:44)
[2016-07-04] MEDS: METOPROLOL TARTRATE 25 MG TAB PO SCH ×2 (08:45→20:24)
[2016-07-04] MEDS: MULTIVITAMINS 1 EACH TAB PO SCH ×2 (08:45→09:14)
[2016-07-04] MEDS: GABAPENTIN 300 MG CAP PO SCH (08:46)
[2016-07-04] MEDS: FUROSEMIDE 40 MG TAB PO SCH (08:46)
[2016-07-04] MEDS: PANTOPRAZOLE SODIUM 40 MG TAB PO SCH ×2 (08:46→20:23)
[2016-07-04] MEDS: ANASTROZOLE 1 MG TAB PO SCH (08:47)
[2016-07-04] MEDS: ATORVASTATIN CALCIUM 10 MG TAB PO SCH (08:47)
[2016-07-04] MEDS: POTASSIUM CL 20 MEQ TAB PO SCH (08:47)
[2016-07-04 08:55] LABS: ANION GAP 5 mEq/L (8-16); CALCIUM 9.4 mg/dL (8.5-10.4); CARBON DIOXIDE 27 mEq/l (22-31); CHLORIDE 110 mEq/L (97-110); CREATININE 0.7 mg/dL (0.6-1.0); GLOMERULAR FILTRATION RATE > 60; GLUCOSE 81 mg/dL (70-100); POTASSIUM 4.1 mEq/L (3.5-5.2); SODIUM 142 mEq/L (134-144)
[2016-07-04] MEDS: [UNRECOGNIZED DRUG - OTHER] PO SCH (09:36)
[2016-07-04 10:27] LABS: MICROCYTES 1+; POLYCHROMASIA 2+
[2016-07-04] MEDS: [UNRECOGNIZED DRUG - OTHER] PO SCH (10:27)
[2016-07-04 10:28] LABS: ECHINOCYTES 1+; KERATOCYTES 2+; PLATELET ESTIMATE ADEQUATE (ADEQ); SCHISTOCYTES 2+
--- NOTE | 2016-07-04 12:29 | SOAPPROG ---
SOAP Progress Note Assessment/Plan: Assessment/Plan: 07/04 pt had some discharge from area of port, no organisms or PMNs seen on micro , clinically no erythema, pain, swelling or discharge today. Addition of vanco helped with L leg swelling and pain. She continues to have some fluid overload, diuresing gently with lasix 40 mg daily for now (good urine output per patient) . UA also + for enterococcus, susceptibilities pending. * Debility status post cerebrovascular accident and with right humerus fracture. FIM 74 on 07/01/16. Was 79 prior to recent rehospitalization; had increased form 63. Walked 150' X 2 and climbed/descended a few stairs; less at times due to calf/leg pain. Continue physical and occupational therapy. * Right humerus fracture. She is not in pain. Continue sling for comfort. Follow-up was discussed with Dr. Vega's office: next X-ray would be 4 to 6 weeks after the fracture. Follow-up with Dr. Vega after discharge from [facility]. * Pain control. Gabapentin appears to have been discontinued in the hospital. It had been effective for her neuropathic pain. Will restart 07/01/16. Continue acetaminophen and oxycodone both on a p.r.n. basis. Repeat US R calf due to pain and tenderness, and not on anticoagulation due to GI bleed, and at high risk for DVT. * Recurrent gastrointestinal bleed. H/H stable on CBC 07/02/16, improving . Appropriate reticulocytosis. Continue pantoprazole twice daily. Anticoagulation is contraindicated. * Thrombocytopenia. D/W Dr. Kwon. Not concerned uless platelets < 50k. stable 07/01/16. * Edema: has pulmonary hypertension, mild, with fluid overload; diastolic dysfunction on previous echocardiogram. Likely had salt load with blood transfusions. Weight daily; has diureses 2 kg in 2 days. Continue furosemide 20 mg QD, and KCL; potassium still low but improving 07/02. Not tolerating compression stockings during the day. continue lasix during vanco infusion period. Clinically fluid overloaded with leg swelling. * Constipation. Add bisacodyl [place] PRN. Continue senna & polyethylene glycol. * Hypokalemia. Has been repleted in the hospital but slipped in setting of infection will Continue 20 meq QD with additional repletion till stable. daily BMP (note: not ordered on 07/04, ordering for subsequent days). * RLE swelling/erythema: concern for evolving cellulitis, WBC increasing, lethargy, LE pain, and paroxysmal afib. Started empiric Vanc, Dr. Chris d/w Onc and agree to treat normally as no longer neutropenic. * UTI? UA + for enterococcus, susceptibilities pending 07/04. on Vanco for cellulitis. Chronic/stable conditions: * Fracture and history of osteopenia with vitamin D deficiency. Will continue cholecalciferol. Consider formal bone density testing after discharge. However , it is evident that she likely has osteoporosis. If esophageal cancer continues to respond to treatment with Oncology and her prognosis is 1-2 years, she could consider antiresorptive therapy. * History of breast cancer. Continue anastrozole. * Dyslipidemia. Continue atorvastatin. * Prophylaxis. Anticoagulation is contraindicated in the setting of recent GI bleed. Given her recent GI bleed, will continue pantoprazole 40 mg p.o. twice daily. Discharge goal of 07/06/16 07/04/16 12:24 07/04/16 12:33 Subjective: CC: infections, fluid status No acute events overnight. Improved L leg pain. Last night pt had report of some pain and discharge around her port. Fluid sent showed no organisms, no PMNs , symptoms resolved this morning. On IV Vanco for leg cellulitis. Not neutropenic. Good urine output with lasix at 40 po daily given yesterday. Still feel fluid overloaded. No reaction to vanco infusions. UA also + for enterococcus, susceptibilities pending. Has some ongoing foot pain, on gabapentin. Objective: Vital Signs Temp Pulse Resp BP Pulse Ox 38.1 C 71 14 120/69 96 07/04/16 06:44 07/04/16 06:44 07/04/16 06:44 07/04/16 08:45 07/04/16 06:44 Microbiology 07/03/16 22:30 Gram Stain - Final Chest - Swab Laboratory Results 07/04/16 06:20 07/04/16 06:20 07/03/16 07/04/16 07/05/16 05:59 05:59 05:59 Intake Total 3826 2160 360 Output Total 550 1540 850 Balance 3276 620 -490 Physical Exam - Physical Exam General Appearance: alert, no apparent distress Respiratory: lungs clear, normal breath sounds, No respiratory distress, No accessory muscle use Cardiac/Chest: normal peripheral pulses, regular rate, rhythm Abdomen: soft Skin: normal color, warm/dry Extremities: pedal edema, swelling Neuro/Psych: alert, normal mood/affect ICD10 Worksheet Patient Problems: Problems Problem Status Onset Atrial fibrillation with RVR Acute Back pain Acute Gastrointestinal hemorrhage Acute Humerus fracture Acute Hypoxia Acute Nausea & vomiting Acute Pain provoked by trauma Acute Pain, neuropathic Acute
[2016-07-04] MEDS: GABAPENTIN 400 MG CAP PO SCH ×2 (15:53→21:31)
[2016-07-05] MEDS: VANCOMYCIN HCL/NORMAL SALINE 250 ML IV SCH ×2 (03:28→15:16)
[2016-07-05 08:38] LABS: ANION GAP 5 mEq/L (8-16); CALCIUM 9.9 mg/dL (8.5-10.4); CARBON DIOXIDE 28 mEq/l (22-31); CHLORIDE 111 mEq/L (97-110); CREATININE 0.6 mg/dL (0.6-1.0); GLOMERULAR FILTRATION RATE > 60; GLUCOSE 81 mg/dL (70-100); POTASSIUM 3.6 mEq/L (3.5-5.2); SODIUM 144 mEq/L (134-144)
[2016-07-05] MEDS: [UNRECOGNIZED DRUG - OTHER] PO SCH (08:57)
[2016-07-05] MEDS: ANASTROZOLE 1 MG TAB PO SCH (09:00)
[2016-07-05] MEDS: CHOLECALCIFEROL VIT D3 2,000 UNITS TAB/CAP PO SCH (09:00)
[2016-07-05] MEDS: ATORVASTATIN CALCIUM 10 MG TAB PO SCH (09:00)
[2016-07-05] MEDS: METOPROLOL TARTRATE 25 MG TAB PO SCH ×2 (09:01→21:00)
[2016-07-05] MEDS: GABAPENTIN 400 MG CAP PO SCH ×3 (09:05→21:05)
[2016-07-05] MEDS: PANTOPRAZOLE SODIUM 40 MG TAB PO SCH ×2 (09:05→21:01)
[2016-07-05] MEDS: FUROSEMIDE 40 MG TAB PO SCH (09:05)
[2016-07-05] MEDS: oxyCODONE IR 5 MG TAB PO PRN (12:09)
--- NOTE | 2016-07-05 17:41 | SOAPPROG ---
SOAP Progress Note Assessment/Plan: Assessment: * Debility status post cerebrovascular accident and with right humerus fracture. FIM 74 on 07/01/16. Was 79 prior to recent rehospitalization; had increased from 63. Increased to 80 as of 07/05/16. Walked 150' X 2 SBA with trekking pole and climbed/descended 9 stairs. Continue physical and occupational therapy. * Right humerus fracture. She is not in pain. Continue sling for comfort. Follow-up was discussed with Dr. Vega's office: next X-ray would be 4 to 6 weeks after the fracture. Follow-up with Dr. Vega after discharge fro [facility]. * Pain control. Gabapentin appears to have been discontinued in the hospital. It had been effective for her neuropathic pain. Will restart 07/01/16. Continue acetaminophen and oxycodone both on a p.r.n. basis. * Cellulitis, R foot. Responded to 3 days of vancomycin. Change to Augmentin starting 07/06/16. Continue to monitor. * Recurrent gastrointestinal bleed. H/H stable on CBC 06/29/16, improving . Appropriate reticulocytosis. Continue pantoprazole twice daily. Anticoagulation is contraindicated. * Thrombocytopenia. D/W Dr. Kwon. Not concerned unless platelets < 50k. stable 07/01/16. * Edema: has pulmonary hypertension, mild, with fluid overload; diastolic dysfunction on previous echocardiogram. Likely had salt load with blood transfusions. Weight daily. Continue furosemide 20 mg QD, and KCL. * Constipation. Add bisacodyl [place] PRN. Continue senna & polyethylene glycol. * Hypokalemia. Has been repleted in the hospital. Continue 20 U QD. Improving on BMP 07/01/16. * UTI? Grew Enterococcus, susceptible to PCN, on Augmenting starting 07/06/16. Chronic/stable conditions: * Fracture and history of osteopenia with vitamin D deficiency. Will continue cholecalciferol. Consider formal bone density testing after discharge. However , it is evident that she likely has osteoporosis. If esophageal cancer continues to respond to treatment with Oncology and her prognosis is 1-2 years, she could consider antiresorptive therapy. * History of breast cancer. Continue anastrozole. * Dyslipidemia. Continue atorvastatin. * Prophylaxis. Anticoagulation is contraindicated in the setting of recent GI bleed. Given her recent GI bleed, will continue pantoprazole 40 mg p.o. twice daily. Attended staffing, 15 min. D/W case mgmt, nursing, PT, OT. Discharge 07/07/16. 07/05/16 17:36 Subjective: Foot feels better. Still somewhat tender but she's walking on it. No f/c, cough/dyspnea, dysuria, n/v/d/c. 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 Physical Exam - Physical Exam General Appearance: WD/WN, alert, no apparent distress Respiratory: No respiratory distress, No accessory muscle use Cardiac/Chest: regular rate, rhythm Skin: normal color, warm/dry Extremities: other (R foot with swelling danny distal with mild erythema over distal volar forefoot. Escher where nail was lost 2nd toe. NT. DP pulse 2+) Neuro/Psych: alert, normal mood/affect, oriented x 3 ICD10 Worksheet Patient Problems: Problems Problem Status Onset Atrial fibrillation with RVR Acute Back pain Acute Gastrointestinal hemorrhage Acute Humerus fracture Acute Hypoxia Acute Nausea & vomiting Acute Pain provoked by trauma Acute Pain, neuropathic Acute
[2016-07-06 07:59] VITALS: RESP 16
[2016-07-06] MEDS: CHOLECALCIFEROL VIT D3 2,000 UNITS TAB/CAP PO SCH (09:39)
[2016-07-06] MEDS: [UNRECOGNIZED DRUG - OTHER] PO SCH (09:40)
[2016-07-06] MEDS: ATORVASTATIN CALCIUM 10 MG TAB PO SCH (09:40)
[2016-07-06] MEDS: FUROSEMIDE 40 MG TAB PO SCH (09:40)
[2016-07-06] MEDS: GABAPENTIN 400 MG CAP PO SCH ×3 (09:41→21:41)
[2016-07-06] MEDS: PANTOPRAZOLE SODIUM 40 MG TAB PO SCH ×2 (09:41→21:41)
[2016-07-06] MEDS: ANASTROZOLE 1 MG TAB PO SCH (09:41)
[2016-07-06] MEDS: METOPROLOL TARTRATE 25 MG TAB PO SCH ×2 (09:41→21:40)
[2016-07-06] MEDS: AMOXICILLIN/CLAVULANATE POT 875/125 MG TAB PO SCH ×2 (09:41→21:40)
[2016-07-06] MEDS: POLYETHYLENE GLYCOL 3350 17 GM PKT PO PRN (10:00)
[2016-07-06] MEDS: SENNOSIDES 1 TAB PO PRN (10:00)
[2016-07-06] MEDS: POTASSIUM CL 20 MEQ TAB PO SCH (10:14)
--- NOTE | 2016-07-06 12:02 | SOAPPROG ---
SOAP Progress Note Assessment/Plan: Assessment: * Debility status post cerebrovascular accident and with right humerus fracture. FIM 74 on 07/01/16. Was 80 prior to recent rehospitalization; had increased from 64. Increased to 80 as of 07/05/16. Walked 150' X 2 SBA with trekking pole and climbed/descended 9 stairs. Continue physical and occupational therapy. * Right humerus fracture. She is not in pain. Continue sling for comfort. Follow-up was discussed with Dr. Vega's office: next X-ray would be 4 to 6 weeks after the fracture. Follow-up with Dr. Vega after discharge from Inpatient Rehabilitation. * Pain control. Gabapentin appears to have been discontinued in the hospital. It had been effective for her neuropathic pain. Will restart 07/01/16. Continue acetaminophen and oxycodone both on a p.r.n. basis. * Cellulitis, R foot. Responded to 3 days of vancomycin. Change to Augmentin starting 07/06/16. Continue to monitor. * Recurrent gastrointestinal bleed. H/H stable on CBC 06/29/16, improving . Appropriate reticulocytosis. Continue pantoprazole twice daily. Anticoagulation is contraindicated. Check CBC 07/07/16. * Thrombocytopenia. D/W Dr. Kwon. Not concerned unless platelets < 50k. stable 07/01/16. * Edema: has pulmonary hypertension, mild, with fluid overload; diastolic dysfunction on previous echocardiogram. Likely had salt load with blood transfusions. Weight daily. Continues to diurese with weight down 0.5 Kg from 07/05/16 to 07/06/16. Continue furosemide 20 mg QD, and KCL. Check BMP in AM . * Constipation. Add bisacodyl [place] PRN. Continue senna & polyethylene glycol. * Hypokalemia. Has been repleted in the hospital. Continue 20 U QD. Improving on BMP 07/01/16. * UTI? Grew Enterococcus, susceptible to PCN, on Augmenting starting 07/06/16. Chronic/stable conditions: * Fracture and history of osteopenia with vitamin D deficiency. Will continue cholecalciferol. Consider formal bone density testing after discharge. However , it is evident that she likely has osteoporosis. If esophageal cancer continues to respond to treatment with Oncology and her prognosis is 1-2 years, she could consider antiresorptive therapy. * History of breast cancer. Continue anastrozole. * Dyslipidemia. Continue atorvastatin. * Prophylaxis. Anticoagulation is contraindicated in the setting of recent GI bleed. Given her recent GI bleed, will continue pantoprazole 40 mg p.o. twice daily. Discharge 07/07/16 to home with . He has had training with PT and OT. Follow-up Dr. Vega 1 - 2 weeks. Follow-up Oncology Dr. Kwon for next round of ChemoRx 07/08/16. Follow-up with PCP Dr. Yadav 1 - 2 weeks. 07/06/16 12:02 Subjective: Slept well, no pain. No f/c, cough/dyspnea, n/v/c/d. Objective: Vital Signs Temp Pulse Resp BP Pulse Ox 36.6 C 82 16 139/84 H 90 L 07/06/16 07:57 07/06/16 09:41 07/06/16 07:57 07/06/16 09:41 07/06/16 07:57 Microbiology 07/03/16 22:30 Gram Stain - Final Chest - Swab 07/02/16 13:25 Urine Culture - Final Urine,Clean Catch Enterococcus Faecalis Gram Neg Jeet Lactose Manager Programs Laboratory Results 07/04/16 06:20 07/05/16 06:45 07/05/16 07/06/16 07/07/16 05:59 05:59 05:59 Intake Total 2570 1080 236 Output Total 3125 2600 400 Balance -380 -7053 -448 Physical Exam - Physical Exam General Appearance: WD/WN, alert, no apparent distress, obese Respiratory: normal breath sounds, No crackles, No rhonchi, No wheezing Cardiac/Chest: regular rate, rhythm, edema (1 - 2 + B LE) Skin: normal color, warm/dry Neuro/Psych: alert, normal mood/affect, oriented x 3 ICD10 Worksheet Patient Problems: Problems Problem Status Onset Atrial fibrillation with RVR Acute Back pain Acute Gastrointestinal hemorrhage Acute Humerus fracture Acute Hypoxia Acute Nausea & vomiting Acute Pain provoked by trauma Acute Pain, neuropathic Acute
[2016-07-06] MEDS: oxyCODONE IR 5 MG TAB PO PRN (21:45)
[2016-07-07] MEDS: GABAPENTIN 400 MG CAP PO SCH (07:43)
[2016-07-07] MEDS: AMOXICILLIN/CLAVULANATE POT 875/125 MG TAB PO SCH (07:43)
[2016-07-07] MEDS: ATORVASTATIN CALCIUM 10 MG TAB PO SCH (07:43)
[2016-07-07] MEDS: PANTOPRAZOLE SODIUM 40 MG TAB PO SCH (07:44)
[2016-07-07] MEDS: POTASSIUM CL 20 MEQ TAB PO SCH (07:44)
[2016-07-07] MEDS: FUROSEMIDE 40 MG TAB PO SCH (07:44)
[2016-07-07] MEDS: CHOLECALCIFEROL VIT D3 2,000 UNITS TAB/CAP PO SCH (07:44)
[2016-07-07] MEDS: METOPROLOL TARTRATE 25 MG TAB PO SCH (07:54)
[2016-07-07 07:55] VITALS: BP 134/87; PULSE 88
[2016-07-07] MEDS: ANASTROZOLE 1 MG TAB PO SCH (07:55)
[2016-07-07] MEDS: [UNRECOGNIZED DRUG - OTHER] PO SCH (07:55)
[2016-07-07 08:02] VITALS: TEMP 98; O2SAT 93
[2016-07-07] MEDS: POLYETHYLENE GLYCOL 3350 17 GM PKT PO PRN (08:02)
--- NOTE | 2016-07-07 16:07 | PDOREHIP ---
Admission IRF-LIA - Admission - 3 Day Assessment Period Admission Date/Day 1: 06/28/16 Day 2: 06/29/16 Day 3: 06/30/16 Discharge IRF-LIA - Discharge - 3 Day Assessment Period 2 Days Prior to Anticipated Discharge Date: 07/05/16 1 Day Prior to Anticipated Discharge Date: 07/06/16 Anticipated Discharge Date: 07/07/16 - Discharge Skin Conditions Unhealed Pressure Ulcer (1 or more/Stage 1 or >)-Discharge: 0. No
--- NOTE | 2016-07-12 04:48 | GDS ---
[f rep st] DISCHARGE SUMMARY ADMITTING DIAGNOSIS: Debility status post right humerus fracture with previous cerebrovascular accident. DISCHARGE DIAGNOSIS: Debility status post right humerus fracture with previous cerebrovascular accident. ADDITIONAL DISCHARGE DIAGNOSES: 1. Cellulitis of the right foot. 2. Recurrent gastrointestinal bleed. 3. Edema. 4. Vitamin D deficiency. CONSULTATIONS: There were none. PROCEDURES: There were none. COMPLICATIONS: There were none. HISTORY AND HOSPITAL COURSE: This is a discharge summary for this patient's final stay at the Inpatient Rehabilitation unit. Her recent medical history relevant to this rehabilitation stay began on 06/09/2016 when she fell and suffered a humeral fracture. She also had atrial fibrillation with rapid ventricular rate and a recent history of cerebrovascular accident early in May 2016. She was stabilized in the hospital. The fracture was considered nonoperative. She was readmitted to the hospital on 06/13/2014 with an upper GI bleed. Her anticoagulants were discontinued and she was placed on a proton pump inhibitor. Endoscopy revealed her known esophageal cancer, which had actually improved. However, there were ulcerations causing bleeding. Her next stay in inpatient rehabilitation was from 06/15 until 06/25/2016. She had another hospitalization on 06/25/2016 for atrial fibrillation with a rapid ventricular rate. She was stabilized from this and then returned to inpatient rehabilitation on 06/28/2016. She had improvement during her stay. By 07/05/2016, her functional independence measure was 80, which is consistent with assisted living level of function. She was able to walk 150 feet x2 with standby assist using a trekking pole. She was able to climb and descend 9 stairs. Regarding her right humerus fracture, she was no longer in pain during her final rehabilitation stay. She had a sling for comfort and her plan was to follow up with orthopedic surgeon Dr. Vega after discharge. She had neuropathic pain, either related to her cerebrovascular accident or to her humerus fracture, with numbness and tingling in her right hand and lower arm. She was continued on gabapentin and had improvement. She was noted to have cellulitis of the right foot. She was initially treated with 3 days of vancomycin. This was changed to Augmentin on 07/06/2016. The infection was considerably improved and did not worsen during her stay. She had edema. This was thought to be related to salt load from transfusions that she had received in the hospital for her gastrointestinal bleeding. She was treated with furosemide. She diuresed from 100 kg on 06/28/2016 to 95.5 kg on 07/07/2016. Basic metabolic profile was checked on 07/05/2016 to ensure that she was tolerating furosemide. She had some contraction alkalosis with a chloride of 111. Otherwise, basic metabolic profile was overall within normal limits. She was continued on potassium supplement, as she had been hypokalemic during her last hospital stay. Urinary tract infection. She grew an enterococcus in her urine susceptible to penicillin, which was treated with the Augmentin, which also treated her cellulitis. Other labs and studies during her stay: anemia improved. Her hemoglobin was up to 10.9 on 07/02/2016 and decreased to 9.2 on 07/03, and increased again to 9.3 on 07/04/2016, so it was considered to be stable or improving. CONDITION UPON DISCHARGE: Good. ACTIVITY: Ad king with need for supervision or standby assist with ambulation and other mobility related activities of daily living. She continues nonweightbearing on the right upper extremity. DIET: Regular. DATE OF NEXT APPOINTMENT: She will follow up with orthopedic surgeon, Dr. Vega, on 07/13/2016 at 1:30 p.m. She will follow up with oncologist, Dr. Mike Kwon on 07/08/2016 for continued chemotherapy regarding her esophageal cancer. She will follow up with primary care provider, Dr. Yadav, on 2016. MEDICATIONS AT DISCHARGE: 1. Amoxicillin/clavulanate 875 mg to continue for 5 more days. 2. Furosemide 20 mg p.o. daily. 3. Gabapentin 400 mg p.o. t.i.d. 4. Potassium chloride 20 mEq p.o. daily. 5. Polyethylene glycol 17 g p.o. daily p.r.n. 6. Calcium carbonate 500 mg p.o. t.i.d. p.r.n. 7. Senna 1-2 tabs p.o. b.i.d. p.r.n. 8. Sodium chloride nasal gel p.r.n. 9. Acetaminophen 650 mg q.4 hours p.r.n. 10. Sodium chloride nasal spray p.r.n. 11. Gummy multivitamins 2 tabs p.o. daily. 12. Cholecalciferol 5000 units p.o. daily. 13. Anastrozole 1 mg p.o. daily. 14. Atorvastatin 10 mg p.o. daily. 15. Metoprolol 25 mg p.o. b.i.d. 16. Oxycodone immediate release 5-10 mg p.o. q.3 hours p.r.n. 17. Pantoprazole 40 mg p.o. b.i.d. ISSUES TO BE ADDRESSED AT FOLLOWUP: 1. Mobility and activities of daily living. She will continue physical and occupational therapy at home. She can follow up with her primary care provider , Dr. Yadav, regarding how she is doing and whether she continues to need therapies. 2. Right humerus fracture. She will follow up with Dr. Vega, who will determine fracture healing and duration of nonweightbearing. 3. Esophageal cancer. She will follow up with Dr. Mike Kwon for continued chemotherapy. 4. Vitamin D deficiency. She should follow up with her primary care provider, with a repeat vitamin D level and determination whether or not she needs to continue relatively high dose at 5000 units daily. 5. Anemia postoperative. She will no doubt have followup labs done per Oncology. 6. Edema with history of mild pulmonary hypertension and diastolic dysfunction. She should continue furosemide and follow up with her primary care provider. 7. Paroxysmal atrial fibrillation with a history of cerebrovascular accident. It is conceivable that her esophageal cancer will continue to regress with chemotherapy to the point where her risk of gastrointestinal hemorrhage is less than her risk of a subsequent cerebrovascular accident due to the atrial fibrillation, and at this point under the guidance of Oncology and primary care , she could consider resumption of antiplatelet agents or anticoagulation. /[id number]/MODL MTDD
== END 2016-07-07 14:05 | disposition home health service (06) | DRG 560 ==
LOC: BREH 15:35
PROVIDERS: ADMIT Internal Medicine; ATTEND Internal Medicine
PROC: F07M3ZZ Motor Function Treatment of Musculoskeletal System - Whole Body (ICD-10-PCS; principal; 2016-06-28)
PROC: F08Z1FZ Dressing Techniques Treatment using Assistive, Adaptive, Supportive or Protective Equipment (ICD-10-PCS; principal; 2016-06-28)
PROC: F07Z5FZ Bed Mobility Treatment using Assistive, Adaptive, Supportive or Protective Equipment (ICD-10-PCS; principal; 2016-06-28)
PROC: F08Z7ZZ Vocational Activities and Functional Community or Work Reintegration Skills Treatment (ICD-10-PCS; principal; 2016-06-28)
PROC: F08Z2FZ Grooming/Personal Hygiene Treatment using Assistive, Adaptive, Supportive or Protective Equipment (ICD-10-PCS; principal; 2016-06-28)
PROC: F08Z0FZ Bathing/Showering Techniques Treatment using Assistive, Adaptive, Supportive or Protective Equipment (ICD-10-PCS; principal; 2016-06-28)
DX: S42.231D 3-part fracture of surgical neck of right humerus, subsequent encounter for fracture with routine healing (principal); I48.91 Unspecified atrial fibrillation; I69.353 Hemiplegia and hemiparesis following cerebral infarction affecting right non-dominant side; W01.0XXD Fall on same level from slipping, tripping and stumbling without subsequent striking against object, subsequent encounter; K92.2 Gastrointestinal hemorrhage, unspecified; I27.2 Other secondary pulmonary hypertension; E66.01 Morbid (severe) obesity due to excess calories; C15.9 Malignant neoplasm of esophagus, unspecified; Z85.3 Personal history of malignant neoplasm of breast; I10 Essential (primary) hypertension; K21.9 Gastro-esophageal reflux disease without esophagitis; E21.3 Hyperparathyroidism, unspecified; G47.33 Obstructive sleep apnea (adult) (pediatric); M85.80 Other specified disorders of bone density and structure, unspecified site; E87.6 Hypokalemia; E55.9 Vitamin D deficiency, unspecified; E78.5 Hyperlipidemia, unspecified; K59.00 Constipation, unspecified; Z68.36 Body mass index [BMI] 36.0-36.9, adult; L03.115 Cellulitis of right lower limb; R73.03 Prediabetes
CPT/HCPCS: 97110-GO; 97110-GP; 97112-GO; 97112-GP; 97116-GP; 97140-GO; 97140-GP; 97162-GP; 97165-GO; 97530-GO; 97530-GP; 97535-GO; 97542-GP; J3370

== ENCOUNTER 2016-07-15 14:11 | Day surgery (SDC) | payer OTHER ==
[2016-07-15] MEDS ORDERED: LR 1,000 ML IV ONE (15:10)
[2016-07-15] MEDS ORDERED: LIDOCAINE 1% 5 ML SDV ID PRN (15:10)
[2016-07-15] MEDS ORDERED: PROPOFOL 200 MG/20 ML VIAL ONE (15:49)
--- NOTE | 2016-07-15 21:51 | GPN ---
[f rep st] PROCEDURE NOTE PREPROCEDURE DIAGNOSIS: Esophageal cancer. POSTPROCEDURE DIAGNOSIS: Esophageal cancer. PROCEDURE: Esophagogastroduodenoscopy with biopsies. MEDICATIONS: Monitored anesthesia care. INDICATIONS: The patient is a 76-year-old female who has been undergoing chemoradiation as directed by Dr. Mike Kwon for esophageal cancer. She is feeling much better and swallowing well. She is here for in followup for upper endoscopy to evaluate for response to treatment. The risks and benefits of the procedure were discussed with the patient. Consent obtained. Risks include, but not limited to, bleeding, perforation, and risks related to sedation patient is ASA class III. PROCEDURE: The end-viewing endoscope was inserted into the esophagus, into the stomach and second portion of the duodenum. The esophagus shows ulceration and nodularity in the region between 34 and 38 cm. 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 Biopsies were taken of the ulcerated nodular area to evaluate for residual cancer using cold biopsy forceps. The GE junction was located at 38 cm from the incisors. She has a small hiatal hernia. The stomach otherwise appears normal. The duodenum and second portion are normal. IMPRESSION: Ulcerated esophageal mucosa with nodularity between 34 and 38 cm. 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 Biopsies were taken using cold biopsy forceps to evaluate for residual cancer. RECOMMENDATIONS: 1. Advance diet as tolerated. 2. Continue current medications. 3. Discharged home with escort. 4. Follow up the final biopsy results. Results available within 10 days. 5. Follow up with Dr. Kwon as previously scheduled for further management of esophageal cancer. Thank you for allowing me to participate in the care of your patient. Please do not hesitate to call with questions. /[id number]/MODL MTDD
[2016-08-02 14:08] LABS: HER2 MANUAL ACCESSION NUMBER HR17-20528; HER2MAN INTERPRETATION See Comments
== END 2016-07-15 17:22 | disposition home or self-care (01) ==
LOC: FSGY 14:11
PROVIDERS: ATTEND Internal Medicine Gastroenterology
PROC: 0DB98ZX Excision of Duodenum, Via Natural or Artificial Opening Endoscopic, Diagnostic (ICD-10-PCS; principal; 2016-07-15 15:30)
DX: C15.9 Malignant neoplasm of esophagus, unspecified (principal)
CPT/HCPCS: J2704

== ENCOUNTER → 2016-09-23 | Outpatient (CLI) | payer OTHER | LOC: BMCIMAGING 11:16 | PROVIDERS: ATTEND Internal Medicine | DX: M50.322 Other cervical disc degeneration at C5-C6 level (principal); M50.323 Other cervical disc degeneration at C6-C7 level; S42.211D Unspecified displaced fracture of surgical neck of right humerus, subsequent encounter for fracture with routine healing; R07.81 Pleurodynia; C15.9 Malignant neoplasm of esophagus, unspecified; I63.10 Cerebral infarction due to embolism of unspecified precerebral artery ==

== ENCOUNTER 2016-10-10 07:05 | Day surgery (SDC) | payer OTHER ==
[2016-10-10] MEDS ORDERED: LIDOCAINE 1% 2 ML INJ ID PRN (07:27)
[2016-10-10] MEDS ORDERED: LR 1,000 ML IV ONE (07:27)
--- NOTE | 2016-10-10 07:57 | PDANEPAE ---
ANE History of Present Illness Esophageal tumor ANE Past Medical History - Cardiovascular History Hx Hypertension: Yes Hx Arrhythmias: No Hx Chest Pain: No Hx Coronary Artery / Peripheral Vascular Disease: No Hx CHF / Valvular Disease: No Hx Palpitations: No - Pulmonary History Hx COPD: No Hx Asthma/Reactive Airway Disease: No Hx Recent Upper Respiratory Infection: No Hx Oxygen in Use at Home: No Hx Sleep Apnea: Yes - Neurologic History Hx Cerebrovascular Accident: Yes Hx Seizures: No Hx Dementia: No - Endocrine History Hx Diabetes: No - Renal History Hx Renal Disorders: No - Liver History Hx Hepatic Disorders: No - Neurological & Psychiatric Hx Hx Neurological and Psychiatric Disorders: No - Cancer History Hx Cancer: Yes Cancer History Comment: L breast,esophagus - Congenital Disorder History Hx Congenital Disorders: No - GI History Hx Gastrointestinal Disorders: Yes Gastrointestinal History Comment: esophageal CA - Chronic Pain History Chronic Pain: No - Surgical History Prior Surgeries: appy, knee scope 2007, L breast lumpectomy 06-06, L breast evacuation hematoma,seroma 08-06, R eye cataract sx 09-06. ANE Review of Systems - Systems Neurological: Reports: numbness, tingling (Right arm) ANE Patient History - Allergies Allergies/Adverse Reactions: No Known Allergies Allergy (Verified 06/12/16 11:22) - Home Medications Home medications: home medication list seen and reviewed Home Medications: Cholecalciferol Vit D3 [Vitamin D3 (*)] 5,000 units PO DAILY 06/28/16 [Last Taken 3 Days Ago] Losartan Potassium 100 mg PO DAILY 10/10/16 [Last Taken 3 Days Ago] Multivitamins [Multivitamin (*)] 1 each PO DAILY 10/10/16 [Last Taken 3 Days Ago ] - Smoking Hx Smoking Status: Never smoked ANE Labs/Vital Signs - Vital Signs Height: 162.56 cm Weight: 74.843 kg ANE Physical Exam - Airway Neck exam: FROM Mallampati Score: Class 2 Mouth exam: normal dental/mouth exam - Pulmonary Pulmonary: no respiratory distress - Cardiovascular Cardiovascular: regular rate and rhythym - ASA Status ASA Status: III ANE Anesthesia Plan Anesthesia Plan: general endotracheal anesthesia
[2016-10-10] MEDS ORDERED: PROPOFOL 200 MG/20 ML VIAL ONE (10:21)
[2016-10-10] MEDS ORDERED: fentaNYL 100 MCG/2 ML INJ ONE (10:21)
[2016-10-10] MEDS ORDERED: INDOMETHACIN 50 MG SUPP PR PRN (10:33)
--- NOTE | 2016-10-10 10:33 | PDGENHP ---
History & Physical Chief Complaint: dysphagia History of Present Illness: 76 year old female history of dysphagia and esophageal cancer presents for further evaluation Pertinent Past, Social, Family History: SoHx: no cigs. FaMhx:no eosphagal. PMHx: esophageal cancer, CVA, HTN Relevant Physical Exam: HEENT: anicteric. CV: RRR +s1s2. Lungs: CTAB No w/r/ r. Abd :soft, nt, nd, + bs Cardiorespiratory Assessment: ASA 3
[2016-10-10] MEDS ORDERED: LIDOCAINE 2% 5 ML SDV ONE (10:38)
[2016-10-10] MEDS ORDERED: ROCURONIUM 50 MG/5 ML VIAL ONE (10:38)
[2016-10-10] MEDS ORDERED: ESMOLOL HCL 100 MG/10 ML VIAL IV ONE (10:43)
[2016-10-10] MEDS ORDERED: DEXAMETHASONE 4 MG/ML VIAL ONE (10:44)
[2016-10-10] MEDS ORDERED: ONDANSETRON 4 MG/2 ML VIAL ONE (10:45)
[2016-10-10] MEDS ORDERED: NS 500 ML IV SCH (10:45)
--- NOTE | 2016-10-10 11:04 | POSTOPPROG ---
Post Op Note Date of Operation: 10/10/16 Surgeon: Veto De Dios Anesthesia: GET(General Endotracheal) Pre-op Diagnosis: esophageal cancer Post-op Diagnosis: esophageal cancer with stricture Indication: dysphagia Procedure: egd with stent placement Findings: malignant stricture Inf/Abcess present in the surg proc area at time of surgery?: No EBL: Minimal Complications: none
[2016-10-10] MEDS ORDERED: fentaNYL 100 MCG/2 ML INJ IVP PRN (11:08)
[2016-10-10] MEDS ORDERED: NALOXONE HCL 0.4 MG/ML INJ IVP PRN (11:08)
[2016-10-10] MEDS ORDERED: ONDANSETRON 4 MG/2 ML VIAL IVP PRN (11:08)
--- NOTE | 2016-10-10 11:11 | POSTANESTH ---
Post Anesthetic Evaluation Cardiovascular Status: Normal, Stable Respiratory Status: Normal, Stable Level of Consciousness/Mental Status: Can Participate in Eval Pain Control: Adequate, Prn Tx Ordered Nausea/Vomiting Control: Adequate, Prn Tx Ordered Complications Possibly Related to Anesthesia: Other, See Comments (Pt had about 3 - 5 run of what appeared to be a-fib with rate to 150 - 160. Esmolol given and prompty returned to [facility]. city jailer notified.)
[2016-10-10 14:24] VITALS: BP 144/88; PULSE 94; RESP 20; TEMP 98.1; O2SAT 90
--- NOTE | 2016-10-10 18:04 | GPN ---
[f rep st] PROCEDURE NOTE DATE OF PROCEDURE: 10/10/2016 PROCEDURE PERFORMED: Esophagogastroduodenoscopy with stent placement. INDICATION: The patient is a 76-year-old female with a distal esophageal cancer who presents with recurrent dysphagia. CONSENT: Risks, benefits, and alternatives of the procedure were discussed in great detail with the patient. Risks of infection, bleeding, perforation, and sedation were discussed. All questions were answered and informed consent was obtained. MEDICATIONS: General anesthesia. Please see anesthesia record for details. ESTIMATED BLOOD LOSS: Insignificant. ESOPHAGOGASTRODUODENOSCOPY EXAMINATION: The Olympus endoscope was inserted in the mouth and esophagus. At approximately 30 cm from the gums, a large exophytic mass with was noted which extended to the proximal gastroesophageal junction at 40 cm. With some difficulty due to luminal stricturin, the scope was advanced into the stomach. The stomach was grossly normal. She was noted to have a large hiatal hernia on retroflexion. The duodenal bulb and second portion of the duodenum were normal in appearance. A 0.035 inch guidewire was placed under direct vision into the stomach. A paper clip was applied at the gastroesophageal junction as well as the proximal part of the stricture at 32 cm. An 18 x 103 mm [employer] stent was placed above and below the stricture. Approximately 1 cm was deployed distal to the stricture into the stomach and 1 cm was proximal to the stricture. IMPRESSION: Malignant obstruction status post EGD with successful stent placement. RECOMMENDATIONS: 1. Continue previous medications. 2. Soft mechanical diet. 3. Follow up with Cardiology due to atrial fibrillation which occurred during the procedure. Her primary care doctor's office was notified. /[id number]/MODL MTDD
== END 2016-10-10 14:25 | disposition home or self-care (01) ==
LOC: FSGY 07:05
PROVIDERS: ATTEND Internal Medicine Gastroenterology
PROC: 0D748DZ Dilation of Esophagogastric Junction with Intraluminal Device, Via Natural or Artificial Opening Endoscopic (ICD-10-PCS; principal; 2016-10-10 09:00)
DX: C15.9 Malignant neoplasm of esophagus, unspecified (principal); K22.2 Esophageal obstruction; R13.10 Dysphagia, unspecified; I10 Essential (primary) hypertension; K44.9 Diaphragmatic hernia without obstruction or gangrene; Z86.73 Personal history of transient ischemic attack (TIA), and cerebral infarction without residual deficits
CPT/HCPCS: 43266; 76001; C1769; C1874; J1100; J2405; J2704; J3010

== ENCOUNTER 2016-10-20 11:08 | Inpatient (IN) | payer OTHER ==
[2016-10-20] MEDS ORDERED: NS 500 ML IV ONE ×2 (11:34→14:54)
[2016-10-20 12:13] LABS: ADD DIFF? YES; ADD MORPH? NO; ATYPICAL LYMPHOCYTE FLAG 0 (0-99); FRAGMENT RBC FLAG 0 (0-99); HEMATOCRIT 29.9 % (38.0-47.0); HEMOGLOBIN 9.9 g/dL (12.6-16.3); LIPEMIA HEMOLYSIS FLAG 80 (0-99); MEAN CELL HEMOGLOBIN 28.9 pg (27.9-34.1); MEAN CELL HEMOGLOBIN CONCENTR. 33.1 g/dL (32.4-36.7); MEAN CELL VOLUME 87.4 fL (81.5-99.8); MEAN PLATELET VOLUME 11.6 fL (8.7-11.7); PLATELET CLUMPS FLAG 0 (0-99); PLATELET COUNT 87 10^3/uL (150-400); RED BLOOD CELL COUNT 3.42 10^6/uL (4.18-5.33)
[2016-10-20 12:14] LABS: LEFT SHIFT FLG 180 (0-99)
[2016-10-20 12:15] LABS: ADD SCAN? NO
[2016-10-20 12:20] LABS: ANION GAP 12 mEq/L (8-16); CALCIUM 9.3 mg/dL (8.5-10.4); CARBON DIOXIDE 24 mEq/l (22-31); CHLORIDE 102 mEq/L (97-110); CREATININE 0.9 mg/dL (0.6-1.0); GLOMERULAR FILTRATION RATE > 60; GLUCOSE 161 mg/dL (70-100); SODIUM 138 mEq/L (134-144)
--- NOTE | 2016-10-20 12:21 | CPEKG ---
Heart Rate: 78 RR Interval: 769 P-R Interval: 164 QRSD Interval: 100 QT Interval: 444 QTC Interval: 506 P [place]: 34 QRS [place]: -33 T Wave [place]: -1 EKG Severity - ABNORMAL ECG - EKG Impression: SINUS RHYTHM EKG Impression: PROBABLE LEFT ATRIAL ABNORMALITY EKG Impression: LEFT AXIS DEVIATION EKG Impression: BORDERLINE R WAVE PROGRESSION, ANTERIOR LEADS EKG Impression: NONSPECIFIC T ABNORMALITIES, ANT-LAT LEADS EKG Impression: BORDERLINE PROLONGED QT INTERVAL Electronically Signed By: Mike Parmar 20-Oct-2016 21:09:23
[2016-10-20 12:31] LABS: TROPONIN I < 0.012 ng/mL (0-0.034)
[2016-10-20 12:36] LABS: POTASSIUM 2.6 mEq/L (3.5-5.2)
--- NOTE | 2016-10-20 12:40 | EDPHY ---
H & P Time Seen by Provider: 10/20/16 12:36 HPI/ROS: Chief complaint. Weakness HPI. Patient is 76-year-old female with generalized weakness. She fell 2 days ago getting out of the shower when her legs collapsed. She struck the right side of her chest. She needed assistance to get back to her feet. Today she noticed decreased blood pressure and elevated heart rate. No shortness of breath or abdominal pain. Her chest pain is right-sided where she struck her ribs. No back pain or neck pain. She did not lose consciousness. She has no fever cough. No urinary symptoms. ROS Constitutional. Weakness Eyes. no problems with vision ENT. no sore throat, no nasal drainage Cardiovascular. Right-sided chest pain Respiratory. no shortness of breath, no cough Abdominal. no abdominal pain, no nausea/vomiting, no diarrhea . no problems urinating MS. no calf pain/swelling, no neck/back pain, no joint pain Skin. no rash Lymph. no swollen glands Neuro. Difficulty walking secondary to weakness Past Medical/Surgical History: Past medical history is significant for esophageal cancer, hypertension, CVA, GI bleed, atrial fibrillation Social History: , nonsmoker, no alcohol Smoking Status: Never smoked Physical Exam: General Appearance: Alert well-developed female mild distress vital signs show heart rate initially 104 and blood pressure 74/66 Eyes: Pupils equal and round no pallor or injection. ENT, Mouth: Mucous membranes are moist. Respiratory: There are no retractions, lungs are clear to auscultation. Cardiovascular: Regular rate and rhythm. Gastrointestinal: Abdomen is soft and nontender, no masses, bowel sounds normal. Rectal exam shows brown stool Neurological: Awake and alert, sensory and motor exams grossly normal. Skin: Warm and dry, no rashes. Musculoskeletal: Neck is supple nontender. Extremities symmetrical, full range of motion. Psychiatric: Patient is oriented X 3, there is no agitation. Constitutional: Initial Vital Signs Temperature (C) 36.4 C 10/20/16 11:20 Heart Rate 104 H 10/20/16 11:20 Respiratory Rate 16 10/20/16 11:20 Blood Pressure 74/66 L 10/20/16 11:20 O2 Sat (%) 96 10/20/16 11:20 O2 Delivery Mode Room Air Allergies/Adverse Reactions: No Known Allergies Allergy (Verified 10/20/16 11:23) Home Medications: Medication Instructions Recorded Cholecalciferol Vit D3 [Vitamin D3 5,000 units PO DAILY 06/28/16 (*)] Anastrozole [Arimidex 1 mg (*)] 1 mg PO DAILY #30 tab 07/06/16 Atorvastatin Calcium [Lipitor 10 10 mg PO DAILY #30 tab 07/06/16 mg (*)] Gabapentin [Neurontin 400 MG (*)] 400 mg PO TID #90 cap 07/06/16 Metoprolol Tartrate [Lopressor 25 25 mg PO BID #60 tab 07/06/16 mg (*)] Pantoprazole Sodium [Protonix 40mg 40 mg PO BID #60 tab 07/06/16 (*)] Potassium Cl [Klor-Con 20 meq (*)] 20 meq PO DAILY #30 tab 07/06/16 Losartan Potassium 100 mg PO DAILY 10/10/16 Multivitamins [Multivitamin (*)] 1 each PO DAILY 10/10/16 Medical Decision Making - Diagnostics EKG Interpretation: EKG interpreted by me shows normal sinus rhythm normal interval. Left axis deviation. QRS normal. No significant ST elevation or depression. Diffuse T- wave flattening. Rate 78 T-wave flattening worse since previous EKG 06/13/2016 Imaging Results: Imaging Impressions Chest X-Ray 10/20/16 12:06 Impression: 1. No acute process or rib fracture. 2. Left basilar atelectasis versus scar similar to June 2016. Chest x-ray interpreted by me show no obvious right rib fractures or pneumothorax Procedures: Review of patient's old records and on October 07 patient had a hematocrit of 36.5. Today is 29.9 IV normal saline with fluid bolus. Finding the patient's potassium to be low she is given potassium intravenously as well as orally. She is given a g of magnesium sulfate ED Course/Re-evaluation: On re-evaluation the patient's blood pressure is about 100/60. She is better however quite weak. Patient and I discussed imaging, laboratory, EKG findings. We discussed treatment plan including recommendation for admission. She expresses understanding and agreement I consulted and discussed case with Dr. Mcnamara, hospitalist, who agrees to the admission Differential Diagnosis: Patient has significant hypokalemia. I also considered rib fractures and pneumothorax which I do not see that the patient has on x-ray. I considered acute coronary syndrome. I considered CVA as well - Data Points Laboratory Results: Laboratory Results 10/20/16 12:00 10/20/16 12:00 10/20/16 10/20/16 10/20/16 12:45 12:00 12:00 WBC RBC Hgb Hct MCV MCH MCHC RDW Plt Count MPV Neut % (Auto) Lymph % (Auto) Avery % (Auto) Eos % (Auto) Baso % (Auto) Nucleat RBC Rel Count Absolute Neuts (auto) Absolute Lymphs (auto) Absolute Monos (auto) Absolute Eos (auto) Absolute Basos (auto) Absolute Nucleated RBC Immature Gran % Seg Neutrophils % Band Neutrophils % Lymphocytes % Monocytes % Immature Gran # Absolute Seg Neuts Absolute Band Neuts Absolute Lymphocytes Absolute Monocytes Platelet Estimate Polychromasia Elliptocytes Sodium 138 mEq/L mEq/L (134-144) Potassium 2.6 mEq/L L* mEq/L (3.5-5.2) Chloride 102 mEq/L mEq/L (97-110) Carbon Dioxide 24 mEq/l mEq/l (22-31) Anion Gap 12 mEq/L mEq/L (8-16) BUN 12 mg/dL mg/dL (7-23) Creatinine 0.9 mg/dL mg/dL (0.6-1.0) Estimated GFR > 60 Glucose 161 mg/dL H mg/dL (70-100) Calcium 9.3 mg/dL mg/dL (8.5-10.4) Magnesium 1.3 mg/dL L mg/dL (1.6-2.3) Troponin I < 0.012 ng/mL ng/mL (0-0.034) NT-Pro-B Natriuret Pep 6680 pg/mL H pg/mL (0-450) TSH 1.020 uIU/mL uIU/mL (0.465-4.680) Stool Occult Bld Scrn NEGATIVE (NEGATIVE) 10/20/16 12:00 WBC 2.25 10^3/uL L 10^3/uL (3.80-9.50) RBC 3.42 10^6/uL L 10^6/uL (4.18-5.33) Hgb 9.9 g/dL L g/dL (12.6-16.3) Hct 29.9 % L % (38.0-47.0) MCV 87.4 fL fL (81.5-99.8) MCH 28.9 pg pg (27.9-34.1) MCHC 33.1 g/dL g/dL (32.4-36.7) RDW 18.0 % H % (11.5-15.2) Plt Count 87 10^3/uL L 10^3/uL (150-400) MPV 11.6 fL fL (8.7-11.7) Neut % (Auto) Not Reported Lymph % (Auto) Not Reported Avery % (Auto) Not Reported Eos % (Auto) Not Reported Baso % (Auto) Not Reported Nucleat RBC Rel Count 0.0 % % (0.0-0.2) Absolute Neuts (auto) Not Reported Absolute Lymphs (auto) Not Reported Absolute Monos (auto) Not Reported Absolute Eos (auto) Not Reported Absolute Basos (auto) Not Reported Absolute Nucleated RBC 0.00 10^3/uL 10^3/uL (0-0.01) Immature Gran % Not Reported Seg Neutrophils % 12 % % Band Neutrophils % 6 % % Lymphocytes % 62 % % Monocytes % 20 % % Immature Gran # Not Reported Absolute Seg Neuts 0.27 10^/uL L 10^/uL (1.70-6.50) Absolute Band Neuts 0.14 10^3/uL 10^3/uL (0.00-0.70) Absolute Lymphocytes 1.40 10^3/uL 10^3/uL (1.00-3.00) Absolute Monocytes 0.45 10^3/uL 10^3/uL (0.30-0.80) Platelet Estimate DECREASED L (ADEQ) Polychromasia 1+ H Elliptocytes 1+ H Sodium Potassium Chloride Carbon Dioxide Anion Gap BUN Creatinine Estimated GFR Glucose Calcium Magnesium Troponin I NT-Pro-B Natriuret Pep TSH Stool Occult Bld Scrn Medications Given: Discontinued Medications Sodium Chloride (Ns) 500 mls @ 1,000 mls/hr IV ONCE ONE PRN Reason: Protocol Stop: 10/20/16 12:03 Last Admin: 10/20/16 12:02 Dose: 500 mls Magnesium Sulfate/Dextrose (Magnesium Sulf 1 Gm (Premix)) 100 mls @ 100 mls/hr IV EDNOW ONE Stop: 10/20/16 13:52 Last Admin: 10/20/16 13:05 Dose: 100 mls Potassium Chloride (Potassium Cl 10 Meq (Premix)) 100 mls @ 100 mls/hr IV EDNOW ONE Stop: 10/20/16 13:52 Last Admin: 10/20/16 13:20 Dose: 100 mls Sodium Chloride (Ns) 1,000 mls @ 0 mls/hr IV ONCE ONE; Wide Open PRN Reason: Protocol Stop: 10/20/16 13:40 Last Admin: 10/20/16 13:48 Dose: 1,000 mls Sodium Chloride (Ns) 500 mls @ 0 mls/hr IV ONCE ONE PRN Reason: Wide Open Stop: 10/20/16 14:55 Last Admin: 10/20/16 18:11 Dose: 500 mls Potassium Chloride (Potassium Chloride Oral Liquid) 20 meq PO EDNOW ONE Stop: 10/20/16 12:54 Last Admin: 10/20/16 13:20 Dose: 20 meq Potassium Chloride (Klor-Con) 40 meq PO ONCE ONE PRN Reason: Protocol Stop: 10/20/16 20:00 Last Admin: 10/20/16 21:06 Dose: 40 meq Departure - Departure Disposition: [facility] Inpatient Acute Clinical Impression: Hypokalemia Contusion of right chest wall Qualifiers: Encounter type: initial encounter Qualified Code(s): S20.211A - Contusion of right front wall of thorax, initial encounter Condition: Fair
[2016-10-20] MEDS ORDERED: POTASSIUM Cl (KCl) 100 ML IV ONE (12:53)
[2016-10-20] MEDS ORDERED: MAGNESIUM SULF 1 GM/DEXTROSE 100 ML IV ONE (12:53)
[2016-10-20] MEDS ORDERED: POTASSIUM CL 20 MEQ/15 ML UDCUP PO ONE (12:53)
[2016-10-20] MEDS ORDERED: LIDOCAINE/PRILOCAINE 1 EACH CRTUBE TP ONE (13:03)
[2016-10-20 13:39] LABS: PLATELET ESTIMATE DECREASED (ADEQ)
[2016-10-20] MEDS ORDERED: NS 1,000 ML IV ONE (13:39)
[2016-10-20 13:40] LABS: ELLIPTOCYTES 1+; POLYCHROMASIA 1+
[2016-10-20] MEDS ORDERED: PROTOCOL POTASSIUM 1 DOSE MISC PRN (14:56)
[2016-10-20] MEDS ORDERED: PROTOCOL MAGNESIUM 1 DOSE IV PRN (14:56)
[2016-10-20 15:11] LABS: MAGNESIUM 1.3 mg/dL (1.6-2.3)
--- NOTE | 2016-10-20 15:36 | GHP ---
[f rep st] HISTORY AND PHYSICAL DATE OF ADMISSION: 10/20/2016 CHIEF COMPLAINT: Weakness. HISTORY OF PRESENT ILLNESS: This is a 76-year-old female with history of breast cancer and recently diagnosed esophageal cancer, currently undergoing chemotherapy and also had an esophageal stent ara rosa 3 weeks ago. Was referred from the [facility] to the emergency department du e to weakness. The patient states that her heart rate has ranged from the 40s to 110s, over the past day. Her bloo d pressure has been low. She has been nauseous. She denies any vomiting or diarrhea. She has not been eating very much at all. She has been having some swelling of her legs and her stomach. But d enies any shortness of breath. She denies any fevers or chills. She denies palpitations. She drew es any chest pain. PAST MEDICAL HISTORY: 1. Hospitalization in June of 2016, for atrial fibrillation with RVR. 2. Chronic diastolic heart failure. 3. Hospitalizations for hypoxemic respiratory failure. 4. GERD. 5. Embolic CVA. 6. History of GI bleed. 7. Esophageal cancer. 8. Breast cancer. 9. Humeral fracture. PAST SURGICAL HISTORY: 1. Appendectomy. 2. Lumpectomy and partial mastectomy. 3. Knee surgery. 4. Cataract surgery. 5. Esophageal stenting. HOME MEDICATIONS: Were reviewed. Refer to Rad for details. ALLERGIES: No known drug allergies. SOCIAL HISTORY: She is . She denies any alcohol, tobacco, or illicit drug use. She is orig inally from [place]. FAMILY HISTORY: Significant for CVA in her father. Mother had stomach cancer. REVIEW OF SYSTEMS: A comprehensive 10-point review of systems was done and is negative, except for as mentioned in the HPI. PHYSICAL EXAMINATION: VITAL SIGNS: Blood pressure 86/67, pulse 71, respiratory rate 15, O2 saturat ion 96% on room air. Temperature afebrile. GENERAL: No acute distress. HEAD: Normocephalic, atr aumatic. EYES: PERRLA. Sclerae are anicteric. MOUTH: Moist mucous membranes. NECK: Supple. N o lymphadenopathy. CARDIOVASCULAR: S1-S2, there is no JVD. There is bilateral lower extremity pit ting edema. PULMONARY: Lungs are clear. No wheezes, rales, or rhonchi. Normal respiratory effort . ABDOMEN: Soft, mildly distended. There is no guarding or rebound tenderness. Normoactive bowel sounds. EXTREMITIES: No clubbing or cyanosis. NEUROLOGIC: Cranial nerves 2-12 grossly intact. No focal, motor or sensory deficits. SKIN: Clear no rashes. DIAGNOSTICS: WBC is 2.25, hemoglobin 9.9, hematocrit 29.9, platelets 87. Sodium 138, potassium 2.6 , chloride 102, CO2 24, BUN 12, creatinine 0.9, glucose 161. Troponin was negative. Chest x-ray, which I reviewed: Shows left basilar atelectasis versus scar. No signs of acute decom pensated heart failure. EKG, which I visualized and personally interpreted: Shows sinus rhythm, rate 78 beats per minute, n o acute ischemic changes. QTc is prolonged, with a QTcB of 506. ASSESSMENT/PLAN: This is a 76-year-old female with history of breast cancer, currently undergoing c hemotherapy for esophageal cancer and a recent esophageal stent placement presenting with: 1. Weakness likely multifactorial due to below. Plan: We will optimize nutrition status and elect rolytes. See below. 2. Hypokalemia. Plan: We will replace per protocol and check a magnesium level. 3. Reported variable heart rate, likely due to atrial fibrillation, which she has a history of. Pl an: The patient will be monitored on telemetry. Currently it does not appear that she is on antico agulation, which we will address with the patient at some point. 4. Hypotension, most likely due to hypovolemia. Plan: We will provide IV hydration. Also check a BNP to further evaluate for cardiac dysfunction as a cause of her hypotension. If she were in hear t failure, I would suspect pulmonary edema on her chest x-ray. The patient will be admitted to the hospital under inpatient status. She requests to be Full Code. /[id number]/MODL
[2016-10-20] MEDS: ACETAMINOPHEN 325 MG TAB PO PRN (19:07)
[2016-10-20] MEDS: GABAPENTIN 400 MG CAP PO SCH ×2 (19:08→21:06)
[2016-10-20 19:30] LABS: COLOR YELLOW; LEUKOCYTE ESTERASE,URINE NEGATIVE (NEGATIVE); NITRITE,URINE NEGATIVE (NEGATIVE)
[2016-10-20 19:34] LABS: AMORPHOUS PRESENT /hpf (NONE-1+); BACTERIA TRACE /hpf (NONE SEEN); MUCUS TRACE /lpf (NONE-1+); WBC,URINE 25-50 /hpf (0-3)
[2016-10-20 19:53] LABS: POTASSIUM 2.6 mEq/L (3.5-5.2)
[2016-10-20] MEDS ORDERED: POTASSIUM CL 10 MEQ TAB PO ONE (19:59)
[2016-10-20 20:22] LABS: LACGHOST ORDER
[2016-10-20] MEDS: PANTOPRAZOLE SODIUM 40 MG TAB PO SCH (21:06)
[2016-10-21 06:20] LABS: ADD DIFF? YES; ADD MORPH? NO; ATYPICAL LYMPHOCYTE FLAG 0 (0-99); FRAGMENT RBC FLAG 0 (0-99); HEMATOCRIT 24.7 % (38.0-47.0); HEMOGLOBIN 8.4 g/dL (12.6-16.3); LIPEMIA HEMOLYSIS FLAG 90 (0-99); MEAN CELL HEMOGLOBIN 29.5 pg (27.9-34.1); MEAN CELL VOLUME 86.7 fL (81.5-99.8); MEAN PLATELET VOLUME 10.3 fL (8.7-11.7); PLATELET CLUMPS FLAG 10 (0-99); PLATELET COUNT 72 10^3/uL (150-400); RED BLOOD CELL COUNT 2.85 10^6/uL (4.18-5.33); RED CELL DISTRIBUTION WIDTH 17.9 % (11.5-15.2)
[2016-10-21 06:24] LABS: ADD SCAN? NO; LEFT SHIFT FLG 300 (0-99)
[2016-10-21 06:42] LABS: ANION GAP 5 mEq/L (8-16); CALCIUM 9.2 mg/dL (8.5-10.4); CARBON DIOXIDE 25 mEq/l (22-31); CHLORIDE 112 mEq/L (97-110); CREATININE 0.7 mg/dL (0.6-1.0); GLOMERULAR FILTRATION RATE > 60; GLUCOSE 97 mg/dL (70-100); MAGNESIUM 1.6 mg/dL (1.6-2.3); SODIUM 142 mEq/L (134-144)
[2016-10-21 06:46] LABS: POTASSIUM 2.7 mEq/L (3.5-5.2)
[2016-10-21 06:52] LABS: POLYCHROMASIA 1+
[2016-10-21 06:55] LABS: ELLIPTOCYTES 1+
[2016-10-21 06:56] LABS: PLATELET ESTIMATE DECREASED (ADEQ)
[2016-10-21 06:57] LABS: ACANTHOCYTES 2+
[2016-10-21] MEDS ORDERED: POTASSIUM CL 10 MEQ TAB PO ONE (07:18)
[2016-10-21] MEDS ORDERED: MAGNESIUM SULF 1 GM/DEXTROSE 100 ML IV ONE (07:21)
[2016-10-21] MEDS: ANASTROZOLE 1 MG TAB PO SCH (08:38)
[2016-10-21] MEDS: ATORVASTATIN CALCIUM 10 MG TAB PO SCH (08:38)
[2016-10-21] MEDS: GABAPENTIN 400 MG CAP PO SCH ×3 (08:38→20:27)
[2016-10-21] MEDS: PANTOPRAZOLE SODIUM 40 MG TAB PO SCH ×2 (08:38→20:27)
[2016-10-21] MEDS: CHOLECALCIFEROL VIT D3 2,000 UNITS TAB/CAP PO SCH (08:38)
[2016-10-21] MEDS: MULTIVITAMINS 1 EACH TAB PO SCH (08:38)
[2016-10-21] MEDS: ENOXAPARIN 40 MG/0.4 ML SYR SC SCH ×2 (08:38→16:15)
--- NOTE | 2016-10-21 12:58 | HOSPPROG ---
Hospitalist Progress Note Assessment/Plan: 76 y/o female with history of esophageal cancer presenting with #weakness likely multifactorial in the setting of poor po intake/recent chemo/ electrolyte disturbance/?afib #hypokalemia #h/o afib with reported variable heart rate #resolved hypotension #neutropenia without fever #urinary retention #chronic diastolic heart failure with elevated BNP without overt acute failure Plan -cont to replace K and Mg -onc consult -cont to monitor off abx -cont to monitor on tele -dc mosqueda and monitor for urinary retention dvt-p scd's lmwh contraindicated in light of thrombocytopenia dispo:1-2 more days in house to replace electrolytes. Culture and start abx if spikes a fever Subjective: feeling stronger. does report some substernal discomfort (mild). no fever or chills Objective: Vital Signs Temp Pulse Resp BP Pulse Ox 36.5 C 97 17 105/69 95 10/21/16 12:00 10/21/16 12:00 10/21/16 12:00 10/21/16 12:00 10/21/16 12:00 Laboratory Results 10/21/16 06:10 10/21/16 06:10 10/20/16 10/21/16 10/22/16 05:59 05:59 05:59 Intake Total 2700 Output Total 1600 Balance 1100 tele reviewed NSR - Physical Exam Constitutional: no apparent distress, appears nourished, not in pain Cardiovascular: regular rate and rhythym, no murmur, rub, or gallop Respiratory: no respiratory distress, no rales or rhonchi, clear to auscultation Gastrointestinal: normoactive bowel sounds, soft, non-tender abdomen, No guarding, No rebound Neurologic: AAOx3, sensation intact bilaterally ICD10 Worksheet Patient Problems: Problems Problem Status Onset Contusion of right chest wall Acute Hypokalemia Acute Atrial fibrillation with RVR Acute Back pain Acute Gastrointestinal hemorrhage Acute Humerus fracture Acute Hypoxia Acute Nausea & vomiting Acute Pain provoked by trauma Acute Pain, neuropathic Acute
--- NOTE | 2016-10-21 13:47 | WOCRNPDOC ---
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 Clear zinc cream to area BID. Coccyx Pressure Injury Dressing Type: Open to Air Exudate Amount: None Mirta Wound Tissue: Erythema, Non-blanching, Painful/Tender Wound Bed Color: Red Site Measurement - Head-to-Toe Length X Width X Depth (cm): 0.4x0.3x0.1 Pressure Injury Stage: Stage 2 Pressure Injury Present on Admit: Yes Skin Integrity Problem Comment: Very small partial thickness opening on coccyx. Patient also has moderate incontinence associated dermatitis. Discussed need for offloading at length with patient. and RN Estephanie also present. Air cushion on seat. Will treat IAD with clear zinc cream and pressure injury with offloading. No need for a dressing. Wound care will follow next week.
[2016-10-21] MEDS: ACETAMINOPHEN 325 MG TAB PO PRN (16:08)
[2016-10-21 19:55] LABS: POTASSIUM 3.2 mEq/L (3.5-5.2)
[2016-10-22 06:31] LABS: MAGNESIUM 1.7 mg/dL (1.6-2.3); POTASSIUM 3.3 mEq/L (3.5-5.2)
[2016-10-22] MEDS: PANTOPRAZOLE SODIUM 40 MG TAB PO SCH ×2 (08:50→21:35)
[2016-10-22] MEDS: ATORVASTATIN CALCIUM 10 MG TAB PO SCH (08:50)
[2016-10-22] MEDS: MULTIVITAMINS 1 EACH TAB PO SCH (08:50)
[2016-10-22] MEDS: ACETAMINOPHEN 325 MG TAB PO PRN ×2 (08:50→21:34)
[2016-10-22] MEDS: GABAPENTIN 400 MG CAP PO SCH ×3 (08:50→21:35)
[2016-10-22] MEDS: ANASTROZOLE 1 MG TAB PO SCH (08:51)
[2016-10-22] MEDS: CHOLECALCIFEROL VIT D3 2,000 UNITS TAB/CAP PO SCH (08:51)
[2016-10-22] MEDS: POTASSIUM CL 20 MEQ TAB PO SCH (10:30)
[2016-10-22] MEDS ORDERED: POTASSIUM CL 20 MEQ TAB PO ONE (11:02)
[2016-10-22] MEDS ORDERED: MAGNESIUM SULF 1 GM/DEXTROSE 100 ML IV ONE (11:02)
[2016-10-22] MEDS ORDERED: METOPROLOL TARTRATE 5 MG/5 ML INJ IVP ONE (11:02)
[2016-10-22] MEDS: METOPROLOL TARTRATE 25 MG TAB PO SCH ×2 (11:27→21:35)
--- NOTE | 2016-10-22 13:38 | GCON ---
[f rep st] CONSULTATION NEW PATIENT CONSULT REASON FOR CONSULTATION: Patient known to Dr. Kwon, admitted with severe weakness status post fa ll. She has known metastatic esophageal adenocarcinoma. 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 She h as been on FOLFOX and received cycle 10 on 10/07/2016. Unfortunately, the CT chest, abdomen, and pe lvis on 09/30 shows progression of disease. She recently saw Dr. Kwon on 10/14/2016, and upper e ndoscopy earlier that week revealed constricting fungating lesion in the lower esophagus, and a sten t was placed. During the procedure she went atrial fibrillation. Apparently this was an issue for her in previous years. On 10/20, she presented with weakness status post fall. Her blood pressure had recently been low, and she had not been eating very much overall. She denied any shortness of b reath, fevers, or chills. Denied palpitations. Since being admitted, weakness deemed multifactoria l due to electrolyte abnormalities, specifically hypokalemia. In addition, she has been in atrial f ibrillation with RVR. Her hypotension has resolved, and her blood counts have been essentially stab le. She has no evidence of infection. REVIEW OF SYSTEMS: As per HPI. Otherwise, negative. PAST MEDICAL HISTORY: 1. Breast cancer 2013, stage IA. 2. Esophageal cancer as described above. 3. Polyclonal gammopathy. 4. Hyperparathyroidism primary. 5. Osteopenia. 6. Hypertension. 7. Hypercalcemia. FAMILY HISTORY: Noncontributory. MEDS: Reviewed in [facility]. ALLERGIES: Reviewed in [employer]. PHYSICAL EXAM: VITAL SIGNS: Blood pressure 106/86, heart rate 146, she is irregularly irregular, r espiratory rate 20, saturating 93% on room air, 36.7 is her temp. GENERAL: Elderly woman, fatigued , but not in acute distress. HEENT: Anicteric. Oropharynx is clear. HEART: Irregularly irregula r. LUNGS: Clear to auscultation. ABDOMEN: Soft. No significant tenderness with epigastric palpa tion. Lower extremity chronic edema no change. LABS: There are no labs today other than potassium that is 3.3. Her most recent CBC yesterday show s a white blood cell count of 2.4, absolute neutrophil count of 640, hemoglobin 8.4, hematocrit 24.7 , platelet count of 72. Imaging includes a try a chest x-ray, which shows no acute change. ASSESSMENT AND PLAN: A 76-year-old woman with stage IV distal esophageal cancer with recent progres jessica, admitted for weakness status post a fall. 1. Weakness deemed multifactorial in the setting of poor p.o. intake and electrolyte abnormalities. May be related to atrial fibrillation with rapid ventricular response as well. Electrolytes have been replaced. Appreciate Internal Medicine help with blood pressure, etc. She is doing much nikole r from this standpoint. Consider PT/OT eval as an outpatient. I agree that she can probably be dis charged very soon. 2. Esophageal cancer with recent identification of constricting fungal lesions in lower esophagus o n upper endoscopy. She has progressed based on most recent CT chest, abdomen, pelvis on 09/30/2016. FOLFOX will be discontinued, and plan at this time would be to radiate the site of the primary, an d consider future therapy depending on how she does. 3. Other internal medicine issues. Continue current plan, and we will follow along. Agree that th e blood thinners are contraindicated due to thrombocytopenia, and the area of malignancy that may ca use more bleeding issues. She does have a history of GI bleed. /[id number]/MODL
--- NOTE | 2016-10-22 18:51 | HOSPPROG ---
Hospitalist Progress Note Assessment/Plan: assessment: 76-year-old female presents with acute generalized weakness in the setting of hypotension, severe hypokalemia, complicated by paroxysmal atrial fibrillation Plan: 1. Generalized weakness. Multifactorial, secondary to a combination of hypotension as well as hypovolemia and potentially concomitant atrial fibrillation -get PT and OT evaluations determine whether she is safe for home 2. hypotension. Resulting in acute metabolic acidosis secondary to lactic acid with an initial value of 3.4, most likely secondary to poor oral intake and GI losses prior to this presentation -respond to the IV fluids -continue to encourage oral intake 3. Severe hypokalemia. Secondary to poor oral intake, levels 2.6, resulting in generalized weakness and fall -responded to IV protocol, adjust to 60 mEq of oral dosing today as well as 1 g of IV magnesium, recheck in a.m. 4. atelectasis. Present on chest x-ray, personally interpreted, secondary to immobility, incentive spirometer 5. Chronic diastolic congestive heart failure. No evidence of acute exacerbation, reviewed outside record 06/26/2016 echo demonstrating diastolic dysfunction, no focal wall motion abnormalities, ejection fraction 70-75%, normal right ventricle, normal bowel -monitor for any evidence of volume overload 6. Paroxysmal atrial fibrillation. Asymptomatic with a rate in the 150s, no hemodynamic compromise -give 5 mg of IV metoprolol now to immediately slow rate, reinitiate home dosage of oral metoprolol 25 mg twice daily -most likely exacerbated by holding her home dosage of metoprolol in the setting of the hypotension -holding on systemic anticoagulation given that she has experienced GI bleed in the setting of her malignancy 7. Esophageal cancer. Appreciate oncology consultation by Dr. Blue 8. Pancytopenia due to chemotherapy. Monitoring CBC Diet. regular Prophylaxis. High risk patient, Lovenox 40 Code. Full Disposition. Anticipated discharge 10/23, pending improvement in potassium level as noted above The patient is high complexity patient, high risk of worsening morbidity with acute AFib RVR presenting during today's evaluation. Subjective: Patient reports that she does not sense her AFib RVR, she is dissatisfied with the taste food Objective: Vital Signs Temp Pulse Resp BP Pulse Ox 36.7 C 120 H 15 134/88 H 92 10/22/16 16:00 10/22/16 16:00 10/22/16 16:00 10/22/16 16:00 10/22/16 16:00 Laboratory Results 10/21/16 06:10 10/22/16 05:50 10/21/16 10/22/16 10/23/16 05:59 05:59 05:59 Intake Total 2700 980 350 Output Total 1600 1050 350 Balance 1100 -70 0 - Pending Discharge Pending Discharge Within 24 Hours: Yes Pending Discharge Date: 10/23/16 Pending Discharge Time: 11:00 - Physical Exam Constitutional: no apparent distress, not in pain, chronically ill appearing, No uncomfortable Cardiovascular: irregularly irregular, tachycardia, No systolic murmur, No edema Respiratory: inspiratory crackles ( base left), No reduced air movement, No expiratory wheeze, No bronchial breath sounds Gastrointestinal: normoactive bowel sounds, soft, non-tender abdomen, no palpable masses Skin: other ( bruises on left thoracic back) Musculoskeletal: other ( tenderness over the thoracic spine, kyphotic deformity , possible tenderness over the right rib) Neurologic: AAOx3, No weakness, No facial droop Psychiatric: interacting appropriately, not anxious, not encephalopathic, thought process linear ICD10 Worksheet Patient Problems: Problems Problem Status Onset Contusion of right chest wall Acute Hypokalemia Acute Atrial fibrillation with RVR Acute Back pain Acute Gastrointestinal hemorrhage Acute Humerus fracture Acute Hypoxia Acute Nausea & vomiting Acute Pain provoked by trauma Acute Pain, neuropathic Acute
[2016-10-22] MEDS ORDERED: PATCH REMOVAL 1 EA PATCH TD SCH (21:00)
[2016-10-22] MEDS: LIDOCAINE 5% 1 EA PATCH TD SCH (21:31)
[2016-10-23 05:11] LABS: HEMATOCRIT 27.8 % (38.0-47.0); HEMOGLOBIN 9.1 g/dL (12.6-16.3); MEAN CELL HEMOGLOBIN 29.2 pg (27.9-34.1); MEAN CELL HEMOGLOBIN CONCENTR. 32.7 g/dL (32.4-36.7); MEAN CELL VOLUME 89.1 fL (81.5-99.8); RED BLOOD CELL COUNT 3.12 10^6/uL (4.18-5.33); RED CELL DISTRIBUTION WIDTH 19.3 % (11.5-15.2)
[2016-10-23 05:29] LABS: ANION GAP 7 mEq/L (8-16); CALCIUM 9.7 mg/dL (8.5-10.4); CARBON DIOXIDE 24 mEq/l (22-31); CHLORIDE 112 mEq/L (97-110); CREATININE 0.7 mg/dL (0.6-1.0); GLOMERULAR FILTRATION RATE > 60; GLUCOSE 95 mg/dL (70-100); MAGNESIUM 1.7 mg/dL (1.6-2.3); POTASSIUM 3.7 mEq/L (3.5-5.2); SODIUM 143 mEq/L (134-144)
[2016-10-23 07:10] VITALS: TEMP 97.7
[2016-10-23] MEDS ORDERED: METOPROLOL TARTRATE 25 MG TAB PO SCH (08:37)
[2016-10-23] MEDS ORDERED: MAGNESIUM SULF 1 GM/DEXTROSE 100 ML IV ONE (08:38)
[2016-10-23] MEDS: PANTOPRAZOLE SODIUM 40 MG TAB PO SCH (08:59)
[2016-10-23] MEDS: ATORVASTATIN CALCIUM 10 MG TAB PO SCH (08:59)
[2016-10-23] MEDS: MULTIVITAMINS 1 EACH TAB PO SCH (08:59)
[2016-10-23] MEDS: ANASTROZOLE 1 MG TAB PO SCH (08:59)
[2016-10-23] MEDS: CHOLECALCIFEROL VIT D3 2,000 UNITS TAB/CAP PO SCH (08:59)
[2016-10-23] MEDS: GABAPENTIN 400 MG CAP PO SCH (09:01)
[2016-10-23] MEDS: LIDOCAINE 5% 1 EA PATCH TD SCH (09:01)
[2016-10-23] MEDS: POTASSIUM CL 20 MEQ TAB PO SCH (09:30)
[2016-10-23] MEDS: POTASSIUM CL 20 MEQ TAB PO ONE ×2 (09:30→11:10)
[2016-10-23] MEDS ORDERED: ONDANSETRON DISINTEGRATING 4 MG TAB PO PRN (10:53)
[2016-10-23] MEDS: POTASSIUM Cl (KCl) 100 ML IV SCH ×3 (11:03→13:12)
[2016-10-23 11:25] VITALS: BP 100/75; PULSE 108; RESP 20; O2SAT 93
--- NOTE | 2016-10-23 13:15 | PDIAF ---
- Diagnosis Diagnosis: Hypokalemia, Hypotension, Afib RVR, Esophageal Malignancy Code Status: Full Code - Medication Management Discharge Medications: Medications to Continue on Transfer Cholecalciferol Vit D3 [Vitamin D3 (*)] 5,000 units PO DAILY 06/28/16 [Last Taken 10/20/16] Anastrozole [Arimidex 1 mg (*)] 1 mg PO DAILY #30 tab 07/06/16 [Last Taken 10/20] Atorvastatin Calcium [Lipitor 10 mg (*)] 10 mg PO DAILY #30 tab 07/06/16 [Last Taken 10/20/16] Gabapentin [Neurontin 400 MG (*)] 400 mg PO TID #90 cap 07/06/16 [Last Taken ] Pantoprazole Sodium [Protonix 40mg (*)] 40 mg PO BID #60 tab 07/06/16 [Last Taken 10/20/16] Potassium Cl [Klor-Con 20 meq (*)] 20 meq PO DAILY #30 tab 07/06/16 [Last Taken 10/20/16] Multivitamins [Multivitamin (*)] 1 each PO DAILY 10/10/16 [Last Taken 10/20/16] Acetaminophen [Tylenol 325mg (*)] 650 mg PO Q6 PRN #0 tab 10/23/16 [Last Taken Unknown] Lidocaine 5% [Lidoderm 5% Patch (*)] 1 ea TD DAILY patch 10/23/16 [Last Taken Unknown] Metoprolol Tartrate [Lopressor 25 mg (*)] 50 mg PO BID tab 10/23/16 [Last Taken Unknown] Ondansetron Odt [Zofran Odt 4 mg (*)] 4 mg PO Q4HRS PRN #0 tab 10/23/16 [Last Taken Unknown] Patch Removal 1 ea TD DAILY21 patch 10/23/16 [Last Taken Unknown] Custodial Antibiotics: NA Discharge Medications: Refer to the Discharge Home Medication list for PRN reason. PICC Care - Routine: N/A - Orders Services needed: Registered Nurse, Certified Dicer Operator, Physical Therapy Oxygen: NA Diet Recommendation: no restrictions on diet Weigh Patient: weekly Flores: Not applicable Wound Care Instructions: You have a very small stage 2 pressure injury (also known as a bedsore) on your tailbone (coccyx). To help heal this wound and avoid further injury please do the followin.Reposition yourself frequently , at least every 15 minutes when sitting. We recommend sitting on an air cushion. Please never use a doughnut. 2.When youre in bed, try to rest on your side as much as possible, and change position every two hours (for example , turn or tilt from your right side toward your left).~ If you sleep on a sleep number or medical bed, keep the head of the bed below 30 degrees and keep all pressure off your low back for at least 5 minutes at least every two hours.~. 3.As needed, you may use Calazime, dimethicone moisture barrier cream , clear zinc cream, or any [id number] diaper rash cream to help prevent or treat a moisture-related rash to your bottom area and buttocks. Please contact [facility] for an appointment, at [phone] , If your wounds re/open or dont improve, or if you have any further questions or concerns. Activity/Weight Bearing Restrictions: as tolerates - Labs/Radiology BMP Date: 10/28/16 CBC Date: 10/28/16 Call or Fax Lab and Imaging Results to: Drs. Kwon and Greyson - Follow Up Care Current Providers and Referrals: Vicente Yadav MD [Primary Care Provider] - As per Instructions Mike Kwon MD [Medical Doctor] - 3-5 days Paulo Rubi MD [Medical Doctor] - 10/24/16 11:00 am (Please call [facility] 10/24 morning after 8:30 a.m. and inquire as to the exact time and provider for your appointment, which is at 11 a.m.)
--- NOTE | 2016-10-23 13:24 | PDDCSUM ---
Discharge Summary Discharge Summary: DISCHARGE SUMMARY FOLLOW-UP ITEMS: Creatinine BUN lytes and CBC on 10/28 DATE OF ADMISSION: 10/20/16 DATE OF DISCHARGE: 10/23/2016 DISCHARGE DIAGNOSES: 1. Generalized weakness 2. Acute hypotension 3. Severe hypokalemia 4. Atelectasis 5. Chronic diastolic congestive heart failure 6. Paroxysmal atrial fibrillation 7. Esophageal cancer 8. Pancytopenia due to chemotherapy 9. Pressure injury present on admission 10. Acute metabolic acidosis CONSULTATIONS: Wound care, oncology PROCEDURES / IMAGING: None CHIEF COMPLAINT: Generalized weakness SUBJECTIVE: Patient is feeling well at time of discharge, she would like to go to rehab PHYSICAL EXAM ON DISCHARGE: Systolic blood pressure is 120, heart rate 95, satting well on room air, trace lower extremity edema, lungs are clear to auscultation bilaterally without any crackles, she has a kyphotic spine with no tenderness to palpation over the thoracic spine, pulses are present LABS ON DISCHARGE: Potassium 3.7, magnesium 1.7, creatinine 0.7, white blood cell count 6500, hemoglobin 9.1, platelets [id number] HOSPITAL COURSE BY PROBLEM: 1. Generalized weakness. Multifactorial, presenting symptom, secondary to a combination of hypotension as well as hypovolemia and intermittent atrial fibrillation. Physical and occupational therapy felt like she was unsafe for home and she will receive rehab at [facility]. 2. Acute hypotension. Resulting in acute metabolic acidosis secondary to lactic acid with initial value of 3.4, secondary to poor oral intake as well as GI losses prior to presentation. She received IV fluids and her hypotension resolved. Her home antihypertensives were initially held and losartan will continue to be held at time of discharge. Beta-rocky has been up titrated which will be further discussed below. 3. Severe hypokalemia. Secondary to poor oral intake with potassium level of 2.6 on presentation, resulting in generalized weakness and fall. She responded to the IV protocol and has been stabilized on oral supplemental potassium prior to discharge. The oral potassium does seem to make her nauseous so she does have antiemetics available as needed. 4. Atelectasis. Present on chest x-ray, secondary to immobility, incentive spirometer with patient. 5. Chronic diastolic congestive heart failure. No evidence of acute exacerbation, has diastolic dysfunction on echocardiogram from June 2016. She has been continued on a beta-rocky with blood pressure management. 6. Paroxysmal atrial fibrillation. Patient has been asymptomatic with rates in the 150s and no hemodynamic compromise. Is unclear whether her paroxysmal atrial fibrillation played any role in her presenting symptoms of generalized weakness. I think that is relatively unlikely given that her acute rapid ventricular response not seem to provoke any sensation of lightheadedness, palpitations, weakness. It seems more likely that her acute rapid ventricular response was provoked by holding her home dosage of metoprolol which was initially held secondary to her presenting hypotension. She was re-initiated on her home dosage of 25 mg twice daily and her heart rate was suboptimally controlled. Consequently she has been placed on 50 mg of twice daily metoprolol and she will follow up with [facility] tomorrow. I reviewed her outside records from June 2016 at which time there was extensive conversation regarding whether not the patient should receive cardioversion. At that time, it was decided that she should not receive cardioversion given that she has esophageal cancer and she would be at risk for rupturing her esophagus if she experienced a transesophageal echocardiogram with DC cardioversion. Additionally, the patient is highly averse to systemic anticoagulation, as she experienced a GI bleed and anemia in the setting of Eliquis. Consequently, systemic anticoagulation had been discontinued for this patient when she received a heparin bridge during the June hospitalization, she had a subsequent bleed and anemia, requiring transfusion. Therefore, the patient is not being placed on a systemic anticoagulation and she is also not receiving any aspirin therapy for CVA prevention given her bleed risk. This can be discussed with the patient moving forward 3 [facility] as well. 7. Esophageal cancer. Dr. Blue saw the patient from Oncology, she reported 10 cycles of FOLFOX, with plans for XRT moving forward. The patient has had ongoing nausea and vomiting, which may be related to blood/mucus produced by her lower esophageal fungating mass, which was stented via EGD 10/14/16. As there are no malignant particles/solid tumor emesis, and she appears to be able to swallow solids/liquids, no EGD has been performed during this hospitalization. That said, if anti-emetics are unable to control symptoms, or she is evolving into a situation where she cannot swallow, then repeat EGD will be required, vs. pursuing a more palliative route. 8. Pancytopenia due to chemotherapy. Patient's CBC remained stable during this hospitalization, did not require any transfusions. DISCHARGE MEDICATIONS: Please see official discharge medication reconciliation sheet in chart , metoprolol tartrate 50 mg twice daily, discontinuation of losartan, continuation of potassium supplement 20 mEq daily, zofran PRN, lidoderm PRN. DISCHARGE INSTRUCTIONS: Patient should follow up at [facility] tomorrow and then please schedule with Dr. Kwon later this week. An outpatient palliative consultation arranged through [facility] would be very appropriate. TIME SPENT: Greater than 30 minutes were spent on direct patient care, as well as discharge planning and preparation.
== END 2016-10-23 14:55 | DRG 947 ==
LOC: F2W 15:17
PROVIDERS: ADMIT Family Medicine; ATTEND Family Medicine
DX: R53.1 Weakness (principal); E87.6 Hypokalemia; I95.9 Hypotension, unspecified; I48.0 Paroxysmal atrial fibrillation; D61.810 Antineoplastic chemotherapy induced pancytopenia; E87.2 Acidosis; L89.152 Pressure ulcer of sacral region, stage 2; E21.3 Hyperparathyroidism, unspecified; I10 Essential (primary) hypertension; I50.32 Chronic diastolic (congestive) heart failure; Z86.73 Personal history of transient ischemic attack (TIA), and cerebral infarction without residual deficits; Z85.3 Personal history of malignant neoplasm of breast; Z85.01 Personal history of malignant neoplasm of esophagus
CPT/HCPCS: 96365; 97110-GP; 97116-GP; 97161-GP; 97166-GO; 97530-GO; G8978-GP-CK; G8979-GP-CI; G8987-GO-CK; G8988-GO-CJ; J1642; J1650; J3475

== ENCOUNTER 2016-12-06 15:19 | Inpatient (IN) | payer OTHER ==
--- NOTE | 2016-12-06 15:56 | CPEKG ---
Heart Rate: 112 RR Interval: 536 QRSD Interval: 110 QT Interval: 304 QTC Interval: 415 QRS [place]: -10 T Wave [place]: 195 EKG Severity - ABNORMAL ECG - EKG Impression: ATRIAL FIBRILLATION EKG Impression: NONSPECIFIC INTRAVENTRICULAR CONDUCTION DELAY Electronically Signed By: Francisco Boyd 06-Dec-2016 17:31:57
[2016-12-06] MEDS ORDERED: NS 2,400 ML IV ONE (16:15)
[2016-12-06] MEDS ORDERED: NS 1,000 ML IV ONE (16:15)
[2016-12-06 16:21] LABS: % IMMATURE GRANULYOCYTES 1.3 % (0.0-1.1); ABSOLUTE IMMATURE GRANULOCYTES 0.16 10^3/uL (0.00-0.10); ADD DIFF? NO; ADD MORPH? NO; ADD SCAN? NO; ATYPICAL LYMPHOCYTE FLAG 0 (0-99); FRAGMENT RBC FLAG 0 (0-99); HEMATOCRIT 25.7 % (38.0-47.0); HEMOGLOBIN 7.8 g/dL (12.6-16.3); LEFT SHIFT FLG 40 (0-99); LIPEMIA HEMOLYSIS FLAG 80 (0-99); MEAN CELL HEMOGLOBIN 30.5 pg (27.9-34.1); MEAN CELL HEMOGLOBIN CONCENTR. 30.4 g/dL (32.4-36.7); MEAN CELL VOLUME 100.4 fL (81.5-99.8); MEAN PLATELET VOLUME 10.7 fL (8.7-11.7); PLATELET CLUMPS FLAG 0 (0-99); PLATELET COUNT 141 10^3/uL (150-400); RED BLOOD CELL COUNT 2.56 10^6/uL (4.18-5.33); RED CELL DISTRIBUTION WIDTH 17.9 % (11.5-15.2)
--- NOTE | 2016-12-06 16:22 | EDPHY ---
H & P Stated Complaint: HYPOTENSION/WEAKNESS/EDEMA Time Seen by Provider: 12/06/16 16:01 HPI/ROS: CHIEF COMPLAINT: Hypotension, general weakness HISTORY OF PRESENT ILLNESS: The patient is a 76-year-old female who comes to the emergency department complaining of generalized weakness and hypotension as well as lower extremity edema. She was seen here a month and a half ago for the same. At that time she was hydrated and her acidosis and hypokalemia was corrected and her symptoms improved. She also has intermittent atrial fibrillation on metoprolol.. She is not on an anticoagulant because her history of GI bleed and she is opposed to restarting it. The he she has metoprolol listed on her medications list but no diuretic. is unsure what medication she is currently taking. She does have a history of CHF but no shortness of breath at this time. She also has a decubitus ulcer stage II that is been treated with creams at home. No fever. She denies any GI bleeding. REVIEW OF SYSTEMS: Constitutional: See HPI EENTM: denies: blurred vision, double vision, nose congestion Respiratory: denies: cough, shortness of breath Cardiac: denies: chest pain, irregular heart rate, lightheadedness, palpitations Gastrointestinal/Abdominal: denies: abdominal pain, diarrhea, nausea, vomiting, blood streaked stools Genitourinary: denies: dysuria, frequency, hematuria, pain Musculoskeletal: denies: joint pain, muscle pain Skin: See HPI Neurological: denies: headache, numbness, paresthesia, tingling, dizziness, weakness Hematologic/Lymphatic: denies: blood clots, easy bleeding, easy bruising Immunologic/allergic: denies: HIV/AIDS, transplant EXAM: GENERAL: Obese, weak, talkative HEAD: Atraumatic, normocephalic. EYES: Pupils equal round and reactive to light, extraocular movements intact, sclera anicteric, conjunctiva are normal. ENT: TMs normal, nares patent, oropharynx clear without exudates. Moist mucous membranes. NECK: Normal range of motion, supple without lymphadenopathy or JVD. LUNGS: Breath sounds clear to auscultation bilaterally and equal. No wheezes rales or rhonchi. HEART: Regular rate and rhythm without murmurs, rubs or gallops. ABDOMEN: Soft, nontender, normoactive bowel sounds. No guarding, no rebound. No masses appreciated. BACK: Stage I to 2 decubitus visible. Mild erythema no discharge or warmth. No CVA tenderness, no spinal tenderness, step-offs or deformities EXTREMITIES: Bilateral 2+ pitting edema, NEUROLOGICAL: Cranial nerves II through XII grossly intact. Normal speech, normal gait. 5/5 strength, normal movement in all extremities, normal sensation PSYCH: Normal mood, normal affect. SKIN: Warm, dry, normal turgor, no visible rashes or lesions. 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 - Social History Smoking Status: Never smoked Alcohol Use: Sober Drug Use: None Constitutional: Initial Vital Signs Temperature (C) 36.5 C 12/06/16 15:35 Heart Rate 100 12/06/16 15:35 Respiratory Rate 20 12/06/16 15:35 Blood Pressure 73/39 L 12/06/16 15:35 O2 Sat (%) 94 12/06/16 15:35 O2 Delivery Mode Room Air Allergies/Adverse Reactions: No Known Allergies Allergy (Verified 12/06/16 15:34) Home Medications: Medication Instructions Recorded Cholecalciferol Vit D3 [Vitamin D3 5,000 units PO DAILY 06/28/16 (*)] Anastrozole [Arimidex 1 mg (*)] 1 mg PO DAILY #30 tab 07/06/16 Atorvastatin Calcium [Lipitor 10 10 mg PO DAILY #30 tab 07/06/16 mg (*)] Gabapentin [Neurontin 400 MG (*)] 400 mg PO TID #90 cap 07/06/16 Potassium Cl [Klor-Con 20 meq (*)] 20 meq PO DAILY #30 tab 07/06/16 Multivitamins [Multivitamin (*)] 1 each PO DAILY 10/10/16 Acetaminophen [Tylenol 325mg (*)] 650 mg PO Q6 PRN #0 tab 10/23/16 Metoprolol Tartrate [Lopressor 25 50 mg PO BID tab 10/23/16 mg (*)] Aspirin EC [Aspirin EC 81 mg (*)] 81 mg PO DAILY 12/06/16 Furosemide [Lasix 40 MG (*)] 40 mg PO DAILY 12/06/16 Losartan Potassium [Cozaar] 100 mg PO DAILY 12/06/16 Magnesium Citrate [Magnesium 150 ml PO DAILY PRN 12/06/16 Citrate 300 ml (*)] Pantoprazole Sodium [Protonix 40mg 40 mg PO DAILY 12/06/16 (*)] Prochlorperazine Maleate 10 mg PO Q6H PRN 12/06/16 [Compazine 10mg (*)] Propafenone HCl [Rythmol 150mg (*)] 150 mg PO Q8H 12/06/16 Sennosides/Docusate Sodium 1 each PO DAILY PRN 12/06/16 [Senna-S Tablet] oxyCODONE IR [Oxycodone Ir (*)] 5 mg PO Q3H PRN 12/06/16 Medical Decision Making Procedures: Arterial line placed in right wrist with ultrasound guidance by me. Patient tolerated well. Blood pressure correlates. Procedure: Ultrasound guidance: Using the linear probe covered in a sterile sheath, a short axis of the vein was obtained. The vein was completely compressible and was identified as separate from the adjacent non-compressible arterial structure. Under real-time guidance, the introducer needle was observed up to the vein, and then punctured it. These images were saved on the database. Central line placement: The indication for the procedure was hypotension, sepsis. After verbal informed consent from patient; the risks were explained including bleeding, infection, and collapsed lung. Maximal sterile barrier technique was uses including cap, gown, sterile gloves, large sheet, hand washing and chlorhexidine prep. The area anesthetized with 1% lidocaine. The right IJ was punctured with a 19 gauge finder needle, then a wire introducer was placed, a triple-lumen was placed using Seldinger technique. There were no complications. Blood return low pressure, dark blood. The patient tolerated procedure well. CXR results: Good place an as interpreted by myself. Radiologist interpretation is pending. The procedure was performed by myself. ED Course/Re-evaluation: As I prepared to set up for central line the patient's blood pressure seems to be responding to IV fluids. Her MAP is currently 67. We will continue to hydrate and observe. I will place a art line because I am not sure we getting accurate measurements of the blood pressure cuff. I placed art line in her left wrist. Her map greater than 65. She is responding to fluids. At this time will hold off placing central line. Her hematocrit is low but similar to previous. Lactate was not drawn initially and being drawn now. 5:30 p.m. I discussed the case with Dr. Luisa Philippe who will admit to the ICU. The patient's blood pressure dropped again after IV fluids completed. Central line placed and pressors ordered. Differential Diagnosis: Partial list of the Differential diagnosis considered include but were not limited to; adrenal insufficiency, dehydration, hypotension, sepsis, pneumonia , cellulitis and although unlikely based on the history and physical exam, I also considered electrolyte abnormality, GI bleed. Critical Care Time: Critical care time spent by me, Dr. Boyd exclusive with this patient was 45 minutes, exclusive of the PA time exclusive of procedures. The organ system that was at risk was cardiovascular and I gave IV fluids, antibiotics, pressors , central line, art line for consultation to prevent worsening of the patient's condition - Data Points Laboratory Results: Laboratory Results 12/06/16 16:00 12/06/16 16:00 Microbiology Results: MICROBIOLOGY 12/06/16 11:00 Sputum, Expectorated - Final Medications Given: Anastrozole (Arimidex) 1 mg PO DAILY NELL Stop: 06/05/17 08:59 Last Admin: 12/07/16 09:05 Dose: 1 mg Atorvastatin Calcium (Lipitor) 10 mg PO DAILY NELL Stop: 06/05/17 08:59 Last Admin: 12/07/16 09:04 Dose: 10 mg Digoxin (Lanoxin) 125 mcg PO DAILY10 NELL Stop: 06/05/17 16:44 Last Admin: 12/07/16 17:01 Dose: 125 mcg Enoxaparin Sodium (Lovenox) 40 mg SC DAILY NELL Stop: 06/05/17 08:59 Last Admin: 12/07/16 09:10 Dose: 40 mg Gabapentin (Neurontin) 400 mg PO TID NELL Stop: 06/04/17 21:59 Last Admin: 12/07/16 15:46 Dose: 400 mg Hydromorphone HCl (Dilaudid) 0.2 - 0.4 mg IVP Q4HRS PRN PRN Reason: Pain, Severe Unable to Take PO Stop: 12/16/16 18:13 Last Admin: 12/07/16 05:19 Dose: 0.4 mg Norepinephrine/Sodium Chloride (Norepinephrine 8 Mcg/Ml (Premix)) 500 mls @ 0 mls/hr IV CONT NELL; Titrate PRN Reason: Protocol Stop: 06/04/17 18:29 Last Admin: 12/07/16 13:30 Dose: 500 mls Potassium Chloride/Sodium Chloride (Ns W/ 20 Kcl/L) 1,000 mls @ 125 mls/hr IV CONT NELL Stop: 06/04/17 18:14 Last Admin: 12/07/16 13:27 Dose: 1,000 mls Vancomycin/Sodium Chloride (Vancomycin 1 Gm (Premix)) 250 mls @ 250 mls/hr IV Q24H NELL Stop: 01/05/17 19:29 Last Admin: 12/07/16 00:13 Dose: 250 mls Cefepime HCl 2 gm/ Dextrose 100 mls @ 200 mls/hr IV Q8 NELL Stop: 01/06/17 13:59 Last Admin: 12/07/16 13:28 Dose: 100 mls Albumin Human (Flexbumin 25 % (Premix)) 100 mls @ 0 mls/hr IV BID NELL PRN Reason: As Directed Stop: 06/05/17 11:29 Last Admin: 12/07/16 11:21 Dose: 100 mls Potassium Chloride (Klor-Con) 20 meq PO DAILY [facility] Stop: 06/04/17 19:44 Last Admin: 12/07/16 09:05 Dose: 20 meq Discontinued Medications Aspirin Buffered (Aspirin Ec) 81 mg PO DAILY [facility] Stop: 06/05/17 08:59 Last Admin: 12/07/16 09:06 Dose: 81 mg Digoxin (Lanoxin) 125 mcg PO ONCE ONE Stop: 12/06/16 19:31 Last Admin: 12/07/16 00:11 Dose: Not Given Sodium Chloride (Ns) 1,000 mls @ 0 mls/hr IV EDNOW ONE; Wide Open PRN Reason: Protocol Stop: 12/06/16 16:16 Last Admin: 12/06/16 17:11 Dose: Not Given Sodium Chloride (Ns) 2,400 mls @ 4,800 mls/hr 30 ml/kg infuse over 30 min ( 2400 ml) IV EDNOW ONE PRN Reason: Protocol Stop: 12/06/16 16:44 Last Admin: 12/06/16 16:15 Dose: 2,400 mls Levofloxacin/Dextrose (Levaquin 750 Mg (Premix)) 150 mls @ 100 mls/hr IV EDNOW ONE PRN Reason: Protocol Stop: 12/06/16 18:56 Last Admin: 12/06/16 18:09 Dose: 150 mls Ceftriaxone Sodium/Dextrose (Rocephin 1 Gm (Premix)) 50 mls @ 100 mls/hr IV EDNOW ONE PRN Reason: Protocol Stop: 12/06/16 17:59 Last Admin: 12/06/16 17:46 Dose: 50 mls Norepinephrine/Sodium Chloride (Norepinephrine 8 Mcg/Ml (Premix)) 500 mls @ 0 mls/hr IV EDNOW ONE; Per Protocol PRN Reason: Protocol Stop: 12/06/16 18:13 Last Admin: 12/07/16 00:12 Dose: 500 mls Meropenem 1 gm/ Sodium (Chloride) 120 mls @ 120 mls/hr IV Q12H NELL PRN Reason: Protocol Stop: 01/05/17 18:59 Last Admin: 12/07/16 09:06 Dose: 120 mls Cefepime HCl 2 gm/ Dextrose 100 mls @ 200 mls/hr IV Q8HRS NELL PRN Reason: Protocol Stop: 01/06/17 10:59 Last Admin: 12/07/16 11:10 Dose: Not Given Albumin Human (Flexbumin 25 % (Premix)) 200 mls @ 0 mls/hr IV ONCE ONE PRN Reason: As Directed Stop: 12/07/16 15:13 Last Admin: 12/07/16 16:12 Dose: Not Given Pantoprazole Sodium (Protonix) 40 mg PO DAILY [facility] Stop: 06/05/17 08:59 Last Admin: 12/07/16 09:07 Dose: 40 mg Potassium Chloride (Potassium Chloride Oral Liquid) 20 meq PO ONCE ONE Stop: 12/07/16 10:53 Last Admin: 12/07/16 11:19 Dose: 20 meq Propafenone HCl (Rythmol) 150 mg PO Q8HRS NELL Stop: 06/04/17 21:59 Last Admin: 12/07/16 13:29 Dose: 150 mg Departure - Departure Disposition: [facility] Inpatient Acute Clinical Impression: Hypotension Qualifiers: Hypotension type: unspecified hypotension type Qualified Code(s): I95.9 - Hypotension, unspecified Atrial fibrillation Qualifiers: Atrial fibrillation type: paroxysmal Qualified Code(s): I48.0 - Paroxysmal atrial fibrillation Sepsis Qualifiers: Sepsis type: sepsis due to unspecified organism Qualified Code(s): A41.9 - Sepsis, unspecified organism Condition: Critical
[2016-12-06 16:42] LABS: INR 1.28 (0.83-1.16)
[2016-12-06 16:46] LABS: ANION GAP 8 mEq/L (8-16); BILIRUBIN,TOTAL 0.6 mg/dL (0.1-1.4); CARBON DIOXIDE 23 mEq/l (22-31); CHLORIDE 101 mEq/L (97-110); CREATININE 1.1 mg/dL (0.6-1.0); GLOMERULAR FILTRATION RATE 48; GLUCOSE 109 mg/dL (70-100); POTASSIUM 3.3 mEq/L (3.5-5.2); SODIUM 132 mEq/L (134-144)
[2016-12-06 17:37] LABS: APTT > 250.0 SEC (23.0-38.0)
[2016-12-06] MEDS ORDERED: NOREPINEPHRINE/NS 500 ML IV ONE (18:12)
[2016-12-06] MEDS ORDERED: ACETAMINOPHEN 325 MG TAB PO PRN (18:14)
[2016-12-06] MEDS ORDERED: NS W/ 20 KCl/L 1,000 ML IV SCH (18:15)
[2016-12-06 18:27] LABS: LACGHOST ORDER
[2016-12-06] MEDS ORDERED: PHENYLEPHRINE HCL 50 MG in D5W 250 ML IV SCH (18:30)
[2016-12-06] MEDS ORDERED: DOBUTamine/DEXTROSE 250 ML IV SCH (18:30)
[2016-12-06] MEDS ORDERED: VASOPRESSIN/DEXTROSE 250 ML IV SCH (18:30)
[2016-12-06 19:02] LABS: ALANINE AMINOTRANSFERASE 46 IU/L (9-52); ALBUMIN 2.1 g/dL (3.5-5.0); ALKALINE PHOSPHATASE 175 IU/L (38-126); ASPARTATE AMINOTRANSFERASE 215 IU/L (14-46); BILIRUBIN,TOTAL 0.6 mg/dL (0.1-1.4); BILIRUBIN-CONJUGATED 0.5 mg/dL (0.0-0.5); BILIRUBIN-UNCONJUGATED 0.1 mg/dL (0.0-1.1); TOTAL PROTEIN 5.1 g/dL (6.3-8.2)
[2016-12-06] MEDS ORDERED: DIGOXIN 125 MCG TAB PO ONE (19:30)
[2016-12-06] MEDS ORDERED: SENNOSIDES/DOCUSATE SODIUM TAB PO PRN (19:31)
[2016-12-06] MEDS ORDERED: PROCHLORPERAZINE MALEATE 10 MG TAB PO PRN (19:31)
[2016-12-06] MEDS ORDERED: MAGNESIUM CITRATE 300 ML BOTTLE PO PRN (19:31)
[2016-12-06] MEDS: HYDROmorphONE/DILAUDID 1 MG/ML INJ IVP PRN (19:52)
[2016-12-06 19:53] LABS: PROCALCITONIN 0.32 ng/mL (0.02-0.10)
[2016-12-06] MEDS ORDERED: PROPAFENONE HCL 150 MG TAB PO SCH (20:00)
[2016-12-06 20:19] LABS: MIXED VENOUS O2 SATURATION 60 % (65-75)
--- NOTE | 2016-12-06 21:00 | GHP ---
[f rep st] HISTORY AND PHYSICAL DATE OF ADMISSION: 12/06/2016 CHIEF COMPLAINT: Weakness and lower extremity edema. HISTORY OF PRESENT ILLNESS: The patient is a 76-year-old female with a history of esophageal cancer with esophageal stent placed in September of 2016, atrial fibrillation, and chronic diastolic heart failure, who presents to the emergency department complaining of weakness and increasing lower extremity edema. Upon arrival to the emergency department, she was found to be hypotensive with a blood pressure in the 70s over 30s and appeared pale. Further workup revealed criteria for septic shock, and she was given a 2.5 L fluid bolus. Her hypotension persisted. A central line was placed and she was started on Levophed. The patient denies pulmonary infectious symptoms such as chest pain, shortness of breath, cough, or fever. She denies any dysuria or urinary frequency or urgency. She denies nausea, vomiting, or diarrhea. She denies any bright red blood or melenic stool. She does have a port in place and has received 10 cycles of FOLFOX chemotherapy for her esophageal cancer. She is now receiving daily radiation. When she was seen in her oncology clinic today, she was noted to have increased lower extremity edema. Given this, along with her weakness, she was triaged to the emergency department. She also notes a history of GI bleed and has refused anticoagulation for her A fib. She apparently had a GI bleed requiring blood transfusion during prior hospitalization while she was being bridged with heparin. Other pertinent history includes recent up titration of metoprolol for rate control for atrial fibrillation. She was discharged from the hospital October 23 with her metoprolol increased to 50 mg twice daily. It seems she has continued to take her losartan, although apparently that was supposed to be stopped at discharge. She does have a history of diastolic heart failure though denies orthopnea or paroxysmal nocturnal dyspnea. Given her presentation consistent with septic shock and persistent hypotension, she is admitted to the hospital for further evaluation and management. PAST MEDICAL HISTORY: 1. Esophageal cancer with a stent placed in the esophagus in September of 2016. 2. Atrial fibrillation, rate controlled on metoprolol. She has declined anticoagulation. 3. History of GI bleed. 4. History of breast cancer. 5. Chronic diastolic heart failure. 6. GERD. 7. History of embolic CVA. 8. Prior humeral fracture. PAST SURGICAL HISTORY: 1. Appendectomy. 2. Lumpectomy and partial mastectomy. 3. Knee surgery. 4. Cataract surgery. 5. Esophageal stenting. MEDICATIONS: Please see [facility] for complete updated outpatient medication list. ALLERGIES: No known drug allergies. SOCIAL HISTORY: The patient is . She denies alcohol, tobacco, or drug use. She is originally from [place]. FAMILY HISTORY: Positive for stroke in her father, and her mother had stomach cancer. REVIEW OF SYSTEMS: A 10-point review of systems was performed and is negative as per HPI. OBJECTIVE: VITAL SIGNS: Upon arrival to the emergency department, her temperature of 36.5, blood pressure of 73/39, heart rate 100, respiratory rate 20. She is 94% on room air. GENERAL: The patient is awake, alert and oriented , in no acute distress. She has been mentating well despite her hypotension. HEENT: Head is atraumatic, normocephalic. Pupils equal, round, react to light. Extraocular movements intact. Oropharynx clear. Mucous membranes are moist. NECK: Supple. There is no JVD. HEART: Irregularly irregular. LUNGS : There are faint bibasilar crackles, left greater than right. ABDOMEN: Soft , nondistended, nontender with normoactive bowel sounds. EXTREMITIES: She has 3+ bilateral lower extremity edema. NEUROLOGIC: Grossly nonfocal. LABORATORY DATA: CBC reveals white blood cell count of 11.9, hemoglobin 7.8. This has drifted down from around 10 in August of 2016. Platelets are 141. Lactic acid 2.5, repeat is 2.2. INR is 1.28. The complete metabolic panel is remarkable for sodium 132, potassium 3.3, BUN 24, creatinine 1.1, glucose 109, AST 215, ALT 46, total protein 5.1, albumin 2.1. Random cortisol is 86, alkaline phosphatase 175. Procalcitonin, folate, and B12 are pending. TEST DATA: Chest x-ray showed bilateral lower lobe infiltrates, left greater than right, possibly representing pneumonia, although she has poorly expanded lung kruger, making this difficult to interpret. EKG shows atrial fibrillation with a rate of 112. No ST-segment or T-wave changes to suggest acute ischemia. ASSESSMENT AND PLAN: The patient is a 76-year-old female with a history of esophageal cancer, atrial fibrillation and worsening anemia, who presents to the emergency department with weakness and lower extremity edema as well as hypotension. 1. Hypotension. She meets criteria for septic shock and certainly has a risk for bloodstream infection with her port and fungating mass in her esophagus. CXR shows possible PNA though no clinical symptoms c/w PNA. BCx's are pending. She will be treated with meropenem and vancomycin for now. I also considered if her hypotension may be related to her recently increased metoprolol dose. Her antihypertensives are obviously held. A central line is placed. She is started on Levophed due to hypotension refractory to 30 cc/kg NS bolus. Goal MAP greater than 65. An echocardiogram is ordered for the morning to reassess her LV function which was normal in May of 2016. A random cortisol is normal. 2. Esophageal cancer. S/P 10 cycles of FOLFOX and is currently receiving daily radiation. She has a stent in her esophagus placed in September 2016 and apparently has a fungating mass. Oncology consult in the morning. 3. Elevated liver enzymes. Her AST is over 200, which is new. This may be due to hypoperfusion in the setting of hypotension. Will trend this for now and if it is increasing, would consider ultrasound or CT scan of her abdomen. 4. Atrial fibrillation with suboptimal rate control. HR 110s on arrival. Given that we are holding her metoprolol, I will give her a dose of digoxin tonight for rate control. Continue propafenone. I discussed the case with Cardiology. She previously was not deemed a candidate for SANDY cardioversion due to the risk of esophageal rupture with her esophageal mass. Furthermore, she has refused anticoagulation given her history of gastrointestinal bleeding and she did have a GI bleed while receiving heparin bridge in the past. 5. Anemia. +H/O pancytopenia related to prior chemotherapy. Her hemoglobin has been trending down since this summer, though no e/o active gastrointestinal bleeding. She could have some slow blood loss from her esophageal mass. Will Hemoccult her stool. Recheck her hemoglobin tonight as well as tomorrow morning. If it is drifting down, would consider a unit of prbc's and she may warrant GI evaluation as I do not see any recent endoscopy has been performed. 6. Lower extremity edema. This is new onset. She does have a history of diastolic heart failure though has no pulmonary symptoms. Again, an echo is ordered. Will check a BNP. It is not safe to diurese her with her current hypotension, though she will likely need diuresis at some point when she is more hemodynamically stable. Bilateral lower extremity ultrasound is ordered to rule out deep vein thrombosis given her risk for thromboembolic disease in the setting of cancer. I also note her poor protein status, which could be contributing to edema. 7. Acute kidney injury. I suspect this is prerenal. She has been volume resuscitated. Will recheck this in the morning. 8. Hyponatremia. Again, likely hypovolemic. Treating with normal saline. Recheck in the morning. 9. Hypokalemia. Will replace and follow. 10. History of diastolic heart failure. As above, BNP is pending. There is no obvious pulmonary edema or respiratory symptoms to suggest an acute heart failure exacerbation. However, she has been fluid bolused in the setting of hypotension, so will need to monitor her volume status closely and she will likely warrant diuresis at some point. 11. Reported sacral pressure injury. I did not visualize this myself. This certainly could be a source of infection. Will request a wound care consult. 12. Deep vein thrombosis prophylaxis. The patient is high risk. Will give Lovenox with close attention to her hemoglobin and watching closely for bleeding. CODE STATUS: The patient wishes to be full code. DISPOSITION: Patient is admitted to inpatient status. She will require intensive care. 75 minutes was spent providing critical care on admission regarding her hypotension, septic shock, edema, atrial fibrillation, and cancer issues. /[id number]/MODL MTDD
[2016-12-06 22:28] LABS: MIXED VENOUS O2 SATURATION 56 % (65-75)
[2016-12-06 22:30] LABS: HEMATOCRIT 24.1 % (38.0-47.0); HEMOGLOBIN 7.4 g/dL (12.6-16.3)
[2016-12-07 00:10] LABS: COLOR YELLOW; LEUKOCYTE ESTERASE,URINE NEGATIVE (NEGATIVE); NITRITE,URINE NEGATIVE (NEGATIVE)
[2016-12-07] MEDS: MEROPENEM 1 GM in NS 100 ML IV SCH ×2 (00:10→09:06)
[2016-12-07] MEDS: GABAPENTIN 400 MG CAP PO SCH ×4 (00:12→21:39)
[2016-12-07] MEDS: VANCOMYCIN HCL/NORMAL SALINE 250 ML IV SCH ×2 (00:13→19:36)
[2016-12-07] MEDS: POTASSIUM CL 20 MEQ TAB PO SCH ×2 (00:13→09:05)
[2016-12-07] MEDS: PROPAFENONE HCL 150 MG TAB PO SCH ×3 (00:14→13:29)
[2016-12-07 00:26] LABS: MIXED VENOUS O2 SATURATION 62 % (65-75)
[2016-12-07] MEDS: HYDROmorphONE/DILAUDID 1 MG/ML INJ IVP PRN ×2 (02:39→05:19)
[2016-12-07] MEDS: NOREPINEPHRINE/NS 500 ML IV SCH ×2 (02:44→13:30)
[2016-12-07 02:54] LABS: MIXED VENOUS O2 SATURATION 58 % (65-75)
[2016-12-07 05:41] LABS: % IMMATURE GRANULYOCYTES 0.9 % (0.0-1.1); ADD DIFF? NO; ADD MORPH? NO; ADD SCAN? NO; ATYPICAL LYMPHOCYTE FLAG 0 (0-99); FRAGMENT RBC FLAG 20 (0-99); HEMATOCRIT 25.4 % (38.0-47.0); HEMOGLOBIN 7.7 g/dL (12.6-16.3); LEFT SHIFT FLG 30 (0-99); LIPEMIA HEMOLYSIS FLAG 80 (0-99); MEAN CELL HEMOGLOBIN 30.3 pg (27.9-34.1); MEAN CELL HEMOGLOBIN CONCENTR. 30.3 g/dL (32.4-36.7); MEAN PLATELET VOLUME 10.3 fL (8.7-11.7); MIXED VENOUS O2 SATURATION 63 % (65-75); PLATELET CLUMPS FLAG 0 (0-99); PLATELET COUNT 152 10^3/uL (150-400); RED BLOOD CELL COUNT 2.54 10^6/uL (4.18-5.33); RED CELL DISTRIBUTION WIDTH 17.9 % (11.5-15.2)
[2016-12-07 06:09] LABS: ALANINE AMINOTRANSFERASE 49 IU/L (9-52); ALBUMIN 1.8 g/dL (3.5-5.0); ALKALINE PHOSPHATASE 153 IU/L (38-126); ANION GAP 6 mEq/L (8-16); ASPARTATE AMINOTRANSFERASE 213 IU/L (14-46); BILIRUBIN,TOTAL 0.5 mg/dL (0.1-1.4); CALCIUM 9.1 mg/dL (8.5-10.4); CARBON DIOXIDE 22 mEq/l (22-31); CHLORIDE 108 mEq/L (97-110); CREATININE 0.8 mg/dL (0.6-1.0); GLOMERULAR FILTRATION RATE > 60; GLUCOSE 97 mg/dL (70-100); POTASSIUM 3.3 mEq/L (3.5-5.2); SODIUM 136 mEq/L (134-144); TOTAL PROTEIN 4.5 g/dL (6.3-8.2)
[2016-12-07] MEDS ORDERED: ASPIRIN EC 81 MG TAB PO SCH (09:00)
[2016-12-07] MEDS ORDERED: PANTOPRAZOLE SODIUM 40 MG TAB PO SCH (09:00)
[2016-12-07] MEDS: ATORVASTATIN CALCIUM 10 MG TAB PO SCH (09:04)
[2016-12-07] MEDS: ANASTROZOLE 1 MG TAB PO SCH (09:05)
[2016-12-07] MEDS: ENOXAPARIN 40 MG/0.4 ML SYR SC SCH (09:10)
--- NOTE | 2016-12-07 09:58 | HOSPPROG ---
Hospitalist Progress Note Assessment/Plan: #Hypotension: Procalcitonin elevated. No clear opacity on CXR, UA NL. Ischial ulcers, esophageal mass with stent could be source. Blood cultures pending. Normal EF on TTE May 2016. -consider PE, but stable on RA, U/S LE negative. Trop pending. -cont Vanc/Cefepime. IV albumin, transfuse blood. -Wean off Levo and Dobutamine. If pressor needed, use Neosynephrine #A fib with RVR: not on AC due to prior GIB. Appreciate Dr. Sherman's consultation. -Stop Rythmol, add digoxin. Amiodarone if not controlled. Transition back to BB when hypotension resolved #Ischial ulcers: Stage 3, present on admission. Wound care following #Volume overload: small effusions on CXR (personally reviewed) #h/o embolic stroke: while on Eliquis #GIB: June 2016 while on Eliquis #Esophageal mass: stented, palliative XRT. No chemo for several months #Diet: regular #DVT ppx: SCDs Disp: inpatient admission with septic shock,cont pressors, IV abx Disp: critical care time spent 50 min: reviewing labs, progress notes, discussing treatment plan with Dr. Arshad and Dr. Sherman Subjective: no CP, SOB, or cough Objective: Vital Signs Temp Pulse Resp BP Pulse Ox 36.5 C 107 H 14 92/57 L 95 12/07/16 06:00 12/07/16 07:00 12/07/16 07:00 12/07/16 07:00 12/07/16 07:00 Laboratory Results 12/07/16 05:00 12/07/16 05:00 12/06/16 12/07/16 12/08/16 05:59 05:59 05:59 Intake Total 4540 Output Total 700 Balance 3840 PT 16.0 SEC (12.0-15.0) H 12/06/16 16:00 INR 1.28 (0.83-1.16) H 12/06/16 16:00 - Physical Exam Constitutional: chronically ill appearing Eyes: PERRL Ears, Nose, Mouth, Throat: moist mucous membranes, hearing normal Cardiovascular: irregularly irregular, tachycardia, edema (+3 LE edema) Respiratory: reduced air movement (at bases) Genitourinary: no bladder fullness Skin: warm Musculoskeletal: full muscle strength Neurologic: AAOx3, CN II-XII Intact, other (no focal deficits) Psychiatric: interacting appropriately ICD10 Worksheet Patient Problems: Problems Problem Status Onset Atrial fibrillation Acute Hypotension Acute Sepsis Acute Atrial fibrillation with RVR Acute Back pain Acute Contusion of right chest wall Acute Gastrointestinal hemorrhage Acute Humerus fracture Acute Hypokalemia Acute Hypoxia Acute Nausea & vomiting Acute Pain provoked by trauma Acute Pain, neuropathic Acute
[2016-12-07 10:37] LABS: MIXED VENOUS O2 SATURATION 98 % (65-75)
[2016-12-07] MEDS ORDERED: ALBUMIN 25% 100 ML IV ONE (10:50)
[2016-12-07] MEDS ORDERED: POTASSIUM CL 20 MEQ/15 ML UDCUP PO ONE (10:52)
[2016-12-07] MEDS ORDERED: CEFEPIME HCL 2 GM in D5W 100 ML IV SCH ×2 (11:00→14:00)
--- NOTE | 2016-12-07 11:17 | ASMTCASEMG ---
Living Arrangements What is your living Answers: With Spouse arrangement? Who do you live with? Type Of Residence What kind of residence do Answers: House you live in? Discharge Plan Comments Coordination Status Comments Notes: Patient is a 76 yo woman with a hx of esophageal cancer who presents to the ED with weakness and increasing lower extremity edema. She was admitted for hypotension, sepsis, and afib. Patient lives with her Landen in a house in [place]. She had not been eating or taking her medication at home and has pressure sores on her bottom. [facility] called to say they are working with her and would appreciate notice when patient d/c'es so they can resume services.(Regi @ [phone]) PT/OT/SPL have been ordered. Awaiting therapies to d/t d/c plan. CM will follow. Date Signed: 12/07/2016 11:16 AM Electronically Signed By:Swetha Paul LCSW
[2016-12-07] MEDS: ALBUMIN 25% 100 ML IV SCH ×2 (11:21→20:48)
[2016-12-07 11:25] LABS: MAGNESIUM 1.6 mg/dL (1.6-2.3)
[2016-12-07 11:38] LABS: TROPONIN I < 0.012 ng/mL (0.000-0.034)
[2016-12-07] MEDS: CEFEPIME HCL 2 GM in D5W 100 ML IV SCH ×2 (13:28→21:39)
--- NOTE | 2016-12-07 13:29 | ECHO ---
[id number] + + [address] : : [facility] [address] : : [phone] + + Adult Echocardiographic Report + -----+ :Name: ALEJANDRO VARELA DStudy Date: 12/07/2016 07:50 AM : : Hospital Admission Number: [id number] Location : 255: :: 1940 Gender: Female Height: 64 in : :Age: 76 yrs Race: WH Weight: 175 lb : :Reason For Study: Hypotension/A fib/eval LV function : : BSA: 1.8 meters2 : + -----+ Doppler Measurements & Calculations TR max aleta: 279.0 cm/sec TR max P.1 mmHg RAP systole: 5.0 mmHg RVSP(TR): 36.1 mmHg Left Ventricle The left ventricle is hyperdynamic. Ejection Fraction = 70-75%. No regional wall motion abnormalities noted. Pericardium/Pleural Left pleural effusion. Conclusion Limited 2-D echo. The left ventricle is hyperdynamic. Ejection Fraction = 70-75%. Final Reading Physician: Nicole Dang signed on 12/07/2016 01:29 PM Ordering Physician: Rosy Philippe Performed By: Lorraine Flores RDCS
--- NOTE | 2016-12-07 14:42 | SOAPPROG ---
SOAP Progress Note Assessment/Plan: 1. PAF - Pt has a history of PAF. She was recently changed from a rhythm control strategy to a rate control strategy as she was no longer maintaining a NSR and was unable to take anticoagulation secondary to bleeding risk. She is asymptomatic in A-fib with respect to palpitations. Her [id number] is 7. Pt presents with A-fib and RVR in the setting of anemia and probable infection. Her HR is currently in 110-120s on levophed. This is likely an appropriate chronotropic response given her current condition. --> Will DC propafenone as she is no longer maintaining NSR --> Consider neosynephrine for pressor support --> Will start digoxin 0.125 mg daily for rate control --> Consider amiodarone for rate control not rhythm control if HR can not be controlled. --> Change digoxin to metoprolol when off pressor support. 2. Anemia - Hgb has decreased from 11.9 to 7.7. --> Transfuse 1 U of PRBCs to keep Hgb greater than 8.0 3. Esophogeal cancer 4. Hypotension - secondary to sepsis --> Consider neosynephrine for pressor support given A-fib with RVR. 5. Edema - hyperdynamic systolic function on echocardiogram. Suspect secondary to third spacing. 12/07/16 14:58 Subjective: No angina No palpitations uncomfortable at present Tele A-fib with RVR Objective: Vital Signs Temp Pulse Resp BP Pulse Ox 37.0 C 114 H 18 115/64 94 12/07/16 12:00 12/07/16 14:00 12/07/16 14:00 12/07/16 14:00 12/07/16 14:00 Laboratory Results 12/07/16 05:00 12/07/16 05:00 12/06/16 12/07/16 12/08/16 05:59 05:59 05:59 Intake Total 4540 Output Total 700 Balance 3840 PT 16.0 SEC (12.0-15.0) H 12/06/16 16:00 INR 1.28 (0.83-1.16) H 12/06/16 16:00 Physical Exam - Physical Exam General Appearance: alert, mild distress Respiratory: other (deminshed breath sounds B) Cardiac/Chest: tachycardia, irregularly irregular Abdomen: normal bowel sounds, soft Extremities: pedal edema Neuro/Psych: alert, oriented x 3 ICD10 Worksheet Patient Problems: Problems Problem Status Onset Atrial fibrillation Acute Hypotension Acute Sepsis Acute Atrial fibrillation with RVR Acute Back pain Acute Contusion of right chest wall Acute Gastrointestinal hemorrhage Acute Humerus fracture Acute Hypokalemia Acute Hypoxia Acute Nausea & vomiting Acute Pain provoked by trauma Acute Pain, neuropathic Acute
[2016-12-07] MEDS ORDERED: ALBUMIN 25% 200 ML IV ONE (15:12)
[2016-12-07 15:20] LABS: ANION GAP 8 mEq/L (8-16); CALCIUM 9.1 mg/dL (8.5-10.4); CARBON DIOXIDE 20 mEq/l (22-31); CHLORIDE 108 mEq/L (97-110); CREATININE 0.7 mg/dL (0.6-1.0); GLOMERULAR FILTRATION RATE > 60; GLUCOSE 118 mg/dL (70-100); POTASSIUM 3.7 mEq/L (3.5-5.2); SODIUM 136 mEq/L (134-144)
--- NOTE | 2016-12-07 15:47 | GCON ---
[f rep st] CONSULTATION INITIAL VISIT PRIMARY ONCOLOGIST: Dr. Mike Kwon. REASON FOR VISIT: E and M for esophageal cancer. 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 She was receiving chemotherapy with FOLFOX. Last dose w as cycle 10 on September. Unfortunately, a restaging CT scan showed that she had progression of disease. Also in September, she had an upper endoscopy revealed a constricting, fungating lesion in the l ower esophagus. A stent was placed and then she was referred to Radiation. She said she has been on radiation and had 5 more treatments to complete. She has been generally tolerating it well. She is still taking nutrition in orally and she has noticed no improvement with radiation yet. Yesterday, she presented to the office for her routine treatment very fatigued and tachycardic and lo w blood pressure. She was over at the emergency room and her blood pressure was very low. She was p laced on pressors to help support. She has a history of atrial fibrillation with rapid ventricular r esponse, which has been controlled lately outpatient. She has not been on blood thinners because of concerns of previous history of a GI bleed. Currently, she says she feels much better than she did y esterday. Her legs are still swollen. She stated that started in the last 3-4 days. She denies any current chest pain and has not been having any fever. ALLERGIES: She has no known drug allergies. HOME MEDICATIONS: Oxycodone, prochlorperazine, senna, magnesium citrate, aspirin, propafenone, losar vieira, Lasix, multivitamin, metoprolol, cholecalciferol, atorvastatin, anastrozole, acetaminophen, navneet pentin, potassium, and pantoprazole. PAST MEDICAL HISTORY: 1. Chronic illnesses include a stage IIIB esophageal cancer as stated in HPI. Her last CT scan show ed multiple paraesophageal and posterior mediastinal lymph nodes and distal esophageal mass. There a re also gastrohepatic ligament lymph node metastases but no liver metastases or osseous metastases. 2. Stage IA ER positive breast cancer 2012, currently on adjuvant anastrozole. 3. History of GI bleed. 4. Chronic diastolic heart failure. 5. Atrial fibrillation with a rapid ventricular response. 6. Chronic diastolic heart failure. 7. GERD. 8. History of embolic stroke. SURGICAL HISTORY: 1. Appendectomy. 2. Lumpectomy. 3. Knee surgery. 4. Cataract surgery. 5. Esophageal stenting as per HPI. SOCIAL HISTORY: She is . Originally from [place]. She denies tobacco or alcohol. FAMILY HISTORY: Noncontributory. REVIEW OF SYSTEMS: 10-point review of systems was performed. Pertinent positives in HPI, otherwise negative. PHYSICAL EXAM: VITAL SIGNS: On arrival her pulse is 100. Blood pressure is 73/49. It got as low a s 67/41. Currently, her pulse is 125. Blood pressure is 111/62. GENERAL: She is a pale, fatigued-a ppearing woman, but she appears to be awake and alert. HEART: Tachycardic and irregular. LUNGS: S how some slight crackles. ABDOMEN: Soft, nontender. EXTREMITIES: She has 3+ edema. NEUROLOGIC: Appeared to be grossly intact. LABORATORY DATA: Sodium when she came in was 132, BUN and creatinine were 24 and 1.1. That has impr linda to 136, potassium 3.3. BUN and creatinine are 19 and 0.8. AST was slightly elevated to 15. AL T was normal. Alkaline phosphatase was slightly elevated at 153. BNP was up a little bit, 5900. Tr oponin was normal. Albumin was down to 1.8. Cortisol was fine. Coags were abnormal yesterday, but repeat PTT was normal at 31.9. Hemoglobin when she came in was 7.8, currently 7.7. White count was 11,000. Platelet count was 152,000. TEST DATA: Doppler ultrasound showed no DVT. Chest x-ray showed some bilateral lower lobe infiltrat es, left greater than right. IMPRESSION: 1. Locally advanced esophageal cancer undergoing palliative radiation. 2. Hypotension and tachycardia. 3. Possible sepsis. 4. Atrial fibrillation with rapid ventricular response and some heart failure. DISCUSSION/PLAN: This appears to either be heart related or she has had an acute infection that is c ontributing to her heart being irritated. This would not be a typical side effect of radiation, alth ough radiation and cancer could be making her malnourished causing the swelling to be worse and her a bility to fight off infections and recover. I spoke with Dr. Arriaga and will give her a unit of bloo d, and he is going to make adjustments to her heart medications. The radiation will be on hold until she stabilizes. I also spoke to Internal Medicine. She is being treated for a possible pneumonia, but cultures thus far are negative. She has not had chemotherapy for a couple months. I do not anti cipate any problems related to that at this time. At this point, I am not sure what her long-term pl an was after the radiation, but I suspect it was to see how she did and then decide on comfort care m easures versus further palliative therapy, but that is a decision that will be made at a later date. Will follow along with you. /[id number]/MODL
--- NOTE | 2016-12-07 15:56 | GCON ---
[f rep st] CONSULTATION PULMONARY/CRITICAL CARE CONSULTATION DATE OF CONSULTATION: 12/07/2016 REFERRING PHYSICIAN: Farida Watson MD REASON FOR REFERRAL: Evaluation and management of hypotension and tachycardia, probable sepsis. HISTORY: The patient is a 76-year-old woman with a history of esophageal cancer, status post stent p lacement 2 months ago. She also has atrial fibrillation and chronic diastolic heart failure. She wa s admitted via the emergency department yesterday after complaining of a day or so of markedly increa sed weakness, as well as some increased lower extremity edema. She was found to be hypotensive with a systolic blood pressure in the 70s. She had a borderline elevated lactate, so was started on a sep sis protocol. She received a 2.5 L fluid bolus, but continued to have hypotension, so she was starte d on pressors. She denied any chest pain, shortness of breath, cough, fever, or urinary symptoms. S he has not had nausea, vomiting or diarrhea. She has had some low thoracic/lumbar back pain since that seems to be worse in certain positions. She also feels that her legs have been a bit we ak, but that has been variable. She continues to have poor appetite. PAST MEDICAL HISTORY: 1. Esophageal cancer, status post stent placement in September 2016, currently getting radiation therapy. 2. Atrial fibrillation, rate controlled with metoprolol. She has refused anticoagulation. 3. History of GI bleed. 4. History of breast cancer. 5. History of chronic diastolic heart failure. 6. Gastroesophageal reflux. 7. History of embolic CVA. MEDICATIONS: At the time of admission include gabapentin, Arimidex, atorvastatin, metoprolol, acetam inophen, aspirin, propafenone, losartan, furosemide, oxycodone, Compazine, and pantoprazole. Here in the hospital, she has been started on cefepime and vancomycin. ALLERGIES: None. SOCIAL HISTORY: The patient is . She does not drink or smoke. She is originally from [facility]. FAMILY HISTORY: Unremarkable. REVIEW OF SYSTEMS: A 10-point review of systems is reviewed and adds nothing to the History of Prese nt Illness. PHYSICAL EXAMINATION: GENERAL: The patient is awake, alert, and in no acute distress, but is somewh at more uncomfortable when she lays flat, primarily complaining of back pain. VITAL SIGNS: Her bloo d pressure is 115/64, with a heart rate of 114, on norepinephrine at 10. Her oxygen saturations are 94% on room air. Respiratory rate is 18. She is afebrile. HEENT: Normocephalic and atraumatic. N o icterus. NECK: No JVD. Trachea is midline. CHEST: Clear to auscultation. CARDIAC: Irregular tachycardia, without murmur. ABDOMEN: Soft, nontender. Bowel sounds are present. EXTREMITIES: No clubbing or cyanosis. She has 3+ edema/anasarca involving her hands and legs. NEURO: The patient reports some weakness but has fairly good strength in her distal lower extremities, and her cranial n erves are intact. LABORATORY DATA: White blood count is 11.4. Hemoglobin is 7.7. Her hemoglobin has been in the 8-9 range previously. Her MCV is 100.0. Platelet count is 152. INR is 1.3. Lactic acid was 2.5 at adm ission and 2.2 on repeat. A chemistry group is remarkable only for a carbon dioxide level of 20. He r glucose level is 118. BNP was 5980 last night. An AST is 213. A chest x-ray shows small bilatera l pleural effusions. Images reviewed. A sputum culture is unremarkable. ASSESSMENT: 1. Probable sepsis. The patient presented with hypotension and an elevated lactate, as well as mild ly elevated white blood count without leukocytosis. Possible sources could include pneumonia (althou gh the patient has no symptoms and a fairly unremarkable chest x-ray), esophageal infection related t o radiation and stent placement, and also a thoracic/lumbar spine infection/abscess given the patient 's symptoms. However, she does not seem to have significant weakness on exam, and her weakness has b een somewhat variable. It would be fairly difficult to obtain an MRI currently, so I would hold off on that and follow her clinically, doing an MRI if she has a deterioration in her neuro symptoms. Veronique nunez has been started on cefepime and vancomycin. Her blood pressure has been maintained with dobutamin e and norepinephrine, and she has been able to come off the dobutamine and taper down on the norepine phrine. Her hypotension could also be exacerbated by low albumin state and intravascular depletion r elated to her chronic illness. Diastolic function with atrial fibrillation and tachycardia could als o contribute. 2. Anemia. This is slightly lower than her usual chronic anemic state. 3. Atrial fibrillation. The patient is somewhat tachycardic and is currently on metoprolol. RECOMMENDATIONS: Repeat albumin. The patient will receive a transfusion of packed red blood cells, which will also help her intravascular volume. Continue empiric antibiotics for now. Agree with Alli silvestre, who plans to stop the patient's propafenone. Consider MRI if neurologic symptoms develop/wo rsen. /[id number]/MODL
--- NOTE | 2016-12-07 16:12 | WOCRNPDOC ---
[facility] Advanced Assessment Note - Skin Integrity Problem, Advanced Assess Right Ischial Tuberosity Pressure Injury Dressing Type: Allevyn Life Dressing Description: Intact Exudate Amount: Scant Exudate Color: Reddish/Yellow Exudate Characteristic(s): Serosanguinous Integumentary Issue Intervention: Dressing Applied, Dressing Removed, Hydrogel Applied Joyce Wound Tissue: Blanching, Erythema, Denuded Joyce Wound Swelling: Mild Wound Bed Color: Red, Yellow Wound Bed Constitution: Smooth Tissue (non-granulating, 50%), Loose Slough (50%) Site Odor: None Site Measurement - Head-to-Toe Length X Width X Depth (cm): 2.2cmx1.5cmx0.2cm Pressure Injury Stage: Stage 3 Pressure Injury Present on Admit: Yes (Documented in H&P) Skin Integrity Problem Comment: Wound over R ischial tuberosity w/ mixed, loose slough and smooth tissue, appearance consistent w/ stage 3 pressure injury. Blanching erythema noted joyce-wound; in addition, there is some denuded skin throughout surrounding skin r/t incontinence. Per patient report, she spends a lot of time sitting in a chair at home; wound location and appearance supports this information. Applied hydrogel wound gel to wound bed, and covered site w/ Allevyn Life dressing. Patient repositioned on L side using TAPS. Pressure- relieving interventions initiated, including turns side to side q2, Sport low air loss bed, and pressure-relieving cushion in chair. In addition, orders for patient to spend no more than 1 hour sitting in chair. inspector open dieTEODORA Chauhan present and assisting. Wound care will follow up with patient on Saturday 12/09. Left Ischial Tuberosity Pressure Injury Dressing Type: Allevyn Life Dressing Description: Intact Exudate Amount: Scant Exudate Color: Reddish/Yellow Exudate Characteristic(s): Serosanguinous Integumentary Issue Intervention: Dressing Applied, Hydrogel Applied Joyce Wound Tissue: Blanching, Erythema, Non-blanching, Denuded Joyce Wound Swelling: None Wound Bed Color: Purple, Red Wound Bed Constitution: Smooth Tissue (non-granulating, epithelium) Site Odor: None Site Measurement - Head-to-Toe Length X Width X Depth (cm): Stage 2: 0.5cmx0.5cmx0.1cm. SDTI: [id number] Pressure Injury Stage: Stage 2, Deep Tissue Injury (DTI) Pressure Injury Present on Admit: Yes (Documented in H&P) Skin Integrity Problem Comment: Two pressure injuries directly adjacent to one and other over the L ischial tuberosity. There is a more proximal wound w/ partial-thickness tissue loss, consistent in appearance w/ stage 2 pressure injury. Immediately below that injury is an area of ecchymosis, indicative of suspected deep tissue injury. Blanching erythema and denuded skin noted throughout joyce-wound. Hydrogel applied to stage 2 wound, and both sites covered w/ Allevyn Life dressing. Nursing advised to off-load these wounds by turning patient side to side q 2.
[2016-12-07] MEDS ORDERED: DIGOXIN 125 MCG TAB PO SCH (16:45)
[2016-12-07] MEDS: oxyCODONE IR 5 MG TAB PO PRN (19:59)
[2016-12-07] MEDS: ONDANSETRON DISINTEGRATING 4 MG TAB PO PRN (22:56)
[2016-12-08 05:14] LABS: HEMATOCRIT 27.1 % (38.0-47.0); HEMOGLOBIN 8.3 g/dL (12.6-16.3); MEAN CELL HEMOGLOBIN 30.7 pg (27.9-34.1); MEAN CELL HEMOGLOBIN CONCENTR. 30.6 g/dL (32.4-36.7); MEAN CELL VOLUME 100.4 fL (81.5-99.8); RED BLOOD CELL COUNT 2.7 10^6/uL (4.18-5.33); RED CELL DISTRIBUTION WIDTH 17.7 % (11.5-15.2)
[2016-12-08 05:20] LABS: ANION GAP 6 mEq/L (8-16); CALCIUM 9.4 mg/dL (8.5-10.4); CARBON DIOXIDE 21 mEq/l (22-31); CHLORIDE 112 mEq/L (97-110); CREATININE 0.6 mg/dL (0.6-1.0); GLOMERULAR FILTRATION RATE > 60; GLUCOSE 88 mg/dL (70-100); POTASSIUM 3.8 mEq/L (3.5-5.2); SODIUM 139 mEq/L (134-144)
[2016-12-08] MEDS: CEFEPIME HCL 2 GM in D5W 100 ML IV SCH ×3 (06:32→22:04)
[2016-12-08] MEDS: oxyCODONE IR 5 MG TAB PO PRN (08:36)
[2016-12-08] MEDS ORDERED: AMIODARONE HCL 100 ML IV ONE (08:49)
[2016-12-08] MEDS: ALBUMIN 25% 100 ML IV SCH (08:54)
[2016-12-08] MEDS: LANSOPRAZOLE SUSP 30MG/10ML UDSYR (Adult) PO SCH (08:54)
[2016-12-08] MEDS: ENOXAPARIN 40 MG/0.4 ML SYR SC SCH (08:54)
[2016-12-08] MEDS: ANASTROZOLE 1 MG TAB PO SCH (08:54)
[2016-12-08] MEDS: POTASSIUM CL 20 MEQ TAB PO SCH (08:54)
[2016-12-08] MEDS: GABAPENTIN 400 MG CAP PO SCH ×3 (08:54→22:04)
[2016-12-08] MEDS: ASPIRIN 81 MG CHEWABLE TAB PO SCH (08:54)
[2016-12-08] MEDS: ATORVASTATIN CALCIUM 10 MG TAB PO SCH (08:54)
[2016-12-08] MEDS ORDERED: AMIODARONE HCL 200 ML IV ONE (09:00)
[2016-12-08] MEDS ORDERED: ALBUMIN 25% 200 ML IV ONE (11:23)
--- NOTE | 2016-12-08 11:28 | PDINTPN ---
Computer Graphics Illustrator Progress Note Assessment/Plan: Assessment: Hypotension: Suspect sepsis, with mildly elevated procalcitonin level, as well as cardiac component and anemia. On Cefipime/Vanco. No source identified. AF with RVR: Rate still high, hypotension precludes b-rocky at this point. Started on amiodarone. Anemia: S/P PRBCs yesterday, H/H up a bit. Could be due to GIB with component of ACD. Edema: Hypoalbuminemia, on IV albumin. Plan: Additional dose of albumin today, perhaps can get BP up enough to start a b-rocky. Diet and activity as tolerated. If cultures remain negative can stop Vanco. 12/08/16 11:32 12/08/16 11:33 Subjective: Feels better, able to eat more easily. Belching. Feels a bit stronger. Objective: Vital Signs Temp Pulse Resp BP Pulse Ox 36.6 C 139 H 15 100/59 L 95 12/08/16 04:00 12/08/16 06:50 12/08/16 06:50 12/08/16 06:50 12/08/16 06:50 Laboratory Results 12/08/16 04:20 12/08/16 04:20 12/07/16 12/08/16 12/09/16 05:59 05:59 05:59 Intake Total 4540 4942 Output Total 700 1450 Balance 3840 3492 PT 16.0 SEC (12.0-15.0) H 12/06/16 16:00 INR 1.28 (0.83-1.16) H 12/06/16 16:00 Physical Exam - Physical Exam General Appearance: alert, no apparent distress EENT: normal ENT inspection Neck: normal inspection Respiratory: lungs clear, normal breath sounds Cardiac/Chest: edema (3+), tachycardia, irregularly irregular Abdomen: normal bowel sounds, non-tender, soft Skin: normal color, warm/dry Extremities: non-tender Neuro/Psych: alert, normal mood/affect, oriented x 3 ICD10 Worksheet Patient Problems: Problems Problem Status Onset Atrial fibrillation Acute Hypotension Acute Sepsis Acute Atrial fibrillation with RVR Acute Back pain Acute Contusion of right chest wall Acute Gastrointestinal hemorrhage Acute Humerus fracture Acute Hypokalemia Acute Hypoxia Acute Nausea & vomiting Acute Pain provoked by trauma Acute Pain, neuropathic Acute
--- NOTE | 2016-12-08 13:15 | HOSPPROG ---
Hospitalist Progress Note Assessment/Plan: #Hypotension: off pressors. Procalcitonin up mildly. No clear opacity on CXR, UA NL. Ischial ulcers, esophageal mass with stent could be source. Blood cultures pending. Normal EF on TTE May 2016. -consider PE, but stable on RA, U/S LE negative. Trop neg -cont Vanc/Cefepime. IV albumin today #Anemia: query slow GIB? H/H improved aftet 1 unit #Leukocytosis: resolved #A fib with RVR: not on AC due to prior GIB. -not controlled with Digoxin. Start Amiodarone. BB once BP tolerates #Ischial ulcers: Stage 3, present on admission. Wound care following #Volume overload: small effusions on CXR (personally reviewed) #h/o embolic stroke: min residual deficits #GIB: June 2016 while on Eliquis #Esophageal mass: stented, palliative XRT. No chemo for several months #Diet: regular #DVT ppx: SCDs Disp: inpatient admission with septic shock,cont pressors, IV abx Subjective: feels better. No cough, CP, diarrhea Objective: Vital Signs Temp Pulse Resp BP Pulse Ox 36.6 C 139 H 15 100/59 L 95 12/08/16 04:00 12/08/16 06:50 12/08/16 06:50 12/08/16 06:50 12/08/16 06:50 Laboratory Results 12/08/16 04:20 12/08/16 04:20 12/07/16 12/08/16 12/09/16 05:59 05:59 05:59 Intake Total 4540 4942 Output Total 700 1450 Balance 3840 3492 PT 16.0 SEC (12.0-15.0) H 12/06/16 16:00 INR 1.28 (0.83-1.16) H 12/06/16 16:00 - Physical Exam Constitutional: no apparent distress Eyes: PERRL Ears, Nose, Mouth, Throat: moist mucous membranes Cardiovascular: irregularly irregular, tachycardia, edema (+3 LE edema ) Respiratory: no respiratory distress, reduced air movement Gastrointestinal: normoactive bowel sounds, soft, non-tender abdomen Genitourinary: no bladder fullness, mosqueda in urethra Skin: warm Neurologic: AAOx3, CN II-XII Intact ICD10 Worksheet Patient Problems: Problems Problem Status Onset Atrial fibrillation Acute Hypotension Acute Sepsis Acute Atrial fibrillation with RVR Acute Back pain Acute Contusion of right chest wall Acute Gastrointestinal hemorrhage Acute Humerus fracture Acute Hypokalemia Acute Hypoxia Acute Nausea & vomiting Acute Pain provoked by trauma Acute Pain, neuropathic Acute
[2016-12-08] MEDS ORDERED: ALBUMIN 25% 100 ML SOLN IV ONE (13:48)
--- NOTE | 2016-12-08 13:52 | SOAPPROG ---
SOAP Progress Note Assessment/Plan: 1. PAF - Pt has a history of PAF. She was recently changed from a rhythm control strategy to a rate control strategy as she was no longer maintaining a NSR and was unable to take anticoagulation if cardioverted. She is asymptomatic in A-fib with respect to palpitations. Her [id number] is 7. Pt presents with A-fib and RVR in the setting of anemia and probable infection. Her HR is currently in the 130s to 150s. She is off pressor support, however, BP remains low. --> Will start amiodarone for rate control not rhythm control given low BP and lack of response to digoxin. --> Add metoprolol as BP will tolerate. 2. Anemia - Hgb up to 8.3 after transfusion. --> Consider one more unit of PRBCs. 3. Esophogeal cancer 4. Hypotension - secondary to sepsis. Pt is now off pressor support. 5. Edema - hyperdynamic systolic function on echocardiogram. Suspect secondary to third spacing from inflammation. Subjective: sore tail bone limited ambulation No chest pain No palpitations, syncope or pre-syncope. Objective: Vital Signs Temp Pulse Resp BP Pulse Ox 36.6 C 139 H 15 100/59 L 95 12/08/16 04:00 12/08/16 06:50 12/08/16 06:50 12/08/16 06:50 12/08/16 06:50 Laboratory Results 12/08/16 04:20 12/08/16 04:20 12/07/16 12/08/16 12/09/16 05:59 05:59 05:59 Intake Total 4540 4942 Output Total 700 1450 Balance 3840 3492 PT 16.0 SEC (12.0-15.0) H 12/06/16 16:00 INR 1.28 (0.83-1.16) H 12/06/16 16:00 Physical Exam - Physical Exam General Appearance: alert, mild distress Respiratory: lungs clear Cardiac/Chest: tachycardia, irregularly irregular Abdomen: non-tender, soft Extremities: pedal edema Neuro/Psych: alert ICD10 Worksheet Patient Problems: Problems Problem Status Onset Atrial fibrillation Acute Hypotension Acute Sepsis Acute Atrial fibrillation with RVR Acute Back pain Acute Contusion of right chest wall Acute Gastrointestinal hemorrhage Acute Humerus fracture Acute Hypokalemia Acute Hypoxia Acute Nausea & vomiting Acute Pain provoked by trauma Acute Pain, neuropathic Acute
--- NOTE | 2016-12-08 14:57 | SOAPPROG ---
SOAP Progress Note Assessment/Plan: E&M for esophageal cancer * Locally advanced esophageal cancer: Last chemo (FOLFOX) given early September. Currently on radiation, which is on hold until she is more medically stable. I will update Dr. Abel. * Hypotension: off pressors. Unclear source but getting better. * Anemia: multifactorial; cannot r/o GI bleed. * A fib with RVR: followed and managed by cardiology * Ischial ulcers: Stage 3, present on admission. Wound care following Subjective: She is up in the chair and states she is feeling better. Was able to drink a fruit smoothy. Objective: Vital Signs Temp Pulse Resp BP Pulse Ox 36.6 C 139 H 15 100/59 L 95 12/08/16 04:00 12/08/16 06:50 12/08/16 06:50 12/08/16 06:50 12/08/16 06:50 Laboratory Results 12/08/16 04:20 12/08/16 04:20 12/07/16 12/08/16 12/09/16 05:59 05:59 05:59 Intake Total 4540 4942 Output Total 700 1450 Balance 3840 3492 PT 16.0 SEC (12.0-15.0) H 12/06/16 16:00 INR 1.28 (0.83-1.16) H 12/06/16 16:00 Physical Exam - Physical Exam General Appearance: no apparent distress Respiratory: lungs clear Cardiac/Chest: edema, tachycardia, irregularly irregular Abdomen: soft ICD10 Worksheet Patient Problems: Problems Problem Status Onset Atrial fibrillation Acute Hypotension Acute Sepsis Acute Atrial fibrillation with RVR Acute Back pain Acute Contusion of right chest wall Acute Gastrointestinal hemorrhage Acute Humerus fracture Acute Hypokalemia Acute Hypoxia Acute Nausea & vomiting Acute Pain provoked by trauma Acute Pain, neuropathic Acute
[2016-12-08] MEDS ORDERED: AMIODARONE HCL 540 MG in D5W 300 ML IV ONE (15:00)
[2016-12-08] MEDS: ONDANSETRON DISINTEGRATING 4 MG TAB PO PRN (18:45)
[2016-12-08] MEDS: VANCOMYCIN HCL/NORMAL SALINE 250 ML IV SCH (20:34)
[2016-12-09] MEDS: oxyCODONE IR 5 MG TAB PO PRN ×3 (00:58→20:03)
[2016-12-09 05:02] LABS: ALANINE AMINOTRANSFERASE 47 IU/L (9-52); ALBUMIN 2.5 g/dL (3.5-5.0); ALKALINE PHOSPHATASE 144 IU/L (38-126); ANION GAP 6 mEq/L (8-16); ASPARTATE AMINOTRANSFERASE 161 IU/L (14-46); CALCIUM 9.9 mg/dL (8.5-10.4); CARBON DIOXIDE 22 mEq/l (22-31); CHLORIDE 111 mEq/L (97-110); CREATININE 0.6 mg/dL (0.6-1.0); GLOMERULAR FILTRATION RATE > 60; GLUCOSE 90 mg/dL (70-100); POTASSIUM 3.7 mEq/L (3.5-5.2); SODIUM 139 mEq/L (134-144); TOTAL PROTEIN 4.8 g/dL (6.3-8.2)
[2016-12-09] MEDS: CEFEPIME HCL 2 GM in D5W 100 ML IV SCH ×3 (05:10→22:03)
[2016-12-09] MEDS: HYDROmorphONE/DILAUDID 1 MG/ML INJ IVP PRN ×2 (07:24→23:22)
[2016-12-09] MEDS: ENOXAPARIN 40 MG/0.4 ML SYR SC SCH (09:12)
[2016-12-09] MEDS: POTASSIUM CL 20 MEQ TAB PO SCH (09:12)
[2016-12-09] MEDS: GABAPENTIN 400 MG CAP PO SCH ×3 (09:12→20:03)
[2016-12-09] MEDS: ANASTROZOLE 1 MG TAB PO SCH (09:12)
[2016-12-09] MEDS: ATORVASTATIN CALCIUM 10 MG TAB PO SCH (09:12)
[2016-12-09] MEDS: ASPIRIN 81 MG CHEWABLE TAB PO SCH (09:12)
[2016-12-09] MEDS: LANSOPRAZOLE SUSP 30MG/10ML UDSYR (Adult) PO SCH (11:09)
--- NOTE | 2016-12-09 11:35 | SOAPPROG ---
SOAP Progress Note Assessment/Plan: E&M for esophageal cancer * Locally advanced esophageal cancer: Last chemo (FOLFOX) given early September. Currently on radiation, which is on hold until she is more medically stable. I updated Dr. Abel. Probably restart Monday but he will make final call. * Hypotension: off pressors. Unclear source and cultures negative but getting better. * Anemia: multifactorial; cannot r/o GI bleed. Better after transfusion. * A fib with RVR: followed and managed by cardiology * Ischial ulcers: Stage 3, present on admission. Wound care following Subjective: Patient sleeping. Spoke to her nurse and she continues to improve and off pressers. Objective: Vital Signs Temp Pulse Resp BP Pulse Ox 36.1 C 101 H 21 H 110/68 95 12/09/16 07:21 12/09/16 07:21 12/09/16 07:21 12/09/16 07:21 12/09/16 07:21 Laboratory Results 12/08/16 04:20 12/09/16 04:40 12/08/16 12/09/16 12/10/16 05:59 05:59 05:59 Intake Total 4942 2731.1 Output Total 1450 625 Balance 3492 2106.1 PT 16.0 SEC (12.0-15.0) H 12/06/16 16:00 INR 1.28 (0.83-1.16) H 12/06/16 16:00 Physical Exam - Physical Exam General Appearance: no apparent distress ICD10 Worksheet Patient Problems: Problems Problem Status Onset Atrial fibrillation Acute Hypotension Acute Sepsis Acute Atrial fibrillation with RVR Acute Back pain Acute Contusion of right chest wall Acute Gastrointestinal hemorrhage Acute Humerus fracture Acute Hypokalemia Acute Hypoxia Acute Nausea & vomiting Acute Pain provoked by trauma Acute Pain, neuropathic Acute
--- NOTE | 2016-12-09 11:50 | WOCRNPDOC ---
WOCRLuis Advanced Assessment Note - Skin Integrity Problem, Advanced Assess Right Ischial Tuberosity Pressure Injury Dressing Type: Allevyn Life Dressing Description: Intact Exudate Amount: Minimal Exudate Color: Reddish/Yellow Exudate Characteristic(s): Serosanguinous Integumentary Issue Intervention: Dressing Changed, Hydrogel Applied Mirta Wound Tissue: Blanching, Erythema, Intact Mirta Wound Swelling: None Wound Bed Color: Red, Yellow Wound Bed Constitution: Granulation Tissue (90%), Loose Slough (10%) Wound Edges: Epithelizing Site Odor: None Pressure Injury Stage: Stage 3 Pressure Injury Present on Admit: Yes Skin Integrity Problem Comment: Wound improved since previous assessment. Minimal slough in wound bed, and granulation tissue noted throughout. Mirta- wound skin in tact and blanching. Advise continuing w/ existing dressing and off -loading, including turning side to side in bed and sitting in chair only for meals. Left Ischial Tuberosity Pressure Injury Dressing Type: Allevyn Life Dressing Description: Intact Exudate Amount: Scant Exudate Characteristic(s): Serosanguinous Integumentary Issue Intervention: Dressing Changed, Hydrogel Applied Mirta Wound Tissue: Ecchymotic, Erythema Wound Bed Color: Purple, Red Wound Bed Constitution: Smooth Tissue Wound Edges: Epithelizing Site Odor: None Pressure Injury Stage: Stage 2, Deep Tissue Injury (DTI) Skin Integrity Problem Comment: Wound improved since assessment on 12/07, previously a deep tissue injury adjacent to a stage 2. Presently the deep tissue injury is evolving into a stage 2 pressure injury, w/ new partial- thickness tissue loss evident. Continue w/ existing order and off-load site continuously except for meals when patient may be up in chair. Bilateral Upper Medial Thigh Pressure Injury Dressing Type: Open to Air Exudate Amount: None Exudate Characteristic(s): None Integumentary Issue Intervention: Dressing Applied (Allevyns applied for prophylaxis.) Wound Bed Color: Purple Pressure Injury Stage: Deep Tissue Injury (DTI), Polisher Sand Related Pressure Injury (catheter tubing) Pressure Injury Present on Admit: No (not noted in original skin assessment) Skin Integrity Problem Comment: Linear bruise-like lesions noted on medial aspect of patient's upper, inner thighs, consistent in appearance w/ suspected deep tissue injury. Ecchymosis matches shape of patient's catheter tubing, and extends posteriorly. In addition, I visualized tubing under patient during assessment, pressing on thie injured area. Allevyn Life dressings placed on either side of upper thigh to protect site from tubing. In addition, vulcanizer rubber plate notified that stat-lock should be re-located, as it is currently too taut and pulling on cath tubing. Wound care will follow up with patient on Monday 12/11.
[2016-12-09] MEDS ORDERED: AMIODARONE TACHY-18HR INFSN (ORDER 3/3) IV ONE ×2 (12:00→18:00)
[2016-12-09] MEDS ORDERED: AMIODARONE TACHY-LOAD DOSE(ORDER 1/3) IV ONE (12:00)
[2016-12-09] MEDS ORDERED: AMIODARONE TACHY-6HR INFSN (ORDER 2/3) IV ONE (12:00)
--- NOTE | 2016-12-09 12:06 | HOSPPROG ---
Hospitalist Progress Note Assessment/Plan: # hypotension: sepsis vs hypovolemia - now off pressors; echo hyperdynamic - cont empiric abx - can likely dc vanc # atrial fib with RVR - now back in RVR, had not responded to digoxin; - restart amiodarone gtt - no AC given esophageal mass # esophageal cancer - s/p folfox, recently received XRT # anemia - suspect slow GI loss given esophageal cancer # pressure injury on ischium - wound care # vol overload/edema - likely d/t low albumin and third spacing # hx embolic CVA - minimal deficits Subjective: had converted to NSR overnight, now back in a-fib with RVR; denies CP, dizziness; does feel SOB Objective: Vital Signs Temp Pulse Resp BP Pulse Ox 36.1 C 97 14 109/72 96 12/09/16 11:32 12/09/16 11:32 12/09/16 11:32 12/09/16 11:32 12/09/16 11:32 Laboratory Results 12/08/16 04:20 12/09/16 04:40 12/08/16 12/09/16 12/10/16 05:59 05:59 05:59 Intake Total 4942 2731.1 Output Total 1450 625 Balance 3492 2106.1 PT 16.0 SEC (12.0-15.0) H 12/06/16 16:00 INR 1.28 (0.83-1.16) H 12/06/16 16:00 high risk - Physical Exam Constitutional: no apparent distress, appears nourished Ears, Nose, Mouth, Throat: moist mucous membranes, hearing normal, other (R IJ) Cardiovascular: edema (UE and LE) Respiratory: no respiratory distress Gastrointestinal: No tenderness Genitourinary: mosqueda in urethra Skin: warm, normal color Musculoskeletal: full muscle strength Neurologic: AAOx3 Psychiatric: interacting appropriately, not anxious ICD10 Worksheet Patient Problems: Problems Problem Status Onset Humerus fracture Acute Pain provoked by trauma Acute Pain, neuropathic Acute Nausea & vomiting Acute Back pain Acute Hypoxia Acute Gastrointestinal hemorrhage Acute Atrial fibrillation with RVR Acute Hypokalemia Acute Contusion of right chest wall Acute Hypotension Acute Atrial fibrillation Acute Sepsis Acute
--- NOTE | 2016-12-09 16:52 | PDINTPN ---
Technical Stenographer Progress Note Assessment/Plan: Assessment: Hypotension: Suspect sepsis, with mildly elevated procalcitonin level, as well as cardiac component and anemia. On Cefipime/Vanco. No source identified. AF with RVR: Was in NSR, but now developed AF with RVR 150. BP OK. Anemia: Not checked today. NO signs of active bleeding. Edema: Hypoalbuminemia, on IV albumin. Plan: Amiodarone bolus and gtt 24 hour protocol. Has returned to Sinus tach @ 100. SBP down to 80s. Will give additional dose of albumin today. Diet and activity as tolerated. Stop Vanco. Check H/H. 12/09/16 16:54 Subjective: Feels more dyspneic since AF started. Denies CP. Objective: Vital Signs Temp Pulse Resp BP Pulse Ox 36.1 C 114 H 19 86/64 L 99 12/09/16 15:37 12/09/16 15:37 12/09/16 15:37 12/09/16 15:37 12/09/16 15:37 Laboratory Results 12/08/16 04:20 12/09/16 04:40 12/08/16 12/09/16 12/10/16 05:59 05:59 05:59 Intake Total 4942 2731.1 Output Total 1450 625 Balance 3492 2106.1 PT 16.0 SEC (12.0-15.0) H 12/06/16 16:00 INR 1.28 (0.83-1.16) H 12/06/16 16:00 Physical Exam - Physical Exam General Appearance: alert, mild distress EENT: normal ENT inspection Neck: normal inspection Respiratory: lungs clear Cardiac/Chest: edema (2+), tachycardia Abdomen: non-tender, soft Skin: normal color, warm/dry Extremities: normal inspection Neuro/Psych: alert, normal mood/affect, oriented x 3 ICD10 Worksheet Patient Problems: Problems Problem Status Onset Atrial fibrillation Acute Hypotension Acute Sepsis Acute Atrial fibrillation with RVR Acute Back pain Acute Contusion of right chest wall Acute Gastrointestinal hemorrhage Acute Humerus fracture Acute Hypokalemia Acute Hypoxia Acute Nausea & vomiting Acute Pain provoked by trauma Acute Pain, neuropathic Acute
[2016-12-09] MEDS ORDERED: ALBUMIN 25% 100 ML IV ONE (16:53)
[2016-12-09 17:19] LABS: HEMATOCRIT 30.2 % (38.0-47.0); HEMOGLOBIN 9.2 g/dL (12.6-16.3)
--- NOTE | 2016-12-09 18:24 | SOAPPROG ---
SOAP Progress Note Assessment/Plan: 1. PAF - Pt has a history of PAF. She has been managed with a rate control and anticoagulation strategy. Her [id number] is 7. She has not been on anticoagulation secondary to bleeding risk. She is asymptomatic in A-fib with respect to palpitations. Pt was admitted on 12/06 with A-fib and RVR in the setting of anemia and probable infection. She was unable to take metoprolol or diltiazem secondary to hypotension. She was started on digoxin, however, this was ineffective in managing her heart rate. After discussion of the risks and benefits including stroke she was started on amiodarone for rate control not rhythm control. She did convert to NSR for a period of time but reverted back to A-fib with controlled ventricular response. --> Will need to continue amiodarone for rate control until hemodynamics improve. --> Resume metoprolol as BP tolerates. 2. Anemia - Hgb up to 9.2 after transfusion. --> Continue to follow 3. Esophogeal cancer 4. Hypotension - Secondary to sepsis. Pt is off pressor support, however, BP remains soft. 5. Edema - hyperdynamic systolic function on echocardiogram. Suspect secondary to third spacing from inflammation. Subjective: No chest pain No orthopnea or PND No syncope or pre-syncope. limited ambulation Tele - A-fib --> NSR --> A-fib Objective: Vital Signs Temp Pulse Resp BP Pulse Ox 36.1 C 114 H 19 86/64 L 99 12/09/16 15:37 12/09/16 15:37 12/09/16 15:37 12/09/16 15:37 12/09/16 15:37 Laboratory Results 12/09/16 17:05 12/09/16 04:40 12/08/16 12/09/16 12/10/16 05:59 05:59 05:59 Intake Total 4942 2731.1 Output Total 1450 625 Balance 3492 2106.1 PT 16.0 SEC (12.0-15.0) H 12/06/16 16:00 INR 1.28 (0.83-1.16) H 12/06/16 16:00 Physical Exam - Physical Exam General Appearance: alert, mild distress Respiratory: lungs clear Cardiac/Chest: tachycardia, irregularly irregular Abdomen: distended Skin: normal color Extremities: pedal edema Neuro/Psych: alert ICD10 Worksheet Patient Problems: Problems Problem Status Onset Atrial fibrillation Acute Hypotension Acute Sepsis Acute Atrial fibrillation with RVR Acute Back pain Acute Contusion of right chest wall Acute Gastrointestinal hemorrhage Acute Humerus fracture Acute Hypokalemia Acute Hypoxia Acute Nausea & vomiting Acute Pain provoked by trauma Acute Pain, neuropathic Acute
[2016-12-09] MEDS: ONDANSETRON 4 MG/2 ML VIAL IVP PRN (22:03)
[2016-12-10] MEDS: oxyCODONE IR 5 MG TAB PO PRN ×3 (02:08→20:29)
[2016-12-10] MEDS: CEFEPIME HCL 2 GM in D5W 100 ML IV SCH ×3 (05:08→23:18)
[2016-12-10 05:14] LABS: % IMMATURE GRANULYOCYTES 1.4 % (0.0-1.1); ADD DIFF? NO; ADD MORPH? NO; ADD SCAN? NO; ATYPICAL LYMPHOCYTE FLAG 0 (0-99); FRAGMENT RBC FLAG 0 (0-99); HEMATOCRIT 27.6 % (38.0-47.0); HEMOGLOBIN 8.4 g/dL (12.6-16.3); LEFT SHIFT FLG 20 (0-99); LIPEMIA HEMOLYSIS FLAG 80 (0-99); MEAN CELL HEMOGLOBIN 30.8 pg (27.9-34.1); MEAN CELL HEMOGLOBIN CONCENTR. 30.4 g/dL (32.4-36.7); MEAN CELL VOLUME 101.1 fL (81.5-99.8); MEAN PLATELET VOLUME 9.8 fL (8.7-11.7); PLATELET CLUMPS FLAG 0 (0-99); PLATELET COUNT 87 10^3/uL (150-400); RED BLOOD CELL COUNT 2.73 10^6/uL (4.18-5.33); RED CELL DISTRIBUTION WIDTH 18.1 % (11.5-15.2)
[2016-12-10] MEDS: ONDANSETRON 4 MG/2 ML VIAL IVP PRN (05:27)
[2016-12-10 05:45] LABS: ALANINE AMINOTRANSFERASE 55 IU/L (9-52); ALBUMIN 2.3 g/dL (3.5-5.0); ALKALINE PHOSPHATASE 125 IU/L (38-126); ANION GAP 6 mEq/L (8-16); ASPARTATE AMINOTRANSFERASE 183 IU/L (14-46); BILIRUBIN,TOTAL 0.8 mg/dL (0.1-1.4); CALCIUM 9.8 mg/dL (8.5-10.4); CARBON DIOXIDE 23 mEq/l (22-31); CHLORIDE 112 mEq/L (97-110); CREATININE 0.5 mg/dL (0.6-1.0); GLOMERULAR FILTRATION RATE > 60; GLUCOSE 84 mg/dL (70-100); POTASSIUM 3.6 mEq/L (3.5-5.2); SODIUM 141 mEq/L (134-144); TOTAL PROTEIN 4.5 g/dL (6.3-8.2)
--- NOTE | 2016-12-10 08:45 | PDCARPN ---
Cardiology Progress Note Chief Complaint: Patient feels uncomfortable in general. Assessment/Plan: Assessment: Patient is a 76 y/o female with history of esophageal cancer s/p stent placement (chemo and radiation in past), remote breast cancer, anemia with history of GI bleed, diastolic CHF (normal systolic function noted on echocardiogram), hypotension (multifactorial), atrial fibrillation with CVA ( not on anticoagulation given anemia with [id number] score of 7), and anasarca with possible sepsis, who was admitted with weakness and edema (four days ago). Given patient's hypotension, she has been unable to take metoprolol or diltiazem. Trial with digoxin was unsuccessful with any reduction in heart rates. Patient was started on Amiodarone with slight improvements in heart rates noted. Transfusion assisted with the degree of anemia noted, but drift down is being noted again today. No obvious source of bleeding has been noted ( aware of history of GI bleed). Renal insufficiency was previously noted, but appears to have resolved (creatinine in particular is normal). Patient reports that she is uncomfortable today, but without specific complaint - no chest pains or pressure. Some PND/orthopnea noted. Plan: (1) Would continue Amiodarone for rate control assistance (2) I feel that additional PRBC might be the best option for assistance with volume expansion - assistance with hypotension - assistance with heart rate (likely lower with better volume) (3) Recommendations for patient to sit up in bed and/or chair (4) I brought up hospice/palliative care with the patient given the current circumstances Subjective: Patient states that she feels better today. Reviewed/Discussed With: multidisciplinary team Objective: Vital Signs (8 Hrs) Temp Pulse Resp BP Pulse Ox 12/10/16 07:27 36.4 C 129 H 16 108/89 H 96 12/10/16 05:00 36.3 C 134 H 15 98/68 L 98 Intake/Output (24 Hrs) 12/09/16 12/10/16 12/11/16 05:59 05:59 05:59 Intake Total 2731.1 1745 Output Total 625 1025 Balance 2106.1 720 Intake: Oral (ml) 600 100 IV Intake (ml) 1168 IV Infused (ml) 963.1 1645 Albumin 25% 100 ml @ As 100 Directed IV ONCE ONE Rx#: [id number] Amiodarone HCl 100 ml @ 100 600 mls/hr IV ONCE ONE Rx #:[id number] Amiodarone HCl 200 ml @ 513.1 33.333 mls/hr IV ONCE ONE Rx#:[id number] Amiodarone HCl 200 ml @ 200 33.333 mls/hr IV ONCE ONE Rx#:[id number] Amiodarone HCl 540 mg In 195 D5w 300 ml @ 16.667 mls/ hr IV ONCE ONE Rx#: [id number] Cefepime HCl 2 gm In D5w 200 300 100 ml @ 200 mls/hr IV Q8 NELL Rx#:[id number] NS W/ 20 KCl/L 1,000 ml @ 750 125 mls/hr IV CONT NELL Rx#:[id number] Vancomycin HCl/Normal 250 Saline 250 ml @ 250 mls/ hr IV Q24H NELL Rx#: [id number] Output: Urine (ml) 625 1025 Catheter 625 1025 Other: Weight 92.9 kg 90.6 kg Intake Quantity No Sufficient Result Diagrams: 12/10/16 05:05 12/10/16 05:05 Cardiac Labs: Cardiac Lab Results (72 Hrs) 12/07/16 11:03 Troponin I < 0.012 Telemetry: atrial fibrillation with rapid ventricular response Echocardiogram: hyperdynamic LV systolic function - Physical Exam Constitutional: apparent distress Eyes: PERRL, EOMI Ears, Nose, Mouth, Throat: moist mucous membranes Cardiovascular: irregularly irregular (tachycardia), jugular vein distention, pulses symmetric bilat Peripheral Pulses: 1+: dorsalis-pedis (R), dorsalis-pedis (L) Respiratory: reduced air movement, dullness to percussion Gastrointestinal: no tenderness Skin: no rashes, other (anasarca) Musculoskeletal: no muscular tenderness Neurologic: AAOx3, CN II-XII grossly intact Psychiatric: cooperative, interactive, following commands ICD10 Worksheet Patient Problems: Problems Problem Status Onset Atrial fibrillation Acute Hypotension Acute Sepsis Acute Atrial fibrillation with RVR Acute Back pain Acute Contusion of right chest wall Acute Gastrointestinal hemorrhage Acute Humerus fracture Acute Hypokalemia Acute Hypoxia Acute Nausea & vomiting Acute Pain provoked by trauma Acute Pain, neuropathic Acute
[2016-12-10] MEDS: GABAPENTIN 400 MG CAP PO SCH ×3 (10:36→23:18)
[2016-12-10] MEDS: LANSOPRAZOLE SUSP 30MG/10ML UDSYR (Adult) PO SCH (10:36)
[2016-12-10] MEDS: ATORVASTATIN CALCIUM 10 MG TAB PO SCH (10:36)
[2016-12-10] MEDS: ASPIRIN 81 MG CHEWABLE TAB PO SCH (10:36)
[2016-12-10] MEDS: ANASTROZOLE 1 MG TAB PO SCH (10:36)
[2016-12-10] MEDS: POTASSIUM CL 20 MEQ TAB PO SCH (10:37)
[2016-12-10] MEDS: ENOXAPARIN 40 MG/0.4 ML SYR SC SCH (11:06)
--- NOTE | 2016-12-10 11:08 | SOAPPROG ---
SOAP Progress Note Assessment/Plan: Assessment/Plan:76 yo woman w esophageal ca s/p FOLFOX now on palliative XRT only she was admitted w sepsis and now having issues w Afib w RVR 1. locally advanced esophageal ca - will resume XRT when medically stable 2. hypotension - off pressors; source of sepsis unclear cont on abx which are being narrowed 3. Aib w RVR - on amio gtt 4. Ischial ulcers - wound care 5. anemia/thrombocytopenia - multifactorial no tx requirements but consider PRBCs given underlying CV issues follow 12/10/16 10:59 12/10/16 11:08 12/10/16 11:12 12/10/16 11:13 Subjective: No feeling well this am nonspecific Sx Objective: Vital Signs Temp Pulse Resp BP Pulse Ox 36.4 C 129 H 16 108/89 H 96 12/10/16 07:27 12/10/16 07:27 12/10/16 07:27 12/10/16 07:27 12/10/16 07:27 Laboratory Results 12/10/16 05:05 12/10/16 05:05 12/09/16 12/10/16 12/11/16 05:59 05:59 05:59 Intake Total 2731.1 1745 Output Total 625 1025 Balance 2106.1 720 PT 16.0 SEC (12.0-15.0) H 12/06/16 16:00 INR 1.28 (0.83-1.16) H 12/06/16 16:00 Gen - elderly woman in mod distress HEENT - anicteric CV- tachy, irregular Chest- decreased BS at bases Abd- soft, BS+ Ext - sig bilateral edema ICD10 Worksheet Patient Problems: Problems Problem Status Onset Atrial fibrillation Acute Hypotension Acute Sepsis Acute Atrial fibrillation with RVR Acute Back pain Acute Contusion of right chest wall Acute Gastrointestinal hemorrhage Acute Humerus fracture Acute Hypokalemia Acute Hypoxia Acute Nausea & vomiting Acute Pain provoked by trauma Acute Pain, neuropathic Acute
--- NOTE | 2016-12-10 11:37 | PDINTPN ---
Facing Machine Operator Progress Note Assessment/Plan: Assessment: Hypotension: Suspect sepsis, with mildly elevated procalcitonin level, as well as cardiac component and anemia. Improved. On Cefipime. No source identified. AF with RVR: Was in NSR after amio bolus yesterday, but then developed AF with RVR 150. Rebolused and started on gtt, HR down a bit Anemia: Not checked today. No signs of active bleeding. Edema: Hypoalbuminemia, on IV albumin. Plan: Give PRBCs, albumin, try to diurese if BP tolerates. Follow H/H. 12/10/16 12:02 Subjective: Slept well last night, but still feels tired. Strength better than yesterday. C/ O increased belching Objective: Vital Signs Temp Pulse Resp BP Pulse Ox 36.4 C 129 H 16 108/89 H 96 12/10/16 07:27 12/10/16 07:27 12/10/16 07:27 12/10/16 07:27 12/10/16 07:27 Laboratory Results 12/10/16 05:05 12/10/16 05:05 12/09/16 12/10/16 12/11/16 05:59 05:59 05:59 Intake Total 2731.1 1745 Output Total 625 1025 Balance 2106.1 720 PT 16.0 SEC (12.0-15.0) H 12/06/16 16:00 INR 1.28 (0.83-1.16) H 12/06/16 16:00 Physical Exam - Physical Exam General Appearance: alert, no apparent distress EENT: normal ENT inspection Neck: normal inspection Respiratory: lungs clear, normal breath sounds Cardiac/Chest: edema (3+), tachycardia (irregular) Abdomen: normal bowel sounds, non-tender Skin: normal color, warm/dry Extremities: normal inspection Neuro/Psych: alert, normal mood/affect, oriented x 3 ICD10 Worksheet Patient Problems: Problems Problem Status Onset Atrial fibrillation Acute Hypotension Acute Sepsis Acute Atrial fibrillation with RVR Acute Back pain Acute Contusion of right chest wall Acute Gastrointestinal hemorrhage Acute Humerus fracture Acute Hypokalemia Acute Hypoxia Acute Nausea & vomiting Acute Pain provoked by trauma Acute Pain, neuropathic Acute
--- NOTE | 2016-12-10 12:28 | HOSPPROG ---
Hospitalist Progress Note Assessment/Plan: # hypotension: sepsis vs hypovolemia - now off pressors; echo hyperdynamic - cont cefepime, stop soon - transfuse one unit PRBC today # atrial fib with RVR - now back in RVR, had not responded to digoxin; - s/p amio gtt, start amio PO - no AC given esophageal mass # esophageal cancer - s/p folfox, recently received XRT # anemia - suspect slow GI loss given esophageal cancer # pressure injury on ischium - wound care # vol overload/edema - trial of albumin/lasix today # hx embolic CVA - minimal deficits # goals of care - palliative was discussed by cards - consider consult on Mon Subjective: ongoing tachycardia overnight; no CP; says she is sleepy Objective: Vital Signs Temp Pulse Resp BP Pulse Ox 36.4 C 129 H 16 108/89 H 96 12/10/16 07:27 12/10/16 07:27 12/10/16 07:27 12/10/16 07:27 12/10/16 07:27 Laboratory Results 12/10/16 05:05 12/10/16 05:05 12/09/16 12/10/16 12/11/16 05:59 05:59 05:59 Intake Total 2731.1 1745 Output Total 625 1025 Balance 2106.1 720 PT 16.0 SEC (12.0-15.0) H 12/06/16 16:00 INR 1.28 (0.83-1.16) H 12/06/16 16:00 - Physical Exam Constitutional: chronically ill appearing Cardiovascular: no murmur, rub, or gallop, irregularly irregular, tachycardia, other (L port; R IJ) Respiratory: no respiratory distress, no rales or rhonchi, clear to auscultation Gastrointestinal: normoactive bowel sounds, soft, non-tender abdomen, no palpable masses ICD10 Worksheet Patient Problems: Problems Problem Status Onset Humerus fracture Acute Pain provoked by trauma Acute Pain, neuropathic Acute Nausea & vomiting Acute Back pain Acute Hypoxia Acute Gastrointestinal hemorrhage Acute Atrial fibrillation with RVR Acute Hypokalemia Acute Contusion of right chest wall Acute Hypotension Acute Atrial fibrillation Acute Sepsis Acute
[2016-12-10] MEDS: ALBUMIN 25% 100 ML IV SCH ×2 (12:54→20:29)
[2016-12-10] MEDS: AMIODARONE HCL 200 MG TAB PO SCH ×2 (13:08→20:29)
[2016-12-10] MEDS: FUROSEMIDE 20 MG/2 ML VIAL IVP SCH (14:49)
[2016-12-11] MEDS: ONDANSETRON 4 MG/2 ML VIAL IVP PRN ×2 (03:11→07:39)
[2016-12-11] MEDS: ALBUMIN 25% 100 ML IV SCH ×3 (04:40→20:40)
[2016-12-11] MEDS: CEFEPIME HCL 2 GM in D5W 100 ML IV SCH ×3 (06:26→21:22)
[2016-12-11 06:43] LABS: % IMMATURE GRANULYOCYTES 1.5 % (0.0-1.1); ABSOLUTE IMMATURE GRANULOCYTES 0.12 10^3/uL (0.00-0.10); ADD DIFF? NO; ADD MORPH? NO; ADD SCAN? NO; ATYPICAL LYMPHOCYTE FLAG 0 (0-99); FRAGMENT RBC FLAG 0 (0-99); HEMATOCRIT 30.6 % (38.0-47.0); HEMOGLOBIN 9.7 g/dL (12.6-16.3); LEFT SHIFT FLG 10 (0-99); LIPEMIA HEMOLYSIS FLAG 80 (0-99); MEAN CELL HEMOGLOBIN 31.4 pg (27.9-34.1); MEAN CELL HEMOGLOBIN CONCENTR. 31.7 g/dL (32.4-36.7); MEAN PLATELET VOLUME 10.1 fL (8.7-11.7); PLATELET CLUMPS FLAG 20 (0-99); PLATELET COUNT 80 10^3/uL (150-400); RED BLOOD CELL COUNT 3.09 10^6/uL (4.18-5.33); RED CELL DISTRIBUTION WIDTH 18.9 % (11.5-15.2)
[2016-12-11 07:35] LABS: ANION GAP 9 mEq/L (8-16); CALCIUM 10.7 mg/dL (8.5-10.4); CARBON DIOXIDE 22 mEq/l (22-31); CHLORIDE 111 mEq/L (97-110); CREATININE 0.6 mg/dL (0.6-1.0); GLOMERULAR FILTRATION RATE > 60; GLUCOSE 87 mg/dL (70-100); POTASSIUM 3.8 mEq/L (3.5-5.2); SODIUM 142 mEq/L (134-144)
[2016-12-11] MEDS: GABAPENTIN 400 MG CAP PO SCH ×3 (09:56→20:38)
[2016-12-11] MEDS: ASPIRIN 81 MG CHEWABLE TAB PO SCH (09:56)
[2016-12-11] MEDS: ATORVASTATIN CALCIUM 10 MG TAB PO SCH (09:56)
[2016-12-11] MEDS: POTASSIUM CL 20 MEQ TAB PO SCH (09:56)
[2016-12-11] MEDS: ANASTROZOLE 1 MG TAB PO SCH (09:56)
[2016-12-11] MEDS: FUROSEMIDE 20 MG/2 ML VIAL IVP SCH ×2 (09:56→14:30)
[2016-12-11] MEDS: AMIODARONE HCL 200 MG TAB PO SCH ×2 (09:56→20:37)
[2016-12-11] MEDS: ENOXAPARIN 40 MG/0.4 ML SYR SC SCH (09:56)
[2016-12-11] MEDS: LANSOPRAZOLE SUSP 30MG/10ML UDSYR (Adult) PO SCH (10:02)
[2016-12-11] MEDS: DILTIAZEM 125 MG in D5W 125 ML IV SCH ×2 (10:41→20:36)
--- NOTE | 2016-12-11 11:34 | PDCARPN ---
Cardiology Progress Note Chief Complaint: Generalized malaise. Feels poorly. Assessment/Plan: Assessment: 12-11-16 Patient feeling poorly today. Generalized pains. No chest pains per se, but malaise. Patient was sitting up in a chair today, and tearful. Ongoing tachycardia with addition of IV CCB therapy today to reduce heart rates somewhat. Stable H/H noted today. Ongoing bleeding concerns, so no anticoagulation for severely elevated CVA risk. At present, both Amiodarone and IV CCB therapy are being given, and heart rates continue to be elevated to 130-140 bpm. 12-10-16 Patient is a 76 y/o female with history of esophageal cancer s/p stent placement (chemo and radiation in past), remote breast cancer, anemia with history of GI bleed, diastolic CHF (normal systolic function noted on echocardiogram), hypotension (multifactorial), atrial fibrillation with CVA ( not on anticoagulation given anemia with [id number] score of 7), and anasarca with possible sepsis, who was admitted with weakness and edema (four days ago). Given patient's hypotension, she has been unable to take metoprolol or diltiazem. Trial with digoxin was unsuccessful with any reduction in heart rates. Patient was started on Amiodarone with slight improvements in heart rates noted. Transfusion assisted with the degree of anemia noted, but drift down is being noted again today. No obvious source of bleeding has been noted ( aware of history of GI bleed). Renal insufficiency was previously noted, but appears to have resolved (creatinine in particular is normal). Patient reports that she is uncomfortable today, but without specific complaint - no chest pains or pressure. Some PND/orthopnea noted. Plan: (1) Would continue both Amiodarone and Diltiazem for assistance with rate control of the noted atrial fibrillation (2) Continue to monitor H/H. (3) Palliative care consult is schedule for tomorrow (4) Would continue to sit up and ambulate (if possible) Subjective: Generalized malaise is noted today. Patient is uncomfortable Reviewed/Discussed With: multidisciplinary team Objective: Vital Signs (8 Hrs) Temp Pulse Resp BP Pulse Ox 12/11/16 10:41 150 H 12/11/16 07:39 134 H 16 112/86 H 96 12/11/16 04:00 36.5 C 140 H 16 101/70 98 Intake/Output (24 Hrs) 12/10/16 12/11/16 12/12/16 05:59 05:59 05:59 Intake Total 1745 1466 Output Total 1025 1250 Balance 720 216 Intake: Oral (ml) 100 530 IV Intake (ml) 20 IV Infused (ml) 1645 666 Albumin 25% 100 ml @ As 100 200 Directed IV ONCE ONE Rx#: [id number] Amiodarone HCl 100 ml @ 100 600 mls/hr IV ONCE ONE Rx #:[id number] Amiodarone HCl 200 ml @ 200 33.333 mls/hr IV ONCE ONE Rx#:[id number] Amiodarone HCl 540 mg In 195 80 D5w 300 ml @ 16.667 mls/ hr IV ONCE ONE Rx#: [id number] Cefepime HCl 2 gm In D5w 300 100 100 ml @ 200 mls/hr IV Q8 NELL Rx#:[id number] NS W/ 20 KCl/L 1,000 ml @ 750 286 125 mls/hr IV CONT NELL Rx#:[id number] Packed Red Blood Cells ( 250 ml) Output: Urine (ml) 1025 1250 Catheter 1025 1250 Other: Weight 90.6 kg 98.1 kg 98.1 kg Intake Quantity No Sufficient Number of Voids Catheter 1 Result Diagrams: 12/11/16 06:30 12/11/16 06:30 Telemetry: atrial fibrillation with rapid ventricular response - Physical Exam Constitutional: general pain, apparent distress Eyes: PERRL, EOMI Ears, Nose, Mouth, Throat: moist mucous membranes Cardiovascular: irregularly irregular (tachycardia), jugular vein distention Peripheral Pulses: 1+: dorsalis-pedis (R), dorsalis-pedis (L) Respiratory: reduced air movement, expiratory wheeze Gastrointestinal: normoactive bowel sounds, no tenderness Skin: other (edema) Musculoskeletal: joint tenderness Neurologic: AAOx3, CN II-XII grossly intact Psychiatric: cooperative, interactive, following commands ICD10 Worksheet Patient Problems: Problems Problem Status Onset Atrial fibrillation Acute Hypotension Acute Sepsis Acute Atrial fibrillation with RVR Acute Back pain Acute Contusion of right chest wall Acute Gastrointestinal hemorrhage Acute Humerus fracture Acute Hypokalemia Acute Hypoxia Acute Nausea & vomiting Acute Pain provoked by trauma Acute Pain, neuropathic Acute
[2016-12-11] MEDS ORDERED: PROTOCOL K PHOSPHATE 1 DOSE IV PRN (11:44)
--- NOTE | 2016-12-11 11:46 | HOSPPROG ---
Hospitalist Progress Note Assessment/Plan: # hypotension: sepsis vs hypovolemia - now off pressors; echo hyperdynamic - cont cefepime - no clear infection to treat but she has an esophageal stent # atrial fib with RVR - now back in RVR, had not responded to digoxin; - s/p amio gtt, start amio PO - no AC given esophageal mass - dilt gtt started today # esophageal cancer s/p stent - s/p folfox, recently received XRT # anemia - suspect slow GI loss given esophageal cancer # pressure injury on ischium - wound care # anasarca - cont albumin/lasix today # hx embolic CVA - R side deficits # hypoPhos - replete # goals of care - i discussed palliative care with her today. she is interested. consult ordered. Subjective: she feels very poorly, weak; no CP today Objective: Vital Signs Temp Pulse Resp BP Pulse Ox 36.5 C 150 H 16 112/86 H 96 12/11/16 04:00 12/11/16 10:41 12/11/16 07:39 12/11/16 07:39 12/11/16 07:39 Laboratory Results 12/11/16 06:30 12/11/16 06:30 12/10/16 12/11/16 12/12/16 05:59 05:59 05:59 Intake Total 1745 1466 Output Total 1025 1250 Balance 720 216 PT 16.0 SEC (12.0-15.0) H 12/06/16 16:00 INR 1.28 (0.83-1.16) H 12/06/16 16:00 high risk on dilt gtt - Physical Exam Constitutional: chronically ill appearing Cardiovascular: no murmur, rub, or gallop, tachycardia Respiratory: no respiratory distress, no rales or rhonchi, clear to auscultation Gastrointestinal: normoactive bowel sounds, soft, non-tender abdomen, no palpable masses ICD10 Worksheet Patient Problems: Problems Problem Status Onset Humerus fracture Acute Pain provoked by trauma Acute Pain, neuropathic Acute Nausea & vomiting Acute Back pain Acute Hypoxia Acute Gastrointestinal hemorrhage Acute Atrial fibrillation with RVR Acute Hypokalemia Acute Contusion of right chest wall Acute Hypotension Acute Atrial fibrillation Acute Sepsis Acute
[2016-12-11] MEDS ORDERED: K PHOS 15 MMOL in D5W 250 ML IV ONE (12:00)
[2016-12-11] MEDS ORDERED: LORazepam 1 MG TAB PO PRN (12:01)
--- NOTE | 2016-12-11 13:33 | PDINTPN ---
Credit Manager Progress Note Assessment/Plan: Assessment: Hypotension: Suspect sepsis, with mildly elevated procalcitonin level, as well as cardiac component and anemia. Improved. On Cefipime. No source identified. AF with RVR: Was in NSR after amio bolus yesterday, but then developed AF with RVR 150. Started on Cardizem, HR still high at 10 mg/hr. Anemia: Improved after transfusion Edema: Hypoalbuminemia, on IV albumin. May not be responsive to treatment. Plan: Give PRBCs, albumin, try to diurese if BP tolerates. Increase diltiazem. If HR not coming down, ? esmolol. Follow H/H. D/W patient, , Dr. Wong, RN. Palliative consult is appropriate. 12/11/16 13:28 12/11/16 13:32 Subjective: Distressed about not being allowed to drink water last night. Objective: Vital Signs Temp Pulse Resp BP Pulse Ox 37.2 C 138 H 17 102/75 97 12/11/16 11:53 12/11/16 11:53 12/11/16 11:53 12/11/16 11:53 12/11/16 11:53 Laboratory Results 12/11/16 06:30 12/11/16 06:30 12/10/16 12/11/16 12/12/16 05:59 05:59 05:59 Intake Total 1745 1466 Output Total 1025 1250 Balance 720 216 PT 16.0 SEC (12.0-15.0) H 12/06/16 16:00 INR 1.28 (0.83-1.16) H 12/06/16 16:00 Laboratory Tests 12/10/16 05:05 AST 183 H ALT 55 H Albumin 2.3 L Physical Exam - Physical Exam General Appearance: alert, mild distress EENT: normal ENT inspection Neck: normal inspection Respiratory: lungs clear, normal breath sounds Cardiac/Chest: regular rate, rhythm, edema (4+) Abdomen: normal bowel sounds, non-tender, soft Skin: normal color, warm/dry Extremities: non-tender Neuro/Psych: alert, normal mood/affect, oriented x 3 ICD10 Worksheet Patient Problems: Problems Problem Status Onset Atrial fibrillation Acute Hypotension Acute Sepsis Acute Atrial fibrillation with RVR Acute Back pain Acute Contusion of right chest wall Acute Gastrointestinal hemorrhage Acute Humerus fracture Acute Hypokalemia Acute Hypoxia Acute Nausea & vomiting Acute Pain provoked by trauma Acute Pain, neuropathic Acute
--- NOTE | 2016-12-11 13:42 | WOCRNPDOC ---
WOCRN Advanced Assessment Note - Skin Integrity Problem, Advanced Assess Bilateral Upper Medial Thigh Pressure Injury Dressing Type: Allevyn Life Dressing Description: Intact Exudate Amount: None Exudate Characteristic(s): None Integumentary Issue Intervention: Visualized Under Dressing Mirta Wound Tissue: Intact Mirta Wound Swelling: None Wound Bed Color: Purple Pressure Injury Stage: Deep Tissue Injury (DTI), Instructional Design Consultant Related Pressure Injury Pressure Injury Present on Admit: No Skin Integrity Problem Comment: Re-check of ecchymosis in bilateral inner thighs r/t catheter tubing, injury continues to resemble deep tissue injury. Skin remains intact over ecchymosis, covered by Allevyns on both sides to protect from further injury from tubing. Stat-lock catheter securement device located too low on patient's L thigh, pulled taut against skin. This was pointed out to medical supply technician Raúl, who removed it and placed a new device further up on patient's L thigh. Wound care will continue to monitor site as it evolves , following up with patient again on 12/15.
--- NOTE | 2016-12-11 16:17 | ASMTCMCOM ---
CM Note CM Note Notes: Therapies are recommending SNF Rehab. Hospitalist spoke to patient re: Palliative consult. Case Management to follow the Palliative report for future needs. Date Signed: 12/11/2016 04:17 PM Electronically Signed By:Mee Perea LCSW
[2016-12-11] MEDS ORDERED: FAMOTIDINE 20 MG TAB PO PRN (18:38)
[2016-12-11] MEDS ORDERED: MBX SOLN 30 ML BOTTLE PO PRN (18:38)
[2016-12-11] MEDS ORDERED: CALCIUM CARBONATE 500 MG CHEWABLE TAB PO PRN (18:39)
[2016-12-11] MEDS ORDERED: traZODone 50 MG TAB PO ONE (19:45)
--- NOTE | 2016-12-11 19:56 | HOSPPROG ---
Hospitalist Progress Note Assessment/Plan: Prolonged service, direct patient care, [id number] with patient and her bedside for 40 minutes from 7:00 p.m. until 7:40 p.m., addressing the following: -nurse called me because patient and her were considering transfer to outside facility due to care concerns -the patient felt like she was unable to receive oral fluids last night, had difficulty sleeping, and has also been having intermittent reflux, issues she feels like were not addressed, becoming significantly distressed and tearful during our encounter, receiving frequent reassurance from our evening shift nurse -RN to follow-up on care concerns from last night -her has become frustrated with her slow rate of recovery, since he recalls having been told at [facility] that her edema would resolve within 1-2 days of treatment, and her care has become increasingly complex since admission, with hypotension, anasarca, and afib RVR -her also felt abandoned when palliative care was suggested today as an appropriate, additional level of support at this juncture, given that she has underlying malignancy, recent CVA, and critical illness placing her at high risk for worsening morbidity/mortality -when asked how she would like to proceed with care, patient reports that she is "always optimistic" and wants her treatment plan to be consistent with her desire to do everything possible, framed in a more optimistic manner -when her asked if herbal remedies would be more effective for treating her current situation, we discussed the nuances of her medical treatment plan and I advised against withdrawing her current level of medical support, as that would likely lead to mortality, and there are no herbal remedies I know which would appropriately treat her current situation -patient, , and son would like to consider transfer to [facility], and they understand that a transfer would be safest during day hours -while I shared with them that [facility] is capable of providing all of the necessary care to appropriately treat Ms. Trevino's current condition, they would like records to be sent to [facility] tonight pre-emptively, in case they decide to make a transfer tomorrow -regarding reflux, PRN Rx ordered, non-narcotic sleep aid (trazodone) suggested , OK to drink fluids, continue current medical care -patient remains diffusely edematous, has scattered ecchymoses, is currently verbally communicative, tearful, in Afib at 110s, net neg 400cc day shift, and SBP 90s on scheduled albumin Objective: Vital Signs Temp Pulse Resp BP Pulse Ox 36.7 C 129 H 22 H 97/48 L 99 12/11/16 16:00 12/11/16 16:00 12/11/16 16:00 12/11/16 16:00 12/11/16 16:00 Microbiology 12/06/16 17:45 Blood Culture - Final Blood Laboratory Results 12/11/16 06:30 12/11/16 06:30 12/10/16 12/11/16 12/12/16 05:59 05:59 05:59 Intake Total 1745 1466 295 Output Total 1025 1250 1150 Balance 720 216 -855 PT 16.0 SEC (12.0-15.0) H 12/06/16 16:00 INR 1.28 (0.83-1.16) H 12/06/16 16:00 ICD10 Worksheet Patient Problems: Problems Problem Status Onset Humerus fracture Acute Pain provoked by trauma Acute Pain, neuropathic Acute Nausea & vomiting Acute Back pain Acute Hypoxia Acute Gastrointestinal hemorrhage Acute Atrial fibrillation with RVR Acute Hypokalemia Acute Contusion of right chest wall Acute Hypotension Acute Atrial fibrillation Acute Sepsis Acute
[2016-12-11] MEDS: traZODone 50 MG TAB PO SCH ×2 (20:38→20:45)
[2016-12-12] MEDS: ALBUMIN 25% 100 ML IV SCH ×3 (04:03→21:18)
[2016-12-12 04:28] LABS: ABSOLUTE IMMATURE GRANULOCYTES 0.08 10^3/uL (0.00-0.10); ADD DIFF? NO; ADD MORPH? NO; ADD SCAN? NO; ATYPICAL LYMPHOCYTE FLAG 0 (0-99); FRAGMENT RBC FLAG 0 (0-99); HEMATOCRIT 29.4 % (38.0-47.0); HEMOGLOBIN 9.3 g/dL (12.6-16.3); LEFT SHIFT FLG 10 (0-99); LIPEMIA HEMOLYSIS FLAG 80 (0-99); MEAN CELL HEMOGLOBIN 31.2 pg (27.9-34.1); MEAN CELL HEMOGLOBIN CONCENTR. 31.6 g/dL (32.4-36.7); MEAN CELL VOLUME 98.7 fL (81.5-99.8); MEAN PLATELET VOLUME 10.6 fL (8.7-11.7); PLATELET CLUMPS FLAG 0 (0-99); PLATELET COUNT 68 10^3/uL (150-400); RED BLOOD CELL COUNT 2.98 10^6/uL (4.18-5.33); RED CELL DISTRIBUTION WIDTH 18.4 % (11.5-15.2)
[2016-12-12 04:39] LABS: ALANINE AMINOTRANSFERASE 54 IU/L (9-52); ALBUMIN 2.6 g/dL (3.5-5.0); ALKALINE PHOSPHATASE 125 IU/L (38-126); ANION GAP 6 mEq/L (8-16); ASPARTATE AMINOTRANSFERASE 222 IU/L (14-46); BILIRUBIN,TOTAL 1.5 mg/dL (0.1-1.4); CALCIUM 11.1 mg/dL (8.5-10.4); CARBON DIOXIDE 26 mEq/l (22-31); CHLORIDE 108 mEq/L (97-110); CREATININE 0.6 mg/dL (0.6-1.0); GLOMERULAR FILTRATION RATE > 60; GLUCOSE 81 mg/dL (70-100); POTASSIUM 3.4 mEq/L (3.5-5.2); SODIUM 140 mEq/L (134-144); TOTAL PROTEIN 4.8 g/dL (6.3-8.2)
[2016-12-12] MEDS: DILTIAZEM 125 MG in D5W 125 ML IV SCH (05:14)
[2016-12-12] MEDS: CEFEPIME HCL 2 GM in D5W 100 ML IV SCH ×3 (06:44→21:26)
[2016-12-12] MEDS: ONDANSETRON 4 MG/2 ML VIAL IVP PRN (09:02)
[2016-12-12] MEDS: ATORVASTATIN CALCIUM 10 MG TAB PO SCH (11:48)
[2016-12-12] MEDS: ASPIRIN 81 MG CHEWABLE TAB PO SCH (11:48)
[2016-12-12] MEDS: GABAPENTIN 400 MG CAP PO SCH ×3 (11:48→21:26)
[2016-12-12] MEDS: ANASTROZOLE 1 MG TAB PO SCH (11:49)
[2016-12-12] MEDS: AMIODARONE HCL 200 MG TAB PO SCH ×2 (11:49→21:26)
[2016-12-12] MEDS: FUROSEMIDE 20 MG/2 ML VIAL IVP SCH ×2 (11:49→15:27)
[2016-12-12] MEDS: ENOXAPARIN 40 MG/0.4 ML SYR SC SCH (11:49)
[2016-12-12] MEDS: POTASSIUM CL 20 MEQ TAB PO SCH (11:51)
[2016-12-12] MEDS ORDERED: K PHOS 15 MMOL in D5W 250 ML IV ONE (12:00)
[2016-12-12] MEDS: LANSOPRAZOLE SUSP 30MG/10ML UDSYR (Adult) PO SCH (12:16)
--- NOTE | 2016-12-12 12:21 | PDINTPN ---
Director Of Religious Activities Progress Note Assessment/Plan: Assessment: Severe sepsis: Improved. Hypotension resolved. On Cefipime. No source identified. Possibly pulmonary as infiltrates present on admission but little clinically in the way signs or symptoms of pneumonia. Rapid atrial fibrillation contributing. Low albumin as well. AF with RVR: Was in NSR after amio bolus yesterday, but then developed AF with RVR 150. On Cardizem at 15 mg/hr. Blood pressure can now probably tolerate low- dose metoprolol. Digoxin was ineffective. Anemia: Improved after transfusion. Hematocrit stable at approximately 28. Edema: Hypoalbuminemia, on IV albumin and Lasix 20 IV twice daily.. May not be responsive to treatment. Advance directives: Indicated today she would like to be DNR. Esophageal cancer. Status post stent. Status post chemotherapy. Getting radiation treatments: Has 4 to go. Other treatment options available. Prognosis: Overall, this may be poor in light of deterioration over the last several months. However, other treatment options for her esophageal cancer could possibly be affective, and radiation has not yet been fully completed. Nutrition: Not eating much, but denies odynophagia. TPN to start. DVT prophylaxis: On enoxaparin. GI prophylaxis: On famotidine. Plan: Continue albumin and Lasix diuresis for now. Continue diltiazem. Add metoprolol. Follow H/H, lab. Repeat chest x-ray in the morning. Continue present care for now, with anticipation of a more prolonged hospitalization at this point, medical stabilization, re-initiation of radiation treatments, etc. Start TPN. 35 minutes of critical care time spent directly with the patient. Discussed with patient and her , Hospitalist, Oncology, Cardiology, and the ICU multi disciplinary team. Subjective: Doing okay. In chair. Denies pain or shortness of breath. Denies pain with swallowing but not eating much. Says she is not hungry. Objective: Vital Signs Temp Pulse Resp BP Pulse Ox 36.4 C 109 H 17 97/67 L 95 12/12/16 07:53 12/12/16 07:53 12/12/16 07:53 12/12/16 07:53 12/12/16 07:53 Microbiology 12/06/16 17:45 Blood Culture - Final Blood Laboratory Results 12/12/16 04:10 12/12/16 04:10 0912/12/16 12/13/16 05:59 05:59 05:59 Intake Total 1466 875 Output Total 1250 2150 Balance 216 -1275 PT 16.0 SEC (12.0-15.0) H 12/06/16 16:00 INR 1.28 (0.83-1.16) H 12/06/16 16:00 Laboratory Tests 12/12/16 04:10 Phosphorus 1.5 L Total Bilirubin 1.5 H D AST 222 H ALT 54 H Albumin 2.6 L Physical Exam - Physical Exam General Appearance: alert, obese, other (Sitting in chair) EENT: PERRL/EOMI, other (Nasal cannula in place at 2 L) Neck: normal inspection Respiratory: decreased breath sounds (At bases, with dullness), No rales, No rhonchi, No wheezing Cardiac/Chest: irregularly irregular (Atrial fibrillation at approximately 110) , other Abdomen: non-tender, soft, No normal bowel sounds Pelvic Exam: other (Flores catheter in place, good urine output last 24 hours.) Skin: warm/dry, pallor Extremities: swelling (Edema/anasarca lower extremities) Neuro/Psych: no motor/sensory deficits (Moves all extremities equally, globally weak), No cognition abnormalities ICD10 Worksheet Patient Problems: Problems Problem Status Onset Atrial fibrillation Acute Hypotension Acute Sepsis Acute Atrial fibrillation with RVR Acute Back pain Acute Contusion of right chest wall Acute Gastrointestinal hemorrhage Acute Humerus fracture Acute Hypokalemia Acute Hypoxia Acute Nausea & vomiting Acute Pain provoked by trauma Acute Pain, neuropathic Acute
[2016-12-12] MEDS ORDERED: D10W 1,000 ML IV PRN (12:40)
--- NOTE | 2016-12-12 12:54 | SOAPPROG ---
SOAP Progress Note Assessment/Plan: Assessment: 1) Metastatic esophageal cancer (single site of metastatic josey disease in upper abdomen) 2) Esophageal obstruction secondary to #1 (receiving palliative XRT, and s/p esophageal stent) 3) Rapid A-fib 4) Protein calorie malnutrition 5) Poor performance status Plan: I discussed her case with Dr. Kwon, Dr. Burns, Dr. Rubin, nursing. She has esophageal cancer with a distal esophageal obstruction. She is receiving palliative XRT for this. The obstruction has worsened with radiation which often occurs due to tumor swelling. She has a positive HER 2 cristofer mutation , and has not yet received herceptin based therapy. In summary there are legitimate treatment options remaining, and it it too early in the course of her radiation to determine whether or not it has been effective. She has multiple comorbid issues complicating her situation. She remains motivated to continue therapy, and understands that her disease is not curable. She and her do not want aggressive measures such as intubation, and she is DNR which I think is appropriate. In light of our discussion today, I will start TPN to try to get her more nutrition. If she can be weaned off of Diltiazem drip, will plan on resuming palliative XRT (has 4 tx remaining). Could consider initiating herceptin based therapy 2 weeks after completion of XRT. If her status deteriorates, then palliative care am appropriate option. She will meet with palliative care today. 12/12/16 12:42 Subjective: at bedside. Denies pain. Remains on Diltiazem drip. Objective: Vital Signs Temp Pulse Resp BP Pulse Ox 36.4 C 109 H 17 97/67 L 95 12/12/16 07:53 12/12/16 07:53 12/12/16 07:53 12/12/16 07:53 12/12/16 07:53 Microbiology 12/06/16 17:45 Blood Culture - Final Blood Laboratory Results 12/12/16 04:10 12/12/16 04:10 12/11/16 12/12/16 12/13/16 05:59 05:59 05:59 Intake Total 1466 875 Output Total 1250 2150 Balance 216 -1275 PT 16.0 SEC (12.0-15.0) H 12/06/16 16:00 INR 1.28 (0.83-1.16) H 12/06/16 16:00 - Time Spent With Patient Time Spent With Patient: 60 minutes Physical Exam - Physical Exam General Appearance: alert Cardiac/Chest: other (Irregular, rapid) Abdomen: non-tender, soft Neuro/Psych: alert, normal mood/affect ICD10 Worksheet Patient Problems: Problems Problem Status Onset Atrial fibrillation Acute Hypotension Acute Sepsis Acute Atrial fibrillation with RVR Acute Back pain Acute Contusion of right chest wall Acute Gastrointestinal hemorrhage Acute Humerus fracture Acute Hypokalemia Acute Hypoxia Acute Nausea & vomiting Acute Pain provoked by trauma Acute Pain, neuropathic Acute
[2016-12-12 13:41] LABS: INR 1.45 (0.83-1.16); PROTIME(PATIENT) 17.6 SEC (12.0-15.0)
[2016-12-12 13:42] LABS: APTT 37.6 SEC (23.0-38.0)
[2016-12-12] MEDS: METOPROLOL TARTRATE 25 MG TAB PO SCH ×2 (14:44→18:57)
--- NOTE | 2016-12-12 14:52 | HOSPPROG ---
Hospitalist Progress Note Assessment/Plan: 76 yo F with PMH of metastatic esophageal cancer pw increased edema and hypotension # hypotension/shock: initially presumed to be 2/2 sepsis however no clear source ever identified, initially on 2 pressors and treated empirically with vanc/cefepime. No longer requiring pressor support, off of abx. could be volume related versus or multifactorial, ? cardiac--echo hyperdynamic but patient has had poor rate control with a fib likely contributing as well. # a fib w/rvr: has been difficult to control, currently on diltiazem gtt as well as PO amiodarone. Hypotension has limited ability to start other medications, trial of dig with no improvement in rate. CHADS vasc of 7 but no AC for now given esophageal mass and concern for bleeding. # anemia: has required tx of 2 units of prbcs on 12/10 with h/h relatively stable since then, suspect related to GI losses with esophageal mass # esophageal cancer/metastatic: patient with noted worsening esophageal obstruction, has been treated with FOLFOX and XRT but per oncology too soon to determine if this is likely to be effective. and patient both eager to continue treatment so long as she is likely to benefit from it. # pressure injury: POA, continue to turn q2, wound care following # anasarca: 2/2 hypoalbuminemia, continue on albumin and lasix as tolerated # hx of embolic CVA # nutrition: has been largely unable to take PO, started on TPN by oncology, repleting electrolytes as needed # DNR per discussion with Dr. Rubin and Dr. Grant Patient new to my care. Old records reviewed and summarized as above Subjective: no significant overnight events, patient somnolent at the time of my evaluation Objective: Vital Signs Temp Pulse Resp BP Pulse Ox 36.4 C 81 22 H 83/55 L 97 12/12/16 07:53 12/12/16 14:44 12/12/16 14:09 12/12/16 14:44 12/12/16 14:09 Microbiology 12/06/16 17:45 Blood Culture - Final Blood Laboratory Results 12/12/16 04:10 12/12/16 04:10 12/11/16 12/12/16 12/13/16 05:59 05:59 05:59 Intake Total 1466 875 Output Total 1250 2150 Balance 216 -1275 PT 17.6 SEC (12.0-15.0) H 12/12/16 13:24 INR 1.45 (0.83-1.16) H 12/12/16 13:24 chronically ill appearing, somnolent anicteric op clear irreg irreg cta with dec bs at bases to ant exam soft nt nd 2-3+ pitting edema ble warm dry scattered ecchymoses oriented appropriate ICD10 Worksheet Patient Problems: Problems Problem Status Onset Humerus fracture Acute Pain provoked by trauma Acute Pain, neuropathic Acute Nausea & vomiting Acute Back pain Acute Hypoxia Acute Gastrointestinal hemorrhage Acute Atrial fibrillation with RVR Acute Hypokalemia Acute Contusion of right chest wall Acute Hypotension Acute Atrial fibrillation Acute Sepsis Acute
--- NOTE | 2016-12-12 15:02 | SOAPPROG ---
SOAP Progress Note Assessment/Plan: Assessment: Atrial fibrillation Esophageal cancer Dysphasia Shortness of breath Question pneumonia History of CVA She and her are both very discouraged. I spent over an hour talking to them on multiple occasions today. I asked her about being a do not resuscitate candidate and she said she would like to be do not resuscitate. I talked to she and her about this and we will set this up. Has been very concerned that maybe she would do better sure at the [place] and I told him I think he should wait until we talked to the Oncology attending and see what they think about that. I think no one can make a better decision on that them and I totally try some completely without ever opinion that come up with. The 's very discouraged because she has had no improvement in fact he says she just gets worse and worse and worse every turn of events. For atrial fibrillation rate control I would add beta-rocky and we can slowly wean the diltiazem we are holding the full anticoagulation now further 24 at least and then we can consider restarting she has been having some bleeding and was felt that she would do better not to have full anticoagulation for several days longer. The and she both understand the risk of bleeding they understand the risk of having stroke while holding the full anticoagulation and except that risk. Plan: 12/12/16 14:59 Subjective: She is very tired today. She has not been able to swallow. She has no fever chills cough She feels very weak. She has cough She is not producing sputum She has no abdominal pain right now. She is taking her medications She is very tired She is completely fatigue. Objective: Vital Signs Temp Pulse Resp BP Pulse Ox 36.4 C 81 22 H 83/55 L 97 12/12/16 07:53 12/12/16 14:44 12/12/16 14:09 12/12/16 14:44 12/12/16 14:09 Microbiology 12/06/16 17:45 Blood Culture - Final Blood Laboratory Results 12/12/16 04:10 12/12/16 04:10 12/11/16 12/12/16 12/13/16 05:59 05:59 05:59 Intake Total 1466 875 Output Total 1250 2150 Balance 216 -1275 PT 17.6 SEC (12.0-15.0) H 12/12/16 13:24 INR 1.45 (0.83-1.16) H 12/12/16 13:24 Physical Exam - Physical Exam General Appearance: moderate distress Neck: non-tender Respiratory: decreased breath sounds Cardiac/Chest: systolic murmur, irregularly irregular Abdomen: non-tender, soft (And) Skin: pallor Extremities: pedal edema, No calf tenderness Neuro/Psych: alert, motor weakness ICD10 Worksheet Patient Problems: Problems Problem Status Onset Atrial fibrillation Acute Hypotension Acute Sepsis Acute Atrial fibrillation with RVR Acute Back pain Acute Contusion of right chest wall Acute Gastrointestinal hemorrhage Acute Humerus fracture Acute Hypokalemia Acute Hypoxia Acute Nausea & vomiting Acute Pain provoked by trauma Acute Pain, neuropathic Acute
[2016-12-12 15:17] LABS: MAGNESIUM 1.5 mg/dL (1.6-2.3)
--- NOTE | 2016-12-12 15:45 | ASMTCMCOM ---
CM Note CM Note Notes: Patient and very discouraged about patient's hospital course. Today, hospitalist, gravity prospecting operator helper, cardiology, and oncology met with patient and to address their concerns and their request to tranfer to [facility]. Patient has worsening esophogeal cancer, and it is unclear if treatments have been effective. Patient and want to pursue treatment options but did opt to become DNR today. Although PT/OT have recommended SNF, CM discharge plan is TBD at this point. I will offer family meeting tomorrow and address any discharge planning questions if they arise. Date Signed: 12/12/2016 03:44 PM Electronically Signed By:Belén Lyn RN
[2016-12-12] MEDS ORDERED: MAGNESIUM SULF 1 GM/DEXTROSE 100 ML IV ONE (16:00)
[2016-12-12] MEDS: TPN 1 EA BAG IV SCH (21:26)
[2016-12-12] MEDS: traZODone 50 MG TAB PO SCH (21:26)
[2016-12-13] MEDS: HYDROmorphONE/DILAUDID 1 MG/ML INJ IVP PRN (02:05)
[2016-12-13] MEDS: DILTIAZEM 125 MG in D5W 125 ML IV SCH ×2 (04:27→17:47)
[2016-12-13 04:34] LABS: % IMMATURE GRANULYOCYTES 0.7 % (0.0-1.1); ABSOLUTE IMMATURE GRANULOCYTES 0.05 10^3/uL (0.00-0.10); ADD DIFF? NO; ADD MORPH? NO; ADD SCAN? NO; ATYPICAL LYMPHOCYTE FLAG 0 (0-99); FRAGMENT RBC FLAG 0 (0-99); HEMATOCRIT 28.6 % (38.0-47.0); LEFT SHIFT FLG 10 (0-99); LIPEMIA HEMOLYSIS FLAG 80 (0-99); MEAN CELL HEMOGLOBIN 31.1 pg (27.9-34.1); MEAN CELL HEMOGLOBIN CONCENTR. 31.5 g/dL (32.4-36.7); PLATELET CLUMPS FLAG 0 (0-99); PLATELET COUNT 60 10^3/uL (150-400); RED BLOOD CELL COUNT 2.89 10^6/uL (4.18-5.33); RED CELL DISTRIBUTION WIDTH 18.4 % (11.5-15.2)
[2016-12-13] MEDS: ALBUMIN 25% 100 ML IV SCH ×3 (04:37→20:44)
[2016-12-13] MEDS: CEFEPIME HCL 2 GM in D5W 100 ML IV SCH ×3 (04:37→22:44)
[2016-12-13 04:43] LABS: INR 1.56 (0.83-1.16); PROTIME(PATIENT) 18.7 SEC (12.0-15.0)
[2016-12-13 04:44] LABS: APTT 40.7 SEC (23.0-38.0)
[2016-12-13 05:00] LABS: ALANINE AMINOTRANSFERASE 53 IU/L (9-52); ALBUMIN 2.8 g/dL (3.5-5.0); ALKALINE PHOSPHATASE 107 IU/L (38-126); ANION GAP 9 mEq/L (8-16); ASPARTATE AMINOTRANSFERASE 233 IU/L (14-46); BILIRUBIN,TOTAL 1.2 mg/dL (0.1-1.4); CALCIUM 11.3 mg/dL (8.5-10.4); CARBON DIOXIDE 25 mEq/l (22-31); CHLORIDE 107 mEq/L (97-110); CREATININE 0.7 mg/dL (0.6-1.0); GLOMERULAR FILTRATION RATE > 60; GLUCOSE 129 mg/dL (70-100); MAGNESIUM 1.7 mg/dL (1.6-2.3); POTASSIUM 3.4 mEq/L (3.5-5.2); SODIUM 141 mEq/L (134-144)
[2016-12-13] MEDS: AMIODARONE HCL 200 MG TAB PO SCH ×2 (10:40→22:21)
[2016-12-13] MEDS: ANASTROZOLE 1 MG TAB PO SCH (10:47)
[2016-12-13] MEDS: LANSOPRAZOLE SUSP 30MG/10ML UDSYR (Adult) PO SCH (10:50)
[2016-12-13] MEDS: POTASSIUM CL 20 MEQ TAB PO SCH (10:50)
[2016-12-13] MEDS: GABAPENTIN 400 MG CAP PO SCH ×3 (10:54→22:51)
[2016-12-13] MEDS: METOPROLOL TARTRATE 25 MG TAB PO SCH ×2 (10:56→22:21)
[2016-12-13] MEDS: ASPIRIN 81 MG CHEWABLE TAB PO SCH (10:59)
[2016-12-13] MEDS: ATORVASTATIN CALCIUM 10 MG TAB PO SCH (11:03)
[2016-12-13] MEDS: ENOXAPARIN 40 MG/0.4 ML SYR SC SCH (11:05)
[2016-12-13] MEDS: FUROSEMIDE 20 MG/2 ML VIAL IVP SCH ×2 (11:07→15:14)
[2016-12-13] MEDS ORDERED: K PHOS 10 MMOL in D5W 250 ML IV ONE (12:00)
--- NOTE | 2016-12-13 13:13 | PDINTPN ---
Proposal Review Analyst Progress Note Assessment/Plan: Assessment: Respiratory distress. New this morning. Associated with increased bilateral infiltrates, possible effusions, and pulmonary edema pattern. Cannot R/O PE at this time. On high-flow oxygen, getting morphine. I will repeat Lasix, place on Vapotherm. Likely will not tolerate BiPAP but this is an option if needed. DNI. Severe sepsis: Improved. Hypotension resolved. On Cefipime. No source identified. Possibly pulmonary as infiltrates present on admission but little clinically in the way signs or symptoms of pneumonia. Rapid atrial fibrillation contributing. Low albumin as well. AF with RVR: On Cardizem at 15 mg/hr. On metoprolol. Digoxin was ineffective. Anemia: Improved after transfusion. Hematocrit stable at approximately 28. Edema: Hypoalbuminemia, on IV albumin and Lasix 20 IV twice daily. Better diuresis last 48 hours but appears to be in acute congestive heart failure. Advance directives: Indicated today she would like to be DNR. Esophageal cancer. Status post stent. Status post chemotherapy. Getting radiation treatments: Has 4 to go. Other treatment options available. Prognosis: Overall, this may be poor in light of deterioration over the last several months, with more acute respiratory decompensation currently. However, if she survives current downturn, other treatment options for her esophageal cancer could possibly be affective, and radiation has not yet been fully completed. Nutrition: Not eating much, but denies odynophagia. TPN to start. DVT prophylaxis: On enoxaparin. GI prophylaxis: On famotidine. Plan: Repeat chest x-ray. Repeat Lasix 80mg now. Check ABG. Consider CTA chest if stable. Cont comfort measures/MS. Vapotherm, consider BiPAP. 45 minutes of critical care time spent directly with the patient. Discussed with patient and her , Hospitalist, Oncology, and the ICU multi disciplinary team. Subjective: More short of breath, struggling. Increased O2 needs Objective: Vital Signs Temp Pulse Resp BP Pulse Ox 36.3 C 140 H 26 H 120/81 H 97 12/13/16 11:58 12/13/16 12:52 12/13/16 12:52 12/13/16 11:58 12/13/16 12:52 Laboratory Results 12/13/16 04:20 12/13/16 04:20 12/12/16 12/13/16 12/14/16 05:59 05:59 05:59 Intake Total 875 2220 Output Total 2150 1999 Balance -1275 220 PT 18.7 SEC (12.0-15.0) H 12/13/16 04:20 INR 1.56 (0.83-1.16) H 12/13/16 04:20 Laboratory Tests 12/13/16 04:20 Calcium 11.3 H Phosphorus 1.7 L Magnesium 1.7 Total Bilirubin 1.2 AST 233 H ALT 53 H Albumin 2.8 L CXR: Poor inspiration. Increased bilateral lower zone densities with evidence of congestive heart failure. Possible pleural effusions and/or basilar consolidation left greater than right Physical Exam - Physical Exam General Appearance: moderate distress, anxiety, other ( tachypneic) EENT: PERRL/EOMI, other ( non-rebreather mask in place) Neck: normal inspection ( no obvious JVD but difficult to assess) Respiratory: respiratory distress, decreased breath sounds ( bilaterally. Tachypneic.), rales ( Present at both bases), rhonchi ( few with cough), No wheezing Cardiac/Chest: tachycardia, irregularly irregular Abdomen: non-tender, soft ( overweight), No normal bowel sounds ( decreased) Pelvic Exam: other ( Flores catheter in place, good urine output last 48 hours) Skin: normal color, warm/dry Extremities: pedal edema ( 2+ edema/anasarca) Neuro/Psych: no motor/sensory deficits, No cognition abnormalities ICD10 Worksheet Patient Problems: Problems Problem Status Onset Humerus fracture Acute Pain provoked by trauma Acute Pain, neuropathic Acute Nausea & vomiting Acute Back pain Acute Hypoxia Acute Gastrointestinal hemorrhage Acute Atrial fibrillation with RVR Acute Hypokalemia Acute Contusion of right chest wall Acute Hypotension Acute Atrial fibrillation Acute Sepsis Acute
[2016-12-13] MEDS ORDERED: LORazepam 2 MG/ML INJ IVP PRN (13:18)
[2016-12-13] MEDS ORDERED: FUROSEMIDE 100 MG/10 ML VIAL IVP ONE (13:19)
--- NOTE | 2016-12-13 13:35 | SOAPPROG ---
SOAP Progress Note Assessment/Plan: Assessment: 1) Metastatic esophageal cancer (single site of metastatic josey disease in upper abdomen) 2) Esophageal obstruction secondary to #1 (receiving palliative XRT, and s/p esophageal stent) 3) Rapid A-fib 4) Protein calorie malnutrition 5) Poor performance status 6) Declining respiratory status Plan: Louann is doing much worse today. She is minimally responsive with increased work of breathing and requiring face mask O2. She remains DNR. I spoke with her about her situation. In light of her rapid deterioration, and underlying incurable malignancy, I support DNR status, and I think that comfort care is most appropriate at this point. He seems to generally agree, but wants to speak with the ICU team first. He does continue to support DNR status. She has esophageal cancer with a distal esophageal obstruction. She was receiving palliative XRT for this. The obstruction has worsened with radiation which often occurs due to tumor swelling. Overall it is too early in the course of her radiation to determine whether or not it has been effective. She has multiple comorbid issues complicating her situation, and given her fairly rapid decline, I think that comfort care is likely the best option. Case d/w Dr. Burns, Dr. Lin. 's questions answered. Total time = 40 minutes. 12/12/16 12:42 12/13/16 13:30 12/13/16 13:35 Subjective: Patient has had a rapid deterioration in her overall status this morning. at bedside. Objective: Vital Signs Temp Pulse Resp BP Pulse Ox 36.3 C 140 H 26 H 120/81 H 97 12/13/16 11:58 12/13/16 12:52 12/13/16 12:52 12/13/16 11:58 12/13/16 12:52 Laboratory Results 12/13/16 04:20 12/13/16 04:20 12/12/16 12/13/16 12/14/16 05:59 05:59 05:59 Intake Total 875 2220 Output Total 2150 2000 Balance -1275 220 PT 18.7 SEC (12.0-15.0) H 12/13/16 04:20 INR 1.56 (0.83-1.16) H 12/13/16 04:20 - Time Spent With Patient Time Spent With Patient: 40 minutes Physical Exam - Physical Exam General Appearance: other (Increased work of breathing. Minimally responsive) Respiratory: other (Course breath sounds bilaterally) ICD10 Worksheet Patient Problems: Problems Problem Status Onset Atrial fibrillation Acute Hypotension Acute Sepsis Acute Atrial fibrillation with RVR Acute Back pain Acute Contusion of right chest wall Acute Gastrointestinal hemorrhage Acute Humerus fracture Acute Hypokalemia Acute Hypoxia Acute Nausea & vomiting Acute Pain provoked by trauma Acute Pain, neuropathic Acute
--- NOTE | 2016-12-13 16:10 | PDPCPN ---
Palliative Care Progress Note Assessment/Plan: Referring provider: Dr Lin Reason for consult: Complex medical decision making Symptom control HPI: Louann Trevino is a 76 yo female with PMH stage IIIb esophageal cancer with recent stent placement for obstruction of esophagus, a fib, diastolic CHF, and Gi bleed admitted to the hospital with weakness and lower leg edema. In shock thought to be due to sepsis but unable to find source of infection. Hospitalization complicated by hypotension requiring pressor support as well as a fib, a fib with RVR, anemia, anasarca, and continued eso obstruction needing TPN. Palliative care consulted for complex medical decision making. Met with Balwinder and son Curly outside of the room and again at bedside this afternoon. Will spoke about Louann and her current medical status. We discussed her fragile state and multiple medical problems. Her family feels her current situation is not a good quality of life and they hope for some meaningful recovery. They state meaningful recovery is Louann being aware of her surroundings, enjoying tv, and being able to do simple things for herself like move her arms. Discussed she is not medically stable to continue oncology treatment right now due to her medical problems. Her family of course wants to extend her life if possible but only if she could recover with a better quality of life. They do not want to extend life with no quality. Assessment: Physical: - Pain: appears comfortable - morphine PRN - Dyspnea: severe at times - oxygen as needed - morphine 2-4 mg IV Q1hr pRN - nebs as tolerated - constipation - dulcolax supp daily PRN Emotional/psychological: has a lot of support from family Advanced Care Planning: Is patient decisional?: No Code Status: DNR/DNI POA: is MDPOA. Plan: Palliative care to follow. Would not want to continue life prolonging measures if no meaningful improvement. Subjective: i want to get to the chair Objective: Social History: to Balwinder. Born in [place]. 1 son Curly involved. 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 Enjoys watching game shows on tv. Medication list reviewed ROS: General: fatigue, weakness, weight loss ENT: negative Resp: dyspnea, cough GI: poor appetite : negative MS: negative Skin: sacral decub Neuro: confusion Psych: negative Functional assessment: PPS:30% Functional status: dependent on ADLs, IADLs Vital Signs Temp Pulse Resp BP Pulse Ox 36.3 C 140 H 26 H 120/81 H 97 12/13/16 11:58 12/13/16 12:52 12/13/16 12:52 12/13/16 11:58 12/13/16 12:52 Laboratory Results 12/13/16 04:20 12/13/16 04:20 12/12/16 12/13/16 12/14/16 05:59 05:59 05:59 Intake Total 875 2220 Output Total 2150 1999 Balance -1275 220 PT 18.7 SEC (12.0-15.0) H 12/13/16 04:20 INR 1.56 (0.83-1.16) H 12/13/16 04:20 Physical Exam - Physical Exam General Appearance: alert, mild distress Respiratory: decreased breath sounds, No respiratory distress, No accessory muscle use Skin: normal color, warm/dry Extremities: pedal edema Neuro/Psych: alert ICD10 Worksheet Patient Problems: Problems Problem Status Onset Atrial fibrillation Acute Hypotension Acute Palliative care encounter Acute Sepsis Acute Atrial fibrillation with RVR Acute Back pain Acute Contusion of right chest wall Acute Gastrointestinal hemorrhage Acute Humerus fracture Acute Hypokalemia Acute Hypoxia Acute Nausea & vomiting Acute Pain provoked by trauma Acute Pain, neuropathic Acute - ICD10 Problem Qualifiers (1) Palliative care encounter
--- NOTE | 2016-12-13 16:24 | SOAPPROG ---
SOAP Progress Note Assessment/Plan: Assessment: Atrial fibrillation Esophageal cancer Dysphasia Shortness of breath Question pneumonia History of CVA tODAY SHE IS VERY WEAK. THEY WANT TO CONTINUE RX FOR NOW. MARIA C HAS MANY ?'S ABOUT OUTCOMES AND END OF LIFE . i WILL SUPPORT THEM THEY TRAVEL THROUGH THIS . mANY TEARS - LONG CONVERSATIONS W PT ,SON ,MARIA C. aLL ? ANS. . A FIB W rvr - MAY INCREASE bb . dISCUSSED W STAFF. pROGNOSIS POOR . pLAN IS TO START LOVENOX ANTICOAG. THEY KNOW WE ARE COMPLETELY OPEN TO SUPPORTING THEIR WISHES. SON IS IN COMPLETE AGREEMENT WITH DNR STATUS AND CARE AT THIS POINT. Plan: 12/12/16 14:59 12/13/16 16:25 Subjective: SHE IS DOING POORLY AND FEELS VERY WEAK TIRED SORE . Objective: Vital Signs Temp Pulse Resp BP Pulse Ox 36.3 C 140 H 26 H 120/81 H 97 12/13/16 11:58 12/13/16 12:52 12/13/16 12:52 12/13/16 11:58 12/13/16 12:52 Laboratory Results 12/13/16 04:20 12/13/16 04:20 12/12/16 12/13/16 12/14/16 05:59 05:59 05:59 Intake Total 875 2220 Output Total 2150 2000 Balance -1275 220 PT 18.7 SEC (12.0-15.0) H 12/13/16 04:20 INR 1.56 (0.83-1.16) H 12/13/16 04:20 Physical Exam - Physical Exam General Appearance: severe distress Respiratory: rhonchi, prolonged expiration Cardiac/Chest: irregularly irregular, No diastolic murmur, No systolic murmur Abdomen: non-tender, soft Skin: pallor Extremities: No calf tenderness Neuro/Psych: motor weakness, cognition abnormalities, speech abnormalities ICD10 Worksheet Patient Problems: Problems Problem Status Onset Atrial fibrillation Acute Hypotension Acute Palliative care encounter Acute Sepsis Acute Atrial fibrillation with RVR Acute Back pain Acute Contusion of right chest wall Acute Gastrointestinal hemorrhage Acute Humerus fracture Acute Hypokalemia Acute Hypoxia Acute Nausea & vomiting Acute Pain provoked by trauma Acute Pain, neuropathic Acute
--- NOTE | 2016-12-13 17:58 | HOSPPROG ---
Hospitalist Progress Note Assessment/Plan: 76 yo F with PMH of metastatic esophageal cancer pw increased edema and hypotension # hypotension/shock: presumed to be 2/2 sepsis possibly related to pna, initially on 2 pressors and treated empirically with vanc/cefepime. No longer requiring pressor support, off of abx. # acute hypoxic respiratory failure: worsening acutely today with bilateral infiltrates, likely pulmonary edema and possible pna--covered with cefepime. She does appear to be agonally breathing and concerning that she is beginning actively to . again reiterates that he does not want to intubate or do other aggressive measures. Started morphine for help with air hunger. # a fib w/rvr: has been difficult to control, currently on diltiazem gtt as well as PO amiodarone. Hypotension has limited ability to start other medications, trial of dig with no improvement in rate. CHADS vasc of 7 but no AC for now given esophageal mass and concern for bleeding. # anemia: has required tx of 2 units of prbcs on 12/10 with h/h relatively stable since then, suspect related to GI losses with esophageal mass # esophageal cancer/metastatic: patient with noted worsening esophageal obstruction, has been treated with FOLFOX and XRT but per oncology too soon to determine if this is likely to be effective. and patient both eager to continue treatment so long as she is likely to benefit from it but given acute worsening he realizes that this may not be possible. # pressure injury: POA, continue to turn q2, wound care following # anasarca: 2/2 hypoalbuminemia, continue on albumin and lasix as tolerated # hx of embolic CVA # nutrition: has been largely unable to take PO, started on TPN by oncology, repleting electrolytes as needed # DNR Care plan reviewed with oncology,cardiology, pulmonary. Subjective: paitent acutely worse today, agonally breathing, non responsive, at bedside Objective: Vital Signs Temp Pulse Resp BP Pulse Ox 36.9 C 97 20 119/68 97 12/13/16 16:00 12/13/16 17:47 12/13/16 16:00 12/13/16 16:00 12/13/16 16:00 Laboratory Results 12/13/16 04:20 12/13/16 04:20 12/12/16 12/13/16 12/14/16 05:59 05:59 05:59 Intake Total 875 2220 913.3 Output Total 2150 1999 875 Balance -1275 220 38.3 PT 18.7 SEC (12.0-15.0) H 12/13/16 04:20 INR 1.56 (0.83-1.16) H 12/13/16 04:20 non responsive, agonal breathing anicteric op clear tachy irreg irreg coarse bs, scattered rhonchi soft obese 2+ pitting ble/bue edema scattered ecchymosis, clammy non responsive ICD10 Worksheet Patient Problems: Problems Problem Status Onset Humerus fracture Acute Pain provoked by trauma Acute Pain, neuropathic Acute Nausea & vomiting Acute Back pain Acute Hypoxia Acute Gastrointestinal hemorrhage Acute Atrial fibrillation with RVR Acute Hypokalemia Acute Contusion of right chest wall Acute Hypotension Acute Atrial fibrillation Acute Sepsis Acute Palliative care encounter Acute
[2016-12-13] MEDS: TPN 1 EA BAG IV SCH (21:17)
[2016-12-14] MEDS ORDERED: FUROSEMIDE 40 MG in D5W 50 ML IV ONE (01:29)
[2016-12-14] MEDS ORDERED: ALBUMIN 25% 100 ML IV ONE (01:31)
[2016-12-14] MEDS ORDERED: FUROSEMIDE 40 MG/4 ML VIAL IVP ONE (02:00)
[2016-12-14] MEDS: ALBUMIN 25% 100 ML IV SCH ×3 (05:17→19:44)
[2016-12-14] MEDS: CEFEPIME HCL 2 GM in D5W 100 ML IV SCH ×3 (05:22→21:55)
[2016-12-14 05:42] LABS: % IMMATURE GRANULYOCYTES 0.8 % (0.0-1.1); ABSOLUTE IMMATURE GRANULOCYTES 0.07 10^3/uL (0.00-0.10); ADD DIFF? NO; ADD MORPH? NO; ADD SCAN? NO; ATYPICAL LYMPHOCYTE FLAG 0 (0-99); FRAGMENT RBC FLAG 0 (0-99); HEMATOCRIT 23.3 % (38.0-47.0); HEMOGLOBIN 7.4 g/dL (12.6-16.3); LEFT SHIFT FLG 40 (0-99); LIPEMIA HEMOLYSIS FLAG 80 (0-99); MEAN CELL HEMOGLOBIN CONCENTR. 31.8 g/dL (32.4-36.7); MEAN CELL VOLUME 100.9 fL (81.5-99.8); MEAN PLATELET VOLUME 10.8 fL (8.7-11.7); PLATELET CLUMPS FLAG 10 (0-99); RED BLOOD CELL COUNT 2.31 10^6/uL (4.18-5.33); RED CELL DISTRIBUTION WIDTH 18.2 % (11.5-15.2)
[2016-12-14 05:58] LABS: ALANINE AMINOTRANSFERASE 65 IU/L (9-52); ALBUMIN 3.2 g/dL (3.5-5.0); ALKALINE PHOSPHATASE 84 IU/L (38-126); ANION GAP 9 mEq/L (8-16); ASPARTATE AMINOTRANSFERASE 318 IU/L (14-46); BILIRUBIN,TOTAL 0.9 mg/dL (0.1-1.4); CALCIUM 11.6 mg/dL (8.5-10.4); CARBON DIOXIDE 26 mEq/l (22-31); CHLORIDE 106 mEq/L (97-110); CREATININE 0.9 mg/dL (0.6-1.0); GLOMERULAR FILTRATION RATE > 60; GLUCOSE 105 mg/dL (70-100); MAGNESIUM 1.7 mg/dL (1.6-2.3); POTASSIUM 3.6 mEq/L (3.5-5.2); SODIUM 141 mEq/L (134-144); TOTAL PROTEIN 5.3 g/dL (6.3-8.2)
[2016-12-14 06:16] LABS: PLATELET COUNT 49 10^3/uL (150-400)
[2016-12-14 06:23] LABS: INR 1.5 (0.83-1.16); PROTIME(PATIENT) 18.1 SEC (12.0-15.0)
[2016-12-14 06:24] LABS: APTT 42.1 SEC (23.0-38.0)
[2016-12-14 07:28] LABS: PLATELET ESTIMATE DECREASED (ADEQ)
[2016-12-14] MEDS: FUROSEMIDE 20 MG/2 ML VIAL IVP SCH ×2 (08:05→16:29)
[2016-12-14] MEDS: ASPIRIN 81 MG CHEWABLE TAB PO SCH (09:55)
[2016-12-14] MEDS: ATORVASTATIN CALCIUM 10 MG TAB PO SCH (09:55)
[2016-12-14] MEDS: ANASTROZOLE 1 MG TAB PO SCH (09:55)
[2016-12-14] MEDS: AMIODARONE HCL 200 MG TAB PO SCH ×2 (09:55→19:49)
[2016-12-14] MEDS: METOPROLOL TARTRATE 25 MG TAB PO SCH ×2 (09:56→19:49)
[2016-12-14] MEDS: GABAPENTIN 400 MG CAP PO SCH ×3 (09:56→19:49)
[2016-12-14] MEDS: POTASSIUM CL 20 MEQ TAB PO SCH (09:56)
[2016-12-14] MEDS: LANSOPRAZOLE SUSP 30MG/10ML UDSYR (Adult) PO SCH (09:56)
[2016-12-14] MEDS: ENOXAPARIN 40 MG/0.4 ML SYR SC SCH (10:38)
[2016-12-14] MEDS ORDERED: K PHOS 10 MMOL in D5W 250 ML IV ONE (12:00)
--- NOTE | 2016-12-14 12:29 | PDINTPN ---
Glue Reel Operator Progress Note Assessment/Plan: Assessment: Respiratory distress. Persists. Associated with increased bilateral infiltrates, possible effusions, and pulmonary edema pattern. On high-flow oxygen, getting morphine. On Vapotherm. Little response to Lasix. She is in the process of dying. Severe sepsis: Improved. Hypotension resolved. On Cefipime. No source identified. Possibly pulmonary as infiltrates present on admission but little clinically in the way signs or symptoms of pneumonia. Rapid atrial fibrillation contributing. Low albumin as well. AF with RVR: On Cardizem/metoprolol. Digoxin was ineffective. Anemia: Improved after transfusion. Hematocrit stable at approximately 23. Edema: Hypoalbuminemia, on IV albumin and Lasix 20 IV twice daily. Better diuresis last 48 hours but appears to be in acute congestive heart failure. Advance directives: DNR. Esophageal cancer. Status post stent. Status post chemotherapy. Getting radiation treatments: Has 4 to go. Other treatment options available. Prognosis: No chance of survival at this point. Near . Agonal. I had a long discussion this morning with her and her son regarding futility of ongoing treatment and changing to comfort care. They appeared to be quite grief stricken and were unable at that time to make further decisions. Nutrition: On TPN. DVT prophylaxis: On enoxaparin. GI prophylaxis: On famotidine. Plan: Continue current level of supportive care. Continue morphine for comfort. Await further decisions by the family regarding transitioning to comfort care only. This clearly needs to be done at this point. She is suffering, and will eventually pass away no matter what we do. 45 minutes of critical care time spent directly with the patient and her and son, including at least 25 minutes spent discussing her current status and the inevitability of her . Subjective: Unresponsive, sedated. Arouses very weakly with stimulation. Objective: Vital Signs Temp Pulse Resp BP Pulse Ox 36.9 C 86 19 101/58 L 96 12/14/16 12:00 12/14/16 12:00 12/14/16 12:00 12/14/16 12:00 12/14/16 12:00 Laboratory Results 12/14/16 05:25 12/14/16 05:25 12/13/16 12/14/16 12/15/16 05:59 05:59 05:59 Intake Total 2220 2119.1 Output Total 2000 1275 Balance 220 844.1 PT 18.1 SEC (12.0-15.0) H 12/14/16 05:25 INR 1.50 (0.83-1.16) H 12/14/16 05:25 Laboratory Tests 12/14/16 12/14/16 05:25 05:25 PT 18.1 H INR 1.50 H APTT 42.1 H Calcium 11.6 H Phosphorus 1.8 L Magnesium 1.7 Total Bilirubin 0.9 AST 318 H ALT 65 H Albumin 3.2 L Physical Exam - Physical Exam General Appearance: obtunded, obese EENT: other (Vapotherm in place. Almost agonal respirations.) Neck: normal inspection (Large neck) Respiratory: lungs clear (Anteriorly), decreased breath sounds (At the bases with dullness, poor air exchange, some rales), rales, No rhonchi Cardiac/Chest: irregularly irregular Abdomen: soft, No normal bowel sounds (Decreased, present) Pelvic Exam: other (Flores catheter in place. Adequate urine output) Skin: normal color, warm/dry Extremities: swelling (Anasarca, diffuse) Neuro/Psych: no motor/sensory deficits (Moves extremities weakly), cognition abnormalities (Secondary to obtundation, medications) ICD10 Worksheet Patient Problems: Problems Problem Status Onset Atrial fibrillation Acute Atrial fibrillation with RVR Acute Back pain Acute Contusion of right chest wall Acute Gastrointestinal hemorrhage Acute Humerus fracture Acute Hypokalemia Acute Hypotension Acute Hypoxia Acute Nausea & vomiting Acute Pain provoked by trauma Acute Pain, neuropathic Acute Palliative care encounter Acute Sepsis Acute
[2016-12-14] MEDS: DILTIAZEM 125 MG in D5W 125 ML IV SCH (14:25)
--- NOTE | 2016-12-14 14:27 | ASMTCMCOM ---
CM Note CM Note Notes: Since yesterday, patient has shown rapid decline. Dr Burns spoke with family about futility of life and recommendation to pursue comfort measures only; family requested time away from hospital to think about this. Hatchery Man also offered support to family this morning. CM available to help with any needs. Date Signed: 12/14/2016 02:26 PM Electronically Signed By:Belén Lyn RN
--- NOTE | 2016-12-14 16:13 | HOSPPROG ---
Hospitalist Progress Note Assessment/Plan: 76 yo F with PMH of metastatic esophageal cancer pw increased edema and hypotension # hypotension/shock: presumed to be 2/2 sepsis possibly related to pna, initially on 2 pressors and treated empirically with vanc/cefepime. No longer requiring pressor support, off of abx. # acute hypoxic respiratory failure: worsening acutely today with bilateral infiltrates, likely pulmonary edema and possible pna--covered with cefepime. She remains agonally breathing and in the process of dying. is having a hard time accepting this. PRN morphine for air hunger # a fib w/rvr: has been difficult to control, currently on diltiazem gtt as well as PO amiodarone. Hypotension has limited ability to start other medications, trial of dig with no improvement in rate. CHADS vasc of 7 but no AC for now given esophageal mass and concern for bleeding. # anemia: has required tx of 2 units of prbcs on 12/10 with h/h relatively stable since then, suspect related to GI losses with esophageal mass # esophageal cancer/metastatic: patient with noted worsening esophageal obstruction, has been treated with FOLFOX and XRT but per oncology too soon to determine if this is likely to be effective. and patient both eager to continue treatment so long as she is likely to benefit from it but given acute worsening he realizes that this may not be possible. # pressure injury: POA, continue to turn q2, wound care following # anasarca: 2/2 hypoalbuminemia, continue on albumin and lasix as tolerated # hx of embolic CVA # nutrition: has been largely unable to take PO, started on TPN by oncology, repleting electrolytes as needed # DNR --patient actively dying, remains having a hard time accepting this, palliative involved, patient comfortable. Care plan reviewed with pulmonary on multidisciplinary team rounds. Subjective: patient continues to be agonally breathing, non responsive Objective: Vital Signs Temp Pulse Resp BP Pulse Ox 36.9 C 102 H 19 101/58 L 96 12/14/16 12:00 12/14/16 14:25 12/14/16 12:00 12/14/16 12:00 12/14/16 12:00 Laboratory Results 12/14/16 05:25 12/14/16 05:25 12/13/16 12/14/16 12/15/16 05:59 05:59 05:59 Intake Total 2220 2119.1 Output Total 1999 1275 Balance 220 844.1 PT 18.1 SEC (12.0-15.0) H 12/14/16 05:25 INR 1.50 (0.83-1.16) H 12/14/16 05:25 agonal breathing non responsive lying in bed anicteric coarse bs, diffuse rhonchi irreg irreg tachy diffuse edema soft dec bs ICD10 Worksheet Patient Problems: Problems Problem Status Onset Humerus fracture Acute Pain provoked by trauma Acute Pain, neuropathic Acute Nausea & vomiting Acute Back pain Acute Hypoxia Acute Gastrointestinal hemorrhage Acute Atrial fibrillation with RVR Acute Hypokalemia Acute Contusion of right chest wall Acute Hypotension Acute Atrial fibrillation Acute Sepsis Acute Palliative care encounter Acute
--- NOTE | 2016-12-14 16:53 | SOAPPROG ---
SOAP Progress Note Assessment/Plan: Assessment: 1) Metastatic esophageal cancer (single site of metastatic josey disease in upper abdomen) 2) Esophageal obstruction secondary to #1 (receiving palliative XRT, and s/p esophageal stent) 3) Rapid A-fib 4) Protein calorie malnutrition 5) Poor performance status 6) Declining respiratory status Plan: Louann continues to decline. She is minimally responsive, and agonally breathing. There is no family present in the room. I came by earlier today, and was unable to locate any family members. Apparently the patient's and son are having a hard time accepting that Louann is in the dying process, and have left the hospital. I tried to contact her by his cell and home phone, but was unable to reach him. I discussed the case with Dr. Burns and ICU nursing staff, who met with the patient's and son this morning. They still want DNR status, and understand that she is actively dying, but do not want to transition to comfort care. Her code status is DNR, and without intubation/mechanical ventilation, she will likely in the next several hours. Her prognosis is grave at this point, and she appears to be in the dying process. I think that comfort care is the best option. ICU team will continue to engage with family to help them through this difficult process. 12/12/16 12:42 12/13/16 13:30 12/13/16 13:35 12/14/16 16:43 Subjective: Patient unresponsive. Opens eyes to voice, but does not respond to questions, or follow commands. Objective: Vital Signs Temp Pulse Resp BP Pulse Ox 36.9 C 95 17 108/63 95 12/14/16 16:00 12/14/16 16:00 12/14/16 16:00 12/14/16 16:00 12/14/16 16:00 Laboratory Results 12/14/16 05:25 12/14/16 05:25 12/13/16 12/14/16 12/15/16 05:59 05:59 05:59 Intake Total 2220 2119.1 Output Total 19995 Balance 220 844.1 PT 18.1 SEC (12.0-15.0) H 12/14/16 05:25 INR 1.50 (0.83-1.16) H 12/14/16 05:25 - Time Spent With Patient Time Spent With Patient: 20 minutes Physical Exam - Physical Exam General Appearance: other (Opens eyes to voice. Does not follow commands. Does not answer questions.) Respiratory: other (Lung sounds coarse bilaterally) Cardiac/Chest: other (Tachycardic) Abdomen: non-tender, soft ICD10 Worksheet Patient Problems: Problems Problem Status Onset Humerus fracture Acute Pain provoked by trauma Acute Pain, neuropathic Acute Nausea & vomiting Acute Back pain Acute Hypoxia Acute Gastrointestinal hemorrhage Acute Atrial fibrillation with RVR Acute Hypokalemia Acute Contusion of right chest wall Acute Hypotension Acute Atrial fibrillation Acute Sepsis Acute Palliative care encounter Acute
[2016-12-14] MEDS: traZODone 50 MG TAB PO SCH (19:49)
[2016-12-15] MEDS: ALBUMIN 25% 100 ML IV SCH (03:42)
[2016-12-15] MEDS: CEFEPIME HCL 2 GM in D5W 100 ML IV SCH ×2 (05:45→13:32)
[2016-12-15 05:50] LABS: % IMMATURE GRANULYOCYTES 0.7 % (0.0-1.1); ABSOLUTE IMMATURE GRANULOCYTES 0.06 10^3/uL (0.00-0.10); ADD DIFF? NO; ADD MORPH? YES; ADD SCAN? YES; ATYPICAL LYMPHOCYTE FLAG 0 (0-99); FRAGMENT RBC FLAG 0 (0-99); LEFT SHIFT FLG 60 (0-99); LIPEMIA HEMOLYSIS FLAG 80 (0-99); MEAN CELL HEMOGLOBIN 31.1 pg (27.9-34.1); MEAN CELL HEMOGLOBIN CONCENTR. 30.5 g/dL (32.4-36.7); MEAN CELL VOLUME 101.9 fL (81.5-99.8); MEAN PLATELET VOLUME 11.2 fL (8.7-11.7); PLATELET CLUMPS FLAG 10 (0-99); RED BLOOD CELL COUNT 2.06 10^6/uL (4.18-5.33); RED CELL DISTRIBUTION WIDTH 18.3 % (11.5-15.2)
[2016-12-15 05:57] LABS: HEMOGLOBIN 6.4 g/dL (12.6-16.3); PLATELET COUNT 39 10^3/uL (150-400)
[2016-12-15 06:02] LABS: INR 1.46 (0.83-1.16); PROTIME(PATIENT) 17.7 SEC (12.0-15.0)
[2016-12-15 06:03] LABS: APTT 40.5 SEC (23.0-38.0)
[2016-12-15 06:35] LABS: SCAN NEGATIVE
[2016-12-15 06:37] LABS: HYPOCHROMIA 1+; MACROCYTES 1+; PLATELET ESTIMATE DECREASED (ADEQ)
[2016-12-15 06:44] LABS: ALANINE AMINOTRANSFERASE 82 IU/L (9-52); ALBUMIN 3.5 g/dL (3.5-5.0); ALKALINE PHOSPHATASE 86 IU/L (38-126); ANION GAP 10 mEq/L (8-16); ASPARTATE AMINOTRANSFERASE 464 IU/L (14-46); BILIRUBIN,TOTAL 1.1 mg/dL (0.1-1.4); CALCIUM 11.6 mg/dL (8.5-10.4); CARBON DIOXIDE 25 mEq/l (22-31); CHLORIDE 107 mEq/L (97-110); CREATININE 1.2 mg/dL (0.6-1.0); GLOMERULAR FILTRATION RATE 44; GLUCOSE 75 mg/dL (70-100); MAGNESIUM 1.6 mg/dL (1.6-2.3); POTASSIUM 4.3 mEq/L (3.5-5.2); SODIUM 142 mEq/L (134-144); TOTAL PROTEIN 5.4 g/dL (6.3-8.2)
[2016-12-15] MEDS: AMIODARONE HCL 200 MG TAB PO SCH (07:35)
[2016-12-15] MEDS: ANASTROZOLE 1 MG TAB PO SCH (07:35)
[2016-12-15] MEDS: ASPIRIN 81 MG CHEWABLE TAB PO SCH (07:35)
[2016-12-15] MEDS: ENOXAPARIN 40 MG/0.4 ML SYR SC SCH (07:36)
[2016-12-15] MEDS: POTASSIUM CL 20 MEQ TAB PO SCH (07:36)
[2016-12-15] MEDS: GABAPENTIN 400 MG CAP PO SCH (07:36)
[2016-12-15] MEDS: METOPROLOL TARTRATE 25 MG TAB PO SCH (07:36)
[2016-12-15] MEDS: ATORVASTATIN CALCIUM 10 MG TAB PO SCH (07:36)
[2016-12-15] MEDS: LANSOPRAZOLE SUSP 30MG/10ML UDSYR (Adult) PO SCH (07:36)
--- NOTE | 2016-12-15 11:23 | PDINTPN ---
Metrology Engineer Progress Note Assessment/Plan: Assessment: Respiratory distress. Persists. Associated with increased bilateral infiltrates, possible effusions, and pulmonary edema pattern. On high-flow oxygen, getting morphine. On Vapotherm. Little response to Lasix. She is in the process of dying. Severe sepsis: Improved. Hypotension resolved. On Cefipime. No source identified. Possibly pulmonary as infiltrates present on admission but little clinically in the way signs or symptoms of pneumonia. Rapid atrial fibrillation contributing. Low albumin as well. AF with RVR: On Cardizem/metoprolol. Digoxin was ineffective. Anemia: Improved after transfusion. Hematocrit 21. Edema: Hypoalbuminemia, on IV albumin and Lasix 20 IV twice daily. Better diuresis last 48 hours but appears to be in acute congestive heart failure. Advance directives: DNR. Esophageal cancer. Status post stent. Status post chemotherapy. Getting radiation treatments: Has 4 to go. Other treatment options available. Prognosis: No chance of survival at this point. Near . Agonal. I had a long discussion this morning with her and her son regarding futility of ongoing treatment and changing to comfort care. They appeared to be quite grief stricken and were unable at that time to make further decisions. Nutrition: On TPN. DVT prophylaxis: On enoxaparin. GI prophylaxis: On famotidine. Plan: Will stop all oral medications as she is unable to swallow. Continue morphine for comfort. Await further decisions by the family regarding transitioning to comfort care only. and son just recently arrived into the patient's room. 20 minutes of critical care time spent directly with the patient. I will discuss issues with her family again this morning when they are ready. Subjective: Unresponsive, slower/agonal type respirations with some rhonchi/rattles present. Objective: Vital Signs Temp Pulse Resp BP Pulse Ox 35.9 C L 105 H 16 97/66 L 99 12/15/16 08:00 12/15/16 08:00 12/15/16 08:00 12/15/16 08:00 12/15/16 08:00 Laboratory Results 12/15/16 05:40 12/15/16 05:40 12/14/16 12/15/16 12/16/16 05:59 05:59 05:59 Intake Total 2119.1 1481.8 Output Total 1275 750 Balance 844.1 731.8 PT 17.7 SEC (12.0-15.0) H 12/15/16 05:40 INR 1.46 (0.83-1.16) H 12/15/16 05:40 Physical Exam - Physical Exam General Appearance: unresponsive, obese EENT: other (On 4 L) Neck: normal inspection (Large neck) Respiratory: rhonchi (Present centrally with respirations) Cardiac/Chest: irregularly irregular Abdomen: soft, No normal bowel sounds (Decreased, present) Pelvic Exam: other (Flores catheter in place) Skin: normal color, warm/dry Extremities: pedal edema, swelling (Anasarca) Neuro/Psych: no motor/sensory deficits (Moves extremities weakly at times), cognition abnormalities (Unresponsive) ICD10 Worksheet Patient Problems: Problems Problem Status Onset Humerus fracture Acute Pain provoked by trauma Acute Pain, neuropathic Acute Nausea & vomiting Acute Back pain Acute Hypoxia Acute Gastrointestinal hemorrhage Acute Atrial fibrillation with RVR Acute Hypokalemia Acute Contusion of right chest wall Acute Hypotension Acute Atrial fibrillation Acute Sepsis Acute Palliative care encounter Acute
[2016-12-15] MEDS: FUROSEMIDE 20 MG/2 ML VIAL IVP SCH ×2 (11:24→13:32)
--- NOTE | 2016-12-15 15:01 | ASMTCMCOM ---
CM Note CM Note Notes: Attended rounds, d/w RN, reviewed chart. Pt not doing well, family having difficult time w/poor prognosis, have not made decision to bring Hopsice on at this point. CM /f. Date Signed: 12/15/2016 03:01 PM Electronically Signed By:Maria Ines Smallwood RN
[2016-12-15] MEDS: LORazepam 2 MG/ML INJ IVP PRN ×3 (15:39→21:56)
--- NOTE | 2016-12-15 17:33 | HOSPPROG ---
Hospitalist Progress Note Assessment/Plan: 76 yo F with PMH of metastatic esophageal cancer pw increased edema and hypotension # hypotension/shock: presumed to be 2/2 sepsis possibly related to pna, initially on 2 pressors and treated empirically with vanc/cefepime. Patient now actively dying and we are pursuing more comfort measures at this point as below # acute hypoxic respiratory failure: worsening acutely today with bilateral infiltrates, likely pulmonary edema and possible pna--discontinued abx, she remains agonally breathing and likely to in the coming days. # a fib w/rvr: has been difficult to control, has been on dilt gtt, may dc depending on family goals # anemia: has required tx of 2 units of prbcs on 12/10, h/h have been trending down, given that she is likely dying will hold off on checking further labs or considering transfusion unless family requests otherwise # esophageal cancer/metastatic: patient with noted worsening esophageal obstruction, has been treated with FOLFOX and XRT, patient now appears to be actively dying as above and would not tolerate further tx # pressure injury: POA, continue to turn q2, wound care following # anasarca: 2/2 hypoalbuminemia, continue on albumin and lasix as tolerated pending family care plan decisions # hx of embolic CVA # nutrition: has been largely unable to take PO, started on TPN by oncology, repleting electrolytes as needed # DNR --patient actively dying, remains having a hard time accepting this, palliative involved, patient comfortable. Care plan reviewed with pulmonary on multidisciplinary team rounds. Subjective: no acute overnight events, patient remains non responsive, agonal breathing Objective: Vital Signs Temp Pulse Resp BP Pulse Ox 35.9 C L 121 H 15 90/66 L 98 12/15/16 08:00 12/15/16 12:00 12/15/16 12:00 12/15/16 12:00 12/15/16 12:00 Laboratory Results 12/15/16 05:40 12/15/16 05:40 12/14/16 12/15/16 12/16/16 05:59 05:59 05:59 Intake Total 2119.1 1481.8 Output Total 1275 750 Balance 844.1 731.8 PT 17.7 SEC (12.0-15.0) H 12/15/16 05:40 INR 1.46 (0.83-1.16) H 12/15/16 05:40 agonal breathing non responsive lying in bed anicteric coarse bs, diffuse rhonchi irreg irreg tachy diffuse edema soft dec bs ICD10 Worksheet Patient Problems: Problems Problem Status Onset Atrial fibrillation Acute Hypotension Acute Palliative care encounter Acute Sepsis Acute Atrial fibrillation with RVR Acute Back pain Acute Contusion of right chest wall Acute Gastrointestinal hemorrhage Acute Humerus fracture Acute Hypokalemia Acute Hypoxia Acute Nausea & vomiting Acute Pain provoked by trauma Acute Pain, neuropathic Acute
[2016-12-15] MEDS ORDERED: D5W NS 1,000 ML IV SCH (20:30)
[2016-12-16] MEDS: LORazepam 2 MG/ML INJ IVP PRN ×4 (05:34→21:17)
[2016-12-16] MEDS ORDERED: NS 500 ML IV ONE ×2 (07:00→08:00)
[2016-12-16] MEDS: ENOXAPARIN 40 MG/0.4 ML SYR SC SCH (09:44)
[2016-12-16] MEDS: FUROSEMIDE 20 MG/2 ML VIAL IVP SCH (09:45)
--- NOTE | 2016-12-16 11:19 | PDINTPN ---
Venue Manager Progress Note Assessment/Plan: Assessment: Respiratory failure. Associated with increased bilateral infiltrates, possible effusions, and pulmonary edema pattern. On oxygen, getting morphine. She is in the process of dying. Severe sepsis: Improved. Hypotension resolved. On Cefipime. No source identified. Possibly pulmonary as infiltrates present on admission but little clinically in the way signs or symptoms of pneumonia. Rapid atrial fibrillation contributing. Low albumin as well. AF with RVR Anemia Edema/anasarca Advance directives: DNR. Esophageal cancer. Status post stent. Status post chemotherapy and radiation. Prognosis: No chance of survival at this point. Near . Agonal. Her and her son at this point wish to go to comfort measures. Appreciate the care and time that Dr. Rubin is spent with the patient and her family. DVT prophylaxis: On enoxaparin. GI prophylaxis: On famotidine. Plan: Transition to comfort measures only per the wishes of the family at this time. All medications stopped except for morphine and Ativan. Glycopyrrolate added. Will keep her on low-flow oxygen and some IV fluids for now for comfort. Can transfer to medical-surgical status however will keep her in her current room at the present time. Subjective: Unresponsive Objective: Vital Signs Temp Pulse Resp BP Pulse Ox 36.9 C 131 H 18 82/47 L 96 12/16/16 05:00 12/16/16 08:00 12/16/16 08:00 12/16/16 08:00 12/16/16 08:00 Laboratory Results 12/15/16 05:40 12/15/16 05:40 12/15/16 12/16/16 12/17/16 05:59 05:59 05:59 Intake Total 1481.8 588 900 Output Total 750 70 50 Balance 731.8 518 850 PT 17.7 SEC (12.0-15.0) H 12/15/16 05:40 INR 1.46 (0.83-1.16) H 12/15/16 05:40 Physical Exam - Physical Exam General Appearance: no apparent distress, unresponsive, obese, other (Shallow, agonal respirations) EENT: other (Nasal cannula in place) Neck: normal inspection Respiratory: lungs clear (Anteriorly), decreased breath sounds Cardiac/Chest: tachycardia Abdomen: soft, No normal bowel sounds Rectal: other (Decreasing urine output) Skin: warm/dry Extremities: swelling Neuro/Psych: cognition abnormalities, No no motor/sensory deficits (Not moving this morning) ICD10 Worksheet Patient Problems: Problems Problem Status Onset Atrial fibrillation Acute Hypotension Acute Palliative care encounter Acute Sepsis Acute Atrial fibrillation with RVR Acute Back pain Acute Contusion of right chest wall Acute Gastrointestinal hemorrhage Acute Humerus fracture Acute Hypokalemia Acute Hypoxia Acute Nausea & vomiting Acute Pain provoked by trauma Acute Pain, neuropathic Acute
[2016-12-16] MEDS: GLYCOPYRROLATE 0.2 MG/1 ML VIAL IVP PRN ×2 (12:31→17:05)
--- NOTE | 2016-12-16 14:02 | HOSPPROG ---
Hospitalist Progress Note Assessment/Plan: 76 yo F with PMH of metastatic esophageal cancer pw increased edema and hypotension hypotension/shock: presumed to be 2/2 sepsis possibly related to pna, initially on 2 pressors and treated empirically with vanc/cefepime. Patient now actively dying and we are pursuing more comfort measures at this point as below now on comfort care. life expectancy hours Subjective: case d/w dwain alfred, kimberlyn. plan made for comfort care Objective: Vital Signs Temp Pulse Resp BP Pulse Ox 36.9 C 131 H 18 82/47 L 96 12/16/16 05:00 12/16/16 08:00 12/16/16 08:00 12/16/16 08:00 12/16/16 08:00 Laboratory Results 12/15/16 05:40 12/15/16 05:40 12/15/16 12/16/16 12/17/16 05:59 05:59 05:59 Intake Total 1481.8 588 900 Output Total 750 70 50 Balance 731.8 518 850 PT 17.7 SEC (12.0-15.0) H 12/15/16 05:40 INR 1.46 (0.83-1.16) H 12/15/16 05:40 - Physical Exam Constitutional: other (unrepsonsive w agonal respirations) Eyes: anicteric sclera Ears, Nose, Mouth, Throat: No moist mucous membranes Cardiovascular: regular rate and rhythym Respiratory: No no respiratory distress Gastrointestinal: normoactive bowel sounds Skin: warm Musculoskeletal: No full muscle strength Neurologic: No AAOx3 Psychiatric: No interacting appropriately ICD10 Worksheet Patient Problems: Problems Problem Status Onset Atrial fibrillation Acute Hypotension Acute Palliative care encounter Acute Sepsis Acute Atrial fibrillation with RVR Acute Back pain Acute Contusion of right chest wall Acute Gastrointestinal hemorrhage Acute Humerus fracture Acute Hypokalemia Acute Hypoxia Acute Nausea & vomiting Acute Pain provoked by trauma Acute Pain, neuropathic Acute
--- NOTE | 2016-12-16 14:02 | SOAPPROG ---
SOAP Progress Note Assessment/Plan: Assessment: 1) Metastatic esophageal cancer (single site of metastatic josey disease in upper abdomen) 2) Esophageal obstruction secondary to #1 (receiving palliative XRT, and s/p esophageal stent) 3) Rapid A-fib 4) Protein calorie malnutrition 5) Poor performance status 6) Declining respiratory status I was able to meet with Louann's this afternoon. I reviewed Louann's course from an Oncology standpoint. I explained to him that her cancer has never been curable, and that all of her treatment has palliative up to his point. In light of her current condition, and underlying diagnosis, I agree with comfort care. He is accepting of this, and has transitioned his to comfort care measures only. He had multiple Oncology specific questions, which I answered. Subjective: Continues to do poorly. Is now on comfort care. Case d/w Dr. Burns Objective: Vital Signs Temp Pulse Resp BP Pulse Ox 36.9 C 131 H 18 82/47 L 96 12/16/16 05:00 12/16/16 08:00 12/16/16 08:00 12/16/16 08:00 12/16/16 08:00 Laboratory Results 12/15/16 05:40 12/15/16 05:40 12/15/16 12/16/16 12/17/16 05:59 05:59 05:59 Intake Total 1481.8 588 900 Output Total 750 70 50 Balance 731.8 518 850 PT 17.7 SEC (12.0-15.0) H 12/15/16 05:40 INR 1.46 (0.83-1.16) H 12/15/16 05:40 - Time Spent With Patient Time Spent With Patient: 20 minutes ICD10 Worksheet Patient Problems: Problems Problem Status Onset Atrial fibrillation Acute Hypotension Acute Palliative care encounter Acute Sepsis Acute Atrial fibrillation with RVR Acute Back pain Acute Contusion of right chest wall Acute Gastrointestinal hemorrhage Acute Humerus fracture Acute Hypokalemia Acute Hypoxia Acute Nausea & vomiting Acute Pain provoked by trauma Acute Pain, neuropathic Acute
--- NOTE | 2016-12-16 14:27 | ASMTCMCOM ---
CM Note CM Note Notes: Reviewed chart, family wish to move to comfort care per progress notes. Spiritual care has checked in w/family. CM available if needed. Date Signed: 12/16/2016 02:26 PM Electronically Signed By:Maria Ines Smallwood RN
[2016-12-16 19:33] VITALS: BP 66/45; PULSE 145; RESP 26; TEMP 97.4; O2SAT 88
--- NOTE | 2016-12-17 15:51 | ASDISCHSUM ---
Discharge Information Plan Status: Medically Cleared to Leave: Discharge Date:12/17/2016 12:15 AM CM D/C Disposition: ADT D/C Disposition: Projected Discharge Date:12/17/2016 12:15 AM Transportation at D/C:None or Unknown Discharge Delay Reason: Follow-Up Date:12/17/2016 12:15 AM Discharge Slot: Final Diagnosis: Placement Information Patient Contact Information Contact Name:LINDSAY Relationship: Address:[address] [place] [address] City:[place] Alternate Phone: State/Zip Code:[place] [address] Email: Financial Information Financial Class:Medicare Advantage Plans Primary Plan Desc:[facility] [facility] [employer] COMPLETE Primary Plan Number:[id number] Secondary Plan Desc: Secondary Plan Number: Assessment Information [facility] Initial CM Assessment Living Arrangements What is your living Answers: With Spouse arrangement? Who do you live with? Type Of Residence What kind of residence do Answers: House you live in? Discharge Plan Comments Coordination Status Comments Notes: Patient is a 76 yo woman with a hx of esophageal cancer who presents to the ED with weakness and increasing lower extremity edema. She was admitted for hypotension, sepsis, and afib. Patient lives with her Landen in a house in [place]. She had not been eating or taking her medication at home and has pressure sores on her bottom. [facility] called to say they are working with her and would appreciate notice when patient d/c'es so they can resume services.(Regi @ [phone]) PT/OT/SPL have been ordered. Awaiting therapies to d/t d/c plan. CM will follow. Date Signed: 12/07/2016 11:16 AM Electronically Signed By:Swetha Paul LCSW [facility] CM Progress Note CM Note CM Note Notes: Therapies are recommending SNF Rehab. Hospitalist spoke to patient re: Palliative consult. Case Management to follow the Palliative report for future needs. Date Signed: 12/11/2016 04:17 PM Electronically Signed By:Mee Perea LCSW [facility] CM Progress Note CM Note CM Note Notes: Patient and very discouraged about patient's hospital course. Today, hospitalist, it support analyst, cardiology, and oncology met with patient and to address their concerns and their request to tranfer to [facility]. Patient has worsening esophogeal cancer, and it is unclear if treatments have been effective. Patient and want to pursue treatment options but did opt to become DNR today. Although PT/OT have recommended SNF, CM discharge plan is TBD at this point. I will offer family meeting tomorrow and address any discharge planning questions if they arise. Date Signed: 12/12/2016 03:44 PM Electronically Signed By:Belén Lyn RN [facility] CM Progress Note CM Note CM Note Notes: Since yesterday, patient has shown rapid decline. Dr Burns spoke with family about futility of life and recommendation to pursue comfort measures only; family requested time away from hospital to think about this. Dolly Pusher also offered support to family this morning. CM available to help with any needs. Date Signed: 12/14/2016 02:26 PM Electronically Signed By:Belén Lyn RN [facility] Progress Note CM Note CM Note Notes: Attended rounds, d/w RN, reviewed chart. Pt not doing well, family having difficult time w/poor prognosis, have not made decision to bring Hopsice on at this point. CM /f. Date Signed: 12/15/2016 03:01 PM Electronically Signed By:Maria Ines Smallwood RN [facility] CM Progress Note CM Note CM Note Notes: Reviewed chart, family wish to move to comfort care per progress notes. Spiritual care has checked in w/family. CM available if needed. Date Signed: 12/16/2016 02:26 PM Electronically Signed By:Maria Ines Smallwood RN Intervention Information Intervention Type:*Incorrect Registration Date of Service:12/07/2016 07:46 AM Patient Type:Inpatient Staff Member:TEODORA Camacho, Dayana Hours: Discipline: Severity: Comment:
--- NOTE | 2016-12-21 05:27 | GDS ---
[f rep st] DISCHARGE SUMMARY DISCHARGE DIAGNOSES: 1. Metastatic esophageal cancer. 2. Atrial fibrillations. 3. Sepsis. 4. Cardiac arrest. Please see admission history and physical by Dr. Rosy Philippe. The patient presented on the evening of the 12th weakness, increasing lower extremity edema. She was hypertensive on arrival. She was treated for pneumonia. She had a prolonged hospital stay. Ultima tely, we decided the plan toward comfort care. Comfort care orders were written. The patient several hours later. /[id number]/MODL
== END 2016-12-17 00:15 | disposition expired | DRG 871 ==
LOC: OBSVTOIN 17:30 → F2N 19:07
PROVIDERS: ADMIT Hospitalist; ATTEND Hospitalist
PROC: 02HV33Z Insertion of Infusion Device into Superior Vena Cava, Percutaneous Approach (ICD-10-PCS; principal; 2016-12-06)
PROC: 30233N1 Transfusion of Nonautologous Red Blood Cells into Peripheral Vein, Percutaneous Approach (ICD-10-PCS; 2016-12-07)
DX: A41.9 Sepsis, unspecified organism (principal); R65.21 Severe sepsis with septic shock; J18.9 Pneumonia, unspecified organism; J96.01 Acute respiratory failure with hypoxia; C15.9 Malignant neoplasm of esophagus, unspecified; C77.8 Secondary and unspecified malignant neoplasm of lymph nodes of multiple regions; I11.0 Hypertensive heart disease with heart failure; I50.32 Chronic diastolic (congestive) heart failure; L89.153 Pressure ulcer of sacral region, stage 3; I48.0 Paroxysmal atrial fibrillation; Z85.3 Personal history of malignant neoplasm of breast; K21.9 Gastro-esophageal reflux disease without esophagitis; R73.03 Prediabetes; E87.1 Hypo-osmolality and hyponatremia; E87.6 Hypokalemia; E46 Unspecified protein-calorie malnutrition; D53.9 Nutritional anemia, unspecified; I69.998 Other sequelae following unspecified cerebrovascular disease; Z51.5 Encounter for palliative care; Z66 Do not resuscitate
CPT/HCPCS: 82607-90; 92526-GN; 92610-GN; 96365; 97163-GP; 97167-GO; 97530-GO; 97530-GP; 97535-GO; G8978-GP-CL; G8979-GP-CK; G8987-GO-CM; G8988-GO-CK; G8996-GN-CJ; G8996-GN-CK; G8997-GN-CJ; G8998-GN-CJ; J0282; J0692; J0696; J1170; J1250; J1650; J1940; J1956; J2060; J2185; J2405; J3370; J3475; P9016; P9047